=== PATIENT | female | born 1965 | race Caucasian/White ===

== ENCOUNTER 2020-02-22 14:28 | Outpatient (REF) | payer OTHER, SELFPAY ==
--- NOTE | 2020-02-22 | MM_ITS ---
EXAMINATION: MM SCREENING DIGITAL BREAST TOMOSYNTHESIS, BILATERAL CLINICAL INFORMATION: Screening. Asymptomatic. Family history breast cancer in sister. The lifetime risk of breast cancer based on the Tyrer-Cuzick Model is 21%. COMPARISON: Mammography: 07/28/2018; outside mammography 11/29/2015, 11/16/2015, 10/15/2014 ([facility]). TECHNIQUE: Digital breast tomosynthesis is performed in both the craniocaudal and mediolateral oblique views along with computer-aided detection (CAD). Synthesized 2D images are generated from the tomosynthesis. FINDINGS: There are scattered areas of fibroglandular density (ACR BI-RADS breast composition Category b). There are no significant masses, abnormal calcifications, or other abnormalities. Parenchymal pattern is similar to prior exams. No developing density. IMPRESSION: No significant changes from prior studies. ASSESSMENT: BI-RADS 1: Negative RECOMMENDATION: 1. Routine annual mammography screening. 2. The risk of breast cancer based on the Tyrer-Cuzick Model is 21%. Additional annual screening with breast MRI may be of benefit in women with a risk score of 20% or greater. This patient's information was entered into a reminder system with a target due date for their next mammogram.
== END 2020-02-22 14:29 | disposition home or self-care (01) ==
LOC: HO.MAMMO 14:28
PROVIDERS: PCP Family Medicine; Visit Provider Obstetrics & Gynecology
DX: Z12.31 Encounter for screening mammogram for malignant neoplasm of breast (principal)
CPT/HCPCS: 77063; 77067

== ENCOUNTER 2020-04-05 07:35 | Outpatient (REF) | payer OTHER, SELFPAY ==
[2020-04-05 11:13] LABS: MANUAL DIFF FLAG NO
[2020-04-05 11:17] LABS: Basophils Percent Auto 0.6 % (0-2); Eosinophils Absolute Auto 0.1 X10*3/uL (0.0-0.4); Eosinophils Percent Auto 2.1 % (0-4); Hemoglobin 12.4 g/dl (12.0-16.0); Imm Gran Abs Auto 0.01 X10*3/uL (0.00-0.03); Imm Gran Pct Auto 0.2 % (0.0-0.4); Lymphocytes Absolute Auto 1.2 X10*3/uL (1.2-4.9); Lymphocytes Percent Auto 23.1 % (20-40); Mean Corpuscular HGB Conc 32.6 g/dl (31.0-35.0); Mean Corpuscular Hemoglobin 30.4 pg (27.0-33.0); Mean Corpuscular Volume 93.1 fL (80-98); Mean Platelet Volume 10.6 fL (9.4-12.3); Monocytes Absolute Auto 0.4 X10*3/uL (0.1-1.2); Monocytes Percent Auto 7.5 % (2-11); Neutrophils Absolute Auto 3.6 X10*3/uL (2.0-8.3); Neutrophils Percent Auto 66.5 % (45-73); Platelet Count 349 X10*3/uL (160-400); Red Blood Count 4.08 X10*6/uL (4.20-5.50); Red Cell Distribution Width 11.9 % (11.0-16.0); White Blood Count 5.3 X10*3/uL (4.8-10.8)
[2020-04-05 11:47] LABS: Alanine Aminotransferase 20 U/L (0-31); Albumin Level 4.4 g/dL (3.5-5.0); Alkaline Phosphatase 66 U/L (39-117); Anion Gap 16 (12-20); Aspartate Amino Transferase 20 U/L (5-31); Bilirubin Total 0.3 mg/dL (0.0-1.0); Blood Urea Nitrogen 16 mg/dL (9-16); Calcium 9.6 mg/dL (8.4-10.2); Carbon Dioxide 25 mmol/L (22-29); Chloride 100 mmol/L (96-108); Estimated Glomerular Filt Rate > 60; Glucose Random 96 mg/dL (60-115); Potassium 4.5 mmol/l (3.3-5.1); Sodium 136 mmol/L (135-145); Total Protein 7.2 g/dL (6.5-8.0)
[2020-04-05 11:54] LABS: Free T4 (Free Thyroxine) 0.83 ng/dL (0.71-1.85); Thyroid Stimulating Hormone 1.09 uIU/mL (0.32-4.0)
[2020-04-05 12:21] LABS: SARS COV2 IgG Negative (Negative)
[2020-04-08 13:41] LABS: Anti Nuclear Antibody Screen POSITIVE (NEGATIVE)
== END 2020-04-05 07:36 | disposition home or self-care (01) ==
LOC: HO.HMGCLDS 07:35
PROVIDERS: PCP Family Medicine; Visit Provider Nurse Practitioner Family
DX: D89.40 Mast cell activation, unspecified (principal); R09.81 Nasal congestion; M25.50 Pain in unspecified joint; R51.9 Headache, unspecified; R53.83 Other fatigue; Z20.828 Contact with and (suspected) exposure to other viral communicable diseases
CPT/HCPCS: 36415; 80053; 83520; 84439; 84443; 85025; 86038; 86039; 86769

== ENCOUNTER 2020-04-19 12:18 | Outpatient (REF) | payer OTHER, SELFPAY ==
[2020-04-19 13:27] LABS: MANUAL DIFF FLAG NO
[2020-04-19 13:30] LABS: Basophils Percent Auto 0.5 % (0-2); Eosinophils Absolute Auto 0.1 X10*3/uL (0.0-0.4); Eosinophils Percent Auto 1.7 % (0-4); Hematocrit 38.7 % (37-47); Hemoglobin 12.6 g/dl (12.0-16.0); Imm Gran Abs Auto 0.03 X10*3/uL (0.00-0.03); Imm Gran Pct Auto 0.4 % (0.0-0.4); Lymphocytes Absolute Auto 1.7 X10*3/uL (1.2-4.9); Lymphocytes Percent Auto 20.8 % (20-40); Mean Corpuscular HGB Conc 32.6 g/dl (31.0-35.0); Mean Corpuscular Hemoglobin 30.4 pg (27.0-33.0); Mean Corpuscular Volume 93.5 fL (80-98); Mean Platelet Volume 10.2 fL (9.4-12.3); Monocytes Absolute Auto 0.5 X10*3/uL (0.1-1.2); Monocytes Percent Auto 5.5 % (2-11); Neutrophils Absolute Auto 5.9 X10*3/uL (2.0-8.3); Neutrophils Percent Auto 71.1 % (45-73); Platelet Count 361 X10*3/uL (160-400); Red Blood Count 4.14 X10*6/uL (4.20-5.50); White Blood Count 8.3 X10*3/uL (4.8-10.8)
[2020-04-19 14:03] LABS: Alanine Aminotransferase 19 U/L (0-31); Albumin Level 4.7 g/dL (3.5-5.0); Alkaline Phosphatase 75 U/L (39-117); Anion Gap 12 (12-20); Aspartate Amino Transferase 22 U/L (5-31); Bilirubin Total 0.2 mg/dL (0.0-1.0); Blood Urea Nitrogen 14 mg/dL (9-16); C Reactive Protein 0.12 mg/dL (< or = 0.50); Calcium 9.7 mg/dL (8.4-10.2); Carbon Dioxide 28 mmol/L (22-29); Chloride 103 mmol/L (96-108); Estimated Glomerular Filt Rate > 60; Glucose Random 129 mg/dL (60-115); Potassium 4.2 mmol/l (3.3-5.1); Rheumatoid Factor < 15.0 IU/mL (<15.0); Sodium 139 mmol/L (135-145); Total Protein 7.5 g/dL (6.5-8.0)
[2020-04-19 14:18] LABS: Glucose Urine UA NEG (NEG); Leukocyte Esterase Urine NEG (NEG); Nitrite Urine NEG (NEG); Urine Blood NEG (NEG); Urine Ketones NEG (NEG); Urine Protein NEG (NEG-TRACE)
[2020-04-19 14:19] LABS: Appearance Urine CLEAR; Color Urine YELLOW
[2020-04-19 14:24] LABS: Erythrocyte Sedimentation Rate 11 MM/HR (0-20)
[2020-04-19 14:30] LABS: RBC Urine 0 /HPF (0); WBC Urine 0 /HPF (0-4)
--- NOTE | 2020-04-19 16:08 | XR_ITS ---
EXAMINATION: BILATERAL HAND X-RAY CLINICAL INFORMATION: Other specified abnormal immunological findings in serum COMPARISON: Left wrist x-ray January 2017 TECHNIQUE: 3 views of each hand FINDINGS: Right: Bone alignment is normal. No acute fracture or dislocation is seen. There is an old ulnar styloid fracture versus ununited accessory ossification center. There is mild arthritis at the first USP joint with joint space narrowing and osteophyte formation. No erosions are seen. Joint spaces are otherwise normal. Soft tissues are normal. Left: Bone alignment is normal. No fracture or dislocation is seen. There is mild arthritis at the first USP joint with joint space narrowing and osteophyte formation. No erosions are seen. Joint spaces are otherwise normal. Soft tissues are normal. 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
--- NOTE | 2020-04-19 16:08 | XR_ITS ---
EXAMINATION: BILATERAL FOOT X-RAY CLINICAL INFORMATION: Other specified abnormal immunological findings in serum COMPARISON: Previous right ankle x-ray January 2014 TECHNIQUE: 3 views of each foot FINDINGS: Left: Bone alignment is normal. No fracture or dislocation is seen. There is arthritis at the first MTP joint with joint space narrowing and osteophyte formation. No erosions are seen. Joint spaces are otherwise normal. Soft tissues are normal. Right: Bone alignment is normal. No fracture or dislocation is seen. There is arthritis at the first MTP joint with joint space narrowing and osteophyte formation. No erosions are seen. Joint spaces are otherwise normal. Soft tissues are normal. XR/XR foot RT 2V IMPRESSION: Arthritis at the first MTP joints.
--- NOTE | 2020-04-19 16:08 | XR_ITS ---
EXAMINATION: BILATERAL FOOT X-RAY CLINICAL INFORMATION: Other specified abnormal immunological findings in serum COMPARISON: Previous right ankle x-ray January 2014 TECHNIQUE: 3 views of each foot FINDINGS: Left: Bone alignment is normal. No fracture or dislocation is seen. There is arthritis at the first MTP joint with joint space narrowing and osteophyte formation. No erosions are seen. Joint spaces are otherwise normal. Soft tissues are normal. Right: Bone alignment is normal. No fracture or dislocation is seen. There is arthritis at the first MTP joint with joint space narrowing and osteophyte formation. No erosions are seen. Joint spaces are otherwise normal. Soft tissues are normal. XR/XR foot LT 2V IMPRESSION: Arthritis at the first MTP joints.
--- NOTE | 2020-04-19 16:08 | XR_ITS ---
EXAMINATION: BILATERAL HAND X-RAY CLINICAL INFORMATION: Other specified abnormal immunological findings in serum COMPARISON: Left wrist x-ray January 2017 TECHNIQUE: 3 views of each hand FINDINGS: Right: Bone alignment is normal. No acute fracture or dislocation is seen. There is an old ulnar styloid fracture versus ununited accessory ossification center. There is mild arthritis at the first JAIL joint with joint space narrowing and osteophyte formation. No erosions are seen. Joint spaces are otherwise normal. Soft tissues are normal. Left: Bone alignment is normal. No fracture or dislocation is seen. There is mild arthritis at the first JAIL joint with joint space narrowing and osteophyte formation. No erosions are seen. Joint spaces are otherwise normal. Soft tissues are normal. XR/XR hand LT min 3V IMPRESSION: Mild bilateral arthritis at the first JAIL joints.
[2020-04-21 12:03] LABS: Cyclic Citrullinated Peptide <16 UNITS
[2020-04-21 13:38] LABS: Anti DNA DS Antibody 1 IU/mL; Antibody to SS-A Antigen <1.0 NEG AI (<1.0 NEG); Antibody to SS-B Antigen <1.0 NEG AI (<1.0 NEG); SM/Ribonucleoprotein Ab <1.0 NEG AI (<1.0 NEG); Smith Protein <1.0 NEG AI (<1.0 NEG)
[2020-04-21 22:37] LABS: Complement C3 136 mg/dL (83-193)
== END 2020-04-19 12:19 | disposition home or self-care (01) ==
LOC: HO.LAB 12:18
PROVIDERS: PCP Family Medicine; Visit Provider Student in an Organized Health Care Education/Training Program
DX: R76.8 Other specified abnormal immunological findings in serum (principal)
CPT/HCPCS: 36415; 73130; 73620; 80053; 81001; 85025; 85652; 86140; 86160; 86200; 86225; 86235; 86431

== ENCOUNTER 2020-05-03 08:07 | Outpatient (REF) | payer OTHER, SELFPAY ==
[2020-05-03 08:30] LABS: COVID-19 Test Negative (Negative); IDNOW Serial# 55D5AD1C
== END 2020-05-03 08:08 | disposition home or self-care (01) ==
LOC: HO.EMPCOV 08:07
PROVIDERS: PCP Family Medicine; Visit Provider Internal Medicine
DX: Z20.828 Contact with and (suspected) exposure to other viral communicable diseases (principal)
CPT/HCPCS: 87635; C9803

== ENCOUNTER → 2020-05-04 09:42 | Outpatient (BNVA) | payer OTHER, SELFPAY | PROVIDERS: Visit Provider Student in an Organized Health Care Education/Training Program | DX: Z13.89 Encounter for screening for other disorder (principal) ==

== ENCOUNTER → 2020-05-09 13:48 | Outpatient (BNVA) | payer OTHER, SELFPAY | PROVIDERS: PCP Family Medicine; Visit Provider Orthopaedic Surgery | DX: M65.4 Radial styloid tenosynovitis [de Quervain] (principal); M18.12 Unilateral primary osteoarthritis of first carpometacarpal joint, left hand | CPT/HCPCS: 20550 ==

== ENCOUNTER → 2020-05-31 13:25 | Outpatient (BNVA) | payer OTHER, SELFPAY | PROVIDERS: PCP Family Medicine; Visit Provider Orthopaedic Surgery | DX: M65.4 Radial styloid tenosynovitis [de Quervain] (principal); M18.12 Unilateral primary osteoarthritis of first carpometacarpal joint, left hand | CPT/HCPCS: 20600; J1020 ==

== ENCOUNTER 2020-07-18 20:20 | Emergency (ER) | payer OTHER, SELFPAY ==
--- NOTE | ~2020-07-18 | XR_ITS ---
EXAMINATION: XR CHEST CLINICAL INFORMATION: Chest pain COMPARISON: None TECHNIQUE: 2 views of the chest were obtained. FINDINGS: No significant abnormality is noted involving the heart, lungs, mediastinum, bony thorax or soft tissues. XR/XR chest 2V IMPRESSION: Unremarkable examination.
[2020-07-18 20:27] VITALS: BP 188/67; PULSE 101; RESP 18; O2SAT 100; BMI 28.4
[2020-07-18] MEDS: Aspirin 81 MG TAB.CHEW 324 MG PO (21:16)
--- NOTE | 2020-07-18 21:17 | PC.NURSE ---
pt stated she is ok to take baby asa despite the allergy listed.
--- NOTE | 2020-07-18 21:23 | ED.GENADULT ---
HPI - General Adult General Chief complaint: General Medical Stated complaint: CHEST PAIN? Time Seen by Provider: 07/18/20 20:31 Source: patient Mode of arrival: ambulatory Limitations: no limitations History of Present Illness HPI narrative: 54 yo female with past medical history of hypertension, mast cell activation syndrome here with complaints of chest fullness and indigestion x 48 hrs (intermittent) which does not change with position changes or activity. Associated with fullness, no nausea, vomiting, diarrhea or abdominal pain. Occasionally takes my breath per patient. Since last night pain now in right side of neck into right shoulder and down arm which feels deep and not worsened with movement or activity. Took flexeril and advil at home with continued symptoms. No leg pain, swelling, recent travel or sick contact Related Data Home Medications Medication Instructions Recorded Confirmed atenolol 25 mg tablet 25 mg PO DAILY 04/19/20 05/04/20 cetirizine 10 mg tablet 10 mg PO DAILY 04/19/20 05/04/20 cromolyn 20 mg/2 mL solution for 2 ml INHALATION QID 04/19/20 05/04/20 nebulization gabapentin 300 mg capsule 300 mg PO BID 04/19/20 05/04/20 ibuprofen 800 mg tablet 800 mg PO TID 04/19/20 05/04/20 multivitamin 1 tab PO DAILY 04/19/20 05/04/20 fluticasone propionate 50 1 spray INTRANASAL DAILY 05/04/20 05/04/20 mcg/actuation nasal spray,suspension Allergies Allergy/AdvReac Type Severity Reaction Status Date / Time aspirin [ASPIRIN] Allergy Intermediate ITCHING Verified 07/18/20 20:27 codeine [CODEINE] Allergy Intermediate RASH, HIVES Verified 07/18/20 20:27 adhesive tape [Adhesive Tape] Allergy Mild BLISTERS Verified 07/18/20 20:27 morphine [MORPHINE] Allergy Mild HIVES Verified 07/18/20 20:27 oxycodone [OXYCODONE] Allergy Mild HIVES Verified 07/18/20 20:27 percocet Allergy Intermediate hives Uncoded 07/18/20 20:27 Review of Systems Review of Systems: Yes all other systems are reviewed and are negative Constitutional: Constitutional: Reports no additional constitutional complaints, Denies body ache(s), Denies chills, Denies fever(s), Denies headache(s) and Denies weakness Eyes: Eyes: Reports no additional eye complaints and Denies change in vision ENT: Reports system reviewed and no additional complaints, except as documented, Denies dizziness, Denies headache(s), Denies nasal congestion, Denies nasal discharge and Reports neck pain Cardiovascular: Cardiovascular: Reports no additional cardiovascular complaints, Reports chest pain, Denies leg edema and Reports dyspnea Respiratory: Respiratory: Reports no additional respiratory complaints, Denies cough and Reports dyspnea Gastrointestinal: Gastrointestinal: Reports no additional gastrointestinal complaints, Denies abdominal pain, Denies diarrhea, Denies nausea and Denies vomiting Genitourinary: Genitourinary: Reports no additional female genitourinary complaints and Denies urinary incontinence Musculoskeletal: Musculoskeletal: Reports no additional musculoskeletal complaints, Denies back pain, Denies arthralgias, Denies joint swelling, Reports neck pain, Denies numbness, Reports radiating pain into limb and Denies tingling Integumentary/Breasts: Skin/Breast: Reports system reviewed and no additional complaints, except as docu and Denies rash Neurologic: Reports system reviewed and no additional complaints, except as documented, Denies Abnormal speech present, Denies dizziness, Denies headache(s), Denies numbness, Denies tingling and Denies weakness PMFSH Past Medical History Attestation statement: The following information was validated with the patient. 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 Physical Exam Vital Signs: Vital Signs: Last Vital Signs Pulse 76 07/19/20 00:09 Resp 16 07/19/20 00:09 BP 153/47 H 07/19/20 00:09 Pulse Ox 99 07/19/20 00:09 Body Mass Index 28.4 Const: General: cooperative, healthy appearing, comfortable and no acute distress Orientation/consciousness: patient oriented x3 Limitations: no limitations HENMT: Head: Yes normal to inspection Ears: hearing grossly normal bilaterally General nose exam: Normal external nose present Face and sinus: Yes normal facial exam Mouth: Normal oral and palatal mucosa present Throat: Yes posterior oropharynx normal Eyes: General: appearance normal, both eyes and all related structures Pupils: Equal, round and reactive pupils present Neck: Neck: Yes normal visual inspection Chest: Chest palpation & inspection: normal inspection of the chest Resp: Effort & Inspection: normal respiratory effort Auscultation: clear to auscultation bilaterally Cardio: Rate: regular rate Rhythm: regular rhythm Peripheral pulses: Peripheral pulses 2+ throughout GI: Inspection: Yes normal to inspection Palpation (GI): Soft to palpation and nontender Auscultation: normal bowel sounds Back/Spine/Pelvis: Thoracic/Lumbar Spine: thoracic and lumbar spine normal to inspection Skin: General skin exam: no rashes or lesions noted Neuro: General: patient oriented x3, no focal motor deficits and normal sensation to monofilament Cranial nerves: Yes Equal, round and reactive pupils present Cognition (Neuro): normal cognition Speech: No Abnormal speech present Gait exam (Neuro): Normal gait present Motor exam (neuro): 5/5 motor strength present throughout Extrem: General: Yes normal to inspection, Yes no pedal edema and Yes no calf tenderness Course Course Course Narrative: 54-year-old female here with chest discomfort, shoulder and neck discomfort x2 days. Will need labs, EKG, chest x-ray 0030-EKG x2 unchanged. Labs including troponin and D-dimer negative. Chest x-ray unremarkable. With atypical symptoms greater than 48 hours less likely ACS. Reviewed findings with the patient. Recommended follow-up with her primary care doctor for her mildly elevated blood pressure and possible Cardiology. Reviewed worrisome signs and symptoms and when to return to the emergency department. Comfortable discharge home. Medical Decision Making MDM Narrative Medical decision making narrative: ACS, GERD, gastritis, PE, pneumonia Less likely ACS with atypical chest pain. 48 hours with negative troponin and no ischemic changes on the EKG. Less likely PE with negative D-dimer and no hypoxia or tachycardia or clinical signs and symptoms of DVT Medical Records Medical records reviewed: Yes I reviewed the patient's medical records. Lab Data Lab results reviewed: Yes I reviewed the patient's lab results. Result diagrams: 07/18/20 22:15 07/18/20 22:15 Labs: Lab Results 07/18/20 07/18/20 07/18/20 Range/Units 22:15 22:15 22:15 WBC 7.6 (4.8-10.8) X10*3/uL RBC 4.05 L (4.20-5.50) X10*6/uL Hgb 12.2 (12.0-16.0) g/dl Hct 37.1 (37-47) % MCV 91.6 (80-98) fL MCH 30.1 (27.0-33.0) pg MCHC 32.9 (31.0-35.0) g/dl RDW 11.9 (11.0-16.0) % Plt Count 287 (160-400) X10*3/uL MPV 10.7 (9.4-12.3) fL Immature Gran % (Auto) 0.3 (0.0-0.4) % Neut % (Auto) 63.7 (45-73) % Lymph % (Auto) 25.9 (20-40) % [place] % (Auto) 7.2 (2-11) % Eos % (Auto) 2.5 (0-4) % Baso % (Auto) 0.4 (0-2) % Lymph # (Auto) 2.0 (1.2-4.9) X10*3/uL [place] # (Auto) 0.6 (0.1-1.2) X10*3/uL Eos # (Auto) 0.2 (0.0-0.4) X10*3/uL Baso # (Auto) 0.0 (0.0-0.2) X10*3/uL Abs Immat Gran (auto) 0.02 (0.00-0.03) X10*3/uL Absolute Neuts (auto) 4.9 (2.0-8.3) X10*3/uL Absolute Nucleated RBC 0.000 (0.0-0.012) X10*3/uL Nucleated RBC % (auto) 0.0 (0.0-0.2) /100WBC PT 10.8 (10.8-13.0) SEC INR 0.9 (0.9-1.1) D-Dimer < 200 NG/ML Sodium 142 (135-145) mmol/L Potassium 4.0 (3.3-5.1) mmol/L Chloride 104 (96-108) mmol/L Carbon Dioxide 28 (22-29) mmol/L Anion Gap 14 (12-20) BUN 18 H (9-16) mg/dL Creatinine 0.88 (0.5-1.4) mg/dL Estim Creat Clear Calc 71.7 Estimated GFR > 60 Random Glucose 114 (60-115) mg/dL Calcium 9.4 (8.4-10.2) mg/dL Magnesium 1.9 (1.6-2.6) mg/dL Total Bilirubin < 0.2 (0.0-1.0) mg/dL Direct Bilirubin < 0.2 (0.0-0.5) mg/dL AST 19 (5-31) U/L ALT 21 (0-31) U/L Alkaline Phosphatase 70 (39-117) U/L Troponin I High Sens (<3.5-17.0) ng/L Total Protein 7.0 (6.5-8.0) g/dL Albumin 4.3 (3.5-5.0) g/dL COVID-19 ([facility]) (Negative) COVID-19 Clin Com 07/18/20 07/18/20 Range/Units 22:15 22:15 WBC (4.8-10.8) X10*3/uL RBC (4.20-5.50) X10*6/uL Hgb (12.0-16.0) g/dl Hct (37-47) % MCV (80-98) fL MCH (27.0-33.0) pg MCHC (31.0-35.0) g/dl RDW (11.0-16.0) % Plt Count (160-400) X10*3/uL MPV (9.4-12.3) fL Immature Gran % (Auto) (0.0-0.4) % Neut % (Auto) (45-73) % Lymph % (Auto) (20-40) % [place] % (Auto) (2-11) % Eos % (Auto) (0-4) % Baso % (Auto) (0-2) % Lymph # (Auto) (1.2-4.9) X10*3/uL [place] # (Auto) (0.1-1.2) X10*3/uL Eos # (Auto) (0.0-0.4) X10*3/uL Baso # (Auto) (0.0-0.2) X10*3/uL Abs Immat Gran (auto) (0.00-0.03) X10*3/uL Absolute Neuts (auto) (2.0-8.3) X10*3/uL Absolute Nucleated RBC (0.0-0.012) X10*3/uL Nucleated RBC % (auto) (0.0-0.2) /100WBC PT (10.8-13.0) SEC INR (0.9-1.1) D-Dimer NG/ML Sodium (135-145) mmol/L Potassium (3.3-5.1) mmol/L Chloride (96-108) mmol/L Carbon Dioxide (22-29) mmol/L Anion Gap (12-20) BUN (9-16) mg/dL Creatinine (0.5-1.4) mg/dL Estim Creat Clear Calc Estimated GFR Random Glucose (60-115) mg/dL Calcium (8.4-10.2) mg/dL Magnesium (1.6-2.6) mg/dL Total Bilirubin (0.0-1.0) mg/dL Direct Bilirubin (0.0-0.5) mg/dL AST (5-31) U/L ALT (0-31) U/L Alkaline Phosphatase (39-117) U/L Troponin I High Sens < 3.5 (<3.5-17.0) ng/L Total Protein (6.5-8.0) g/dL Albumin (3.5-5.0) g/dL COVID-19 ([facility]) Negative (Negative) COVID-19 Clin Com See Note Imaging Data Chest x-ray: Attestation: I personally reviewed and interpreted this imaging study as follows: Radiologist's impression: EXAMINATION: XR CHEST CLINICAL INFORMATION: Chest pain COMPARISON: None TECHNIQUE: 2 views of the chest were obtained. FINDINGS: No significant abnormality is noted involving the heart, lungs, mediastinum, bony thorax or soft tissues. XR/XR chest 2V IMPRESSION: Unremarkable examination. ECG Data Attestation: I personally reviewed and interpreted this ECG as follows: Interpretation: 2022-SR with short OR, non specific st changes, normal qrs, normal qtc Repeat 0000 shows sr with short pr with rate 72, normal qrs, normal qtc Discharge Plan Discharge Clinical Impression: Atypical chest pain Patient Disposition: Home, Self-Care Instructions: Chest Pain (ED) Additional Instructions: Your blood work, EKG and chest x-ray all looked unremarkable today. Your blood pressure was mildly elevated and you can monitor this at home and follow-up with her primary care doctor for medication changes as needed. I have given you a referral for Cardiology and you can follow-up with them. Prescriptions: No Action gabapentin 300 mg capsule 300 mg PO BID RF: 0 ibuprofen 800 mg tablet 800 mg PO TID RF: 0 cromolyn 20 mg/2 mL solution for nebulization 2 ml inhalation QID RF: 0 atenolol 25 mg tablet 25 mg PO DAILY RF: 0 cetirizine [Zyrtec] 10 mg tablet 10 mg PO DAILY RF: 0 multivitamin Tablet 1 tab PO DAILY RF: 0 fluticasone propionate 50 mcg/actuation spray,suspension 1 spray intranasal DAILY RF: 0 Referrals: Abner Pratt MD [Physician] - 2 days Interventions: ED Discharge Assessment Last Done: 07/19/20 00:54 Discharge Date/Time: 07/19/20 00:54
--- NOTE | 2020-07-18 22:24 | PC.NURSE ---
labs drawn, covid swab performed
[2020-07-18 22:28] LABS: MANUAL DIFF FLAG NO
[2020-07-18 22:41] LABS: Basophils Percent Auto 0.4 % (0-2); COVID-19 Test Negative (Negative); Eosinophils Absolute Auto 0.2 X10*3/uL (0.0-0.4); Eosinophils Percent Auto 2.5 % (0-4); Hematocrit 37.1 % (37-47); Hemoglobin 12.2 g/dl (12.0-16.0); Imm Gran Abs Auto 0.02 X10*3/uL (0.00-0.03); Imm Gran Pct Auto 0.3 % (0.0-0.4); Lymphocytes Percent Auto 25.9 % (20-40); Mean Corpuscular HGB Conc 32.9 g/dl (31.0-35.0); Mean Corpuscular Hemoglobin 30.1 pg (27.0-33.0); Mean Corpuscular Volume 91.6 fL (80-98); Mean Platelet Volume 10.7 fL (9.4-12.3); Monocytes Absolute Auto 0.6 X10*3/uL (0.1-1.2); Monocytes Percent Auto 7.2 % (2-11); Neutrophils Absolute Auto 4.9 X10*3/uL (2.0-8.3); Neutrophils Percent Auto 63.7 % (45-73); Platelet Count 287 X10*3/uL (160-400); Red Blood Count 4.05 X10*6/uL (4.20-5.50); Red Cell Distribution Width 11.9 % (11.0-16.0); White Blood Count 7.6 X10*3/uL (4.8-10.8)
[2020-07-18 22:51] LABS: Troponin-I High Sensitivity < 3.5 ng/L (<3.5-17.0)
[2020-07-18 22:52] LABS: Alanine Aminotransferase 21 U/L (0-31); Albumin Level 4.3 g/dL (3.5-5.0); Alkaline Phosphatase 70 U/L (39-117); Anion Gap 14 (12-20); Aspartate Amino Transferase 19 U/L (5-31); Bilirubin Direct < 0.2 mg/dL (0.0-0.5); Bilirubin Total < 0.2 mg/dL (0.0-1.0); Blood Urea Nitrogen 18 mg/dL (9-16); Calcium 9.4 mg/dL (8.4-10.2); Carbon Dioxide 28 mmol/L (22-29); Chloride 104 mmol/L (96-108); Creatinine Clr Calc Pharmacy 71.7; Estimated Glomerular Filt Rate > 60; Glucose Random 114 mg/dL (60-115); Magnesium 1.9 mg/dL (1.6-2.6); Sodium 142 mmol/L (135-145)
[2020-07-18 23:00] LABS: INTERNATIONAL NORM RATIO 0.9 (0.9-1.1); Prothrombin Time 10.8 SEC (10.8-13.0)
[2020-07-18 23:41] LABS: D Dimer < 200 NG/ML
--- NOTE | 2020-07-18 23:50 | ECG_ITS ---
Test Reason : REPEAT Blood Pressure : / mmHG Vent. Rate : 072 BPM Atrial Rate : 072 BPM P-R Int : 108 ms QRS Dur : 078 ms QT Int : 380 ms P-R-T Axes : 045 069 026 degrees QTc Int : 416 ms Sinus rhythm with short IL Otherwise normal ECG When compared with ECG of 20-MAY-2012 18:25, No significant change was found Referred By: Le Sylvester Electronically Signed By:Abner Pratt
[2020-07-19 00:09] VITALS: BP 153/47; PULSE 76; RESP 16; O2SAT 99
== END 2020-07-19 00:54 | disposition home or self-care (01) ==
PROVIDERS: Nurse Practitioner Family; Emergency Provider Internal Medicine
DX: R07.89 Other chest pain (principal); Z20.822 Contact with and (suspected) exposure to COVID-19; I10 Essential (primary) hypertension; D89.40 Mast cell activation, unspecified
CPT/HCPCS: 36415; 71046; 80048; 80076; 83735; 84484; 85025; 85379; 85610; 87635; 93005; 99283; 99284

== ENCOUNTER 2020-08-22 10:02 | Outpatient (REF) | payer OTHER, SELFPAY ==
--- NOTE | ~2020-08-22 | XR_ITS ---
EXAMINATION: XR HAND, LEFT CLINICAL INFORMATION: Left hand pain. COMPARISON: Left hand radiographs dated 04/19/2020. TECHNIQUE: PA, lateral, and oblique views of the left hand. AP, oblique, and lateral views of the left thumb. FINDINGS: No acute fracture or dislocation. Normal carpal alignment. Mild joint space narrowing with marginal osteophytes at the 1st carpometacarpal joint, increased when compared to the prior examination. Tiny triscaphe marginal osteophytes, increased when compared to the prior examination. No osseous erosion. No abnormal soft tissue calcification. XR/XR hand LT min 3V IMPRESSION: [id number] first carpal metacarpal with more mild triscaphe osteoarthritis. Findings have progressed when compared to the prior radiographs.
== END 2020-08-22 10:03 | disposition home or self-care (01) ==
LOC: HO.HOSX 10:02
PROVIDERS: Visit Provider Orthopaedic Surgery
DX: M79.642 Pain in left hand (principal); M18.12 Unilateral primary osteoarthritis of first carpometacarpal joint, left hand; M65.4 Radial styloid tenosynovitis [de Quervain]
CPT/HCPCS: 73130

== ENCOUNTER → 2020-09-05 11:11 | Outpatient (BNVA) | payer OTHER, SELFPAY | PROVIDERS: Visit Provider Orthopaedic Surgery | DX: M65.4 Radial styloid tenosynovitis [de Quervain] (principal); M18.12 Unilateral primary osteoarthritis of first carpometacarpal joint, left hand; M19.041 Primary osteoarthritis, right hand; M19.042 Primary osteoarthritis, left hand | CPT/HCPCS: 20600; J1020 ==

== ENCOUNTER 2020-11-04 10:28 | Outpatient (REF) | payer OTHER, SELFPAY ==
--- NOTE | ~2020-11-04 | US_ITS ---
EXAMINATION: US VENOUS ULTRASOUND WITH DOPPLER LOWER EXTREMITY, RIGHT CLINICAL INFORMATION: Pain and swelling right lower extremity. Paresthesia right lateral calf. Assess for occult DVT COMPARISON: None TECHNIQUE: Ultrasound of the deep veins is performed from the hip to the calf with compression sonography and color and pulse Doppler assessment. Spectral analysis with color-flow imaging is performed. Additional soft tissue imaging performed in area of symptoms right calf. FINDINGS: There is normal venous compression and respiratory variation and augmented flow. The visualized common femoral vein, superficial femoral vein, profunda femoral vein, popliteal vein, and the trifurcation region shows no evidence of deep venous thrombosis. There is no popliteal fossa cyst. No fluid tracking in the soft tissue planes. US/US venous duplex LE RT IMPRESSION: No DVT demonstrated in the right lower extremity.
== END 2020-11-04 10:29 | disposition home or self-care (01) ==
LOC: HO.HMGCX 10:28
PROVIDERS: PCP Family Medicine; Visit Provider Family Medicine
DX: M79.661 Pain in right lower leg (principal)
CPT/HCPCS: 93971

== ENCOUNTER → 2020-11-09 13:25 | Outpatient (BNVA) | payer OTHER, SELFPAY | PROVIDERS: PCP Family Medicine; Visit Provider Orthopaedic Surgery | DX: M65.4 Radial styloid tenosynovitis [de Quervain] (principal); M18.12 Unilateral primary osteoarthritis of first carpometacarpal joint, left hand; M65.311 Trigger thumb, right thumb | CPT/HCPCS: 20550; J1100 ==

== ENCOUNTER → 2020-12-12 09:56 | Outpatient (BNVA) | payer OTHER, SELFPAY | PROVIDERS: Visit Provider Orthopaedic Surgery ==

== ENCOUNTER 2020-12-15 10:06 | Day surgery (SDC) | payer OTHER, SELFPAY ==
[2020-12-15 10:33] VITALS: BP 155/71; PULSE 89; RESP 16; TEMP 37.1; O2SAT 100; BMI 25.2
--- NOTE | 2020-12-15 11:40 | MHC.SHP ---
Pre-Procedural Eval Section A Date of Service: 12/15/20 The patient is an INPATIENT: No The History & Physical has been completed within 30 days and I have reviewed it.: Yes Section B Chief Complaint: thumb trigger Allergies: Allergies Allergy/AdvReac Type Severity Reaction Status Date / Time aspirin [ASPIRIN] Allergy Intermediate ITCHING Verified 12/12/20 10:12 codeine [CODEINE] Allergy Intermediate RASH, HIVES Verified 12/12/20 10:12 adhesive tape [Adhesive Tape] Allergy Mild BLISTERS Verified 12/12/20 10:12 morphine [MORPHINE] Allergy Mild HIVES Verified 12/12/20 10:12 oxycodone [OXYCODONE] Allergy Mild HIVES Verified 12/12/20 10:12 percocet Allergy Intermediate hives Uncoded 07/18/20 20:27 Plan Diagnosis/Plan: Unchanged I have reviewed the history and physical and performed a pertinent physical examination on my patient. No changes have occurred unless specified.
--- NOTE | 2020-12-15 11:41 | P.OP_ITS ---
Operative Note Operative Note Date of Service: 12/15/20 Narrative: Operative Note Preop diagnosis: 1. Right trigger thumb Postop diagnosis: Same Procedure: 1. Right thumb A1 luna release Surgeon: Maribell Santos MD Anesthesia: local block using 1% lidocaine with epinephrine Findings: No locking or catching after A1 luna release EBL: Less than 5 mL Tourniquet time: None Specimens: None Complications: None Disposition: Brought to recovery room in stable condition Plan: Follow-up for 7-10 days for wound check and suture removal Indications: The patient is 55 years old, with a right thumb trigger finger that has been unresponsive to nonoperative management. The risks and benefits of operative treatment including but not limited to risk of damage to blood vessels, nerves, tendons, infection, persistent pain, persistent symptoms, recurrence or possible need for additional surgery were discussed with the patient and the patient wishes to proceed with surgery. Procedure: Once consent was obtained a local block was performed in the preop area using a combination of 1% lidocaine with epinephrine. The patient was then brought back to the operating suite and placed on the operative table in supine position. A tourniquet was applied to the proximal aspect of the right upper extremity and the limb was prepped and draped in a standard surgical fashion. Once assured that we had a good block, a 1.5 cm oblique incision was made agusto tered over the A1 luna of the right thumb . The incision was made through the skin to the subcutaneous tissues using a #15 blade. Careful dissection was made down to the level of the A1 luna using tenotomy scissors, with care being taken to protect the nearby neurovascular structures. A longitudinal incision was made in the A1 luna 1st using a #15 blade, then using tenotomy scissors under direct visualization. The A1 luna was noted to be thickened. Following our A1 luna release, we no longer saw any locking or catching of the digit with flexion and extension. Once satisfied with our A1 luna release the wound was copiously irrigated with normal saline and hemostasis was obtained with a brief period of local pressure. The skin edges were reapproximated with some 5.0 nylon suture material and a sterile dressing was applied. The patient appears to have tolerated the procedure well and with no complications. All digits were well vascularized at the conclusion of the case.
[2020-12-15 12:09] VITALS: BP 155/71; PULSE 67; RESP 16; TEMP 36.3; O2SAT 98
== END 2020-12-15 12:15 | disposition home or self-care (01) ==
PROVIDERS: PCP Family Medicine; Visit Provider Orthopaedic Surgery
PROC: (CPT 26055; principal; 2020-12-15 12:00)
DX: M65.311 Trigger thumb, right thumb (principal); I10 Essential (primary) hypertension; D89.40 Mast cell activation, unspecified; Z79.899 Other long term (current) drug therapy; Z91.040 Latex allergy status; Z88.8 Allergy status to other drugs, medicaments and biological substances
CPT/HCPCS: 26055

== ENCOUNTER → 2020-12-26 14:22 | Outpatient (BNVA) | payer OTHER, SELFPAY | PROVIDERS: PCP Family Medicine; Visit Provider Orthopaedic Surgery ==

== ENCOUNTER 2021-02-03 10:26 | Outpatient (REF) | payer OTHER, SELFPAY ==
--- NOTE | ~2021-02-03 | XR_ITS ---
EXAMINATION: XR HAND, RIGHT CLINICAL INFORMATION: Pain in the right hand COMPARISON: None TECHNIQUE: PA, lateral, and oblique views of the right hand. FINDINGS: The bones and soft tissues are normal. No fracture. Alignment is anatomic. Joint spaces are maintained. No erosions or soft tissue calcifications. XR/XR hand RT min 3V IMPRESSION: Normal right hand.
== END 2021-02-03 10:27 | disposition home or self-care (01) ==
LOC: HO.HOSX 10:26
PROVIDERS: PCP Family Medicine; Visit Provider Physician Assistant
DX: S66.801D Unspecified injury of other specified muscles, fascia and tendons at wrist and hand level, right hand, subsequent encounter (principal); M65.311 Trigger thumb, right thumb
CPT/HCPCS: 73130

== ENCOUNTER → 2021-02-06 09:53 | Outpatient (BNVA) | payer OTHER, SELFPAY | PROVIDERS: PCP Family Medicine; Visit Provider Physician Assistant ==

== ENCOUNTER 2021-02-27 10:30 | Emergency (ER) | payer OTHER, SELFPAY ==
--- NOTE | 2021-02-27 | ECG_ITS ---
Test Reason : PALPITATIONS Blood Pressure : / mmHG Vent. Rate : 060 BPM Atrial Rate : 060 BPM P-R Int : 112 ms QRS Dur : 084 ms QT Int : 400 ms P-R-T Axes : 054 060 043 degrees QTc Int : 400 ms Normal sinus rhythm Normal ECG No significant changes seen Referred By: Generic ED Physician Electronically Signed By:LORAINE MALIK MD
--- NOTE | ~2021-02-27 | CT_ITS ---
EXAMINATION: CT HEAD WITHOUT CONTRAST CLINICAL INFORMATION: Worst headache of life Saturday, right eye blurry vision, hypertension. COMPARISON: Head CT dated 05/20/2012. TECHNIQUE: Contiguous axial imaging was performed from the skull base to vertex without intravenous administration of contrast. Coronal and sagittal reformatted images were obtained. This CT examination was performed using dose optimization techniques as appropriate, variously including the following: *Automated exposure control *Adjustment of mA and/or kV according to patient size (this includes techniques or standardized protocols for targeted exams where dose is matched to indication/reason for exam; i.e. extremities or head) *Use of iterative reconstruction technique DLP: 644 mGy-cm FINDINGS: There is no evidence of acute intracranial hemorrhage or territorial infarction. No abnormal mass effect or midline shift is seen. Ladd to white matter differentiation is well preserved. No extra-axial fluid collections are identified. The ventricles are normal in size. There is no abnormal attenuation within the brain parenchyma. The osseous structures and soft tissues are normal. The mastoid air cells and visualized portions of the paranasal sinuses are well aerated. CT/CT head/brain wo con IMPRESSION: No acute intracranial pathology.
--- NOTE | ~2021-02-27 | CT_ITS ---
EXAMINATION: CT ANGIOGRAM NECK WITH CONTRAST CT ANGIOGRAM BRAIN WITH CONTRAST CLINICAL INFORMATION: Headache. Hypertension. Rule out aneurysm. Right eye blurry vision. COMPARISON: Noncontrast head CT performed earlier today. TECHNIQUE: Test bolus sequences followed by intravenous administration 100 mL of Omnipaque 350. Helical imaging was performed in the axial plane from the thoracic inlet to the skull vertex. Delayed postcontrast imaging of the head was also performed. The data was processed at the lead neurodiagnostic technologist workstation for generation of MIP sequences. Angled MIPs and volume rendered reformatted images were also generated at an offline 3D workstation. Stenoses are assessed in accordance with NASCET criteria unless otherwise indicated. This CT examination was performed using dose optimization techniques as appropriate, variously including the following: *Automated exposure control *Adjustment of mA and/or kV according to patient size (this includes techniques or standardized protocols for targeted exams where dose is matched to indication/reason for exam; i.e. extremities or head) *Use of iterative reconstruction technique DLP: 1413 mGy-cm FINDINGS: Head CT: There is no intracranial hemorrhage, large acute infarction, or mass lesion. The ventricles are normal in size and configuration without evidence of hydrocephalus. No abnormal enhancement is seen. The visualized paranasal sinuses and mastoid air cells are clear. Neck CTA: The aortic arch and great vessel origins are patent. The bilateral common carotid arteries are patent. Atheromatous changes are seen at the right carotid bifurcation resulting in 65% stenosis of the right internal carotid artery origin. The cervical segment of the right ICA is patent. Atheromatous changes are seen at the left carotid bifurcation and along the proximal left internal carotid artery but results in less than 50% stenosis. The cervical segments of both vertebral arteries appear patent. Head CTA: The ICAs, ACAs, and MCAs are patent. The intradural vertebral arteries and basilar artery are patent. The cutter machine are patent. No aneurysm is seen. Non-vascular findings: The cervical soft tissues are within normal limits. The upper lungs are clear. Mild degenerative changes are noted in the spine. CT/CT angio head neck IMPRESSION: CT head: No intracranial hemorrhage or large acute infarction. CTA neck: No hemodynamically significant stenosis in the major arteries of the neck. CTA head: No large vessel occlusion or significant stenosis within the intracranial circulation. No evidence of aneurysm.
[2021-02-27 11:27] VITALS: BP 183/81; PULSE 51; RESP 16; TEMP 36.7; O2SAT 100; BMI 25.0
[2021-02-27 14:22] LABS: Troponin-I High Sensitivity < 3.5 ng/L (<3.5-17.0)
[2021-02-27 14:24] LABS: Alanine Aminotransferase 25 U/L (0-31); Albumin Level 4.7 g/dL (3.5-5.0); Alkaline Phosphatase 72 U/L (39-117); Anion Gap 16 (12-20); Aspartate Amino Transferase 30 U/L (5-31); Bilirubin Direct < 0.2 mg/dL (0.0-0.5); Bilirubin Total 0.2 mg/dL (0.0-1.0); Blood Urea Nitrogen 11 mg/dL (9-16); Calcium 10.3 mg/dL (8.4-10.2); Carbon Dioxide 23 mmol/L (22-29); Chloride 106 mmol/L (96-108); Creatinine Clr Calc Pharmacy 77.4; Estimated Glomerular Filt Rate > 60; Glucose Random 87 mg/dL (60-115); Lipase 33 U/L (8-78); Potassium 5.1 mmol/L (3.3-5.1); Sodium 140 mmol/L (135-145); Total Protein 8.1 g/dL (6.5-8.0)
[2021-02-27 15:48] LABS: Magnesium 2.3 mg/dL (1.6-2.6)
[2021-02-27] MEDS: Butalb/Acetamin/Caff 50/325/40 TABLET 1 TAB PO (15:56)
[2021-02-27] MEDS: atenoloL 50 MG TABLET PO (15:56)
[2021-02-27 16:00] VITALS: BP 146/67; PULSE 55; RESP 20
--- NOTE | 2021-02-27 16:10 | PC.NURSE ---
pt alert and orinetd x4, vss. pt reports increased sob x1 week. pt has history of CHF. he also has a pace maker. per ems pt was satting high 80s during transport to ed, he was put on 5L of oxygen in the ambulance. pt's o2 sat on arrival to the ed was 100% on 5L. Pt slowly decreased to 2L and satting at 97% on 2L n/c. Pt denies sob/chest pain/headache/dizziness. no respiratory distress/difficulty breathing noted.
--- NOTE | 2021-02-27 16:34 | ED_ITS ---
HPI - General Adult General Chief complaint: General Medical Stated complaint: HBP Time Seen by Provider: 02/27/21 14:04 Source: patient Mode of arrival: ambulatory History of Present Illness HPI narrative: 55-year-old female with a past medical history of HTN, mast cell activation syndrome, presenting to the ED complaining of HTN x3 days, and sudden onset headache waking her up from sleep on Saturday around 6:00 a.m. Reports headache has been constant since onset, mildly relieved with Motrin at home with associated nausea Reports blood pressure has been fluctuating systolics 180 and above, has been compliant with Atenolol 50 mg p.o. daily. Admits to intermittent palpitations. reports right eye erythema noted Saturday with associated right eye blurry vision. Denies CP, SOB, abdominal pain, vomiting, diarrhea, weakness, numbness, tingling. Denies taking anticoagulation Onset (ago): day(s) Related Data Home Medications Medication Instructions Recorded Confirmed atenolol 25 mg tablet 25 mg PO DAILY 04/19/20 05/04/20 cetirizine 10 mg tablet (Zyrtec) 10 mg PO DAILY 04/19/20 05/04/20 cromolyn 20 mg/2 mL solution for 2 ml INHALATION QID 04/19/20 05/04/20 nebulization gabapentin 300 mg capsule 300 mg PO BID 04/19/20 05/04/20 ibuprofen 800 mg tablet 800 mg PO TID 04/19/20 05/04/20 multivitamin 1 tab PO DAILY 04/19/20 05/04/20 fluticasone propionate 50 1 spray INTRANASAL DAILY 05/04/20 05/04/20 mcg/actuation nasal spray,suspension Previous Rx's Medication Instructions Recorded hydrocodone 5 mg-acetaminophen 325 1 tab PO Q4-6H PRN #5 tab 12/15/20 mg tablet gjizhrefeh-hrmlsezdpouyc-acysfjaw 1 cap PO Q4-6H PRN #14 cap 02/27/21 50 mg-300 mg-40 mg capsule (Fioricet) ondansetron HCl 4 mg tablet 4 mg PO Q8H PRN #10 tab 02/27/21 (Zofran) Allergies Allergy/AdvReac Type Severity Reaction Status Date / Time aspirin [ASPIRIN] Allergy Intermediate ITCHING Verified 12/12/20 10:12 codeine [CODEINE] Allergy Intermediate RASH, HIVES Verified 12/12/20 10:12 adhesive tape [Adhesive Tape] Allergy Mild BLISTERS Verified 12/12/20 10:12 morphine [MORPHINE] Allergy Mild HIVES Verified 12/12/20 10:12 oxycodone [OXYCODONE] Allergy Mild HIVES Verified 12/12/20 10:12 percocet Allergy Intermediate hives Uncoded 07/18/20 20:27 Review of Systems Review of Systems: Constitutional: No Fever, No Chills, No Fatigue, No Malaise ENT/Mouth: No Ear Pain, No Nasal Congestion, No sore throat, No Rhinorrhea Eyes: No Eye Pain, No Swelling, No Redness, No Foreign Body, No Discharge, + Vision Changes Cardiovascular: No Chest Pain, No SOB, No Orthopnea, No Edema, + Palpitations Respiratory: No Cough, No Sputum, No Dyspnea Gastrointestinal: + Nausea, No Vomiting, No Diarrhea, No Constipation, No Abdominal pain Genitourinary: No Dysuria,No Hematuria, No Flank Pain Musculoskeletal: No joint pain, No Myalgias, No Joint Swelling Skin: No Skin Lesions, No rash Neuro: No Weakness, No Numbness, No Paresthesias, No Loss of Consciousness, + Dizziness, + Headache Yes all other systems are reviewed and are negative Eyes: Eyes: Reports photophobia Neurologic: Denies Abnormal speech present [facility] Past Medical History Attestation statement: The following information was validated with the patient. 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 Physical Exam Vital Signs: Vital Signs: Last Vital Signs Temp 98.1 F 02/27/21 11:27 Pulse 53 02/27/21 18:12 Resp 20 02/27/21 16:00 BP 113/53 L 02/27/21 18:12 Pulse Ox 100 02/27/21 11:27 Body Mass Index 25.0 Const: General: cooperative, healthy appearing and no acute distress Orientation/consciousness: patient oriented x3 Limitations: no limitations HENMT: Head: Yes normal to inspection and Yes atraumatic Ears: hearing grossly normal bilaterally General nose exam: Normal external nose present Face and sinus: Yes normal facial exam Mouth: Normal oral and palatal mucosa present Throat: Yes posterior oropharynx normal Eyes: General: appearance normal, both eyes and all related structures Periorbital: periorbital findings normal Eyelids: Yes eyelids normal Conjunctivae: conjunctival abnormal (subconjunctival hemorrhage) right Pupils: Equal, round and reactive pupils present EOM: EOMs intact bilaterally Direct Ophthalmoscopy: photophobia Neck: Neck: Yes normal visual inspection, Yes no lymphadenopathy and Yes no meningeal signs Resp: Effort & Inspection: normal respiratory effort Auscultation: clear to auscultation bilaterally, no rales, no rhonchi and no wheezes Cardio: Rate: regular rate Heart sounds: S1 normal heart sound present and S2 normal heart sound present GI: Inspection: Yes normal to inspection Palpation (GI): Soft to palpation, nontender, no guarding and not rigid Skin: Rashes: no rashes Wounds: no wounds Neuro: General: patient oriented x3, gait normal, tone normal, moves all extremities, no meningeal signs, no focal motor deficits and CN's II-XI intact bilaterally Cranial nerves: Yes CN's II-XII intact bilaterally and Yes Equal, round and reactive pupils present Cognition (Neuro): normal cognition Speech: No Abnormal speech present Gait exam (Neuro): Normal gait present Motor exam (neuro): 5/5 motor strength present throughout, Pronator motor func tion not present and no tremor noted Coordination: mxtjln-dz-oyca test normal Romberg Test: Negative Extrem: General: Yes normal to inspection, Yes no pedal edema and Yes no calf tenderness Course Course Course Narrative: -patient is a very difficult stick, unable to obtain IV access -BMP WNL. Troponin negative CT head/brain wo con IMPRESSION: No acute intracranial pathology. > results discussed with patient. Plan to obtain CTA to rule out SAH/aneurysm. -2009--on re-evaluation patient reports mild symptomatic improvement. CTA neck: 65% stenosis of the proximal right internal carotid artery. Less than 50% stenosis of the left internal carotid artery. No vertebral artery stenosis. CTA head: No large vessel occlusion or significant stenosis within the intracranial circulation. No evidence of aneurysm. >> results discussed with patient. Reports some symptomatic improvement, will additionally give patient magnesium and Toradol for relief. -1010--Patient reports symptomatic improvement discussed worrisome signs and symptoms and strict return precautions with patient including needed follow-up with vascular/PCP, she verbalized understanding feel safe discharge home Medical Decision Making MDM Narrative Medical decision making narrative: 55-year-old female with a past medical history of HTN, mast cell activation syndrome, presenting to the ED complaining of HTN x3 days, and sudden onset headache waking her up from sleep on Saturday morning around 6:00 a.m. on exam hypertensive 183/81, photophobia present, NAD, no focal neuro deficits, right-sided subconjunctival hemorrhage noted. Concern for hypertensive urgency. Rule out hypertensive emergency. Rule out SAH vs aneurysm vs complicated migraine headache or ocular migraine. Plan: EKG, labs, head CT, CTA head and neck, symptomatic treatment, reassess Lab Data Result diagrams: 02/27/21 18:09 02/27/21 13:48 Labs: Lab Results 02/27/21 02/27/21 02/27/21 Range/Units 13:48 13:48 18:09 WBC 7.1 (4.8-10.8) X10*3/uL RBC 4.31 (4.20-5.50) X10*6/uL Hgb 13.4 (12.0-16.0) g/dl Hct 39.6 (37-47) % MCV 91.9 (80-98) fL MCH 31.1 (27.0-33.0) pg MCHC 33.8 (31.0-35.0) g/dl RDW 12.0 (11.0-16.0) % Plt Count 388 D (160-400) X10*3/uL MPV 9.8 (9.4-12.3) fL Immature Gran % (Auto) 0.3 (0.0-0.4) % Neut % (Auto) 59.2 (45-73) % Lymph % (Auto) 31.6 (20-40) % Nicol[place] % (Auto) 6.2 (2-11) % Eos % (Auto) 2.1 (0-4) % Baso % (Auto) 0.6 (0-2) % Lymph # (Auto) 2.3 (1.2-4.9) X10*3/uL [place] # (Auto) 0.4 (0.1-1.2) X10*3/uL Eos # (Auto) 0.2 (0.0-0.4) X10*3/uL Baso # (Auto) 0.0 (0.0-0.2) X10*3/uL Abs Immat Gran (auto) 0.02 (0.00-0.03) X10*3/uL Absolute Neuts (auto) 4.2 (2.0-8.3) X10*3/uL Absolute Nucleated RBC 0.000 (0.0-0.012) X10*3/uL Nucleated RBC % (auto) 0.0 (0.0-0.2) /100WBC Sodium 140 (135-145) mmol/L Potassium 5.1 D (3.3-5.1) mmol/L Chloride 106 (96-108) mmol/L Carbon Dioxide 23 (22-29) mmol/L Anion Gap 16 (12-20) BUN 11 (9-16) mg/dL Creatinine 0.76 (0.5-1.4) mg/dL Estim Creat Clear Calc 77.4 Estimated GFR > 60 Random Glucose 87 (60-115) mg/dL Calcium 10.3 H D (8.4-10.2) mg/dL Magnesium 2.3 (1.6-2.6) mg/dL Total Bilirubin 0.2 (0.0-1.0) mg/dL Direct Bilirubin < 0.2 (0.0-0.5) mg/dL AST 30 D (5-31) U/L ALT 25 (0-31) U/L Alkaline Phosphatase 72 (39-117) U/L Troponin I High Sens < 3.5 (<3.5-17.0) ng/L Total Protein 8.1 H (6.5-8.0) g/dL Albumin 4.7 (3.5-5.0) g/dL Lipase 33 (8-78) U/L Discharge Plan Discharge Clinical Impression: Complicated migraine Patient Disposition: Home, Self-Care Instructions: Ocular Migraine (ED) Additional Instructions: Your blood work was reassuring today in the emergency department Her head CT was unremarkable/did not show any bleeding The CTA of her neck shows mild stenosis is of your right internal carotid and left internal carotid which you should follow-up with vascular, Dr. Garvin. Fioricet is a headache medication, take as prescribed when headaches are severe Zofran as antinausea take as needed In addition take ibuprofen and Tylenol, be or Fioricet has Tylenol mixed in, do not exceed 4 g of Tylenol in 1 day If her headache persists or worsens, becomes unbearable, you have vision change or loss, persistent nausea/vomiting return to the ED immediately. Follow up with her doctor Prescriptions: New mfotmxklra-fbszzfkdnjdfp-tabc [Fioricet] 50-300-40 mg capsule 1 cap PO Q4-6H PRN (Reason: headache) Qty: 14 RF: 0 ondansetron HCl [Zofran] 4 mg tablet 4 mg PO Q8H PRN (Reason: nausea and vomiting) Qty: 10 RF: 0 No Action hydrocodone-acetaminophen 5-325 mg tablet 1 tab PO Q4-6H PRN (Reason: pain) Qty: 5 RF: 0 gabapentin 300 mg capsule 300 mg PO BID RF: 0 ibuprofen 800 mg tablet 800 mg PO TID RF: 0 cromolyn 20 mg/2 mL solution for nebulization 2 ml inhalation QID RF: 0 atenolol 25 mg tablet 25 mg PO DAILY RF: 0 cetirizine [Zyrtec] 10 mg tablet 10 mg PO DAILY RF: 0 multivitamin Tablet 1 tab PO DAILY RF: 0 fluticasone propionate 50 mcg/actuation spray,suspension 1 spray intranasal DAILY RF: 0 Referrals: Esau Roberts MD [Primary Care Provider] - 2 days Heath Garvin MD [Physician] - 1 week
--- NOTE | 2021-02-27 17:00 | PC.NURSE ---
pt c/omplaining of HTN x3 days and sudden onset headache waking her up from sleep on Saturday morning. she states the headache has been constant since it started, with minimal relief with Motrin at home. she reports that her b/p has been 180 and above. she is on Atenolol 50 mg p.o. daily and reports she is compliant with taking her meds. she also reports right eye erythema and blurry vision that started Saturday morning. Denies chest pain, SOB, abdominal pain, vomiting, diarrhea, weakness, numbness, tingling.
[2021-02-27] MEDS: Metoclopramide HCl 10 MG/2 ML VIAL IVPUSH (17:30)
[2021-02-27] MEDS: HYDROmorphone HCl 1 MG/ML SYRINGE IVPUSH (17:30)
[2021-02-27 18:00] VITALS: BP 123/47; PULSE 56
[2021-02-27 18:12] VITALS: BP 113/53; PULSE 53
[2021-02-27 18:13] LABS: MANUAL DIFF FLAG NO
--- NOTE | 2021-02-27 18:15 | PC.NURSE ---
pt is a difficult stick. attempts made by RN and was unsuccessful. Dr. Mueller placed a 20 gauge in R AC using ultrasound. IV meds delayed due to lack of access. ED provider aware.
[2021-02-27 18:31] LABS: Basophils Percent Auto 0.6 % (0-2); Eosinophils Absolute Auto 0.2 X10*3/uL (0.0-0.4); Eosinophils Percent Auto 2.1 % (0-4); Hematocrit 39.6 % (37-47); Hemoglobin 13.4 g/dl (12.0-16.0); Imm Gran Abs Auto 0.02 X10*3/uL (0.00-0.03); Imm Gran Pct Auto 0.3 % (0.0-0.4); Lymphocytes Absolute Auto 2.3 X10*3/uL (1.2-4.9); Lymphocytes Percent Auto 31.6 % (20-40); Mean Corpuscular HGB Conc 33.8 g/dl (31.0-35.0); Mean Corpuscular Hemoglobin 31.1 pg (27.0-33.0); Mean Corpuscular Volume 91.9 fL (80-98); Mean Platelet Volume 9.8 fL (9.4-12.3); Monocytes Absolute Auto 0.4 X10*3/uL (0.1-1.2); Monocytes Percent Auto 6.2 % (2-11); Neutrophils Absolute Auto 4.2 X10*3/uL (2.0-8.3); Neutrophils Percent Auto 59.2 % (45-73); Platelet Count 388 X10*3/uL (160-400); Red Blood Count 4.31 X10*6/uL (4.20-5.50); White Blood Count 7.1 X10*3/uL (4.8-10.8)
[2021-02-27] MEDS: iohexoL 350 MG/ML 100 ML INFUS..BTL IV (19:14)
[2021-02-27] MEDS: 0.9 % Sodium Chloride 1,000 ML 999 ML IVCONT (19:31)
[2021-02-27] MEDS: Ketorolac Tromethamine 15 MG/ML VIAL IVPUSH (20:27)
[2021-02-27] MEDS: Magnesium Sulfate/H2O 2 GM/50 ML PIGGYBACK IV (20:31)
[2021-02-27 22:07] VITALS: BP 148/68; PULSE 60; RESP 18; TEMP 36.4; O2SAT 99
[2021-02-27] MEDS: ondansetron HCL 4 MG/2 ML VIAL IVPUSH (22:10)
[2021-02-27 22:12] VITALS: RESP 16
== END 2021-02-27 22:33 | disposition home or self-care (01) ==
PROVIDERS: Physician Assistant; Emergency Provider Internal Medicine; PCP Family Medicine
DX: G43.909 Migraine, unspecified, not intractable, without status migrainosus (principal); M54.2 Cervicalgia; I10 Essential (primary) hypertension; Z79.899 Other long term (current) drug therapy
CPT/HCPCS: 36415; 70450; 70496; 70498; 80048; 80076; 83690; 83735; 84484; 85025; 93005; 96361; 96365; 96366; 96375; 96376; 99284; J1170; J1885; J2405; J2765; J3475; Q9967

== ENCOUNTER → 2021-03-16 09:27 | Outpatient (BNVA) | payer OTHER, SELFPAY | PROVIDERS: PCP Family Medicine; Visit Provider Surgery Vascular Surgery ==

== ENCOUNTER → 2021-04-12 09:08 | Outpatient (BNVA) | payer OTHER, SELFPAY | PROVIDERS: PCP Family Medicine; Referring Provider Family Medicine; Visit Provider Internal Medicine Cardiovascular Disease ==

== ENCOUNTER 2021-04-13 07:58 | Outpatient (REF) | payer OTHER, SELFPAY ==
[2021-04-13 08:58] LABS: Cholesterol 225 mg/dL; HDL Cholesterol 75 mg/dL; LDL Cholesterol Calculated 130 mg/dl; Triglycerides 101 mg/dL
[2021-04-14 13:36] LABS: CRP High Sensitivity 0.5 mg/L
[2021-04-17 12:31] LABS: Metanephrine, Free <25 pg/mL (<=57); Normetanephrines, Free 134 pg/mL (<=148); Total Metanephrine, Free 134 pg/mL (<=205)
== END 2021-04-13 07:59 | disposition home or self-care (01) ==
LOC: HO.LAB 07:58
PROVIDERS: PCP Family Medicine; Visit Provider Internal Medicine Cardiovascular Disease
DX: I25.10 Atherosclerotic heart disease of native coronary artery without angina pectoris (principal); E78.5 Hyperlipidemia, unspecified; R09.89 Other specified symptoms and signs involving the circulatory and respiratory systems
CPT/HCPCS: 36415; 80061; 83835; 86141

== ENCOUNTER → 2021-04-14 08:13 | Outpatient (REF) | payer OTHER, SELFPAY ==
--- NOTE | ~2021-04-14 | NM_ITS ---
Exercise Myocardial perfusion study Indication: Chest pain to evaluate for myocardial ischemia Technique: The patient was brought in for an exercise perfusion study on 04/14/2021. Patient performed exercise as per Hamilton protocol and was injected 25 mCi of sestamibi was given intravenously one target HR was achieved. Images were obtained using the SPECT gamma camera interlaced with the gating device. Images were obtained in supine position. Resting perfusion study was performed on 04/17/2021. Patient was administered 25 mCi of sestamibi intravenously at rest. Images were then obtained in supine position. Images obtained with and without CT attenuation. Total DLP 85 mGy-cm. Images were processed with the software and compared side to side in short axis, horizontal long axis and vertical long axis views. Findings: The stress perfusion study showed non attenuated images show normal uptake of radiotracer in all segments of LV myocardium. Attenuation corrected images show minimal thinning of the apex of the LV myocardium. The gated study shows normal LV systolic function with calculated LVEF of greater than 70 %. LV cavity is normal in size. The gated study shows normal systolic wall thickening and contraction of all segments. There is no transient ischemic dilation. Resting study shows nontender images show minimally reduced uptake in the basal septum of the LV myocardium. Attenuation corrected images show mildly reduced uptake in the distal anterior and apex of the LV myocardium. Gating at rest reveals normal systolic wall motion with ejection fraction at greater than 70 %. The findings are consistent with normal myocardial perfusion. NM/NM cardiolite stress test Impression: 1. Normal myocardial perfusion 2. Gated LVEF is greater than 70% 3. Transient ischemic dilatation not present Stress EKG is positive for ischemia
--- NOTE | 2021-04-14 08:17 | CA_ITS ---
Acquisition Time: 2021-04-14 08:22:30 Total Exercise Time: 00:06:00 Test Indications: CP, PALPITATIONS, HTN Medications: SEE CHART Protocol: EDD Max HR: 150 BPM 91% of Pred: 164 BPM Max BP: 181/050 mmHG Max Work Load: 7.0 METS Exercise stress test with exercise 6 min of Edd protocol, with mild shortness of breath, no chest discomfort, with report of pounding heart and flutters in chest, with isolated PACs and atrial cuplets, with normotensive response to exercise, with EKG changes meeting criteria for ischemia: Horizontal ST depression 2 mm inferiorly, 1.5 mm V3-V6 with radual improvement back to baseline. Nuclear images pending. Test reviewed with Dr Jansen. Referred By: Hector Sood Overread By: ANT CHRISTIE
== END ==
LOC: HO.CARD 08:13
PROVIDERS: PCP Family Medicine; Visit Provider Internal Medicine Cardiovascular Disease
DX: Z01.810 Encounter for preprocedural cardiovascular examination (principal); R07.9 Chest pain, unspecified
CPT/HCPCS: 78452; 93017; A9500

== ENCOUNTER → 2021-04-19 07:40 | Outpatient (REF) | payer OTHER, SELFPAY ==
--- NOTE | 2021-04-19 07:45 | CA_ITS ---
Transthoracic Echocardiogram Patient (Last, First, Middle): Manuela Moreno, Gender: Female Date of : 1965 Age: 55 Procedure Date: 04/19/2021 Procedure Type: Transthoracic Echocardiogram Location: OP Height: 162.56 cm Weight: 66.23 kg BSA: 1.71 m2 Heart Rate: bpm BP: 125 / 58 mmHg Food Preparation Kitchen Aide: CLAUDIA Referring MD: Hector Sood MD Loan Interviewer: Hector Sood MD Symptoms: R09.89 - Other specified symptoms and signs involving the... Study Quality: Fair ECG Rhythm: Sinus Conclusions: - Essentially normal study Findings Left Ventricle Normal left ventricular size, thickness, and systolic function. The visually estimated ejection fraction is between 60-65%. Spectral Doppler is indicative of a normal filling pattern. Right Ventricle Normal right ventricular cavity size and systolic function. Atria Both atria are normal in size. Interatrial shunt cannot be excluded. Aortic Valve Normal aortic valve structure and function. There is no aortic valve stenosis. There is no aortic valve regurgitation. Mitral Valve Normal mitral valve structure and function. There is trace mitral valve regurgitation. There is no mitral valve stenosis. Pulmonic Valve The pulmonic valve is likely normal. Tricuspid Valve Likely normal tricuspid valve structure and function. There is trace tricuspid valve regurgitation. The right ventricular systolic pressure is normal. The right ventricular systolic pressure is 31 mmHg. Normal right atrial pressure. There is no evidence of pulmonary hypertension. Great Vessels All visible segments of the aorta are normal in size. The pulmonary artery was not well visualized. Venous The inferior vena cava is normal in size and collapses greater than 50% with inspiration. Pericardium/Pleural There is no evidence of pericardial effusion. Prior Study Comparison No prior study available for comparison. Measurements 2D Linear Measurements IVSd: 0.96 0.6-0.9/0.6-1.0 cm LVIDd: 4.29 3.9-5.3/4.2-5.9 cm LVIDd Index: 2.51 2.4-3.2/2.2-3.1 cm/m2 LVIDs: 2.78 2.0-3.6 cm LVPWd: 0.96 0.7-1.1 cm Ao Root: 2.30 2.1-3.5 cm LA Diam: 3.40 2.7-3.8/3.0-4.0 cm LAIDs Index: 1.99 1.5-2.3 cm/m2 LV Mass: 166.35 67-162/88-224 g LV Mass Index: 97.28 43-95/49-115 g/m2 LVOT Diam: 2.00 3.0+(-)1.3 cm 2D Systolic Function EF 4C: 59.40 >55% EF 2C: 63.80 >55% EF BiP: 63.20 >55% Mitral Valve MV Pk E: 0.72 MV PK A: 0.42 MV Decel Time: 228.00 E/A: 1.70 E'Lateral: 10.10 E'Medial: 8.49 E/E' Med: 8.50 E/E' Lat: 7.10 PHT: 67.00 MVA PHT: 3.28 Decel [place]: 3.16 Aortic Valve AoV Pk Pavel: 1.37 AoV Pk Grad: 8.00 LVOT LVOT Pk Pavel: 1.08 LVOT Mn Pavel: 0.71 LVOT VTI: 0.25 LVOT Pk Grad: 5.00 LVOT Mn Grad: 2.00 LVOT Diam: 2.00 LVOT Area: 3.14 Diastolic Function MV Pk E: 0.72 MV Pk A: 0.42 E/A: 1.70 E'Medial: 8.49 E/E' Med: 8.50 E' Laterial: 10.10 E/E' Lat: 7.10 Right Ventricle TAPSE (mm): 2.48 Tricuspid Valve TR Pk Pavel: 2.64 TR Pk Grad: 28.00 RA Press: 3.00 RVSP: 31.00 Great Vessels Aorta Ao Root-2D: 2.30 2.0-3.7 cm Ao Asc: 2.60 2.1-3.4 cm Updated in Other Vendor System with Status of Final Hector Sood MD electronically signed on 04/19/2021 4:50:49 PM with status of Final
== END ==
LOC: HO.CARD 07:40
PROVIDERS: PCP Family Medicine; Visit Provider Internal Medicine Cardiovascular Disease
DX: Z01.818 Encounter for other preprocedural examination (principal); R07.9 Chest pain, unspecified; R09.89 Other specified symptoms and signs involving the circulatory and respiratory systems
CPT/HCPCS: 93306

== ENCOUNTER 2021-05-08 08:53 | Outpatient (REF) | payer OTHER, SELFPAY ==
--- NOTE | ~2021-05-08 | US_ITS ---
EXAMINATION: ULTRASOUND OF KIDNEYS WITH RENAL ARTERY DOPPLER CLINICAL INFORMATION: Hypertension. COMPARISON: None. TECHNIQUE: Ultrasound of the kidneys was performed along with color flow Doppler imaging and velocity measurements in the proximal mid and distal renal arteries. Aortic velocities were measured and renal/aortic ratios were calculated. FINDINGS: The kidneys appeared normal with the right kidney measuring 11.0 x 4.3 x 5.2 cm and the left kidney measuring 11.0 x 5.2 x 5.0 cm. No renal masses, renal stones or hydronephrosis is seen. Renal cortical thickness appears normal. Velocity measurements in the proximal mid and distal renal arteries are elevated on the right in the mid and distal portions at 190 and 208 cm/s. Velocities are elevated on the left in the mid renal artery at 203 cm/s. Velocity in the aorta is over 100 cm/s at 108 and therefore the renal aortic ratios are not valid. Segmental renal indices are less than 0.80 bilaterally and are normal. Segmental resistive indices in the upper mid and lower poles on the right are 0.72, 0.68 and 0.78. Segmental resistive indices in the upper, mid and lower poles on the left are 0.66, 0.69 and 0.70. The bladder appeared unremarkable. US/US renal BI IMPRESSION: Normal appearing kidneys. There are elevated velocities in the renal arteries with a peak of 208 cm/s distally on the right and 203 cm/s in the mid left renal artery. CT angiography could be performed for further assessment for renal artery stenosis.
--- NOTE | ~2021-05-08 | US_ITS ---
EXAMINATION: ULTRASOUND OF KIDNEYS WITH RENAL ARTERY DOPPLER CLINICAL INFORMATION: Hypertension. COMPARISON: None. TECHNIQUE: Ultrasound of the kidneys was performed along with color flow Doppler imaging and velocity measurements in the proximal mid and distal renal arteries. Aortic velocities were measured and renal/aortic ratios were calculated. FINDINGS: The kidneys appeared normal with the right kidney measuring 11.0 x 4.3 x 5.2 cm and the left kidney measuring 11.0 x 5.2 x 5.0 cm. No renal masses, renal stones or hydronephrosis is seen. Renal cortical thickness appears normal. Velocity measurements in the proximal mid and distal renal arteries are elevated on the right in the mid and distal portions at 190 and 208 cm/s. Velocities are elevated on the left in the mid renal artery at 203 cm/s. Velocity in the aorta is over 100 cm/s at 108 and therefore the renal aortic ratios are not valid. Segmental renal indices are less than 0.80 bilaterally and are normal. Segmental resistive indices in the upper mid and lower poles on the right are 0.72, 0.68 and 0.78. Segmental resistive indices in the upper, mid and lower poles on the left are 0.66, 0.69 and 0.70. The bladder appeared unremarkable. US/US renal doppler IMPRESSION: Normal appearing kidneys. There are elevated velocities in the renal arteries with a peak of 208 cm/s distally on the right and 203 cm/s in the mid left renal artery. CT angiography could be performed for further assessment for renal artery stenosis.
== END 2021-05-08 08:54 | disposition home or self-care (01) ==
LOC: HO.US 08:53
PROVIDERS: PCP Family Medicine; Visit Provider Internal Medicine Cardiovascular Disease
DX: I10 Essential (primary) hypertension (principal)
CPT/HCPCS: 76775; 93975

== ENCOUNTER 2021-06-06 08:04 | Outpatient (REF) | payer OTHER, SELFPAY ==
[2021-06-06 09:03] LABS: Anion Gap 12 (12-20); Blood Urea Nitrogen 15 mg/dL (9-16); Calcium 9.7 mg/dL (8.4-10.2); Carbon Dioxide 27 mmol/L (22-29); Chloride 106 mmol/L (96-108); Cholesterol 113 mg/dL; Estimated Glomerular Filt Rate 59; Glucose Random 103 mg/dL (60-115); HDL Cholesterol 57 mg/dL; LDL Cholesterol Calculated 47 mg/dl; Potassium 4.9 mmol/L (3.3-5.1); Sodium 140 mmol/L (135-145); Triglycerides 48 mg/dL
== END 2021-06-06 08:05 | disposition home or self-care (01) ==
LOC: HO.LAB 08:04
PROVIDERS: PCP Family Medicine; Visit Provider Internal Medicine Cardiovascular Disease
DX: Z01.810 Encounter for preprocedural cardiovascular examination (principal); E78.5 Hyperlipidemia, unspecified
CPT/HCPCS: 36415; 80048; 80061

== ENCOUNTER 2021-06-12 07:53 | Outpatient (REF) | payer OTHER, SELFPAY ==
--- NOTE | ~2021-06-12 | CT_ITS ---
EXAMINATION: CT ANGIOGRAM ABDOMEN AND PELVIS CLINICAL INFORMATION: Atherosclerosis renal artery. COMPARISON: Ultrasound 05/08/2021, CT abdomen and pelvis 08/25/2019 TECHNIQUE: Multiple axial images were obtained through the abdomen and pelvis following the administration of 80 mL of Omnipaque 350 intravenous contrast. Images were reviewed on a dedicated 3-D workstation. This CT examination was performed using dose optimization techniques as appropriate, variously including the following: *Automated exposure control *Adjustment of mA and/or kV according to patient size (this includes techniques or standardized protocols for targeted exams where dose is matched to indication/reason for exam; i.e. extremities or head) *Use of iterative reconstruction technique DLP: 226 mGy-cm FINDINGS: Vascular: The distal thoracic aorta is normal in course and caliber. No evidence of dissection or other acute aortic syndrome. The celiac trunk, superior mesenteric artery and inferior mesenteric arteries are patent and normal in caliber. There are 2 renal arteries to each kidney. The more proximal artery on both the right and left are dominant. The origins of the renal arteries are widely patent; the vessels are well opacified. There is no evidence of stenosis, obstruction or other vascular anomaly identified. The abdominal aorta is normal in caliber without evidence of dissection or other acute aortic syndrome. The iliac bifurcation is unremarkable. The bilateral common, internal, and external iliac arteries are widely patent. Proximal femoral vessels are patent and well opacified. There is an unremarkable appearance of the venous structures for an arterial phase of contrast. Nonvascular: The lung bases are clear. No pleural effusion. Imaged heart is unremarkable. No pericardial effusion. The liver is normal in size, shape and attenuation. No focal hepatic lesions are identified. No intrahepatic or extrahepatic duct dilation is seen. The gallbladder is unremarkable. The pancreas is unremarkable. No duct dilation. The spleen is normal in size, shape and attenuation, though somewhat heterogeneous in its enhancement secondary to arterial phase of contrast. Incidental note is made of a 1.1 cm splenule at the lower pole. The adrenal glands are unremarkable. The kidneys are normal in size, shape and attenuation. There is a 3 mm hypodensity at the lower pole of the left kidney which is too small to definitively characterize. There are no renal calculi, hydronephrosis or hydroureter. No significant perinephric stranding. Partially distended bladder is normal in contour. No soft tissue lesion or bladder calculi are seen. Unremarkable CT appearance of the uterus and adnexa. The distal esophagus, stomach, small and large bowel are normal in caliber. There is a normal appendix. There are no bowel wall inflammatory changes. No free intraperitoneal fluid. There is no abdominopelvic or retroperitoneal lymphadenopathy. No significant hernia of the body wall. Mild degenerative change of the lumbosacral spine with loss of disc space and endplate change at L5-S1. No acute or aggressive bony abnormality. CT/CT angio abdomen pelvis IMPRESSION: Patent abdominopelvic arterial vasculature. There are 2 renal arteries to each kidney and there is no evidence of renal artery stenosis, dissection, or other renal vascular anomaly seen. There are degenerative changes of the lumbosacral spine. The remainder of the study is unremarkable. Fleischner guidelines were followed.
[2021-06-12] MEDS: iohexoL 350 MG/ML 100 ML INFUS..BTL IV (08:47)
== END 2021-06-12 07:54 | disposition home or self-care (01) ==
LOC: HO.CT 07:53
PROVIDERS: PCP Family Medicine; Visit Provider Internal Medicine Cardiovascular Disease
DX: I70.1 Atherosclerosis of renal artery (principal)
CPT/HCPCS: 74174; Q9967

== ENCOUNTER → 2021-06-21 08:07 | Outpatient (BNVA) | payer OTHER, SELFPAY | PROVIDERS: PCP Family Medicine; Visit Provider Obstetrics & Gynecology ==

== ENCOUNTER → 2021-06-22 15:12 | Outpatient (BNVA) | payer OTHER, SELFPAY | PROVIDERS: PCP Family Medicine; Referring Provider Family Medicine; Visit Provider Internal Medicine Cardiovascular Disease ==

== ENCOUNTER 2021-06-27 07:45 | Outpatient (REF) | payer OTHER, SELFPAY ==
--- NOTE | ~2021-06-27 | MM_ITS ---
EXAMINATION: MM SCREENING DIGITAL BREAST TOMOSYNTHESIS, BILATERAL CLINICAL INFORMATION: Screening. Asymptomatic. The lifetime risk of breast cancer based on the Tyrer-Cuzick Model is 18%. COMPARISON: Mammography: 02/22/2020, 07/28/2018, 07/13/2016, 11/29/2015, 11/16/2015 TECHNIQUE: Digital breast tomosynthesis is performed in both the craniocaudal and mediolateral oblique views along with computer-aided detection (CAD). Synthesized 2D images are generated from the tomosynthesis. FINDINGS: There are scattered areas of fibroglandular density (ACR BI-RADS breast composition Category b). Parenchymal pattern is similar to prior exams and there is no interval mass or architectural abnormality or developing density. No abnormal calcifications. The axilla and skin contours are unremarkable. MM/MM tomosynthesis screening BI IMPRESSION: No mammographic evidence of malignancy. ASSESSMENT: BI-RADS 1: Negative RECOMMENDATION: Routine annual mammography screening. This patient's information was entered into a reminder system with a target due date for their next mammogram.
== END 2021-06-27 07:46 | disposition home or self-care (01) ==
LOC: HO.MAMMO 07:45
PROVIDERS: PCP Family Medicine; Visit Provider Obstetrics & Gynecology
DX: Z12.31 Encounter for screening mammogram for malignant neoplasm of breast (principal)
CPT/HCPCS: 77063; 77067

== ENCOUNTER 2021-07-12 12:09 | Outpatient (REF) | payer OTHER, SELFPAY ==
--- NOTE | ~2021-07-12 | XR_ITS ---
EXAMINATION: XR HAND, LEFT CLINICAL INFORMATION: Pain left hand COMPARISON: None TECHNIQUE: PA, lateral, and oblique views of the left hand. FINDINGS: There is minimal loss of first carpometacarpal joint space with no acute fracture, dislocation seen. Rest of the left hand is unremarkable. The soft tissues are normal. XR/XR hand LT min 3V IMPRESSION: Mild reduction of first carpometacarpal joint space, likely early degenerative changes. There is no visible acute fracture or dislocation seen.
== END 2021-07-12 12:10 | disposition home or self-care (01) ==
LOC: HO.HOSX 12:09
PROVIDERS: PCP Family Medicine; Visit Provider Orthopaedic Surgery
DX: Z01.818 Encounter for other preprocedural examination (principal); M79.642 Pain in left hand; M65.4 Radial styloid tenosynovitis [de Quervain]; M65.311 Trigger thumb, right thumb; M18.12 Unilateral primary osteoarthritis of first carpometacarpal joint, left hand; I10 Essential (primary) hypertension; D89.40 Mast cell activation, unspecified; Z82.49 Family history of ischemic heart disease and other diseases of the circulatory system; Z88.6 Allergy status to analgesic agent
CPT/HCPCS: 73130

== ENCOUNTER 2021-07-20 06:19 | Day surgery (SDC) | payer OTHER, SELFPAY ==
[2021-07-14 15:09] VITALS: BMI 24.9
[2021-07-20] VITALS (8 sets, daily range): BP systolic 106–135; BP diastolic 54–59; PULSE 57–78; RESP 10–16; TEMP 36.4–36.7; O2SAT 95–100
--- NOTE | ~2021-07-20 | FL_ITS ---
EXAMINATION: XR FLUOROSCOPY WITH IMAGES CLINICAL INFORMATION: Basal joint arthroplasty COMPARISON: None. TECHNIQUE: Fluoroscopy performed by Dr. Santos. Fluoroscopy time: 12 seconds DAP: 6794.1 uGycm2 Images: 3 FINDINGS: Fluoroscopic imaging guidance was made available for a procedure. 3 intraprocedural fluoroscopic images of the left wrist are available for review which show surgical material and surgical instruments in place. FL/FL guidance in OR IMPRESSION: Imaging guidance for procedure. Please refer to the operative report for detail regarding procedure and findings.
--- NOTE | 2021-07-20 08:41 | P.CONAN_ITS ---
HPI - Anesthesia Eval Consult details Narrative: 55 F w/ hx of mast cell activation, HTN p/f hand surgery, carotid stenosis (55% R, 60% L) PMFSH Active Problems Active Problems: All Active Problems (Updated 07/14/21 @ 15:12 by Caryn Wilder RN) CARO positive (Acute) De Quervain's disease (tenosynovitis) (Acute) Primary osteoarthritis of hands, bilateral (Acute) De Quervain's tenosynovitis, right (Acute) Osteoarthritis of carpometacarpal joint of left thumb (Acute) De Quervain's tenosynovitis, left (Acute) Trigger finger of right thumb (Acute) Injury of flexor tendon of right hand (Acute) Bilateral carotid artery stenosis (Acute) Chest pain (Acute) Pre-operative cardiovascular examination (Acute) Labile blood pressure (Acute) Well woman exam (Acute) Mast cell activation syndrome (Acute) Past Medical History Medical History Atherosclerosis Carotid artery disease COVID-19 vaccine series completed Hypertension Mast cell activation syndrome Post-operative nausea and vomiting Family History Family History Father HTN (hypertension) Mother HTN (hypertension) CVD (cardiovascular disease) Family history of problems with anesthesia: No Surgical History Surgical History H/O colonoscopy H/O left knee surgery History of bunionectomy S/P trigger finger release History of Problems with Anesthesia: Yes (PONV) Social History Social History Are you a primary career law clerk to a significant other at home: No Do you presently have visiting nurse or other home services: No Alcohol intake: never Patient Tobacco Use Status: Former Tobacco user Quit Date: age 18 Tobacco use type: Cigarette Use of substances other than those prescribed or required for medical reasons: No Have you been hit, kicked, punched, or otherwise hurt by someone within the past year? 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[employer] 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 Meds Allergies Allergy/AdvReac Type Severity Reaction Status Date / Time codeine [CODEINE] Allergy Intermediate RASH, HIVES Verified 07/20/21 06:29 adhesive tape [Adhesive Tape] Allergy Mild blisters Verified 07/20/21 06:29 from clear plastic tape-cloth tape ok morphine [MORPHINE] Allergy Mild HIVES Verified 07/20/21 06:29 oxycodone [OXYCODONE] Allergy Mild HIVES Verified 07/20/21 06:29 aspirin [ASPIRIN] AdvReac Intermediate itching(past Verified 07/20/21 06:29 hx)-currently prescribed 81 mg w/o reaction Home Medications Medication Instructions Recorded Confirmed Last Taken Type cetirizine 10 mg tablet (Zyrtec) 10 mg PO DAILY 04/19/20 07/14/21 Unknown History multivitamin 1 tab PO DAILY 04/19/20 07/14/21 Unknown History fluticasone propionate 50 1 spray INTRANASAL DAILY 05/04/20 07/14/21 Unknown History mcg/actuation nasal spray,suspension ascorbate calcium (vitamin C) 500 500 mg PO DAILY 04/12/21 07/14/21 Unknown History mg tablet cromolyn 100 mg/5 mL oral 100 mg PO QID 04/12/21 07/14/21 Unknown History concentrate rosuvastatin 40 mg tablet (Crestor) 40 mg PO .qhs tab 06/22/21 07/14/21 Unknown History aspirin 81 mg tablet 81 mg PO DAILY 07/20/21 07/20/21 07/12/21 History cyproheptadine 4 mg tablet 1 tab PO BEDTIME 07/20/21 07/20/21 Unknown History Exam Exam Date and Time: July 20, 2021 0841 Height,Weight and Vital Signs: Height 5 ft 4 in Weight 145 lb Last Vital Signs Temp 97.6 F 07/20/21 06:42 Pulse 57 07/20/21 06:42 Resp 16 07/20/21 06:42 BP 106/55 L 07/20/21 06:42 Pulse Ox 95 07/20/21 06:42 Airway Mallampati Class: II TM Dist: >3cm Neck ROM: Full Loose/Missing/Broken Teeth: Yes Assessment and Plan Assessment Anesthesia Assessment: Anesthesia Plan Discussed and Chart Reviewed Final Anesthetic Review Family History of Problems with Anesthesia: No History of Problems with Anesthesia: Yes (PONV) NPO: Yes ASA Class: III Final Preanesthetic Review: No Changes in Pt Med Stat, Meds/Allgs Chart Reviewed, Consent Obtained/Reviewed and Anes Risks/Benef Reviewed Patient Risk: Intermediate Procedure Risk: Low Anesthetic Plan Anesthetic Plan: GA and Regional Block Disposition: Standard PACU
--- NOTE | 2021-07-20 10:19 | MHC.SHP ---
Pre-Procedural Eval Section A Date of Service: 07/20/21 The patient is an INPATIENT: No Changes since office visit: No Cold of Flu in the past 2 weeks, No New Medical Problems, No Changes in Medication and No Patient answered all questions The History & Physical has been completed within 30 days and I have reviewed it.: Yes Section B Chief Complaint: Primary Osteoarthritis Allergies: Allergies Allergy/AdvReac Type Severity Reaction Status Date / Time codeine [CODEINE] Allergy Intermediate RASH, HIVES Verified 07/20/21 06:29 adhesive tape [Adhesive Tape] Allergy Mild blisters Verified 07/20/21 06:29 from clear plastic tape-cloth tape ok morphine [MORPHINE] Allergy Mild HIVES Verified 07/20/21 06:29 oxycodone [OXYCODONE] Allergy Mild HIVES Verified 07/20/21 06:29 aspirin [ASPIRIN] AdvReac Intermediate itching(past Verified 07/20/21 06:29 hx)-currently prescribed 81 mg w/o reaction Plan I have reviewed the history and physical and performed a pertinent physical examination on my patient. No changes have occurred unless specified.
--- NOTE | 2021-07-20 10:19 | W.PM.OPN ---
Operative Note Operative Note Date of Service: 07/20/21 Narrative: Operative Note Narrative: Preop diagnosis: 1. Left basal joint osteoarthritis Postop diagnosis: Same Procedure: 1. left basal joint arthroplasty with eduardo trapezii ectomy and ligament reconstruction tendon interposition with a slip of APL tendon Surgeon: Maribell Santos MD Anesthesia: General plus regional block Findings: end-stage osteoarthritis Implants: 0.045 K-wires x2 Tourniquet time: 54 minutes EBL: 5.0 ml Specimen: None Drains: None Complications: None Disposition: Brought to the recovery room in stable condition Plan: Follow-up in 10-14 days for wound check, suture removal and to postop radiographs Place into a short-arm thumb spica cast. Anticipate K-wire removal at 4 weeks postop with same-day appointment for OT hand therapy for a custom thermoplastic hand based thumb spica splint and hand therapy Indications: The patient is 55 years old with left basal joint osteoarthritis. The risks and benefits of operative treatment, including but not limited to risk of damage to blood vessels, nerves, tendons, infection, recurrence, persistent pain or numbness, incomplete resolution of preoperative symptoms, or need for further surgery were discussed with the patient and they wished to proceed with surgery. Procedure: Once consent was obtained patient was brought back to the operating suite and placed in the operating table in a supine position. A regional block was performed by the anesthesia team. Perioperative antibiotics and anesthesia were administered by the anesthesia team. A tourniquet was applied to the proximal aspect of the left upper extremity and the limb was prepped and draped in a standard surgical fashion. The limb was elevated exsanguinated with Esmarch bandage and the tourniquet inflated to 250 mm of mercury for a total tourniquet time of 55 minutes. A 4 cm longitudinal incision was made over the dorsal aspect of the basal joint of the left thumb extending proximally over the 1st dorsal compartment. The incision was made through the skin to the subcutaneous tissues using a 15. Blade. I dissected down to the level of the abductor pollicis longus and extensor problems this brevis tendons with care being taken to protect the branches of the superficial radial nerve. The basal joint was entered through the interval between the APL and EPB tendons, and the base of the 1st metacarpal and the distal aspect of the trapezium were exposed. Two baby Kaylyn retractors were placed around the base of the 1st metacarpal and a bone saw was used to make a transverse cut through the base of the 1st metacarpal removing sliver of bone. The distal aspect of the trapezium was then similarly mobilized, 2 baby Kaylyn retractors placed, and the distal half of the trapezium removed after a transverse cut was made using a small bone saw and a rongeur. The FCR tendon was seen passing through the floor of the interval. At this point my attention was turned to the 1st dorsal compartment. It was exposed over the radial styloid. A slip of the abductor pollicis longus tendon was selected and cut proximally and withdrawn back to the interval and its attachment at the base of the 1st metacarpal. It was then secured to the base of the interval and the FCR tendon using some 3-0 Ethibond suture. An anchovy was then created from the remaining slip of APL tendon and placed into the interval. It was secured using 3-0 Ethibond suture material. Two 0.045 K-wires were then placed from distal to proximal across the interval maintaining the space in the interval. Once satisfied with their position on fluoroscopic images they were cut, bent and had pin caps applied. At this point the wound was again irrigated with normal saline. The interval was closed using 3-0 Ethibond and 4-0 Vicryl suture. The tourniquet was then deflated and hemostasis obtained with a brief period of local pressure and bipolar electrocautery. The wound was again copiously irrigated with normal saline. The subcutaneous layer was closed with 4-0 Vicryl suture, and the skin edges were reapproximated with 5-0 Prolene suture. The wound was infiltrated with some 1% lidocaine with epinephrine for postop pain control and a sterile dressing and thumb spica splint were applied. The patient appears to have tolerated the procedure well and with no complications. All digits were well vascularized at the conclusion of the case.
[2021-07-20] MEDS: ondansetron HCL 4 MG/2 ML VIAL IVPUSH (10:26)
== END 2021-07-20 11:45 | disposition home or self-care (01) ==
PROVIDERS: PCP Family Medicine; Visit Provider Orthopaedic Surgery
PROC: (CPT 25447; principal; 2021-07-20 07:30)
DX: M18.12 Unilateral primary osteoarthritis of first carpometacarpal joint, left hand (principal); I25.10 Atherosclerotic heart disease of native coronary artery without angina pectoris; I10 Essential (primary) hypertension; D89.40 Mast cell activation, unspecified; Z79.82 Long term (current) use of aspirin; Z79.51 Long term (current) use of inhaled steroids; Z79.899 Other long term (current) drug therapy; Z88.8 Allergy status to other drugs, medicaments and biological substances; Z87.891 Personal history of nicotine dependence
CPT/HCPCS: 25447; J0690; J1100; J2250; J2405; J2550; J3010

== ENCOUNTER 2021-08-02 08:13 | Outpatient (REF) | payer OTHER, SELFPAY ==
--- NOTE | ~2021-08-02 | XR_ITS ---
EXAMINATION: XR HAND, LEFT CLINICAL INFORMATION: Pain left hand. COMPARISON: None TECHNIQUE: PA, lateral, and oblique views of the left hand. FINDINGS: There is resection of 1st carpometacarpal joint space with 2 pins through the joint for fusion. The rest of the visualized carpal bones, radiocarpal alignment is normal. XR/XR hand LT min 3V IMPRESSION: Arthrodesis 1st carpometacarpal joint following joint resection. There are [address] for fusion.
== END 2021-08-02 08:14 | disposition home or self-care (01) ==
LOC: HO.HOSX 08:13
PROVIDERS: Visit Provider Orthopaedic Surgery
DX: M18.12 Unilateral primary osteoarthritis of first carpometacarpal joint, left hand (principal)
CPT/HCPCS: 73130

== ENCOUNTER → 2021-08-16 12:40 | Outpatient (BNVA) | payer OTHER, SELFPAY | PROVIDERS: PCP Family Medicine; Visit Provider Orthopaedic Surgery ==

== ENCOUNTER → 2021-09-13 10:40 | Outpatient (BNVA) | payer OTHER, SELFPAY | PROVIDERS: PCP Family Medicine; Visit Provider Orthopaedic Surgery | DX: Z13.89 Encounter for screening for other disorder (principal) ==

== ENCOUNTER 2021-09-22 15:15 | Outpatient (REF) | payer OTHER, SELFPAY ==
--- NOTE | ~2021-09-22 | US_ITS ---
EXAMINATION: US EXTRACRANIAL CAROTID DUPLEX, BILATERAL CLINICAL INFORMATION: Occlusion and stenosis of the carotid arteries. COMPARISON: None. TECHNIQUE: Real-time ultrasound and Doppler techniques (integrating B-mode 2-D vascular images, Doppler spectral analysis and color-flow Doppler imaging) were utilized to interrogate the extracranial carotid arteries, the vertebral arteries and proximal subclavian arteries bilaterally. The degree of stenosis is determined by criteria similar to NASCET. FINDINGS: Right Side: 1. There is mild atherosclerotic plaque seen in the bifurcation/proximal ICA region. 2. The common carotid artery PSV proximally is 116 cm/s and distally 105 cm/s. 3. The proximal internal carotid artery velocities are 194 cm/s systolic and 62 cm/s diastolic. 4. The proximal external carotid artery PSV is 89 cm/s. 5. The vertebral artery shows antegrade flow. 6. The subclavian artery waveforms are normal. Left Side: 1. There is mild atherosclerotic plaque seen in the bifurcation/proximal ICA region. 2. The common carotid artery PSV proximally is 107 cm/s and distally 84 cm/s. 3. The proximal internal carotid artery velocities are 109 cm/s systolic and 40 cm/s diastolic. 4. The proximal external carotid artery PSV is 139 cm/s. 5. The vertebral artery shows antegrade flow. 6. The subclavian artery waveforms are normal. US/US carotid duplex BI IMPRESSION: 1. RIGHT: Minimal, non-hemodynamically significant stenosis of the proximal right internal carotid artery corresponding to a 0-49% stenosis by velocity criteria. 2. LEFT: Minimal, non-hemodynamically significant stenosis of the proximal left internal carotid artery corresponding to a 0-49% stenosis by velocity criteria.
== END 2021-09-22 15:16 | disposition home or self-care (01) ==
LOC: HO.US 15:15
PROVIDERS: Visit Provider Surgery Vascular Surgery
DX: I65.23 Occlusion and stenosis of bilateral carotid arteries (principal)
CPT/HCPCS: 93880

== ENCOUNTER → 2021-10-10 14:12 | Outpatient (BNVA) | payer OTHER, SELFPAY | PROVIDERS: PCP Family Medicine; Visit Provider Surgery Vascular Surgery | DX: I65.23 Occlusion and stenosis of bilateral carotid arteries (principal) ==

== ENCOUNTER → 2021-10-17 11:23 | Outpatient (BNVA) | payer OTHER, SELFPAY | PROVIDERS: PCP Family Medicine; Visit Provider Orthopaedic Surgery | DX: M18.12 Unilateral primary osteoarthritis of first carpometacarpal joint, left hand (principal) ==

== ENCOUNTER 2022-01-19 11:00 | Outpatient (RCR) | payer OTHER, SELFPAY ==
--- NOTE | 2021-08-16 15:18 | MHC.OT.OEV ---
[address] [phone] F: [phone] Occupational Therapy Evaluation Diagnosis: Left CMC arthroplasty w/ LRTI Date of Onset: 04/12/20 Date of Surgery: 07/20/21 Attending Provider: Dr Santos Prescribed Treatment: Eval and Treat; custom orthosis Follow Up Appointment: 09/13/21 History of Current Condition: 55 yo female with history of basal joint OA, presents today post-op left CMC arthroplasty w/ LRTI using slip of APL tendon. She also has hx of De Quervain's tendinitis for which she has had successful cortisone injection, and right trigger thumb that is post-op surgical release of A1 luna 12/15/20. She is now about 4 weeks post-op, cast and pins have been removed and she has been referred to OT to have custom orthosis placed and initiate hand therapy. 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 [employer] Enjoys puzzles, marleny, reading Living Situation, Family and/or Social Support: Lives w/ , Ind w/ daily activities Current Level of Function and Occupation Self Care, Employment, Leisure: Out of work until at least / (Likely return to work Monday 09/04) Sleep: Impaired sleep due pain Driving: Not driving Pain Assessment Pain Score: 5 Pain Scale Used: Numeric (0 - 10) Pain Location and Description: Shooting pain through thumb and base of palm Aggravating Factors: Not doing any aggravting activities at this time Alleviating Factors: Ice, Advil dual Skin and Soft Tissue Assessment Comments: Two small open areas on lateral thumb base, scant red drainage One well healed incision over radial wrist/forearm. Nerve assessment Ulnar Nerve: Not Tested Median Nerve: Not Tested Radial Nerve: Not Tested Sensory Assessment Comments: Diminished light touch pad of thumb Edema Assessment Upper Extremity: Left Impaired Lower Extremity: Comments: Mild/Moderate edema in left hand and wrist Dexterity Assessment Dexterity: Not Tested AROM(PROM) Strength Cervical Cervical Flexion: Cervical Extension: Cervical Lateral Flexion: Cervical Rotation: Comments: WFL Shoulder Flexion: Extension: Abduction: Internal Rotation: External Rotation: Comments: WFL Flexion: Extension: Abduction: Internal Rotation: External Rotation: Comments: Elbow Flexion: Extension: Pronation: Supination: Comments: Limited forearm rotation Flexion: Extension: Pronation: Supination: Comments: Wrist Flexion: Extension: Ulnar Deviation: Radial Deviation: Comments: Limited range Flexion: Extension: Ulnar Deviation: Radial Deviation: Comments: Thumb Thumb CMC Flexion: Thumb MCP Flexion: Thumb IP Flexion: Radial Abduction: Palmar Abduction: [place] (Kapandji 0-10): Comments: Not formally tested, pt out of cast positioned w/ adduction posturing Digits Index MCP: PIP: DIP: Long MCP: PIP: DIP: Ring MCP: PIP: DIP: Small MCP: PIP: DIP: Comments: grossly WFL, improving w/ repetition Gross Grasp: Lateral Pinch: Two-Point Pinch: Three-Jaw Jose Luis: Comments: NT Patient Education Primary Language: Greenlandic 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 Patient demonstrates Patient verbalizes Family/SO demonstrates Family/SO verbalizes Barriers to Learning: None Readiness for Learning: Accepting Who was educated? Patient Family/spouse Comments: Plan of Care Assessment: 55 yo female presents about four weeks post-op left CMC arthroplasty w/ LRTI. She had cast and pins removed today w/ Dr Santos and has been referred to OT for custom orthosis and initiation of ROM. She will benefit from cont'd therapy services for optimal stability and functional return, with on going pt education and joint protection. STG Duration: 2 weeks Short Term Goals: Ind w/ orthosis wear Ind w/ icing for pain and edema management Ind w/ incision/scar management Good follow through w/ initiation of ROM exercises Pt to maintain good joint protection of CMC Good wrist, elbow and D2-D4 ROM LTG Duration: 6 weeks Chute Tender Goals: Ind w/ light functional tasks w/ use of thumb Progress to thumb opposition to D4-D5 with pain free range Ind w/ use of ice and heat appropriately for comfort and continued edema management Pt to report <1/10 pain at rest Pt to report <3/10 pain w/ light daily activities Pt to demo good joint protection techniques w/ moderate bimanual tasks Frequency and Duration: The patient will be seen 2x/wk for 6 weeks Treatment Plan: Therapeutic Exercise Therapeutic Activity Home Exercise Program Splinting Patient Education Desensitization/Sensory Re-ed Edema Control ADL Training Ultrasound Paraffin Fluidotherapy MHP Cold Packs Soft Tissue Mobilization Kinesiotaping Fabricated hand based post-op thumb spica orthosis, IP free Electronically Signed By: Jenn Blank OTR/L CHT Reviewed/agree with student documentation: Therapist: Please sign and return to therapist, Thank you for your referral.
--- NOTE | 2021-10-16 08:20 | MHC.OT.OP ---
[address] [phone] F: [phone] Occupational Therapy Progress Note Diagnosis: Left CMC arthroplasty w/ LRTI Date of Surgery: 07/20/21 Date of Evaluation: 08/16/21 Treatments to Date: 18 Subjective: I keep doing little things and practice picking up more Pain Score: 0 Pain Location: Left hand/base of thumb Objective Measures: AROM wrist ext 66 deg flex 76 deg Thumb burnham abd 50 and radial abd 45 MP 25 deg IP 65 deg OP to small finger Status: Progressing Assessment: Manuela is now 12.5 weeks post-op CMC arthroplasty w/ LRTI. She is doing well and has met STG and progressing towards LTG. At most times she is pain free or with low pain and mild edema. Range is mostly within normal limits, with some webspace tightness and MCP stiffness. She has been very motivated with good follow through w/ HEP and joint protection, now beginning to use left hand/thumb more for light activities within comfort. 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: Ind w/ light functional tasks w/ use of thumb Progress to thumb opposition to D4-D5 with pain free range Ind w/ use of ice and heat appropriately for comfort and continued edema management (met) Pt to report <1/10 pain at rest Pt to report <3/10 pain w/ light daily activities Pt to demo good joint protection techniques w/ moderate bimanual tasks Frequency and Duration: The patient will be seen 2x/wk for 3 weeks Treatment Plan: Therapeutic Exercise Therapeutic Activity Home Exercise Program Splinting Patient Education Edema Control ADL Training Paraffin Fluidotherapy MHP Cold Packs Soft Tissue Mobilization Kinesiotaping Fabricated hand based post-op thumb spica orthosis, IP free Electronically Signed By: Jenn Blank OTR/L CHT Reviewed/agree with student documentation: N/A Therapist:
--- NOTE | 2022-01-19 11:38 | MHC.OT.DC ---
[address] [phone] F: [phone] Occupational Therapy Discharge Note Provider: Dr Santos Diagnosis: Left CMC arthroplasty w/ LRTI Date of Surgery: 07/20/21 Date of Evaluation: 08/16/21 Date of Discharge: 01/19/22 Treatments to Date: 27 Discharge Status: Achieved Goals Improved Function Independent with HEP Discharge Summary: Manuela is now about 6 months post-op and has been doing very well. We have not seen her in the clinic for about one month, but returned to OT w/ c/o occasionally numbness in palm of left hand, occurring with increased activity and repetitive use. She has returned to most daily activities and still has very good follow through w/ HEP as evidenced by good range and strength. She does have some tenderness in volar forearm, likely from increased use of hand/wrist. She has good understanding of self management and no further services needed at this time. She has met all goals for functional return of left thumb and hand post-op CMC arthroplasty. Electronically Signed By: Jenn Blank OTR/L CHT Reviewed/agree with student documentation: N/A Therapist: Please Sign and return to therapist, thank you for your referral.
== END 2022-01-19 11:39 | disposition home or self-care (01) ==
LOC: HO.OT 11:00
PROVIDERS: Visit Provider Orthopaedic Surgery
DX: M19.041 Primary osteoarthritis, right hand (principal); M19.042 Primary osteoarthritis, left hand; M18.12 Unilateral primary osteoarthritis of first carpometacarpal joint, left hand
CPT/HCPCS: 29130; 97110; 97140; 97165; 97530; 97760

== ENCOUNTER 2022-03-14 14:42 | Outpatient (REF) | payer OTHER, SELFPAY ==
[2022-03-14 15:18] LABS: MANUAL DIFF FLAG NO
[2022-03-14 15:30] LABS: Basophils Percent Auto 0.5 % (0-2); Eosinophils Absolute Auto 0.1 X10*3/uL (0.0-0.4); Eosinophils Percent Auto 2.3 % (0-4); Hematocrit 37.9 % (37.0-47.0); Hemoglobin 12.3 g/dl (12.0-16.0); Imm Gran Abs Auto 0.02 X10*3/uL (0.00-0.03); Imm Gran Pct Auto 0.3 % (0.0-0.4); Lymphocytes Absolute Auto 1.8 X10*3/uL (1.2-4.9); Mean Corpuscular HGB Conc 32.5 g/dl (31.0-35.0); Mean Corpuscular Hemoglobin 30.1 pg (27.0-33.0); Mean Corpuscular Volume 92.9 fL (80.0-98.0); Mean Platelet Volume 9.6 fL (9.4-12.3); Monocytes Absolute Auto 0.5 X10*3/uL (0.1-1.2); Monocytes Percent Auto 7.6 % (2-11); Neutrophils Absolute Auto 3.7 x10*3/uL (2.0-8.3); Neutrophils Percent Auto 60.3 % (45-73); Platelet Count 326 X10*3/uL (160-400); Red Blood Count 4.08 X10*6/uL (4.20-5.50); Red Cell Distribution Width 12.5 % (11.0-16.0); White Blood Count 6.2 X10*3/uL (4.8-10.8)
[2022-03-14 15:53] LABS: Alanine Aminotransferase 34 U/L (0-31); Albumin Level 4.7 g/dL (3.5-5.0); Alkaline Phosphatase 72 U/L (39-117); Anion Gap 14 (12-20); Aspartate Amino Transferase 30 U/L (5-31); Bilirubin Total 0.2 mg/dL (0.0-1.0); Blood Urea Nitrogen 13 mg/dL (9-16); Calcium 9.8 mg/dL (8.4-10.2); Carbon Dioxide 28 mmol/L (22-29); Chloride 102 mmol/L (96-108); Estimated Glomerular Filt Rate > 60; Glucose Random 94 mg/dL (60-115); Potassium 4.4 mmol/L (3.3-5.1); Sodium 140 mmol/L (135-145); Total Protein 7.6 g/dL (6.5-8.0)
[2022-03-14 16:13] LABS: Thyroid Stimulating Hormone 0.84 uIU/mL (0.32-4.0)
[2022-03-15 18:22] LABS: Antibody to SS-A Antigen <1.0 NEG AI (<1.0 NEG); Antibody to SS-B Antigen <1.0 NEG AI (<1.0 NEG); Cardiolipin IgG Ab <2.0 GPL-U/mL; Cardiolipin IgM Ab <2.0 MPL-U/mL
[2022-03-15 18:33] LABS: Immunoglobulin E 63 kU/L (<OR=114)
[2022-03-15 18:47] LABS: Thyroid Peroxidase Antibodies 1 IU/mL (<9)
[2022-03-16 02:32] LABS: Thyroglobulin Antibodies <1 IU/mL (< or = 1)
[2022-03-17 11:51] LABS: Anti Nuclear Antibody Screen POSITIVE (NEGATIVE)
[2022-03-19 16:22] LABS: Beta-2 Glycoprotein IgA <2.0 U/mL (<20.0); Beta-2 Glycoprotein IgG <2.0 U/mL (<20.0); Beta-2 Glycoprotein IgM 2.4 U/mL (<20.0)
[2022-03-20 15:47] LABS: Creatinine Random Urine 19 mg/dL (16 - 326); N-Methylhistamine Random Urine 98 mcg/g Cr (30-200)
[2022-03-22 09:43] LABS: Histamine Release <16 % (<16); TSH 1.09 mIU/L (0.40-4.50); Thyroglobulin Abs <1 IU/mL (< OR = 1)
[2022-03-23 09:22] LABS: Prostaglandin D2 Random Urine 34 ng/liter
== END 2022-03-14 14:43 | disposition home or self-care (01) ==
LOC: HO.LAB 14:42
PROVIDERS: PCP Family Medicine; Visit Provider Nurse Practitioner Family
DX: D89.49 Other mast cell activation disorder (principal); J30.89 Other allergic rhinitis; J45.40 Moderate persistent asthma, uncomplicated; G43.109 Migraine with aura, not intractable, without status migrainosus; L27.9 Dermatitis due to unspecified substance taken internally; I65.29 Occlusion and stenosis of unspecified carotid artery; M25.50 Pain in unspecified joint; R53.83 Other fatigue
CPT/HCPCS: 36415; 80053; 82542; 82570; 82785; 83520; 84150; 84443; 85025; 86038; 86039; 86146; 86147; 86235; 86343; 86376; 86800

== ENCOUNTER 2022-03-17 00:34 | Emergency (ER) | payer OTHER, SELFPAY ==
--- NOTE | ~2022-03-17 | XR_ITS ---
EXAMINATION: XR SHOULDER, RIGHT CLINICAL INFORMATION: Pain COMPARISON: None TECHNIQUE: Three views of the right shoulder. FINDINGS: Glenohumeral alignment is anatomic. No acute fracture is seen. Acromioclavicular joint appears intact. XR/XR shoulder RT min 2V IMPRESSION: No acute findings identified.
[2022-03-17 00:40] VITALS: BP 157/70; PULSE 77; RESP 18; TEMP 36.1; O2SAT 97; BMI 26.8
[2022-03-17] MEDS: Ibuprofen 600 MG TABLET PO (01:53)
[2022-03-17 02:00] VITALS: BP 162/76; PULSE 72; RESP 16; TEMP 36.8; O2SAT 98
--- OUTSIDE RECORDS SUMMARY | 2022-03-17 02:16 | XMS_ITS | Continuity of Care Document ---
:1965 Author Organization [facility] [place] Adult Address [address] [place] [address]- Care Team Providers Name Role Phone Alejandra POLLARD, Esau Sarah Primary Care Physician Encounter [facility] [place] Date(s): 04/14/21 - 05/14/21 [facility] [place] Adult [address] [place] [address]- Allergies, Adverse Reactions, Alerts Substance Reaction Severity Status aspirin hives Active morphine HEADACHE Active Chocolate migraine vomiting Active Percocet 7.5/325 itching Active Immunizations Given and Recorded Vaccine Date Status Refusal Reason SARS-CoV-2 (COVID-19) mRNA BNT-162b2 vac1 06/02/20 Record ed SARS-CoV-2 (COVID-19) mRNA BNT-162b2 vac2 05/10/20 Record ed influenza virus vaccine, inactivated 02/03/20 Recorded influenza virus vaccine, inactivated3 02/10/17 Recorded influenza virus vaccine, inactivated 02/10/14 Given influenza virus vaccine, inactivated 01/11/13 Given Influenza Virus Vaccine (oldterm) 02/17/19 Recorded Influenza Virus Vaccine (oldterm)4 01/11/18 Given Diphth/Tet/Pertussis, Acel (oldterm)5 02/13/11 Given tetanus/diphtheria/pertussis, acel(Tdap) 02/13/11 Given 1Result Comment: covid-19 [id number] Comment: covid-19 [id number] History: [facility] [facility] [id number] Note: at [id number] Comment: [12/21/2013 Uncharted] error Medications Advair Diskus 250 mcg-50 mcg inhalation powder 1, inhalation, Inhalation, 2 times a day, rinse mouth and throat after use, # 60 each, Refills 2, Tot. Refills 2, Maintenance, 04/14/21 13:08:00 EST, Powder, Route to Pharmacy Electronically, [id number], [facility]/pharmacy #[id number], 1... Start Date: 04/14/21 Status: Orderedaspirin 81 mg oral delayed release tablet 81 mg, 1, tablet, By Mouth, Daily, # 30 tablet, Refills 0, Maintenance, 04/13/21 14:55:00 EST, Partial fill upon patient request if the prescription is for a schedule II opioid drug. Start Date: 04/13/21 Status: Orderedatenolol 50 mg oral tablet 1, tablet, By Mouth, Daily, # 90 tablet, Refills 2, Route to Pharmacy Electronically, [id number], 162.56, cm, 04/13/21 14:52:00 EST, Height Start Date: 04/17/21 Status: OrderedCitracal + D 250 mg-500 intl units oral tablet, chewable 2 tablet, Chew, 2 times a day with meals, # 70 tablet, 0 Refills, Maintenance, 06/30/20 7:56:00 EST,Chew Tablet, Partial fill upon patient request if the prescription is for a schedule II opioid drug. Start Date: 06/30/20 Status: OrderedCromolyn oral concentrate 100mg/ml Cromolyn oral concentrate 100mg/ml, See Instructions, # 240 mL, Refills 0, Tot. Refills 0, Maintenance, 2 ml orally four times daily (in small amount water), 06/30/20 8:12:00 EST, Supply Start Date: 06/30/20 Status: OrderedGabapentin = 300 mg, By Mouth, 2 times a day, 0 Refills, Maintenance, 12/31/19 8:09:00 EDT Start Date: 12/31/19 Status: OrderedMultivitamin Daily, 0 Refills, Maintenance, 02/07/17 12:04:53 Start Date: 02/07/17 Status: OrderedProAir HFA 90 mcg/inh inhalation aerosol 2 puffs, Inhalation, 4 times a day, PRN as needed for wheezing, # 6.7 Gm, 2 Refills, Maintenance, 04/14/21 13:08:00 EST, Aerosol, [id number], Partial fill upon patient request if the prescription is for a schedule II opioid drug., 2 puffs Inha... Start Date: 04/14/21 Status: Orderedrosuvastatin 40 mg oral tablet 1 tablet = 40 mg, By Mouth, Daily, # 30 tablet, 5 Refills, Maintenance, 04/13/21 14:57:00 EST, Tablet, Partial fill upon patient request if the prescription is for a schedule II opioid drug. Start Date: 04/13/21 Status: Orderedvalsartan 40 mg oral tablet 1, tablet, By Mouth, Daily at bedtime, # 30 tablet, Refills 0, [facility]ically, [id number], 162.[facility], cm, 03/06/21 16:13:00 EDT, Height Start Date: 03/24/21 Status: OrderedVitamin C 1000 mg oral tablet 1 tablet = 1,000 mg, By Mouth, Daily, # 30 tablet, 0 Refills, Maintenance, 06/30/20 7:56:00 EST, Tablet, Partial fill upon patient request if the prescription is for a schedule II opioid drug. Start Date: 06/30/20 Status: OrderedZyrTEC 10 mg oral tablet 1 tablet = 10 mg, By Mouth, 2 times a day, # 60 tablet, 0 Refills, Maintenance, 09/04/19 9:00:00 EDT Start Date: 09/04/19 Status: Ordered Problem List Condition Effective Dates Status Health Status Informant Back pain(Confirmed) Active Conjunctivitis(Confirmed) Active Hypertension(Confirmed) Active Mast cell disorder(Confirmed) Active Social History Social History Type Response Smoking Status Former smoker entered on: 06/16/14 Sex
--- OUTSIDE RECORDS SUMMARY | 2022-03-17 02:16 | XMS_ITS | Continuity of Care Document ---
:1965 Author Organization [facility] [place] Adult Address [address] [place] [address]- Care Team Providers Name Role Phone Alejandra POLLARD, Esau Sarah Primary Care Physician Encounter [facility] [place] Date(s): 11/03/20 - 12/03/20 [facility] [place] [facility] [address] [place] [address]- Allergies, Adverse Reactions, Alerts Substance Reaction Severity [...] tetanus/diphtheria/pertussis, acel(Tdap) 02/13/11 Given 1Result Comment: covid-19 [id number] Comment: covid-19 [id number] History: RICHARD CHAWLA [id number] Note: at [id number] Comment: [12/21/2013 Uncharted] error Medications atenolol 50 mg oral tablet 50 mg, 1, tablet, By Mouth, Daily, replace 25mg, # 90 tablet, Refills 2, Tot. Refills 2, Maintenance, 07/22/20 14:49:00 EST, Route to Pharmacy Electronically, [facility]/pharmacy #[id number], Partial fill upon patient request if the prescription is for a schedule... Start Date: 07/22/20 Status: OrderedCitracal + D 250 mg-500 intl [...] 8:12:00 EST, Supply Start Date: 06/30/20 Status: Orderedcyclobenzaprine 10 mg oral tablet 10 mg, 1, tablet, By Mouth, 3 times a day, PRN, # 30 tablet, Refills 5, Tot. Refills 5, Acute 12/28/20 8:30:00 EDT, for spasm, 06/30/20 8:16:00 EST, Route to Pharmacy Electronically, [facility]/pharmacy #[id number], 162.56, cm, 06/30/20 7:53:00 EST, Height Start Date: 06/30/20 Stop Date: 12/28/20 Status: OrderedGabapentin = 300 mg, By Mouth, 2 times a day, 0 Refills, Maintenance, 12/31/19 8:09:00 EDT Start Date: 12/31/19 Status: OrderedMultivitamin Daily, 0 Refills, Maintenance, 02/07/17 12:04:53 Start Date: 02/07/17 Status: OrderedVitamin C 1000 mg oral tablet [...]
--- OUTSIDE RECORDS SUMMARY | 2022-03-17 02:16 | XMS_ITS | Continuity of Care Document ---
:1965 Author Organization [facility] Adult Address [address] [place] [address]- Care Team Providers Name Role Phone Alejandra POLLARD, Esau Sarah Primary Care Physician [place] [facility] [place] 12[place]29[place]19 [place] 01/28/20 [facility] [address] [place] [address]- [facility] Allergies, Adverse Reactions, Alerts Substance Reaction Severity Status aspirin hives Active morphine HEADACHE Active Chocolate migraine vomiting Active Percocet 7.5/325 itching Active Immunizations Given and Recorded Vaccine Date Status Refusal Reason Influenza Virus Vaccine (oldterm) 02/17/19 Recorded Influenza Virus Vaccine (oldterm)1 01/11/18 Given influenza virus vaccine, inactivated2 02/10/17 Recorded influenza virus vaccine, inactivated 02/10/14 Given influenza virus vaccine, inactivated 01/11/13 Given Diphth/Tet/Pertussis, Acel (oldterm)3 02/13/11 Given tetanus/diphtheria/pertussis, acel(Tdap) 02/13/11 Given 1Admin Note: at [id number] History: RICHARD CHAWLA [id number] Comment: [12/21/2013 Uncharted] error Medications ashwagandha charmainedha, Refills 0, Maintenance, 06/26/18 8:36:31 EST, Compound Start Date: 06/26/18 Status: Orderedatenolol 25 mg oral tablet 1, tablet, By Mouth, Daily, # 30 tablet, Refills 11, Tot. Refills 11, Maintenance, 01/06/20 17:04:00EDT, Route to Pharmacy Electronically, [facility]/pharmacy #[id number], 162.56, cm, 12/31/19 7:46:00 EDT, Height Start Date: 01/06/20 Status: Orderedbudesonide 9 mg oral tablet, extended release 1 tablet = 9 mg, By Mouth, Daily in AM, # 30 tablet, 0 Refills, Maintenance, 12/16/19 7:48:00 EDT, ER Tablet Start Date: 12/16/19 Status: Orderedcromolyn 20 mg/mL oral solution See Instructions, 10 mL By Mouth in am, 5 ml at noon, 10 ml in pm, # 750 mL, 0 Refills, Maintenance,09/04/19 9:00:00 EDT Start Date: 09/04/19 Status: Orderedcyclobenzaprine 10 mg oral tablet 10 mg, 1, tablet, By Mouth, 3 times a day, PRN, # 30 tablet, Refills 0, Tot. Refills 0, Acute 06/29/20 8:39:00 EST, for spasm, 06/29/19 8:38:00 EST, Route to Pharmacy Electronically, [facility]/pharmacy #[id number], 162.56, cm, 06/29/19 8:05:00 EST, Height Start Date: 06/29/19 Stop Date: 06/29/20 Status: OrdereddiphenhydrAMINE 25 mg oral tablet 1 tablet = 25 mg, By Mouth, Daily at bedtime, # 24 tablet, 0 Refills, Acute 09/03/20 9:01:00 EDT, 09/04/19 9:01:00 EDT Start Date: 09/04/19 Stop Date: 09/03/20 Status: OrderedGabapentin See Instructions, 300 mg in am and Mid day 600 mg at bedtime, 0 Refills, Maintenance, 12/31/19 8:09:00 EDT Start Date: 12/31/19 Status: OrderedL-Tyrosine L-Tyrosine, Refills 0, Maintenance, 06/26/18 8:36:36 EST, Compound Start Date: 06/26/18 Status: OrderedMultivitamin Daily, 0 Refills, Maintenance, 02/07/17 12:04:53 Start Date: 02/07/17 Status: OrderedNasacort Allergy 24HR 55 mcg/inh nasal spray 2 sprays, Nares, Both, Daily, in each nostril, # 1 each, 0 Refills, Maintenance, 06/27/18 8:57:47 EST, 2 sprays Nares, Both Daily,x14 days,Instr:in each nostril Start Date: 06/27/18 Stop Date: 07/11/18 Status: OrderedZyrTEC 10 mg oral tablet 1 [...]
--- OUTSIDE RECORDS SUMMARY | 2022-03-17 02:16 | XMS_ITS | Continuity of Care Document ---
:1965 Author Organization [facility] Adult Address [address] [place] [address]- Care Team Providers Name Role Phone Alejandra POLLARD, Esau Sarah Primary Care Physician Encounter [facility] [place] Date(s): 01/04/20 - 02/03/20 [facility] [address] [place] [address]- [facility] Allergies, Adverse Reactions, Alerts Substance Reaction Severity [...] tetanus/diphtheria/pertussis, acel(Tdap) 02/13/11 Given 1Admin Note: at [id number] History: RICHARD CHAWLA [id number] Comment: [12/21/2013 Uncharted] error Medications ashwagandha ashfaazlgandha, Refills 0, Maintenance, 06/26/18 8:36:31 EST, Compound Start Date: 06/26/18 Status: Orderedatenolol 25 mg oral tablet 1, tablet, By Mouth, Daily, # 30 tablet, Refills 11, Tot. Refills 11, Maintenance, 01/06/20 17:04:00EDT, Route to Pharmacy Electronically, [facility]/pharmacy #[id number], 162.56, cm, 12/31/19 7:46:00 EDT, Height Start [...] 06/29/19 8:38:00 EST, Route to Pharmacy Electronically, [facility]/pharmacy #[id number], 162.56, cm, 06/29/19 8:05:00 EST, Height [...]
--- OUTSIDE RECORDS SUMMARY | 2022-03-17 02:16 | XMS_ITS | Continuity of Care Document ---
:1965 Author Organization [facility] Adult Address [address] [place] [address]- Care Team Providers Name Role Phone Alejandra POLLARD, Esau Sarah Primary Care Physician Encounter [facility] [place] Date(s): 07/03/21 - 08/02/21 [facility] [address] [place] [address]- Allergies, Adverse Reactions, Alerts Substance Reaction Severity [...] tetanus/diphtheria/pertussis, acel(Tdap) 02/13/11 Given 1Result Comment: covid-19 [id number] Comment: covid-19 [id number] History: RICHARD SOUSAA [id number] Note: at [id number] Comment: [12/21/2013 Uncharted] error Medications Advair Diskus 250 mcg-50 mcg inhalation powder 1, inhalation, Inhalation, 2 times a day, rinse mouth and throat after use, # 60 each, Refills 2, Tot. Refills 2, Maintenance, 04/14/21 13:08:00 EST, Powder, Route to Pharmacy Electronically, [id number], [facility]/pharmacy #[id number], 1... Start Date: 04/14/21 Status: Orderedaspirin [...] tablet, Refills 2, Route to Pharmacy Electronically, [id number], 162.56, cm, 04/13/21 14:52:00 EST, Height Start [...] 2 Refills, Maintenance, 04/14/21 13:08:00 EST, Aerosol, [facility]/pharmacy #[id number], Partial fill upon patient request [...] Refills 0, Route to Pharmacy Electronically, [id number], 162.56, cm, 03/06/21 16:13:00 EDT, Height Start [...]
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
--- OUTSIDE RECORDS SUMMARY | 2022-03-17 02:16 | XMS_ITS | Continuity of Care Document ---
:1965 Author Organization [facility] Adult Address [address] [place] [address]- Care Team Providers Name Role Phone Alejandra POLLARD, Esau Sarah Primary Care Physician Encounter [facility] [place] Date(s): 12/16/19 - 01/15/20 [facility] Adult [address] [place] [address]- [facility] Allergies, Adverse Reactions, Alerts Substance Reaction Severity [...] tetanus/diphtheria/pertussis, acel(Tdap) 02/13/11 Given 1Admin Note: at [id number] History: RICHARD CHAWLA [id number] Comment: [12/21/2013 Uncharted] error Medications ashwagandha ashfazalgandha, Refills 0, Maintenance, 06/26/18 8:36:31 EST, Compound Start Date: 06/26/18 Status: Orderedatenolol 25 mg oral tablet 1, tablet, By Mouth, Daily, # 30 tablet, Refills 11, Tot. Refills 11, Maintenance, 01/06/20 17:04:00EDT, Route to Pharmacy Electronically, [facility]/pharmacy #[id number], 162.56, cm, 12/31/19 7:46:00 EDT, Height Start [...] 06/29/19 8:38:00 EST, Route to Pharmacy Electronically, [facility]/pharmacy #[id number], 162.56, cm, 06/29/19 8:05:00 [...]
--- OUTSIDE RECORDS SUMMARY | 2022-03-17 02:16 | XMS_ITS | Continuity of Care Document ---
:1965 Author Organization [facility] Adult Address [address] [place] [address]- Care Team Providers Name Role Phone Alejandra POLLARD, Esau Sarah Primary Care Physician [place] [facility] [place]20 - 11/27/20 [facility] Adult [address] [place] [address]- Attending Physician: Cornell Beckwith Admitting Physician: AdmCornell ospina Referring Physician: AdmtrCornell Allergies, Adverse Reactions, Alerts Substance Reaction Severity [...] tetanus/diphtheria/pertussis, acel(Tdap) 02/13/11 Given 1Result Comment: covid-19 [id number] Comment: covid-19 [id number] History: [facility] [facility] [id number] Note: at [id number] Comment: [12/21/2013 Uncharted] error Medications atenolol 50 mg oral tablet 50 mg, 1, tablet, By Mouth, Daily, replace 25mg, # 90 tablet, Refills 2, Tot. Refills 2, Maintenance, 07/22/20 14:49:00 EST, Route to Pharmacy Electronically, [facility]/pharmacy #[id number], Partial fill upon patient request if [...] 06/30/20 8:16:00 EST, Route to Pharmacy Electronically, [facility]/pharmacy #[id number], 162.56, cm, 06/30/20 7:53:00 EST, Height [...]
--- OUTSIDE RECORDS SUMMARY | 2022-03-17 02:16 | XMS_ITS | Continuity of Care Document ---
:[address] [facility] Adult Address [address] [place] [address]- Care Team Providers Name Role Phone Alejandra POLLARD, Esau Sarah Primary Care Physician En[place] [facility] [place] Date(s): 01/05/20 - 02/04/20 [facility] Adult [address] [place] [address]- [facility] Allergies, Adverse Reactions, Alerts Substance Reaction Severity [...] tetanus/diphtheria/pertussis, acel(Tdap) 02/13/11 Given 1Admin Note: at [id number] History: RICHARD CHAWLA [id number] Comment: [12/21/2013 Uncharted] error Medications ashwagandha charmainedha, Refills 0, Maintenance, 06/26/18 8:36:31 EST, Compound Start Date: 06/26/18 Status: Orderedatenolol 25 mg oral tablet 1, tablet, By Mouth, Daily, # 30 tablet, Refills 11, Tot. Refills 11, Maintenance, 01/06/20 17:04:00EDT, Route to Pharmacy Electronically, [facility]/pharmacy #[id number], 162.56, cm, 12/31/19 7:46:00 EDT, Height Start [...] 06/29/19 8:38:00 EST, Route to Pharmacy Electronically, [facility]/pharmacy #[id number], 162.56, cm, 06/29/19 8:05:00 EST, [...]
--- OUTSIDE RECORDS SUMMARY | 2022-03-17 02:16 | XMS_ITS | Continuity of Care Document ---
:1965 Author Organization [facility] Address [address] [place] [address]- Care Team Providers Name Role Phone Esau Roberts MD Primary Care Physician Encounter [facility] [place] Date(s): 05/19/21 - 08/12/[address] [address]- Attending Physician: Hector Sood MD Admitting Physician: Hector Sood MD Referring Physician: Hector Sood MD Allergies, Adverse Reactions, Alerts Substance Reaction Severity [...] tetanus/diphtheria/pertussis, acel(Tdap) 02/13/11 Given 1Result Comment: covid-19 [id number] Comment: covid-19 [id number] History: [place] [facility] [id number] Note: at [id number] Comment: [12/21/2013 Uncharted] error Medications Advair Diskus 250 mcg-50 mcg inhalation powder 1, inhalation, Inhalation, 2 times a day, rinse mouth and throat after use, # 60 each, Refills 2, Tot. Refills 2, Maintenance, 04/14/21 13:08:00 EST, Powder, Route to Pharmacy Electronically, [id number], [facility]/pharmacy #[id number], 1... Start Date: 04/14/21 Status: Orderedaspirin [...] tablet, Refills 2, Route to Pharmacy Electronically, [facility]798, 162.56, cm, 04/13/21 14:52:00 EST, Height Start [...] 2 Refills, Maintenance, 04/14/21 13:08:00 EST, Aerosol, [facility]/pharmacy #[id number], Partial fill upon patient request if [...] Refills 0, Route to Pharmacy Electronically, [facility], 162.56, cm, 03/06/21 16:13:00 EDT, Height Start [...]
--- OUTSIDE RECORDS SUMMARY | 2022-03-17 02:16 | XMS_ITS | Continuity of Care Document ---
:1965 Author Organization [facility] Address [address] [place] [address]- Care Team Providers Name Role Phone Esau Roberts MD Primary Care Physician Encounter [facility] [place] Date(s): 03/01/21 - 03/08/21 [facility] [address] [place] [address]- Attending Physician: Esau Roberts MD Allergies, Adverse Reactions, Alerts Substance Reaction [...] tetanus/diphtheria/pertussis, acel(Tdap) 02/13/11 Given 1Result Comment: covid-19 [id number] Comment: covid-19 [id number] History: [place] [facility] [id number] Note: at [id number] Comment: [12/21/2013 Uncharted] error Medications atenolol 50 mg oral tablet 50 mg, 1, tablet, By Mouth, Daily, replace 25mg, # 90 tablet, Refills 2, Tot. Refills 2, Maintenance, 07/22/20 14:49:00 EST, Route to Pharmacy Electronically, [facility]/pharmacy #[id number], Partial fill upon patient request [...] Maintenance, 02/07/17 12:04:53 Start Date: 02/07/17 Status: Orderedvalsartan 40 mg oral tablet 40 mg, 1, tablet, By Mouth, Daily at bedtime, # 30 tablet, Refills 0, Tot. Refills 0, Maintenance, 03/01/21 15:32:00 EDT, Route to Pharmacy Electronically, [facility]/pharmacy #[id number], Partial fill upon patientrequest if the prescription is for a schedule II... Start Date: 03/01/21 Status: OrderedVitamin C 1000 mg oral tablet [...] Active Hypertension(Confirmed) Active Mast cell disorder(Confirmed) Active Vital Signs Most recent to oldest [Reference Range]: 1 Height 162.56 cm (03/01/21 2:52 PM) Weight 67.9 kg (03/01/21 2:52 PM) Oxygen Saturation [94-100 %] 98 % (03/01/21 2:52 PM) Pulse Rate [55-90 bpm] 72 bpm (03/01/21 2:52 PM) Body Mass Index [18.5-24.99] 25.69 *H* (03/01/21 2:52 PM) Blood Pressure [90-138/55-84 mm Hg] 142/88 mm Hg *H* (03/01/21 2:52 PM) Temperature [96.8-100.4 DegF] 98.7 DegF (03/01/21 2:52 PM) Blood pressure sites Arm, left (03/01/21 2:52 PM) Temperature Route Oral (03/01/21 2:52 PM) Weight Obtained Via Standing scale (03/01/21 2:52 PM) Social History Social History Type Response Smoking Status Former smoker entered on: 06/16/14 Sex
--- OUTSIDE RECORDS SUMMARY | 2022-03-17 02:16 | XMS_ITS | Continuity of Care Document ---
:1965 Author Organization [facility] Adult Address [address] [place] [address]- Care Team Providers Name Role Phone Alejandra POLLARD, Esau Sarah Primary Care Physician En[place] [facility] [place] Date(s): 09/20/21 - 10/20/21 [facility] [address] [place] [address]- Attending Physician: Admanai, Daniel8 Admitting Physician: Admtr, Daniel8 Referring Physician: Admtr, Ar8 Allergies, Adverse Reactions, Alerts Substance Reaction Severity [...] tetanus/diphtheria/pertussis, acel(Tdap) 02/13/11 Given 1Result Comment: covid-19 [id number] Comment: covid-19 [id number] History: [place] [facility] [id number] Note: at [id number] Comment: [12/21/2013 Uncharted] error Medications Advair Diskus 250 mcg-50 mcg inhalation powder 1, inhalation, Inhalation, 2 times a day, rinse mouth and throat after use, # 60 each, Refills 2, Tot. Refills 2, Maintenance, 04/14/21 13:08:00 EST, Powder, Route to Pharmacy Electronically, [id number], [facility]/pharmacy #[id number], 1... Start Date: 04/14/21 Status: [...] tablet, Refills 2, Route to Pharmacy Electronically, [facility] [address]32, 162.56, cm, 04/13/21 14:52:00 EST, Height Start [...] 06/30/20 Status: Orderedcyclobenzaprine 10 mg oral tablet 1, tablet, By Mouth, 3 times a day, PRN, # 30 tablet, Refills 5, NEEDED FOR MUSCLE SPASM, Route to Pharmacy Electronically, [facility] 80963, 162.56, cm, 06/21/21 12:56:00 EST, Height Start Date: 10/07/21 Status: OrderedGabapentin = 300 mg, By Mouth, 2 times a day, 0 Refills, Maintenance, 12/31/19 8:09:00 EDT Start Date: 12/31/19 Status: OrderedMultivitamin Daily, 0 Refills, Maintenance, 02/07/17 12:04:53 Start Date: 02/07/17 Status: OrderedProAir HFA 90 mcg/inh inhalation aerosol 2 puffs, Inhalation, 4 times a day, PRN as needed for wheezing, # 6.7 Gm, 2 Refills, Maintenance, 04/14/21 13:08:00 EST, Aerosol, [facility]/pharmacy #[id number], Partial fill upon patient [...] Refills 0, Route to Pharmacy Electronically, [facility], 162.56, cm, 03/06/21 16:13:00 EDT, Height Start [...]
--- OUTSIDE RECORDS SUMMARY | 2022-03-17 02:16 | XMS_ITS | Continuity of Care Document ---
:1965 Author Organization [facility] Address [address] [place] [address]- Care Team Providers Name Role Phone Alejandra POLLARD, Esau Sarah Primary Care Physician [place] [facility] [place](s[place] 12/15/19 - 01/14/20 [facility] [address] [place] [address]- [facility] Allergies, Adverse Reactions, Alerts Substance [...] tetanus/diphtheria/pertussis, acel(Tdap) 02/13/11 Given 1Admin Note: at [id number] History: RICHARD CHAWLA [id number] Comment: [12/21/2013 Uncharted] error Medications ashwagandha charmainedha, Refills 0, Maintenance, 06/26/18 8:36:31 EST, Compound Start Date: 06/26/18 Status: Orderedatenolol 25 mg oral tablet 1, tablet, By Mouth, Daily, # 30 tablet, Refills 11, Tot. Refills 11, Maintenance, 01/06/20 17:04:00EDT, Route to Pharmacy Electronically, [facility]/pharmacy #[id number], 162.56, cm, 12/31/19 7:46:00 EDT, Height Start [...] 06/29/19 8:38:00 EST, Route to Pharmacy Electronically, [facility]/pharmacy #[id number], 162.56, cm, 06/29/19 8:05:00 EST, Height [...]
--- OUTSIDE RECORDS SUMMARY | 2022-03-17 02:16 | XMS_ITS | Continuity of Care Document ---
:1965 Author Organization [facility] Address [address] [place] [address]- Care Team Providers Name Role Phone Alejandra POLLARD, Esau Sarah Primary Care Physician Encounter [facility] [place] [facility] R [id number] Date(s): 01/11/20 - 01/18/20 [facility] [address] [place] [address]- [facility] Encounter Diagnosis Burn of hand (Discharge Diagnosis) - 01/11/20 Attending Physician: Not on Staff, Attending MD Allergies, Adverse Reactions, Alerts Substance Reaction [...] tetanus/diphtheria/pertussis, acel(Tdap) 02/13/11 Given 1Admin Note: at [id number] History: [employer] MERRYA [id number] Comment: [12/21/2013 Uncharted] error Medications ashwagandha ashwagandha, Refills 0, Maintenance, 06/26/18 8:36:31 EST, Compound Start Date: 06/26/18 Status: Orderedatenolol 25 mg oral tablet 1, tablet, By Mouth, Daily, # 30 tablet, Refills 11, Tot. Refills 11, Maintenance, 01/06/20 17:04:00EDT, Route to Pharmacy Electronically, [facility]/pharmacy #[id number], 162.56, cm, 12/31/19 7:46:00 EDT, Height [...] 06/29/19 8:38:00 EST, [id number], cm, 06/29/19 8:05:00 EST, Height [...] Dates Health Status Clinical In formant Service Burn of hand Discharge 01/11/20 Diagnosis Vital Signs Most recent to oldest [Reference Range]: 1 Height 162.56 cm (01/11/20 8:06 AM) Weight 71.7 kg (01/11/20 8:06 AM) Oxygen Saturation [94-100 %] 99 % (01/11/20 8:06 AM) Pulse Rate [55-90 bpm] 72 bpm (01/11/20 8:06 AM) Body Mass Index [18.5-24.99] 27.13 *H* (01/11/20 8:06 AM) Blood Pressure [90-138/55-84 mm Hg] 150/63 mm Hg *H* (01/11/20 8:06 AM) Temperature [96.8-100.4 DegF] 98.5 DegF (01/11/20 8:06 AM) Blood pressure sites Arm, right (01/11/20 8:06 AM) Temperature Route Oral (01/11/20 8:06 AM) Social History Social History Type Response Smoking Status Former smoker entered on: 06/16/14 Sex
--- OUTSIDE RECORDS SUMMARY | 2022-03-17 02:16 | XMS_ITS | Continuity of Care Document ---
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 Refills 1, Maintenance, 06/08/19 16:37:00 EST, Route to [facility]acy [facility]ically, [id number], 162.56, cm, 06/27/18 8:38:00 EST, Height Start Date: 06/08/19 Status: Orderedcyclobenzaprine 10 mg oral tablet 10 mg, 1, tablet, By Mouth, 3 times a day, PRN, # 30 tablet, Refills 0, Tot. Refills 0, Acute 06/29/20 8:39:00 EST, for spasm, 06/29/19 8:38:00 EST, [id number] 162.[facility], cm, 06/29/19 8:05:00 EST, Height Start Date: 06/29/19 Stop Date: 06/29/20 Status: OrderedL-Tyrosine L-Tyrosine, Refills 0, Maintenance, 06/26/18 [...] Start Date: 06/27/18 Stop Date: 07/11/18 Status: Ordered Problem List Condition Effective Dates Status Health Status Informant Back pain(Confirmed) Active Conjunctivitis(Confirmed) Active Hypertension(Confirmed) Active Mast cell disorder(Confirmed) Active Social History Social History Type Response Smoking Status Former smoker entered on: 06/16/14 Sex
--- OUTSIDE RECORDS SUMMARY | 2022-03-17 02:16 | XMS_ITS | Continuity of Care Document ---
:1965 Author Organization [facility] Address [address] [place] [address]- Care Team Providers Name Role Phone Esau Roberts MD Primary Care Physician [place] [facility] [place]16[place] 12/23/19 [facility] [address] [place] [address]- [facility] Attending Physician: Esau Roberts MD Allergies, [...] tetanus/diphtheria/pertussis, acel(Tdap) 02/13/11 Given 1Admin Note: at [id number] History: RICHARD CHAWLA [id number] Comment: [12/21/2013 Uncharted] error Medications ashwagandha ashwagandha, Refills 0, Maintenance, 06/26/18 8:36:31 EST, Compound Start Date: 06/26/18 Status: Orderedatenolol 25 mg oral tablet 1, tablet, By Mouth, Daily, # 90 tablet, Refills 0, Tot. Refills 0, Maintenance, 12/11/19 8:41:00 EDT, Route to Pharmacy Electronically, [facility]/pharmacy #[id number], 162.56, cm, 06/29/19 8:05:00 EST, Height Start Date: 12/11/19 Status: Orderedbudesonide 9 mg oral tablet, extended [...] 06/29/19 8:38:00 EST, Route to Pharmacy Electronically, [facility]/pharmacy #[id number], 162.56, cm, 06/29/19 8:05:00 EST, Height Start Date: 06/29/19 Stop Date: 06/29/20 Status: OrdereddiphenhydrAMINE 25 mg oral tablet 1 tablet = 25 mg, By Mouth, Daily at bedtime, # 24 tablet, 0 Refills, Acute 09/03/20 9:01:00 EDT, 09/04/19 9:01:00 EDT Start Date: 09/04/19 Stop Date: 09/03/20 Status: OrderedL-Tyrosine L-Tyrosine, Refills 0, Maintenance, 06/26/18 [...] oldest [Reference Range]: 1 Height 162.56 cm (12/16/19 7:47 AM) Social History Social History Type Response Smoking Status Former smoker entered on: 06/16/14 Sex
--- OUTSIDE RECORDS SUMMARY | 2022-03-17 02:16 | XMS_ITS | Continuity of Care Document ---
:1965 Author Organization [facility] Adult Address [address] [place] [address]- Care Team Providers Name Role Phone Alejandra POLLARD, Esau Sarah Primary Care Physician Encounter [facility] [place] Date(s): 08/25/19 - 09/04/19 [facility] [address] [place] [address]- [facility] Attending Physician: Cornell Beckwith Admitting Physician: Cornell Beckwith Referring Physician: Cornell Beckwith Allergies, Adverse Reactions, Alerts Substance Reaction Severity [...] tetanus/diphtheria/pertussis, acel(Tdap) 02/13/11 Given 1Admin Note: at [id number] History: RICHARD CHAWLA [id number] Comment: [12/21/2013 Uncharted] error Medications ashwagandha ashfazalgandha, Refills 0, Maintenance, 06/26/18 8:36:31 EST, Compound Start Date: 06/26/18 Status: Orderedatenolol 25 mg oral tablet 1, tablet, By Mouth, Daily, # 90 tablet, Refills 1, Tot. Refills 1, Maintenance, 06/08/19 16:37:00 EST, Route to Pharmacy Electronically, [facility]/pharmacy #[id number], 162.56, cm, 06/27/18 8:38:00 EST, Height Start Date: 06/08/19 Status: Orderedcromolyn 20 mg/mL oral solution See [...] 06/29/19 8:38:00 EST, [id number], cm, 06/29/19 8:05:00 EST, Height [...]
--- OUTSIDE RECORDS SUMMARY | 2022-03-17 02:16 | XMS_ITS | Continuity of Care Document ---
:1965 Author Organization [facility] Adult Address [address] [place] [address]- Care Team Providers Name Role Phone Esau Roberts MD Primary Care Physician Encounter [facility] [place] Date(s): 06/21/21 - 06/28/21 [facility] Adult [address] [place] [address]- Attending Physician: Esau Roberts MD Allergies, Adverse [...] tetanus/diphtheria/pertussis, acel(Tdap) 02/13/11 Given 1Result Comment: covid-19 [id number] Comment: covid-19 [id number] History: [place] [facility] [id number] Note: at [id number] Comment: [12/21/2013 Uncharted] error Medications Advair Diskus 250 mcg-50 mcg inhalation powder 1, inhalation, Inhalation, 2 times a day, rinse mouth and throat after use, # 60 each, Refills 2, Tot. Refills 2, Maintenance, 04/14/21 13:08:00 EST, Powder, Route to Pharmacy Electronically, [id number], [facility]/pharmacy #[id number], 1... Start Date: 04/14/21 Status: [...] tablet, Refills 2, Route to Pharmacy Electronically, [facility], 162.56, cm, 04/13/21 14:52:00 EST, Height Start [...] Refills 0, Route to Pharmacy Electronically, [facility], 162.56, cm, 03/06/21 16:13:00 EDT, Height Start [...] oldest [Reference Range]: 1 Height 162.56 cm (06/21/21 12:56 PM) Weight 67 kg (06/21/21 12:56 PM) Oxygen Saturation [94-100 %] 98 % (06/21/21 12:56 PM) Pulse Rate [55-90 bpm] 75 bpm (06/21/21 12:56 PM) Body Mass Index [18.5-24.99] 25.35 *H* (06/21/21 12:56 PM) Blood Pressure [90-138/55-84 mm Hg] 119/50 mm Hg (2/9/22 12:56 PM) Blood pressure sites Arm, left (06/21/21 12:56 PM) Weight Obtained Via Standing scale (06/21/21 12:56 PM) Social History Social History Type Response Smoking Status Former smoker entered on: 06/16/14 Sex
--- OUTSIDE RECORDS SUMMARY | 2022-03-17 02:16 | XMS_ITS | Continuity of Care Document ---
:1965 Author Organization [facility] Adult Address [address] [place] [address]- Care Team Providers Name Role Phone Alejandra POLLARD, Esau Sarah Primary Care Physician En[facility] [place] Date(s): 07/22/20 - 08/21/20 [facility] [address] [place] [address]- Attending Physician: Cornell Beckwith Admitting Physician: Cornell Beckwith Referring Physician: AdmtrCornell Allergies, Adverse Reactions, Alerts [...] tetanus/diphtheria/pertussis, acel(Tdap) 02/13/11 Given 1Result Comment: covid-19 [id number] Comment: covid-19 [id number] History: RICHARD SOUSAA [id number] Note: at hedv3Gvclcq Comment: [12/21/2013 Uncharted] error Medications atenolol 50 mg oral tablet 50 mg, 1, tablet, By Mouth, Daily, replace 25mg, # 90 tablet, Refills 2, Tot. Refills 2, Maintenance, 07/22/20 14:49:00 EST, Route to Pharmacy Electronically, [facility]/pharmacy #[id number], Partial fill upon patient request if [...] EST, Route to Pharmacy Electronically, [facility]/pharmacy #[id number], 162.56, cm, 06/30/20 7:53:00 EST, Height Start Date: 06/30/20 Stop Date: 12/28/20 Status: OrdereddiphenhydrAMINE 25 mg oral tablet 1 tablet = 25 mg, By Mouth, Daily at bedtime, # 24 tablet, 0 Refills, Acute 09/03/20 9:01:00 EDT, 09/04/19 9:01:00 EDT Start Date: 09/04/19 Stop Date: 09/03/20 Status: OrderedGabapentin = 300 mg, By Mouth, [...]
--- OUTSIDE RECORDS SUMMARY | 2022-03-17 02:16 | XMS_ITS | Continuity of Care Document ---
:1965 Author Organization [facility] [place] Address [address] [place] [address]- Care Team Providers Name Role Phone Alejandra POLLARD, Esau Sarah Primary Care Physician Encounter [facility] Date(s): 05/23/21 - 06/22/21 [facility] [place] [address] [place] [address]- Allergies, Adverse Reactions, Alerts Substance Reaction Severity [...] tetanus/diphtheria/pertussis, acel(Tdap) 02/13/11 Given 1Result Comment: covid-19 cokunx1Fykskj Comment: covid-19 eoasby7Xborccqx History: [place] [facility] [id number] Note: at tovj0Rmgojx Comment: [12/21/2013 Uncharted] error Medications Advair Diskus 250 mcg-50 mcg inhalation powder 1, inhalation, Inhalation, 2 times a day, rinse mouth and throat after use, # 60 each, Refills 2, Tot. Refills 2, Maintenance, 04/14/21 13:08:00 EST, Powder, Route to Pharmacy Electronically, [id number], [facility]/pharmacy #[id number], 1... Start Date: 04/14/21 Status: [...] tablet, Refills 2, Route to Pharmacy Electronically, [facility]889, 162.56, cm, 04/13/21 14:52:00 EST, Height Start [...] 2 Refills, Maintenance, 04/14/21 13:08:00 EST, Aerosol, [facility]/pharmacy #[id number], Partial fill upon [...] Refills 0, Route to Pharmacy Electronically, [facility], 162.56, cm, 03/06/21 16:13:00 EDT, Height Start [...]
--- OUTSIDE RECORDS SUMMARY | 2022-03-17 02:16 | XMS_ITS | Continuity of Care Document ---
:1965 Author Organization [facility] Adult Address [address] [place] [address]- Care Team Providers Name Role Phone Esau Roberts MD Primary Care Physician [place] [facility] [place] 10[place]20 - 11/04/20 [facility] [address] [place] [address]- Attending Physician: Esau Roberts MD Allergies, Adverse [...] tetanus/diphtheria/pertussis, acel(Tdap) 02/13/11 Given 1Result Comment: covid-19 [id number] Comment: covid-19 ecfilz3Vjxhcgyz History: [place] [facility] [id number] Note: at [id number] Comment: [12/21/2013 Uncharted] error Medications atenolol 50 mg oral tablet 50 mg, 1, tablet, By Mouth, Daily, replace 25mg, # 90 tablet, Refills 2, Tot. Refills 2, Maintenance, 07/22/20 14:49:00 EST, Route to Pharmacy Electronically, [facility]/pharmacy #[id number], Partial fill upon patient request if the [...] 8:16:00 EST, Route to Pharmacy Electronically, [facility]/pharmacy #[id number], 162.56, cm, 06/30/20 7:53:00 EST, [...] oldest [Reference Range]: 1 Height 162.56 cm (10/28/20 7:56 AM) Weight 71.0 kg (10/28/20 7:56 AM) Oxygen Saturation [94-100 %] 99 % (10/28/20 7:56 AM) Pulse Rate [55-90 bpm] 72 bpm (10/28/20 7:56 AM) Body Mass Index [18.5-24.99] 26.87 *H* (10/28/20 7:56 AM) Blood Pressure [90-138/55-84 mm Hg] 126/82 mm Hg (10/28/20 7:56 AM) Temperature [96.8-100.4 DegF] 97.8 DegF (10/28/20 7:56 AM) Blood pressure sites Arm, left (10/28/20 7:56 AM) Temperature Route Oral (10/28/20 7:56 AM) Weight Obtained Via Standing scale (10/28/20 7:56 AM) Social History Social History Type Response Smoking Status Former smoker entered on: 06/16/14 Sex
--- OUTSIDE RECORDS SUMMARY | 2022-03-17 02:16 | XMS_ITS | Continuity of Care Document ---
:1965 Author Organization [facility] Adult Address [address] [place] [address]- Care Team Providers Name Role Phone Alejandra POLLARD, Esau Sarah Primary Care Physician [place] [facility] [place]): 12/02/19 - 01/01/20 [facility] [address] [place] [address]- [facility] Allergies, Adverse Reactions, Alerts Substance Reaction [...] tetanus/diphtheria/pertussis, acel(Tdap) 02/13/11 Given 1Admin Note: at [id number] History: RICHARD CHAWLA [id number] Comment: [12/21/2013 Uncharted] error Medications ashwagandha ashwagandha, Refills 0, Maintenance, 06/26/18 8:36:31 EST, Compound Start Date: 06/26/18 Status: Orderedatenolol 25 mg oral tablet 1, tablet, By Mouth, Daily, # 90 tablet, Refills 0, Tot. Refills 0, Maintenance, 12/11/19 8:41:00 EDT, Route to Pharmacy Electronically, [facility]/pharmacy #[id number], 162.56, cm, 06/29/19 8:05:00 EST, [...] Acute 01/10/20 8:17:00 EDT, 12/31/19 8:17:00 EDT, [facility]/pharmacy #[id number], 162.56, cm, 12/31/19 7:46:00 EDT, [...] 06/29/19 8:38:00 EST, Route to Pharmacy Electronically, [facility]/pharmacy #[id number], 162.56, cm, 06/29/19 8:05:00 EST, [...]
--- OUTSIDE RECORDS SUMMARY | 2022-03-17 02:16 | XMS_ITS | Continuity of Care Document ---
:1965 Author Organization [facility] Adult Address [address] [place] [address]- Care Team Providers Name Role Phone Alejandra POLLARD, Esau Sarah Primary Care Physician En[place] [facility] [place] Date(s): 02/27/21 - 03/29/21 [facility] [address] [place] [address]- Allergies, Adverse Reactions, Alerts Substance Reaction Severity [...] tetanus/diphtheria/pertussis, acel(Tdap) 02/13/11 Given 1Result Comment: covid-19 [id number] Comment: covid-19 yjvptb9Kthmakqc History: [place] [facility] [id number] Note: at [id number] Comment: [12/21/2013 Uncharted] error Medications atenolol 50 mg oral tablet 50 mg, 1, tablet, By Mouth, Daily, replace 25mg, # 90 tablet, Refills 2, Tot. Refills 2, Maintenance, 07/22/20 14:49:00 EST, Route to Pharmacy Electronically, [facility]/pharmacy #[id number], Partial fill upon patient request if the [...] 02/07/17 Status: Orderedvalsartan 40 mg oral tablet 1, tablet, By Mouth, Daily at bedtime, # 30 tablet, Refills 0, [facility] 162.[facility], cm, 03/06/21 16:13:00 EDT, Height Start [...]
--- OUTSIDE RECORDS SUMMARY | 2022-03-17 02:16 | XMS_ITS | Continuity of Care Document ---
:1965 Author Organization [facility] Adult Address [address] [place] [address]- Care Team Providers Name Role Phone Alejandra POLLARD, Esau Sarah Primary Care Physician En[place] [facility] [place](s): 03/06/21 - 04/05/21 [facility] Adult [address] [place] [address]- Attending Physician: Cornell Beckwith Admitting Physician: AdmCornell ospina Referring Physician: AdmtrDaniel8 Allergies, Adverse Reactions, Alerts Substance Reaction Severity [...] tetanus/diphtheria/pertussis, acel(Tdap) 02/13/11 Given 1Result Comment: covid-19 [id number] Comment: covid-19 [id number] History: [facility] [id number] Note: at [id number] Comment: [12/21/2013 Uncharted] error Medications atenolol 50 mg oral tablet 50 mg, 1, tablet, By Mouth, Daily, replace 25mg, # 90 tablet, Refills 2, Tot. Refills 2, Maintenance, 07/22/20 14:49:00 EST, Route to Pharmacy Electronically, [facility]/pharmacy #[id number], Partial fill upon patient request if the [...] tablet, Refills 0, [id number], 162.56, cm, 03/06/21 16:13:00 EDT, Height Start [...]
--- OUTSIDE RECORDS SUMMARY | 2022-03-17 02:16 | XMS_ITS | Continuity of Care Document ---
:1965 Author Organization [facility] Adult Address [address] [place] [address]- Care Team Providers Name Role Phone Esau Roberts MD Primary Care Physician [place] [facility] [place] Date(s): 06/29/19 - 07/06/19 [facility] Adult [address] [place] [address]- [facility] Attending Physician: Esau Roberts MD Allergies, [...] tetanus/diphtheria/pertussis, acel(Tdap) 02/13/11 Given 1Admin Note: at [id number] History: [employer] CAMMY [id number] Comment: [12/21/2013 Uncharted] error Medications ashwagandha charmainedha, [...] 06/29/19 8:38:00 EST, [id number], cm, 06/29/19 8:05:00 EST, Height [...] oldest [Reference Range]: 1 Height 162.56 cm (06/29/19 8:05 AM) Weight 70.1 kg (06/29/19 8:05 AM) Oxygen Saturation [94-100 %] 98 % (06/29/19 8:05 AM) Pulse Rate [55-90 bpm] 72 bpm (06/29/19 8:05 AM) Body Mass Index [18.5-24.99] 26.53 *H* (06/29/19 8:05 AM) Blood Pressure [90-138/55-84 mm Hg] 120/78 mm Hg (06/29/19 8:05 AM) Mode of Delivery (Oxygen) Room air (06/29/19 8:05 AM) Blood pressure sites Arm, right (06/29/19 8:05 AM) Weight Obtained Via Standing scale (06/29/19 8:05 AM) Social History Social History Type Response Smoking Status Former smoker entered on: 06/16/14 Sex
--- OUTSIDE RECORDS SUMMARY | 2022-03-17 02:16 | XMS_ITS | Continuity of Care Document ---
:1965 Author Organization [facility] Adult Address [address] [place] [address]- Care Team Providers Name Role Phone Alejandra POLLARD, Esau Sarah Primary Care Physician [place] [facility] [place] 02/04/20 [facility] Adult [address] [place] [address]- [facility] Allergies, Adverse Reactions, Alerts Substance Reaction [...] tetanus/diphtheria/pertussis, acel(Tdap) 02/13/11 Given 1Admin Note: at [id number] History: RICHARD CHAWLA [id number] Comment: [12/21/2013 Uncharted] error Medications ashwagandha ashfazalgandha, Refills 0, Maintenance, 06/26/18 8:36:31 EST, Compound Start Date: 06/26/18 Status: Orderedatenolol 25 mg oral tablet 1, tablet, By Mouth, Daily, # 30 tablet, Refills 11, Tot. Refills 11, Maintenance, 01/06/20 17:04:00EDT, Route to Pharmacy Electronically, [facility]/pharmacy #[id number], 162.56, cm, 12/31/19 7:46:00 EDT, [...] 06/29/19 8:38:00 EST, Route to Pharmacy Electronically, [facility]/pharmacy #[id number], 162.56, cm, 06/29/19 8:05:00 EST, [...]
--- OUTSIDE RECORDS SUMMARY | 2022-03-17 02:16 | XMS_ITS | Continuity of Care Document ---
:1965 Author Organization [facility] [place] Adult Address [address] [place] [address]- Care Team Providers Name Role Phone Alejandra POLLARD, Esau Sarah Primary Care Physician Encounter [facility] [place] Date(s): 12/18/19 - 01/17/20 [facility] [place] Adult [address] [place] [address]- [facility] Allergies, Adverse Reactions, Alerts Substance Reaction [...] tetanus/diphtheria/pertussis, acel(Tdap) 02/13/11 Given 1Admin Note: at [id number] History: RICHARD CHAWLA [id number] Comment: [12/21/2013 Uncharted] error Medications ashwagandha ashfazalgandha, Refills 0, Maintenance, 06/26/18 8:36:31 EST, Compound Start Date: 06/26/18 Status: Orderedatenolol 25 mg oral tablet 1, tablet, By Mouth, Daily, # 30 tablet, Refills 11, Tot. Refills 11, Maintenance, 01/06/20 17:04:00EDT, Route to Pharmacy Electronically, [facility]/pharmacy #[id number], 162.56, cm, 12/31/19 7:46:00 EDT, Height [...] 06/29/19 8:38:00 EST, Route to Pharmacy Electronically, [facility]/pharmacy #[id number], 162.56, cm, 06/29/19 8:05:00 EST, Height [...]
--- OUTSIDE RECORDS SUMMARY | 2022-03-17 02:17 | XMS_ITS | Continuity of Care Document ---
:1965 Author Organization [facility] Adult Address [address] [place] [address]- Care Team Providers Name Role Phone Esau Roberts MD Primary Care Physician Encounter [facility] [place] Date(s): 04/13/21 - 04/20/21 [facility] Adult [address] [place] [address]- Attending Physician: Esau Roberts MD Allergies, Adverse [...] tetanus/diphtheria/pertussis, acel(Tdap) 02/13/11 Given 1Result Comment: covid-19 [id number] Comment: covid-19 [id number] History: HOLAL SOUSAA [id number] Note: at [id number] Comment: [12/21/2013 Uncharted] error Medications Advair Diskus 250 mcg-50 mcg inhalation powder 1, inhalation, Inhalation, 2 times a day, rinse mouth and throat after use, # 60 each, Refills 2, Tot. Refills 2, Maintenance, 04/14/21 13:08:00 EST, Powder, Route to Pharmacy Electronically, [id number], [facility]/pharmacy #[id number], 1... Start Date: 04/14/21 Status: Orderedaspirin [...] tablet, Refills 2, Route to Pharmacy Electronically, [facility]263, 162.56, cm, 04/13/21 14:52:00 EST, Height Start [...] 2 Refills, Maintenance, 04/14/21 13:08:00 EST, Aerosol, [facility]/pharmacy #[id number], Partial fill upon patient request if [...] Refills 0, Route to Pharmacy Electronically, [facility], 162.56, cm, 03/06/21 16:13:00 EDT, Height Start [...] oldest [Reference Range]: 1 Height 162.56 cm (04/13/21 2:52 PM) Weight 68.2 kg (04/13/21 2:52 PM) Oxygen Saturation [94-100 %] 98 % (04/13/21 2:52 PM) Pulse Rate [55-90 bpm] 81 bpm (04/13/21 2:52 PM) Body Mass Index [18.5-24.99] 25.81 *H* (04/13/21 2:52 PM) Blood Pressure [90-138/55-84 mm Hg] 122/78 mm Hg (04/13/21 2:52 PM) Temperature [96.8-100.4 DegF] 98.2 DegF (04/13/21 2:52 PM) Blood pressure sites Arm, left (04/13/21 2:52 PM) Temperature Route Oral (04/13/21 2:52 PM) Weight Obtained Via Standing scale (04/13/21 2:52 PM) Social History Social History Type Response Smoking Status Former smoker entered on: 06/16/14 Sex
--- OUTSIDE RECORDS SUMMARY | 2022-03-17 02:17 | XMS_ITS | Continuity of Care Document ---
:1965 Author Organization [facility] Adult Address [address] [place] [address]- Care Team Providers Name Role Phone Esau Roberts MD Primary Care Physician [id number] Date(s): 06/30/20 - 07/07/20 [facility] Adult [address] [place] [address]- Attending Physician: Esau Roberts MD Allergies, Adverse Reactions, Alerts Substance Reaction Severity Status aspirin hives Active morphine HEADACHE Active Chocolate migraine vomiting Active Percocet 7.5/325 itching Active Immunizations Given and Recorded Vaccine Date Status Refusal Reason influenza virus vaccine, inactivated 02/03/20 Recorded influenza virus vaccine, inactivated1 02/10/17 Recorded influenza virus vaccine, inactivated 02/10/14 Given influenza virus vaccine, inactivated 01/11/13 Given Influenza Virus Vaccine (oldterm) 02/17/19 Recorded Influenza Virus Vaccine (oldterm)2 01/11/18 Given Diphth/Tet/Pertussis, Acel (oldterm)3 02/13/11 Given tetanus/diphtheria/pertussis, acel(Tdap) 02/13/11 Given 1Location History: RICHARD CHAWLA [id number] Note: at [id number] Comment: [12/21/2013 Uncharted] error Medications atenolol 25 mg oral tablet 1, tablet, By Mouth, Daily, # 30 tablet, Refills 11, Tot. Refills 11, Maintenance, 01/06/20 17:04:00EDT, Route to Pharmacy Electronically, [facility]/pharmacy #[id number], 162.56, cm, 12/31/19 7:46:00 EDT, Height Start Date: 01/06/20 Status: OrderedCitracal + D 250 mg-500 intl [...] 06/30/20 8:16:00 EST, Route to Pharmacy Electronically, [facility]/pharmacy #[id number], 162.56, cm, 06/30/20 7:53:00 EST, Height [...] oldest [Reference Range]: 1 Height 162.56 cm (06/30/20 7:53 AM) Weight 69.5 kg (06/30/20 7:53 AM) Oxygen Saturation [94-100 %] 98 % (06/30/20 7:53 AM) Pulse Rate [55-90 bpm] 76 bpm (06/30/20 7:53 AM) Body Mass Index [18.5-24.99] 26.3 *H* (06/30/20 7:53 AM) Blood Pressure [90-138/55-84 mm Hg] 122/78 mm Hg (06/30/20 7:53 AM) Temperature [96.8-100.4 DegF] 98.3 DegF (06/30/20 7:53 AM) Blood pressure sites Arm, left (06/30/20 7:53 AM) Temperature Route Oral (06/30/20 7:53 AM) Weight Obtained Via Standing scale (06/30/20 7:53 AM) Social History Social History Type Response Smoking Status Former smoker entered on: 06/16/14 Sex
--- OUTSIDE RECORDS SUMMARY | 2022-03-17 02:17 | XMS_ITS | Continuity of Care Document ---
:1965 Author Organization [facility] Adult Address [address] [place] [address]- Care Team Providers Name Role Phone Alejandra POLLARD, Esau Sarah Primary Care Physician En[place] [facility] [place] Date(s): 05/26/21 - 06/25/21 [facility] Adult [address] [place] [address]- Allergies, Adverse Reactions, Alerts Substance Reaction Severity [...] tetanus/diphtheria/pertussis, acel(Tdap) 02/13/11 Given 1Result Comment: covid-19 [id number] Comment: covid-19 [id number] History: [facility] [facility] [id number] Note: at [id number] Comment: [12/21/2013 Uncharted] error Medications Advair Diskus 250 mcg-50 mcg inhalation powder 1, inhalation, Inhalation, 2 times a day, rinse mouth and throat after use, # 60 each, Refills 2, Tot. Refills 2, Maintenance, 04/14/21 13:08:00 EST, Powder, Route to Pharmacy Electronically, [id number], [facility]/pharmacy #[id number], 1... Start Date: 04/14/21 Status: [...] tablet, Refills 2, Route to Pharmacy Electronically, [facility] 78131, 162.56, cm, 04/13/21 14:52:00 EST, Height Start [...] 2 Refills, Maintenance, 04/14/21 13:08:00 EST, Aerosol, [facility]/pharmacy #[id number], Partial fill upon patient request [...] Refills 0, Route to Pharmacy Electronically, [facility], 162.56, cm, 03/06/21 16:13:00 EDT, Height Start [...]
--- OUTSIDE RECORDS SUMMARY | 2022-03-17 02:17 | XMS_ITS | Continuity of Care Document ---
:1965 Author Organization [facility] Adult Address [address] [place] [address]- Care Team Providers Name Role Phone Esau Roberts MD Primary Care Physician Encounter [facility] [place] Date(s): 07/22/20 - 07/29/20 [facility] Adult [address] [place] [address]- Encounter Diagnosis Epigastric discomfort (Discharge Diagnosis) - 07/22/20 Hypertension (Discharge Diagnosis) - 07/22/20 Attending Physician: Not on Staff, Attending MD Referring Physician: Esau Roberts MD Allergies, Adverse Reactions, [...] tetanus/diphtheria/pertussis, acel(Tdap) 02/13/11 Given 1Result Comment: covid-19 [id number] Comment: covid-19 [id number] History: [facility] [id number] Note: at [id number] Comment: [12/21/2013 Uncharted] error Medications atenolol 50 mg oral tablet 50 mg, 1, tablet, By Mouth, Daily, replace 25mg, # 90 tablet, Refills 2, Tot. Refills 2, Maintenance, 07/22/20 14:49:00 EST, Route to Pharmacy Electronically, [facility]/pharmacy #[id number], Partial fill upon patient request [...] 06/30/20 8:16:00 EST, Route to Pharmacy Electronically, [facility]/pharmacy #[id number], 162.56, cm, 06/30/20 7:53:00 EST, [...] Active Diagnosis Diagnosis Type Effective Dates Health Clinical Infor mant Status Service Epigastric Discharge 07/22/20 discomfort Diagnosis Hypertension Discharge 07/22/20 Diagnosis Vital Signs Most recent to oldest [Reference Range]: 1 2 Height 162.56 cm 162.56 cm (07/22/20 3:05 PM) (07/22/20 2:15 PM) Blood Pressure [90-138/55-84 mm Hg] 150/78 mm Hg *H* (07/22/20 3:05 PM) Social History Social History Type Response Smoking Status Former smoker entered on: 06/16/14 Sex
--- OUTSIDE RECORDS SUMMARY | 2022-03-17 02:17 | XMS_ITS | Continuity of Care Document ---
:1965 Author Organization [facility] Adult Address [address] [place] [address]- Care Team Providers Name Role Phone Esau Roberts MD Primary Care Physician [place] [facility] [place] 03/13/21 [facility] Adult [address] [place] [address]- Attending Physician: Esau Roberts MD Allergies, Adverse [...] tetanus/diphtheria/pertussis, acel(Tdap) 02/13/11 Given 1Result Comment: covid-19 [id number] Comment: covid-19 [id number] History: [facility] [facility] [id number] Note: at [id number] Comment: [12/21/2013 Uncharted] error Medications atenolol 50 mg oral tablet 50 mg, 1, tablet, By Mouth, Daily, replace 25mg, # 90 tablet, Refills 2, Tot. Refills 2, Maintenance, 07/22/20 14:49:00 EST, Route to Pharmacy Electronically, [facility]/pharmacy #[id number], Partial fill upon patient [...] 03/01/21 15:32:00 EDT, Route to Pharmacy Electronically, [facility]/pharmacy #[id number], Partial fill upon patientrequest if [...] oldest [Reference Range]: 1 Height 162.56 cm (03/06/21 4:13 PM) Oxygen Saturation [94-100 %] 98 % (03/06/21 4:13 PM) Pulse Rate [55-90 bpm] 83 bpm (03/06/21 4:13 PM) Blood Pressure [90-138/55-84 mm Hg] 130/80 mm Hg (03/06/21 4:13 PM) Temperature [96.8-100.4 DegF] 98.3 DegF (03/06/21 4:13 PM) Blood pressure sites Arm, left (03/06/21 4:13 PM) Temperature Route Oral (03/06/21 4:13 PM) Weight Obtained Via Standing scale (03/06/21 4:13 PM) Social History Social History Type Response Smoking Status Former smoker entered on: 06/16/14 Sex
--- OUTSIDE RECORDS SUMMARY | 2022-03-17 02:17 | XMS_ITS | Continuity of Care Document ---
:1965 Author Organization [facility] Adult Address [address] [place] [address]- Care Team Providers Name Role Phone Alejandra POLLARD, Esau Sarah Primary Care Physician [place] [facility] [place] Date(s): 01/11/20 - 02/10/20 [facility] Adult [address] [place] [address]- [facility] Attending Physician: Cornell Beckwith Admitting Physician: Cornell [...] acel(Tdap) 02/13/11 Given 1Location History: RICHARD CHAWLA [id number] Note: at [id number] Comment: [12/21/2013 Uncharted] error Medications ashwagandha ashwagandha, Refills 0, Maintenance, 06/26/18 8:36:31 EST, Compound Start Date: 06/26/18 Status: Orderedatenolol 25 mg oral tablet 1, tablet, By Mouth, Daily, # 30 tablet, Refills 11, Tot. Refills 11, Maintenance, 01/06/20 17:04:00EDT, Route to Pharmacy Electronically, [facility]/pharmacy #[id number], 162.56, cm, 12/31/19 7:46:00 EDT, [...] 06/29/19 8:38:00 EST, Route to Pharmacy Electronically, [facility]/pharmacy #[id number], 162.56, cm, 06/29/19 8:05:00 EST, [...]
--- OUTSIDE RECORDS SUMMARY | 2022-03-17 02:17 | XMS_ITS | Continuity of Care Document ---
:1965 Author Organization [facility] Adult Address [address] [place] [address]- Care Team Providers Name Role Phone Alejandra POLLARD, Esau Sarah Primary Care Physician [place] [facility] [place]/12[place]21 - 05/12/21 [facility] Adult [address] [place] [address]- Allergies, Adverse Reactions, Alerts Substance Reaction Severity [...] tetanus/diphtheria/pertussis, acel(Tdap) 02/13/11 Given 1Result Comment: covid-19 [id number] Comment: covid-19 [id number] History: [facility] [facility] [id number] Note: at [id number] Comment: [12/21/2013 Uncharted] error Medications Advair Diskus 250 mcg-50 mcg inhalation powder 1, inhalation, Inhalation, 2 times a day, rinse mouth and throat after use, # 60 each, Refills 2, Tot. Refills 2, Maintenance, 04/14/21 13:08:00 EST, Powder, Route to Pharmacy Electronically, [id number], [facility]/pharmacy #[id number], 1... Start Date: 04/14/21 Status: [...] tablet, Refills 2, Route to Pharmacy Electronically, [facility] 7[facility]73, 162.56, cm, 04/13/21 14:52:00 EST, Height Start [...] Refills 0, Route to Pharmacy Electronically, [facility], 162.56, cm, 03/06/21 16:13:00 EDT, Height Start [...]
--- OUTSIDE RECORDS SUMMARY | 2022-03-17 02:17 | XMS_ITS | Continuity of Care Document ---
:1965 Author Organization [facility] Adult Address [address] [place] [address]- Care Team Providers Name Role Phone Esau Roberts MD Primary Care Physician En[place] [facility] [place] Date(s): 06/22/21 - 10/20/21 [facility] Adult [address] [place] [address]- Attending Physician: Esau Roberts MD Allergies, Adverse [...] tetanus/diphtheria/pertussis, acel(Tdap) 02/13/11 Given 1Result Comment: covid-19 [id number] Comment: covid-19 [id number] History: RICHARD SOUSAA [id number] Note: at [id number] Comment: [12/21/2013 Uncharted] error Medications Advair Diskus 250 mcg-50 mcg inhalation powder 1, inhalation, Inhalation, 2 times a day, rinse mouth and throat after use, # 60 each, Refills 2, Tot. Refills 2, Maintenance, 04/14/21 13:08:00 EST, Powder, Route to Pharmacy Electronically, [id number], [facility]/pharmacy #[id number], 1... Start Date: 04/14/21 Status: [...] tablet, Refills 2, Route to Pharmacy Electronically, [facility]5614, 162.56, cm, 04/13/21 14:52:00 EST, Height Start [...] FOR MUSCLE SPASM, Route to Pharmacy Electronically, [facility] 39664, 162.56, cm, 06/21/21 12:56:00 EST, Height Start [...] 2 Refills, Maintenance, 04/14/21 13:08:00 EST, Aerosol, [facility]/pharmacy #[id number], Partial fill upon patient request [...] Refills 0, Route to Pharmacy Electronically, [facility], 162.56, cm, 03/06/21 16:13:00 EDT, Height Start [...]
--- NOTE | 2022-03-17 03:05 | ED.EXTPRO ---
HPI - Extremity Problem General Chief complaint: Extremity Injury, Upper Stated complaint: cant move arm, pain Time Seen by Provider: 03/17/22 02:57 Source: patient Mode of arrival: ambulatory Limitations: no limitations History of Present Illness HPI Narrative: Patient comes to the emergency room complaining of right shoulder pain. Patient states that she was sleeping, seems that she rolled over and then heard a loud popping noise coming from her right shoulder. Patient states she had intense pain immediately. Patient was unable to abduct her arm. Patient had no pain in her wrist or her elbow. Patient has normal sensation distally. Patient states that she has never had any history dislocating her shoulders. Patient took ibuprofen prior to arrival and states that the pain is improving Related Data Home Medications Medication Instructions Recorded Confirmed cetirizine 10 mg tablet (Zyrtec) 10 mg PO DAILY 04/19/20 07/14/21 multivitamin 1 tab PO DAILY 04/19/20 07/14/21 fluticasone propionate 50 1 spray intranasal DAILY 05/04/20 07/14/21 mcg/actuation nasal spray,suspension ascorbate calcium (vitamin C) 500 500 mg PO DAILY 04/12/21 07/14/21 mg tablet cromolyn 100 mg/5 mL oral 100 mg PO QID 04/12/21 07/14/21 concentrate aspirin 81 mg tablet 81 mg PO DAILY 07/20/21 07/20/21 cyproheptadine 4 mg tablet 1 tab PO BEDTIME 07/20/21 07/20/21 cyclobenzaprine 10 mg tablet 10 mg PO TID 10/10/21 Previous Rx's Medication Instructions Recorded vxohleuxiu-keprorhknoqye-veawitfu 1 cap PO Q4-6H PRN headache #14 02/27/21 50 mg-300 mg-40 mg capsule caps (Fioricet) ondansetron HCl 4 mg tablet 4 mg PO Q8H PRN nausea and 02/27/21 (Zofran) vomiting #10 tabs hydrocodone 5 mg-acetaminophen 325 1 - 2 tab PO Q6H PRN pain #30 tabs 07/20/21 mg tablet ibuprofen 600 mg tablet 600 mg PO Q6-8H PRN pain #40 tabs 07/20/21 rosuvastatin 40 mg tablet (Crestor) 40 mg PO .qhs #90 tabs 10/05/21 valsartan 40 mg tablet 20 mg PO BID 90 days #90 tabs 10/23/21 atenolol 25 mg tablet 25 mg PO BID #60 tabs 12/08/21 ibuprofen 600 mg tablet 600 mg PO Q8H PRN fever or pain 03/17/22 #20 tabs Allergies Allergy/AdvReac Type Severity Reaction Status Date / Time codeine [CODEINE] Allergy Intermediate RASH, HIVES Verified 10/17/21 11:34 adhesive tape [Adhesive Tape] Allergy Mild blisters Verified 10/17/21 11:34 from clear plastic tape-cloth tape ok morphine [MORPHINE] Allergy Mild HIVES Verified 10/17/21 11:34 oxycodone [OXYCODONE] Allergy Mild HIVES Verified 10/17/21 11:34 Review of Systems Review of Systems: Constitutional : No Weight loss, No Fever, No Chills, No Night Sweats, No Fatigue, No Malaise ENT/Mouth : No Hearing loss, No Ear Pain, No Nasal Congestion, No Sinus Pain, No Hoarseness, No sore throat, No Rhinorrhea, No Swallowing Difficulty Eyes: No Eye Pain, No Swelling, No Redness, No Foreign Body, No Discharge, No Vision Changes Cardiovascular : No Chest Pain, No SOB, No Dyspnea on Exertion, No Orthopnea, No Edema, No Palpitations Respiratory : No Cough, No Sputum, No Wheezing, No Smoke Exposure, No Dyspnea Gastrointestinal : No Nausea, No Vomiting, No Diarrhea, No Constipation, No abdominal Pain, No Hematochezia, No Melena Genitourinary : no irregular bleeding, No Dysuria, No Urinary Frequency, No Hematuria, No Urinary Incontinence, No Urgency, No Flank Pain, No Urinary Flow Changes, No Hesitancy Musculoskeletal : Complaining of right shoulder pain, No Myalgias, No Joint Swelling Skin : No Skin Lesions, No rash Neuro : No Weakness, No Numbness, No Paresthesias, No Loss of Consciousness, No Dizziness, No Headache Psych : No Anxiety/Panic, No Depression, No SI/HI/AH/VH, No Social Issues, Heme/Lymph: No Bruising, No Bleeding,No Lymphadenopathy Endocrine : No Polyuria, No Polydipsia, No Temperature Intolerance PMFSH Past Medical History Medical History Atherosclerosis Carotid artery disease COVID-19 vaccine series completed Hypertension Mast cell activation syndrome Post-operative nausea and vomiting Surgical History H/O colonoscopy H/O left knee surgery History of bunionectomy Hx of thumb surgery S/P trigger finger release Family History Family History Father HTN (hypertension) Mother HTN (hypertension) CVD (cardiovascular disease) Social History Social History Are you a primary neonatal intensive care unit nurse to a significant other at home: No Do you presently have visiting nurse or other home services: No Alcohol intake: never Patient Tobacco Use Status: Former Tobacco user Quit Date: age 18 Tobacco use type: Cigarette Advance Directives: No Advance Directives Information Provided: No Current occupational status: employed 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 Oriented X3. No acute distress. Eyes: Pupils equal, round and reactive to light. ENT: Pharynx normal. Neck: Normal inspection. Neck supple. No lymph nodes noted. No crepitus CVS: Normal heart rate and rhythm. Pulses normal. Normal S1 and S2 Respiratory: No respiratory distress. Breath sounds normal. No Wheezing. No rales Abdomen: Soft and nontender. No rigidity. No distention. Skin: Skin warm and dry. Normal skin color. Normal skin turgor. Extremities: No lower extremity edema. No Lacerations. No Rash patient is able to move her wrist within normal limits, able to flex and extend the elbow. Patient is able to abduct her arm passively to approximately 30 degrees and cannot go past that due to pain in the anterior part of the shoulder. Pain to palpation in the anterior aspect of the right shoulder Neuro: Oriented X 3. No motor deficit. No sensory deficit. Moving all extremities. No slurred speech. CN 2 through 12 grossly intact Psych: calm, cooperative, normal affect Course Course Course Narrative: X-rays show normal alignment. I discussed with the patient that she may have torn the glenoid labrum or injured a ligament. If patient has no pain improvement in the next couple of days, pt may need an MRI. Patient provided with a sling MDM - Extremity (Nontraumatic) Imaging Data Right shoulder: Radiologist's impression: ECHNIQUE: Three views of the right shoulder. FINDINGS: Glenohumeral alignment is anatomic. No acute fracture is seen. Acromioclavicular joint appears intact.? XR/XR shoulder RT min 2V IMPRESSION: No acute findings identified. ? Discharge Plan Discharge Clinical Impression: Acute pain of right shoulder Patient Disposition: Home, Self-Care Instructions: Shoulder Pain (ED) Additional Instructions: Please follow-up with your primary care physician tomorrow. If you have any worsening or new symptoms, please return to the emergency room or call 911 Prescriptions: New ibuprofen 600 mg tablet 600 mg PO Q8H PRN (Reason: fever or pain) Qty: 20 0RF No Action rosuvastatin [Crestor] 40 mg tablet 40 mg PO .qhs Qty: 90 3RF valsartan 40 mg tablet 20 mg PO BID 90 Days Qty: 90 3RF atenolol 25 mg tablet 25 mg PO BID Qty: 60 5RF cyproheptadine 4 mg tablet 1 tab PO BEDTIME aspirin 81 mg Tablet 81 mg PO DAILY ibuprofen 600 mg tablet 600 mg PO Q6-8H PRN (Reason: pain) Qty: 40 0RF hydrocodone-acetaminophen 5-325 mg tablet 1 - 2 tab PO Q6H PRN (Reason: pain) Qty: 30 0RF xfehpbntga-rgcoeqltdcwqd-chuu [Fioricet] 50-300-40 mg capsule 1 cap PO Q4-6H PRN (Reason: headache) Qty: 14 0RF ondansetron HCl [Zofran] 4 mg tablet 4 mg PO Q8H PRN (Reason: nausea and vomiting) Qty: 10 0RF cetirizine [Zyrtec] 10 mg tablet 10 mg PO DAILY multivitamin Tablet 1 tab PO DAILY fluticasone propionate 50 mcg/actuation spray,suspension 1 spray intranasal DAILY Rx Instructions: administer into each nostril cyclobenzaprine 10 mg tablet 10 mg PO TID cromolyn 100 mg/5 mL concentrate 100 mg PO QID ascorbate calcium (vitamin C) 500 mg tablet 500 mg PO DAILY Referrals: Namrata Braun PA-C [Physician [facility]] - 03/19/22
--- NOTE | 2022-03-17 03:10 | PC.NURSE ---
Sling applied to the right arm. Pt reports feeling comfort.
== END 2022-03-17 03:40 | disposition home or self-care (01) ==
PROVIDERS: Emergency Provider Emergency Medicine; PCP Family Medicine
DX: M25.511 Pain in right shoulder (principal); I10 Essential (primary) hypertension; Z79.02 Long term (current) use of antithrombotics/antiplatelets; Z79.899 Other long term (current) drug therapy; Z87.891 Personal history of nicotine dependence
CPT/HCPCS: 73030; 99283

== ENCOUNTER 2022-04-02 16:28 | Outpatient (REF) | payer OTHER, SELFPAY ==
--- NOTE | ~2022-04-02 | XR_ITS ---
EXAMINATION: XR HAND, LEFT CLINICAL INFORMATION: Left hand pain COMPARISON: Previous x-rays most recent July 2021 TECHNIQUE: PA, lateral, and oblique views of the left hand. FINDINGS: Previously identified K wires or pins in first metacarpal bone and trapezium have been removed. There appears to be postsurgical change to the base of the first metacarpal bone and possibly the trapezium. There is lucency seen in between these bones are that is similar to previous exam. 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 Joint spaces are otherwise normal. The bones are osteopenic. Soft tissues are normal. XR/XR hand LT min 3V IMPRESSION: The 2 pins or wires have been removed. Otherwise stable postsurgical changes at the first [facility] joint. Osteopenia.
== END 2022-04-02 16:29 | disposition home or self-care (01) ==
LOC: HO.HOSX 16:28
PROVIDERS: Visit Provider Orthopaedic Surgery
DX: M79.642 Pain in left hand (principal)
CPT/HCPCS: 73130

== ENCOUNTER 2022-06-06 11:30 | Outpatient (RCR) | payer OTHER, SELFPAY ==
--- NOTE | 2022-04-11 10:35 | MHC.OT.EP ---
[address] [phone] Occupational Therapy Plan of Care Date of Evaluation: 04/11/22 Diagnosis: B/L CTS, Left thumb pain Assessment: 56 yo right hand dominant female w/ hx of left CMC arthroplasty and LRTI 07/20/21, presents w/ worsening thumb pain, radiating dorsal MCP to IP and sharp pain in volar MCP, at times in thenar tissue and webspace. She had done very well w/ post-op course and had been pain free in thumb and good range in strength in thumb and hand and discharged from services at 6 months post-op. She now reports onset of B/L hand numbness.tingling, worse at nighttime and is scheduled for nerve conduction test in June, but now re-referred back to OT for assessment of thumb pain and weakness w/ everyday activities. On eval, she has general cervical tightness and tenderness in upper back/neck. Thumb CMC range is decreased in palmar and radial abducted, limited MCP flex but compensating for lack of range w/ hyperextension. She has tenderness in thenar muscles and tightness in webspace. She will benefit from cont'd hand therapy services to address muscle tightness and joint mobility while focusing on good joint protection and mechanics w/ every day activities. She may also benefit from PT assessment to address cervical dysfunction, although we will educate and initiate HEP for this as well. Frequency and Duration: The patient will be seen 2x/wk for 4 weeks Short Term Goals: Ind w/ self webspace stretch Ind w/ self STM/DTM massage to thenar region Pt to report ease w/ sleeping w/ use of nighttime orthosis Nursing Home Goals: Increased functional thumb abd/ext in order to complete effective grasp and carry of cylindrical items (bottles, cans, etc) Pt to report decreased pain w/ everyday work tasks including typing, paperwork, etc Pt to demo good joint protection/activity management for decreasing pain w/ everyday use Treatment Plan: Therapeutic Exercise Therapeutic Activity Home Exercise Program Splinting Patient Education Edema Control ADL Training Ultrasound Iontophoresis Paraffin Fluidotherapy MHP Cold Packs Joint Mobilization Soft Tissue Mobilization Kinesiotaping Dexamethasone for dorsal thumb inflammation and pain Electronically Signed By: Jenn Blank, OTR/L CHT Please Sign and return to therapist. Thank you once again for your referral.
--- NOTE | 2022-08-07 10:45 | MHC.OT.DC ---
[address] [phone] F: [phone] Occupational Therapy Discharge Note Patient Name: Manuela Moreno Provider: Dr Maribell Santos Diagnosis: Post-op L thumb arthroplasty w/ LRTI Date of Evaluation: 04/11/22 Date of Discharge: 08/07/22 Treatments to Date: 11 Discharge Status: Achieved Goals Improved Function Independent with HEP Discharge Summary: Manuela has done well post-op left thumb arthroplasty w/ LRTI. She was seen through several months of therapy and has weaned to self management. I have checked in with her and she continues to do well w/ home program. We will discharge for services at this time. Electronically Signed By: Jenn Blank, OTR/L CHT Please Sign and return to therapist, thank you for your referral.
== END 2022-08-07 10:45 | disposition home or self-care (01) ==
LOC: HO.OT 11:30
PROVIDERS: PCP Family Medicine; Visit Provider Orthopaedic Surgery
DX: M79.642 Pain in left hand (principal); M18.12 Unilateral primary osteoarthritis of first carpometacarpal joint, left hand
CPT/HCPCS: 29130; 97033; 97035; 97110; 97140; 97165; 97760

== ENCOUNTER → 2022-06-25 07:57 | Outpatient (BNVA) | payer OTHER, SELFPAY | PROVIDERS: PCP Family Medicine; Visit Provider Obstetrics & Gynecology | DX: R94.31 Abnormal electrocardiogram [ECG] [EKG] (principal); Z01.419 Encounter for gynecological examination (general) (routine) without abnormal findings; R09.89 Other specified symptoms and signs involving the circulatory and respiratory systems; I65.23 Occlusion and stenosis of bilateral carotid arteries | CPT/HCPCS: 93005 ==

== ENCOUNTER 2022-08-03 07:55 | Outpatient (REF) | payer OTHER, SELFPAY ==
--- NOTE | ~2022-08-03 | MM_ITS ---
EXAMINATION: MM SCREENING DIGITAL BREAST TOMOSYNTHESIS, BILATERAL CLINICAL INFORMATION: Screening. Asymptomatic. The lifetime risk of breast cancer based on the Tyrer-Cuzick Model is 17%. COMPARISON: Mammography: 06/27/2021, 02/22/2020, 07/28/2018 TECHNIQUE: Digital breast tomosynthesis is performed in both the craniocaudal and mediolateral oblique views along with computer-aided detection (CAD). Synthesized 2D images are generated from the tomosynthesis. Additional exaggerated left CC view is provided. FINDINGS: There are scattered areas of fibroglandular density (ACR BI-RADS breast composition Category b). There are no significant masses, abnormal calcifications, or other abnormalities. Parenchymal pattern is similar to prior studies. There is no developing density or architectural abnormality. The axilla and skin contours are unremarkable. No significant changes. MM/MM tomosynthesis screening BI IMPRESSION: ASSESSMENT: BI-RADS 1: Negative RECOMMENDATION: Routine annual mammography screening. This patient's information was entered into a reminder system with a target due date for their next mammogram.
== END 2022-08-03 07:56 | disposition home or self-care (01) ==
LOC: HO.MAMMO 07:55
PROVIDERS: Referring Provider Obstetrics & Gynecology; Visit Provider Family Medicine
DX: Z12.31 Encounter for screening mammogram for malignant neoplasm of breast (principal)
CPT/HCPCS: 77063; 77067

== ENCOUNTER 2022-08-31 07:54 | Outpatient (REF) | payer OTHER, SELFPAY ==
[2022-08-31 09:02] LABS: Alanine Aminotransferase 24 U/L (0-31); Albumin Level 4.3 g/dL (3.5-5.0); Alkaline Phosphatase 55 U/L (39-117); Aspartate Amino Transferase 21 U/L (5-31); Bilirubin Direct 0.1 mg/dL (0.0-0.5); Bilirubin Total 0.3 mg/dL (0.0-1.0); Cholesterol 143 mg/dL; HDL Cholesterol 66 mg/dL; LDL Cholesterol Calculated 64 mg/dl; Total Protein 6.6 g/dL (6.5-8.0); Triglycerides 65 mg/dL
[2022-08-31 09:04] LABS: Alanine Aminotransferase 23 U/L (0-31); Albumin Level 4.3 g/dL (3.5-5.0); Alkaline Phosphatase 54 U/L (39-117); Anion Gap 14 (12-20); Aspartate Amino Transferase 21 U/L (5-31); Bilirubin Total 0.3 mg/dL (0.0-1.0); Blood Urea Nitrogen 14 mg/dL (9-16); Calcium 9.1 mg/dL (8.4-10.2); Carbon Dioxide 21 mmol/L (22-29); Chloride 110 mmol/L (96-108); Estimated Glomerular Filt Rate > 60; Glucose Random 95 mg/dL (60-115); Potassium 4.4 mmol/L (3.3-5.1); Sodium 141 mmol/L (135-145); Total Protein 6.6 g/dL (6.5-8.0)
[2022-09-03 22:38] LABS: SM/Ribonucleoprotein Ab <1.0 NEG AI (<1.0 NEG); Smith Protein <1.0 NEG AI (<1.0 NEG)
[2022-09-03 22:48] LABS: Complement C3 124 mg/dL (83-193)
[2022-09-04 15:19] LABS: CRP High Sensitivity <0.3 mg/L
[2022-09-04 15:44] LABS: Cyclic Citrullinated Peptide <16 UNITS
== END 2022-08-31 07:55 | disposition home or self-care (01) ==
LOC: HO.LAB 07:54
PROVIDERS: Absent Provider Nurse Practitioner Family; PCP Family Medicine; Visit Provider Internal Medicine Cardiovascular Disease
DX: I65.23 Occlusion and stenosis of bilateral carotid arteries (principal); I25.10 Atherosclerotic heart disease of native coronary artery without angina pectoris; E78.5 Hyperlipidemia, unspecified; D89.49 Other mast cell activation disorder; J30.89 Other allergic rhinitis; R53.83 Other fatigue; M25.50 Pain in unspecified joint; G43.109 Migraine with aura, not intractable, without status migrainosus
CPT/HCPCS: 36415; 80053; 80061; 80076; 82248; 86141; 86160; 86200; 86235

== ENCOUNTER 2022-09-17 14:52 | Outpatient (REF) | payer OTHER, SELFPAY ==
--- NOTE | ~2022-09-17 | US_ITS ---
EXAMINATION: US EXTRACRANIAL CAROTID DUPLEX, BILATERAL CLINICAL INFORMATION: Occlusion and stenosis of the carotid arteries COMPARISON: Carotid duplex on 09/22/21 TECHNIQUE: Real-time ultrasound and Doppler techniques (integrating B-mode 2-D vascular images, Doppler spectral analysis and color-flow Doppler imaging) were utilized to interrogate the extracranial carotid arteries, the vertebral arteries and proximal subclavian arteries bilaterally. The degree of stenosis is determined by criteria similar to NASCET. FINDINGS: Right Side: 1. There is moderate atherosclerotic plaque seen in the bifurcation/proximal ICA region. 2. The common carotid artery PSV proximally is 108 cm/s and distally 98 cm/s. 3. The proximal internal carotid artery velocities are 77 cm/s systolic and 40 cm/s diastolic. 4. The proximal external carotid artery PSV is 77 cm/s. 5. The vertebral artery shows antegrade flow. 6. The subclavian artery waveforms are normal. Left Side: 1. There is moderate atherosclerotic plaque seen in the bifurcation/proximal ICA region. 2. The common carotid artery PSV proximally is 104 cm/s and distally 87 cm/s. 3. The proximal internal carotid artery velocities are 113 cm/s systolic and 40 cm/s diastolic. 4. The proximal external carotid artery PSV is 109 cm/s. 5. The vertebral artery shows antegrade flow. 6. The subclavian artery waveforms are normal. US/US carotid duplex BI IMPRESSION: 1. RIGHT: Moderate, hemodynamically significant stenosis of the proximal right internal carotid artery corresponding to a 50-79% stenosis by velocity criteria. 2. LEFT: Moderate, hemodynamically significant stenosis of the proximal left internal carotid artery corresponding to a 50-79% stenosis by velocity criteria. 3. There is no change in the category severity of disease when compared to the previous study dated 09/22/21.
== END 2022-09-17 14:53 | disposition home or self-care (01) ==
LOC: HO.US 14:52
PROVIDERS: PCP Family Medicine; Visit Provider Surgery Vascular Surgery
DX: I63.233 Cerebral infarction due to unspecified occlusion or stenosis of bilateral carotid arteries (principal)
CPT/HCPCS: 93880

== ENCOUNTER → 2022-10-03 13:56 | Outpatient (BNVA) | payer OTHER, SELFPAY | PROVIDERS: PCP Family Medicine; Visit Provider Neurological Surgery ==

== ENCOUNTER → 2022-10-18 15:09 | Outpatient (BNVA) | payer OTHER, SELFPAY | PROVIDERS: PCP Family Medicine; Visit Provider Surgery Vascular Surgery ==

== ENCOUNTER 2022-10-19 16:47 | Outpatient (REF) | payer OTHER, SELFPAY ==
--- NOTE | ~2022-10-19 | MR_ITS ---
EXAMINATION: MR LUMBAR SPINE WITHOUT CONTRAST CLINICAL INFORMATION: Radiculopathy COMPARISON: CT angiographic abdomen pelvis 06/12/2021 TECHNIQUE: MRI of the lumbar spine was obtained using routine sequences without contrast. FINDINGS: Straightening of the normal lumbar lordosis. Trace retrolisthesis at L5-S1 and to a lesser extent L4-L5. Vertebral body heights are maintained. Well marginated 1.2 cm T1 and T2 hypointense, STIR hyperintense lesion along the T12 upper endplate without CT correlate from 06/12/2021 and with new mild upper endplate depression. Multilevel disc desiccation with severe L5-S1, moderate at L4-L5 and otherwise mild disc height loss. Degenerative endplate irregularity and mixed type I/II Modic endplate change at L5-S1 and mild type I Modic endplate change at L4-L5 and anteriorly at L3-L4. Multilevel anterior osteophytic spurring is seen.There are multilevel degenerative changes with level by level detail as follows: L1-L2: Mild bilateral facet arthrosis with ligamentum flavum thickening. No spinal canal or neural foraminal stenosis. L2-L3: Shallow annular disc bulge with mild bilateral facet arthrosis and ligamentum flavum thickening. Abutment along the traversing left L3 nerve root in the subarticular zone without spinal canal stenosis. No neural foraminal stenosis. L3-L4: Annular disc bulge with mild bilateral facet arthrosis and ligamentum flavum thickening. No spinal canal or neural foraminal stenosis. L4-L5: Annular disc bulge with suspected paracentral annular fissure and broad-based central disc protrusion, and mild to moderate bilateral facet arthrosis. Mild spinal canal narrowing and encroachment upon the traversing right L5 nerve root in the subarticular zone. Mild to moderate bilateral neural foraminal stenosis with contact along the exiting bilateral L4 nerve roots. L5-S1: Disc osteophyte complex eccentric to the right with mild bilateral facet arthrosis. No spinal canal stenosis, noting abutment along the traversing right nerve root in the subarticular zone. Mild to moderate right and mild left neural foraminal stenosis. The conus medullaris terminates at the level of L1-L2. The distal spinal cord is normal in appearance. . No epidural fluid collection, hematoma, or mass. No significant abnormalities of the paraspinal musculature. Limited evaluation of the intra-abdominal structures without significant abnormalities. The abdominal aorta is of normal contour and caliber. MR/MR lumbar spine wo con IMPRESSION: 1. Severe L5-S1 disc height loss with mixed type I and II Modic endplate change. Lumbar spondylosis without high-grade spinal canal or neural foraminal stenosis. Mild spinal canal stenosis at L4-L5 and mild to moderate neural foraminal stenosis at L4-L5 and L5-S1. At L4-L5 and L5-S1, there is abutment of the traversing right L5 and right S1 nerve roots in the subarticular zones. 2. Well marginated 1.lesion along the T12 upper endplate without CT correlate from 06/12/2021 and with new mild upper endplate depression may reflect an atypical appearance of a Schmorl's node or lipid poor hemangioma however other marrow replacing lesion not excluded. Consider further evaluation with CT or nuclear medicine bone scan.
== END 2022-10-19 16:48 | disposition home or self-care (01) ==
LOC: HO.MRI 16:47
PROVIDERS: PCP Family Medicine; Visit Provider Neurological Surgery
DX: M54.16 Radiculopathy, lumbar region (principal)
CPT/HCPCS: 72148

== ENCOUNTER 2022-10-26 08:24 | Outpatient (REF) | payer OTHER, SELFPAY ==
--- NOTE | ~2022-10-26 | US_ITS ---
EXAMINATION: US LOWER EXTREMITY VENOUS (REFLUX EXAM), BILATERAL CLINICAL INDICATION: Chronic venous insufficiency with lower extremity varicose veins with inflammation COMPARISON: None. TECHNIQUE: Color flow triplex imaging and compression Doppler was performed to evaluate both the deep and the superficial systems bilaterally. To evaluate the superficial system, the examination was performed in the upright position. Color-flow Doppler ultrasound and compression ultrasound were utilized. In addition, maneuvers were utilized to demonstrate reflux. FINDINGS: 1. DEEP VENOUS ULTRASOUND OF THE RIGHT LOWER EXTREMITY: Common Femoral Vein: Compressible, normal respiratory variation and augmented flow. Femoral Vein: Compressible, normal color flow and augmentation. Popliteal Vein: Compressible, normal augmentation. Deep Reflux: There is no evidence of reflux in the deep system in either the common femoral vein or the popliteal vein. There is no evidence of a Gunn's cyst. 2. SUPERFICIAL ULTRASOUND WITH DOPPLER OF RIGHT LOWER EXTREMITY: GREAT SAPHENOUS VEIN: Saphenofemoral Junction: 0.7 cm; Reflux: 0 ms Proximal Thigh: 0.4 cm; Reflux: 0 ms Mid Thigh: 0.1 cm; Reflux: 0 ms Above Knee: 0.2 cm; Reflux: 0 ms At Knee: 0.2 cm; Reflux: 0 ms Below Knee: 0.2 cm; Reflux: 0 ms Mid Calf: 0.1 cm; Reflux: 0 ms Ankle: 0.1 cm; Reflux: 0 ms DUPLICATED MEDIAL GREAT SAPHENOUS VEIN: Diameter: 0.2 cm Reflux: None DUPLICATED LATERAL GREAT SAPHENOUS VEIN: Diameter: None imaged Reflux: NA SMALL SAPHENOUS VEIN: Proximal: 0.1 cm; Reflux: 0 ms Distal: 0.2 cm; Reflux: 0 ms VEIN OF GIACOMINI: Size: NA Reflux: NA PERFORATORS: Location: None significant Size: NA Reflux: NA VARICOSITIES: Location: None significant Size: NA Reflux: NA 3. DEEP VENOUS ULTRASOUND OF THE LEFT LOWER EXTREMITY: Common Femoral Vein: Compressible, normal respiratory variation and augmented flow. Femoral Vein: Compressible, normal color flow and augmentation. Popliteal Vein: Compressible, normal augmentation. Deep Reflux: There is no evidence of reflux in the deep system in either the common femoral vein or the popliteal vein. There is no evidence of a Gunn's cyst. 4. SUPERFICIAL ULTRASOUND WITH DOPPLER OF LEFT LOWER EXTREMITY: GREAT SAPHENOUS VEIN: Saphenofemoral Junction: 0.8 cm; Reflux: 0 ms Proximal Thigh: 0.4 cm; Reflux: 0 ms Mid Thigh: 0.1 cm; Reflux: 2464 ms Above Knee: 0.1 cm; Reflux: 1892 ms At Knee: 0.1 cm; Reflux: 2452 ms Below Knee: 0.2 cm; Reflux: 2460 ms Mid Calf: 0.1 cm; Reflux: 0 ms Ankle: 0.1 cm; Reflux: 0 ms DUPLICATED MEDIAL GREAT SAPHENOUS VEIN: Diameter: None imaged Reflux: NA DUPLICATED LATERAL GREAT SAPHENOUS VEIN: Diameter: 0.3 cm Reflux: 1744 ms SMALL SAPHENOUS VEIN: Proximal: 0.2 cm; Reflux: 0 ms Distal: 0.1 cm; Reflux: 0 ms VEIN OF GIACOMINI: Size: NA Reflux: NA PERFORATORS: Location: None significant Size: NA Reflux: NA VARICOSITIES: Location: None significant Size: NA Reflux: NA US/US venous duplex LE BI IMPRESSION: Right: No significant venous insufficiency or reflux. Left: Segmental areas of reflux in the great saphenous vein from the mid to thigh to the proximal calf. The great saphenous vein in this region is small in size. There is also reflux in a lateral duplicated great saphenous vein in the mid thigh
== END 2022-10-26 08:25 | disposition home or self-care (01) ==
LOC: HO.US 08:24
PROVIDERS: Visit Provider Surgery Vascular Surgery
DX: I83.11 Varicose veins of right lower extremity with inflammation (principal)
CPT/HCPCS: 93970

== ENCOUNTER 2022-11-27 13:45 | Outpatient (AMB) | payer OTHER, SELFPAY ==
[2022-11-27 13:48] VITALS: BMI 25.2
--- NOTE | 2022-11-27 13:48 | MHC.OFFVIS ---
Intake Vital Signs 11/27/22 13:48 Height 5 ft 4 in Weight 147 lb BMI 25.2 Intake Visit Reasons: US follow up 10/26/2022 Intake Note: follow up US 10/26/22, Right LE feels tight and Left LE has numbness and tingling. Pt states that she had recent MRI of back as well. Accompanied by: Self / Same As Patient Allergies codeine [CODEINE] Allergy (Intermediate, Verified 11/27/22 13:52) RASH, HIVES adhesive tape [Adhesive Tape] Allergy (Mild, Verified 11/27/22 13:52) blisters from clear plastic tape-cloth tape ok morphine [MORPHINE] Allergy (Mild, Verified 11/27/22 13:52) HIVES oxycodone [OXYCODONE] Allergy (Mild, Verified 11/27/22 13:52) HIVES HPI US follow up 10/26/2022 HPI Details Very pleasant 57-year-old female presents for routine surveillance follow-up regarding venous insufficiency. She had been following us for carotid disease where she was concerned about TIA and strokes. She did have prior hypertension little and temporal headaches which appear to be resolving. She is being maintained on aspirin and statin. At the current time she complains of lower extremity discomfort. She reports right-sided pins and needles more so on the lateral aspect of her right leg. On the left leg she does experience some mild swelling. She now presents to us for follow-up with noninvasive venous testing. [facility]LY [facility], [facility] Medical History Atherosclerosis Carotid artery disease COVID-19 vaccine series completed Hypertension Mast cell activation syndrome Post-operative nausea and vomiting Surgical History H/O colonoscopy H/O left knee surgery History of bunionectomy Hx of thumb surgery S/P trigger finger release Family History Father HTN (hypertension) Mother HTN (hypertension) CVD (cardiovascular disease) Social History Are you a primary health care analyst to a significant other at home: No Do you presently have visiting nurse or other home services: No Alcohol intake: never Patient Tobacco Use Status: Former Tobacco user Quit Date: age 18 Tobacco use type: Cigarette Current occupational status: employed 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 [employer] [facility] [place]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 Review of Systems Const All systems reviewed & are unremarkable except as noted in HPI and below Reports no additional complaints ENT Reports Normal hearing present Card Denies chest pain, Denies chest pain at rest, Denies chest pain with activity and Denies pedal edema Resp Denies cough GI Denies abdominal pain Musc Denies abnormal gait, Denies muscle cramps and Denies radiating pain into limb Skin/Breast Denies skin ulcer and Denies wounds Neuro Reports Normal hearing present and Denies abnormal gait Psych Reports no additional complaints Physical Exam Vital Signs: BMI result Body Mass Index 25.2 Const General: cooperative, healthy appearing and comfortable Orientation/consciousness: oriented to person, oriented to place and oriented to time HEENT Head: Yes normal to inspection Neck Neck: Yes normal visual inspection Carotids: no bruits Chest Chest palpation & inspection: normal inspection of the chest Resp Effort & Inspection: normal respiratory effort and able to speak in complete sentences Auscultation: clear to auscultation bilaterally, no crackles, no rales, no rhonchi and no wheezes Cardio Rate: regular rate Rhythm: regular rhythm Heart sounds: S1 normal heart sound present and S2 normal heart sound present Bruits: no carotid bruits Peripheral pulses: Peripheral pulses 2+ throughout GI Inspection: Yes normal to inspection Skin Wounds: no wounds Hair: normal Neuro General: oriented to person, oriented to place and oriented to time Cranial nerves: Yes CN's II-XII intact bilaterally and Yes Normal hearing present Cognition (Neuro): normal cognition Motor exam (neuro): 5/5 motor strength present throughout Extrem Other: venous exam: +1 edema left greater than right General: No clubbing, No cyanosis and Yes edema Psych Appearance: grossly normal Mental Status: mental status grossly normal Speech and movement: Normal speech and movement present Results Reviewed Results Reviewed: Brief summary of venous insufficiency testing is as follows: right great saphenous vein: negative right small saphenous vein: negative right accessory vein: none present left great saphenous vein: Positive but vein is extremely small in caliber of 0.1 cm left small saphenous vein: negative left accessory vein: none present Please note there is no evidence of any venous aneurysms or significant tortuosity Assessment & Plan Assessment & Plan (1) Varicose veins of right lower extremity with inflammation: Code(s): I83.11 - Varicose veins of right lower extremity with inflammation Plan: In short patient is negative for any significant reflux. We did discuss routine conservative measures including compression elevation and exercise. In terms of the numbness of the legs this may be more spinal related. I did have an opportunity to review the written report of the MRI and this may be more of the source of her issues. She does have a follow-up with Spine surgery scheduled. We will continue to monitor her in terms of her carotid status. Thank you for allowing us to assist in this very kind woman's care. If there are any questions or concerns please do not hesitate to contact us. (2) Bilateral carotid artery stenosis: Code(s): I65.23 - Occlusion and stenosis of bilateral carotid arteries Plan: She is stable from a carotid perspective. She has had no repeat events. She is scheduled for annual carotid surveillance. Should there be any interval issues happy to see her back sooner. Thank you for allowing us to participate in her care. If there are any questions or concerns please do not hesitate to contact us. Orders: Orders US carotid duplex BI 364 Days I65.23 - Occlusion and stenosis of bilateral carotid arteries Coding Level of Care Code Est Pt Level 4 (13670) Diagnoses Varicose veins of right lower extremity with inflammation I83.11 Bilateral carotid artery stenosis I65.23
== END 2022-11-27 14:10 | disposition home or self-care (01) ==
PROVIDERS: PCP Family Medicine; Visit Provider Surgery Vascular Surgery
DX: I83.11 Varicose veins of right lower extremity with inflammation (principal); I65.23 Occlusion and stenosis of bilateral carotid arteries
CPT/HCPCS: 99214

== ENCOUNTER → 2022-11-27 13:45 | Outpatient (BNVA) | payer OTHER, SELFPAY | PROVIDERS: PCP Family Medicine; Visit Provider Surgery Vascular Surgery ==

== ENCOUNTER 2023-02-06 13:09 | Outpatient (AMB) | payer OTHER, SELFPAY ==
--- NOTE | 2023-02-06 13:14 | MHC.OFFVIS ---
Intake Vital Signs 02/06/23 13:21 Height 5 ft 4 in Weight 147 lb BMI 25.2 Intake Visit Reasons: New Prob- Right thumb pain Intake Note: Manuela 57 yr old right hand dominant woman, states she is having pain in her CMC joint of her right thumb for the last 6 months. Pain increases with pinching and gripping. States she is having the same pain and discomfort she was having in her left thumb before surgery. Hx left basal joint arthroplasty 07/20/21 and also a trigger release from 12/15/20. 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 She returns today with complains of pain in the base of the right thumb. This is made worse with heavier or repetitive activities. She says this pain is similar to her left thumb prior to her arthroplasty. She says her pain has been worsening for ~6 months now. She says her pain first began when she was swimming in a pool. Her pain is intermittent but has started to occur at night. She says she tried to start crocheting recently but was unable to due to her right thumb pain. She says this recent activity did not hurt her left thumb. She has a hx of right thumb A1 luna release, DOS: 12/15/20.? No recurrence of locking and catching. She denies any radial-sided wrist pain She is S/P left basal joint arthroplasty with LR TI using a slip of APL tendon, DOS: 07/20/21. She is very happy with the results of the surgery and says that she no longer has pain in the base of the left thumb. She is also S/P left de Quervain tenosynovitis injection on 05/09/20 with good resolution of symptoms.. She says the numbness in her hands resolved on its own, she thinks this was due to OT hand therapy. [facility] Medical History Atherosclerosis Carotid artery disease COVID-19 vaccine series completed Hypertension Mast cell activation syndrome Post-operative nausea and vomiting Surgical History H/O colonoscopy H/O left knee surgery History of bunionectomy Hx of thumb surgery S/P trigger finger release Family History Father HTN (hypertension) Mother HTN (hypertension) CVD (cardiovascular disease) Social History Are you a primary career agent to a significant other at home: No Do you presently have visiting nurse or other home services: No Alcohol intake: never Patient Tobacco Use Status: Former Tobacco user Quit Date: age 18 Tobacco use type: Cigarette Current occupational status: employed 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 Review of Systems Const All systems reviewed & are unremarkable except as noted in HPI and below Physical Exam Vital Signs: BMI result Body Mass Index 25.2 Const General: cooperative, healthy appearing and no acute distress Orientation/consciousness: patient oriented x3 Neuro General: patient oriented x3 Extrem Other: Evaluation of Right Upper Extremity: The patient is alert, oriented, and in no acute distress Neuro: Median, Ulnar, Radial nerves motor and sensory intact and sensation is normal to the tips of all digits Vascular: Cap refill brisk ROM: Can bring fingers closed to a fist and back out to full extension. She could oppose her thumb to the tips of all digits No locking or catching Not tender over the a1 luna No tenderness over the 1st dorsal compartment Tender over the basal joint Mildly + Shoulder sign Radiographs: 3 views of the right hand, with attention to the thumb, were taken and viewed by me today in clinic. They show no fractures or dislocations. There is some early right basal joint osteoarthritis. Psych Appearance: grossly normal Affect: normal affect Attitude: cooperative Assessment & Plan Assessment & Plan (1) Osteoarthritis of carpometacarpal joint of right thumb: Code(s): M18.11 - Unilateral primary osteoarthritis of first carpometacarpal joint, right hand Plan Assessment and plan: 1. Right basal joint osteoarthritis This is her most symptomatic complaint today. I educated her about this condition I discussed operative and non-operative treatment options. I recommend activity modification and bracing. She is also not interested in surgery at this time. I discussed activity modification, she is to limit or avoid any heavy or repetitive pinching or gripping activities She was fitted for a new comfort cool brace to wear with daily activity, when symptomatic I discussed the use of gadgets and tools to assist her with activities such as opening jars If her symptoms persist or worsen she can follow up to discuss treatment options, including injections She can follow up prn 2. Right trigger thumb, S/P release Date of surgery 12/15/2020 Good resolution of symptoms 3. Left basal joint osteoarthritis S/P basal joint arthroplasty, and LR TI with a slip of APL tendon DOS: 07/20/2021 K-wire removed: 08/16/21 Doing well with no pain. She is very pleased with the results of her surgery She denies any other pain in her left hand as well 4. Bilateral hand and wrist numbness and tingling We had evidently ordered a nerve conduction study. She said her symptoms resolved on their own and she never got the nerve conduction study. Scribed for Maribell Santos MD by Jaspal Cervantes, medical billing instructor, on 02/06/23 at 1:35 PM, EST. Orders: Orders XR hand RT min 3V Today M79.641 - Pain in right hand Coding Level of Care Code Est Pt Level 3 (47489) Diagnoses Osteoarthritis of carpometacarpal joint of right thumb M18.11
[2023-02-06 13:21] VITALS: BMI 25.2
== END 2023-02-06 13:51 | disposition home or self-care (01) ==
PROVIDERS: PCP Family Medicine; Visit Provider Orthopaedic Surgery
DX: M18.11 Unilateral primary osteoarthritis of first carpometacarpal joint, right hand (principal)
CPT/HCPCS: 99213

== ENCOUNTER 2023-02-06 14:28 | Outpatient (REF) | payer OTHER, SELFPAY ==
--- NOTE | ~2023-02-06 | XR_ITS ---
EXAMINATION: XR HAND, RIGHT CLINICAL INFORMATION: Pain in the base of the right thumb COMPARISON: None available. TECHNIQUE: PA, lateral, and oblique views of the right hand. FINDINGS: There is no evidence of fracture or dislocation. The base of right thumb revealed mild degenerative changes with narrowing of the joint space but no fractures. The first metacarpophalangeal joint is unremarkable. Soft tissues are unremarkable. There is incidental findings of fragmentation of ulnar styloid. XR/XR hand RT min 3V IMPRESSION: Mild changes of osteoarthritis in the first carpometacarpal joint.
== END 2023-02-06 14:29 | disposition home or self-care (01) ==
LOC: HO.HOSX 14:28
PROVIDERS: Visit Provider Orthopaedic Surgery
DX: M18.11 Unilateral primary osteoarthritis of first carpometacarpal joint, right hand (principal)
CPT/HCPCS: 73130

== ENCOUNTER 2023-03-19 08:45 | Outpatient (AMB) | payer OTHER, SELFPAY ==
--- NOTE | 2023-03-19 08:55 | A.OFFVIS_ITS ---
Intake Vital Signs 03/19/23 08:59 Height 5 ft 4 in Weight 147 lb BMI 25.2 BP 138/72 Blood Pressure Location Rt brachial Position Sitting Pulse 86 Pulse Source Pulse Oximeter Pulse Oximetry (%) 99 Oxygen Delivery Method Room Air Intake Visit Reasons: Asthma flare up /Mass cell activation Ripening Room Operator Required: No Eligibility Examiner: Eligibility Examiner offered & declined Accompanied by: Self / Same As Patient Allergies codeine [CODEINE] Allergy (Intermediate, Verified 03/19/23 09:05) RASH, HIVES adhesive tape [Adhesive Tape] Allergy (Mild, Verified 03/19/23 09:05) blisters from clear plastic tape-cloth tape ok morphine [MORPHINE] Allergy (Mild, Verified 03/19/23 09:05) HIVES oxycodone [OXYCODONE] Allergy (Mild, Verified 03/19/23 09:05) HIVES Medication List - Last Reconciled 03/19/23 by Grecia Shepherd LPN albuterol sulfate 90 mcg/actuation inhalation ascorbate calcium (vitamin C) 500 mg PO DAILY aspirin 81 mg PO DAILY atenolol 25 mg PO BID 90 days [id number]-[id number]-qufo 50-300-40 mg (Fioricet) 1 cap PO Q4-6H PRN calcium carbonate 600 mg PO DAILY cromolyn 300 mg PO QID cyclobenzaprine 10 mg PO TID cyproheptadine 4 mg PO BEDTIME epinephrine 0.3 mg IM ONCE PRN fluticasone propion-salmeterol 500-50 mcg/dose (Advair Diskus) 1 inh inhalation BID fluticasone propionate 50 mcg/actuation 1 spray intranasal DAILY ibuprofen 600 mg PO Q6-8H PRN magnesium glycinate mg PO multivitamin 1 tab PO DAILY riboflavin (vitamin B2) 400 mg PO DAILY rosuvastatin 40 mg PO BEDTIME sumatriptan succinate 0 mg PO tiotropium bromide (Spiriva with HandiHaler) 1 cap inhalation DAILY triamcinolone acetonide (Nasacort) 1 spray intranasal BID valsartan 20 mg (1/2 x 40 mg) PO BID 90 days HPI Asthma flare up /Mass cell activation HPI Details Manuela is a pleasant 57 year old, former minimal smoker, with underlying asthma, mast cell activation syndrome diagnosed 15 years ago, and CARO positive. She was referred for pulmonary evaluation as she is suboptimally controlled on Advair 500-50, spiriva, cromolyn, ketotifen, cyproheptadine and flonase. She reports symptoms of persistent dry cough, chest tightness, and wheezing that have been worsening over the past month but became more frequent around November of last year. She also reports dyspnea due to persistent cough. At that time there were updates to the air conditioning system in her office and there was mold found within the system. She reports working from home for two months while the mold was being remedied, and had significant improvement in symptoms. Unfortunately, when she returned to work her symptoms worsened. She also notes two coworkers with asthma who also are triggered by her work environment. She is currently working from home. She has had anaphylactic reactions in the past, never requiring intubation. She does have a current epinephrine prescription. She has been allergy tested years ago and attempted allergen immunotherapy but discontinued due to anaphylaxis. She does have pets at home, cat and dogs. She reports brother with asthma otherwise, denies any pertinent family history. [facility] Medical History (Updated 03/19/23 @ 12:42 by [place] Vegas PA-C) Bilateral carotid artery stenosis Hypertension Asthma Mast cell activation syndrome CARO positive Post-operative nausea and vomiting COVID-19 vaccine series completed Surgical History (Updated 03/19/23 @ 12:36 by Florida Vegas PA-C) History of thumb surgery History of colonoscopy History of arthroscopy of left knee History of bunionectomy of right great toe History of thumb surgery Family History Father HTN (hypertension) Mother HTN (hypertension) CVD (cardiovascular disease) Social History (Updated 03/19/23 @ 09:10 by Grecia Shepherd LPN) Are you a primary care team coordinator scheduler to a significant other at home: No Do you presently have visiting nurse or other home services: No Alcohol intake: never Patient Tobacco Use Status: Former Tobacco user Quit Date: age 18 Tobacco use type: Cigarette Current occupational status: employed 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 Review of Systems Const Denies chills, Denies excessive sweating, Denies fever(s), Denies headache(s) and Denies night sweats Eyes Denies irritation ENT Reports Normal hearing present, Denies headache(s), Denies nasal congestion, Denies nasal discharge, Denies post nasal drip and Denies sore throat Card Denies chest pain, Denies chest pain at rest, Denies chest pain with activity, Denies claudication, Denies leg edema, Reports dyspnea, Denies dyspnea on exertion, Denies orthopnea and Denies paroxysmal nocturnal dyspnea Resp Denies chest congestion, Reports cough, Denies excessive phlegm production, Denies pain on inspiration, Denies pain with cough, Reports dyspnea, Denies dyspnea on exertion, Denies stridor and Reports wheezing Musc Denies myalgias Neuro Reports Normal hearing present and Denies headache(s) Endo Denies excessive sweating Stiven/Lymph Denies lymphadenopathy Aller/Immun Reports wheezing Physical Exam Vital Signs: Last Vital Signs Pulse 86 03/19/23 08:59 BP 138/72 03/19/23 08:59 Pulse Ox 99 03/19/23 08:59 Oxygen Delivery Method Room Air 03/19/23 08:59 BMI result Body Mass Index 25.2 Const General: cooperative and well developed Orientation/consciousness: patient oriented x3 Limitations: no limitations HEENT Head: Yes normal to inspection, Yes normocephalic and Yes atraumatic Ears: hearing grossly normal bilaterally and external ears normal Eyes General: appearance normal, both eyes and all related structures Eyelids: Yes eyelids normal Sclerae: sclerae normal EOM: EOMs intact bilaterally Neck Neck: Yes normal visual inspection and Yes no lymphadenopathy Lymphatic: no lymphadenopathy noted Chest Chest palpation & inspection: normal inspection of the chest Resp Other: persistent dry cough throughout visit, improved after duoneb Effort & Inspection: normal respiratory effort, able to speak in complete sentences, no audible wheezes, no stridor, not tachypneic, no tripod positioning and no use of accessory muscles Cardio Jugular venous distension: no JVD Rate: regular rate Rhythm: regular rhythm Skin Other: warm, dry General skin exam: no rashes or lesions noted Neuro General: patient oriented x3 Cranial nerves: Yes Normal hearing present Cognition (Neuro): normal cognition Gait exam (Neuro): Normal gait present Extrem General: Yes normal to inspection, Yes capillary refill normal, Yes no clubbing, cyanosis or edema and Yes no pedal edema Psych Appearance: grossly normal and well kempt Speech and movement: Normal speech and movement present and Clear speech present Affect: normal affect Attitude: cooperative Thought process: Normal thought process present Thought content: Normal thought content present Insight: Good insight present (Psych) Judgement: Good judgement present (Psych) Office Procedures Nebulizer Treatment Nebulizer Treatment [id number]/[id number] RX initial, or Nebulizer Subsequent Treatment Office Meds ipratropium 0.5 mg-albuterol 3 mg (2.5 mg base)/3 mL nebulization soln Performing Provider: Marli Torrez NP Performing Location: [facility] [place] [facility] Administered by: Grecia Shepherd LPN on 03/19/23 09:22 Dose Route Admin Location Dispensed Lot Number Expiration Date [facility] Health Therapist 3 mL inhalation 3 mL [id number] 07/10/24 4747-3252-67 [employer] [facility] Assessment & Plan Assessment & Plan (1) Asthma: Code(s): J45.909 - Unspecified asthma, uncomplicated (2) Mast cell activation syndrome: Code(s): D89.40 - Mast cell activation, unspecified (3) CARO positive: Code(s): R76.8 - Other specified abnormal immunological findings in serum Plan Manuela's symptoms are likely multifactorial with contribution from pulmonary and immunology etiologies. Will treat acute exacerbation with prednisone. She is aware if symptoms rebound once discontinuing or do not improve to call the office. Will also send for RAST, CBC and IgE as well as CXR. Once patient is back to baseline, would like to send for PFT. During the visit, the immunology [facility] NURSE managing her mast cell activation syndrome called and we spoke about possibly placing patient on a biologic given her suboptimal response to triple inhaler therapy. Will review with Dr. Mckeon, as patient with complex medical history and then reach out to Faiza Jordan NP to discuss further. All questions were answered and patient is in agreement of plan. Will reach out to patient once treatment plan is developed. Orders: Orders AMB Nebulizer Treatment Today D89.40 - Mast cell activation, unspecified, J45.909 - Unspecified asthma, uncomplicated Complete Blood Count Auto Diff Today J45.909 - Unspecified asthma, uncomplicated Rast Allergen Today J45.909 - Unspecified asthma, uncomplicated XR chest 2V Today R05.9 - Cough, unspecified Immunoglobulin E Today J45.909 - Unspecified asthma, uncomplicated Medications: New prednisone 40 mg (2 x 20 mg) PO DAILY 10 tabs 0RF levalbuterol HCl 1.25 mg (3 mL) inhalation Q4-6H PRN 90 mL 3RF shortness of breath or wheezing Coding Level of Care Code New Pt Level 4 (35862) Diagnoses Asthma J45.909 Mast cell activation syndrome D89.40 CARO positive R76.8 CPT Codes Nebulizer Treatment - Nebulizer Treatment, initial or subsequent: 03882- Nebulizer/MDI RX initial, or Nebulizer Subsequent Treatment ([id number])
[2023-03-19 08:59] VITALS: BP 138/72; PULSE 86; O2SAT 99; BMI 25.2
== END 2023-03-19 10:00 | disposition home or self-care (01) ==
PROVIDERS: PCP Family Medicine; Visit Provider Nurse Practitioner Family
DX: J45.909 Unspecified asthma, uncomplicated (principal); D89.40 Mast cell activation, unspecified; R76.8 Other specified abnormal immunological findings in serum
CPT/HCPCS: 99204

== ENCOUNTER → 2023-03-19 08:45 | Outpatient (BNVA) | payer OTHER, SELFPAY | PROVIDERS: PCP Family Medicine; Visit Provider Nurse Practitioner Family | DX: J45.40 Moderate persistent asthma, uncomplicated (principal); D89.40 Mast cell activation, unspecified; R76.8 Other specified abnormal immunological findings in serum | CPT/HCPCS: 94640 ==

== ENCOUNTER 2023-03-19 10:42 | Outpatient (REF) | payer OTHER, SELFPAY ==
--- NOTE | ~2023-03-19 | XR_ITS ---
EXAMINATION: XR CHEST CLINICAL INFORMATION: Cough COMPARISON: Chest radiograph from 07/18/2020 TECHNIQUE: 2 views of the chest were obtained. FINDINGS: No focal consolidation. No pneumothorax. Trachea is midline. Cardiac mediastinal silhouette is not enlarged. No large pleural effusion. Osseous structures are intact. Soft tissues are unremarkable. XR/XR chest 2V IMPRESSION: No acute cardiopulmonary process.
[2023-03-19 13:30] LABS: MANUAL DIFF FLAG NO
[2023-03-19 13:58] LABS: Basophils Percent Auto 0.4 % (0-2); Eosinophils Absolute Auto 0.1 X10*3/uL (0.0-0.4); Eosinophils Percent Auto 1.7 % (0-4); Hemoglobin 13.2 g/dl (12.0-16.0); Imm Gran Abs Auto 0.05 X10*3/uL (0.00-0.03); Imm Gran Pct Auto 0.6 % (0.0-0.4); Lymphocytes Absolute Auto 1.7 X10*3/uL (1.2-4.9); Lymphocytes Percent Auto 22.4 % (20-40); Mean Corpuscular Hemoglobin 31.1 pg (27.0-33.0); Mean Corpuscular Volume 94.3 fL (80.0-98.0); Mean Platelet Volume 10.2 fL (9.4-12.3); Monocytes Absolute Auto 0.4 X10*3/uL (0.1-1.2); Monocytes Percent Auto 5.7 % (2-11); Neutrophils Absolute Auto 5.3 x10*3/uL (2.0-8.3); Neutrophils Percent Auto 69.2 % (45-73); Platelet Count 327 X10*3/uL (160-400); Red Blood Count 4.24 X10*6/uL (4.20-5.50); Red Cell Distribution Width 12.5 % (11.0-16.0); White Blood Count 7.7 X10*3/uL (4.8-10.8)
[2023-03-21 02:20] LABS: Immunoglobulin E 47 kU/L (<OR=114)
== END 2023-03-19 10:43 | disposition home or self-care (01) ==
LOC: HO.HMGCX 10:42
PROVIDERS: PCP Family Medicine; Visit Provider Nurse Practitioner Family
DX: J45.909 Unspecified asthma, uncomplicated (principal); R76.8 Other specified abnormal immunological findings in serum; D89.40 Mast cell activation, unspecified; R05.9 Cough, unspecified
CPT/HCPCS: 36415; 71046; 82785; 85025

== ENCOUNTER 2023-04-02 13:33 | Outpatient (AMB) | payer OTHER, SELFPAY ==
[2023-04-02 13:39] VITALS: BP 124/78; PULSE 98; O2SAT 100; BMI 23.7
--- NOTE | 2023-04-02 13:39 | A.OFFVIS_ITS ---
Intake Vital Signs 04/02/23 13:39 Height 5 ft 4 in Weight 138 lb BMI 23.7 BP 124/78 Blood Pressure Location Rt brachial Position Sitting Pulse 98 Pulse Source Pulse Oximeter Pulse Oximetry (%) 100 Oxygen Delivery Method Room Air Intake Visit Reasons: Asthma flare up : 2 week f/u Research And Development Researcher Required: No Process Manager: Process Manager offered & declined Accompanied by: Spouse Allergies codeine [CODEINE] Allergy (Intermediate, Verified 04/02/23 13:46) RASH, HIVES adhesive tape [Adhesive Tape] Allergy (Mild, Verified 04/02/23 13:46) blisters from clear plastic tape-cloth tape ok morphine [MORPHINE] Allergy (Mild, Verified 04/02/23 13:46) HIVES oxycodone [OXYCODONE] Allergy (Mild, Verified 04/02/23 13:46) HIVES Medication List - Last Reconciled 04/02/23 by Grecia Shepherd LPN albuterol sulfate 90 mcg/actuation inhalation ascorbate calcium (vitamin C) 500 mg PO DAILY aspirin 81 mg PO DAILY atenolol 25 mg PO BID 90 days xdqchrdixw-edzqxkspovzum-iskj 50-300-40 mg (Fioricet) 1 cap PO Q4-6H PRN calcium carbonate 600 mg PO DAILY cromolyn 300 mg PO QID cyclobenzaprine 10 mg PO TID cyproheptadine 4 mg PO BEDTIME dupilumab (Dupixent) 600 mg (4 mL) subcut ONCE dupilumab (Dupixent) 300 mg (2 mL) subcut Q2W epinephrine 0.3 mg IM ONCE PRN fluticasone propion-salmeterol 500-50 mcg/dose (Advair Diskus) 1 inh inhalation BID fluticasone propionate 50 mcg/actuation 1 spray intranasal DAILY ibuprofen 600 mg PO Q6-8H PRN levalbuterol HCl 1.25 mg (3 mL) inhalation Q4-6H PRN magnesium glycinate mg PO multivitamin 1 tab PO DAILY prednisone 40 mg (2 x 20 mg) PO DAILY prednisone 10 mg PO DIRECTED riboflavin (vitamin B2) 400 mg PO DAILY rosuvastatin 40 mg PO BEDTIME sumatriptan succinate 0 mg PO tiotropium bromide (Spiriva with HandiHaler) 1 cap inhalation DAILY triamcinolone acetonide (Nasacort) 1 spray intranasal BID valsartan 20 mg (1/2 x 40 mg) PO BID 90 days HPI Asthma flare up : 2 week f/u HPI Details Manuela is a pleasant 57 year old, former minimal smoker, with underlying asthma, mast cell activation syndrome diagnosed 15 years ago, and CARO positive. She is suboptimally controlled on Advair 500-50, spiriva, cromolyn, ketotifen, cyproheptadine and flonase. She continues to report symptoms of persistent dry cough, chest tightness, and wheezing that have been worsening over the past month but became more frequent around November of last year. She also reports dyspnea, chest discomfort and hoarseness due to persistent cough. At the last visit, she was given a burst of prednisone with improvement in symptoms, however once discontinued her symptoms returned. She was then started on a longer taper of prednisone and Dupixent was prescribed. Today she presents to discuss dupixent as well as meet with Apolonia for teaching and receive her first doses in office. She is accompanied by her and did bring epipen. [facility] Medical History (Updated 03/19/23 @ 12:42 by [place] PA-C) Bilateral carotid artery stenosis Hypertension Asthma Mast cell activation syndrome CARO positive Post-operative nausea and vomiting COVID-19 vaccine series completed Surgical History (Updated 03/19/23 @ 12:36 by [place] Vegas PA-C) History of thumb surgery History of colonoscopy History of arthroscopy of left knee History of bunionectomy of right great toe History of thumb surgery Family History Father HTN (hypertension) Mother HTN (hypertension) CVD (cardiovascular disease) (Updated 04/02/23 @ 13:49 by Grecia Shepherd LPN) Are you a primary residential child care counselor to a significant other at home: No Do you presently have visiting nurse or other home services: No Alcohol intake: never Patient Tobacco Use Status: Former Tobacco user Quit Date: age 18 Tobacco use type: Cigarette Current occupational status: employed 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 Review of Systems Const Denies chills, Denies excessive sweating, Denies fever(s), Denies headache(s) and Denies night sweats Eyes Denies irritation ENT Reports Normal hearing present, Denies headache(s), Denies nasal congestion, Denies nasal discharge, Denies post nasal drip and Denies sore throat Card Denies chest pain, Denies chest pain at rest, Denies chest pain with activity, Denies claudication, Denies leg edema, Reports dyspnea, Denies dyspnea on exertion, Denies orthopnea and Denies paroxysmal nocturnal dyspnea Resp Denies chest congestion, Reports cough, Denies excessive phlegm production, Denies pain on inspiration, Denies pain with cough, Reports dyspnea, Denies dyspnea on exertion, Denies stridor and Reports wheezing Musc Denies myalgias Neuro Reports Normal hearing present and Denies headache(s) Endo Denies excessive sweating Stiven/Lymph Denies lymphadenopathy Aller/Immun Reports wheezing Physical Exam Vital Signs: Last Vital Signs Pulse 98 04/02/23 13:39 BP 124/78 04/02/23 13:39 Pulse Ox 100 04/02/23 13:39 Oxygen Delivery Method Room Air 04/02/23 13:39 BMI result Body Mass Index 23.7 Const General: cooperative and well developed Orientation/consciousness: patient oriented x3 Limitations: no limitations HEENT Head: Yes normal to inspection, Yes normocephalic and Yes atraumatic Ears: hearing grossly normal bilaterally and external ears normal Eyes General: appearance normal, both eyes and all related structures Eyelids: Yes eyelids normal Sclerae: sclerae normal EOM: EOMs intact bilaterally Neck Neck: Yes normal visual inspection and Yes no lymphadenopathy Lymphatic: no lymphadenopathy noted Chest Chest palpation & inspection: normal inspection of the chest Resp Other: persistent dry cough throughout visit, diminished lung sounds throughout Effort & Inspection: normal respiratory effort, able to speak in complete sentences, no audible wheezes, Actively coughing, no stridor, not tachypneic, no tripod positioning and no use of accessory muscles Auscultation: no wheezes Cardio Jugular venous distension: no JVD Rate: regular rate Rhythm: regular rhythm Skin Other: warm, dry General skin exam: no rashes or lesions noted Neuro General: patient oriented x3 Cranial nerves: Yes Normal hearing present Cognition (Neuro): normal cognition Gait exam (Neuro): Normal gait present Extrem General: Yes normal to inspection, Yes capillary refill normal, Yes no clubbing, cyanosis or edema and Yes no pedal edema Psych Appearance: grossly normal and well kempt Speech and movement: Normal speech and movement present and Clear speech present Affect: normal affect Attitude: cooperative Thought process: Normal thought process present Thought content: Normal thought content present Insight: Good insight present (Psych) Judgement: Good judgement present (Psych) Assessment & Plan Assessment & Plan (1) Asthma: Code(s): J45.909 - Unspecified asthma, uncomplicated (2) Mast cell activation syndrome: Code(s): D89.40 - Mast cell activation, unspecified (3) CARO positive: Code(s): R76.8 - Other specified abnormal immunological findings in serum Plan Discussed Dupixent with Manuela and gave information via uptodate, including side effects and information regarding storage of medication. She continues to be on prednisone and will call the office if symptoms rebound once taper is completed. She received the loading dose of 600 mg in office, under the direction of Apolonia, nursing staff. She waited in the office for 30 minutes post injection, given her history of anaphylaxis. She tolerated injections well,without adverse reaction. She is aware to continue 300 mg q 2 weeks and will follow up in 3 months of sooner if needed. Once patient has better control of symptoms, would like to send for PFT, as she would not be able to complete at this time due to persistent cough. All questions were answered and patient is in agreement of plan. Coding Level of Care Code Est Pt Level 4 (31811) Diagnoses Asthma J45.909 Mast cell activation syndrome D89.40 CARO positive R76.8
== END 2023-04-02 15:01 | disposition home or self-care (01) ==
PROVIDERS: PCP Family Medicine; Visit Provider Nurse Practitioner Family
DX: J45.909 Unspecified asthma, uncomplicated (principal); D89.40 Mast cell activation, unspecified; R76.8 Other specified abnormal immunological findings in serum
CPT/HCPCS: 99214

== ENCOUNTER → 2023-04-02 13:33 | Outpatient (BNVA) | payer OTHER, SELFPAY | PROVIDERS: PCP Family Medicine; Visit Provider Nurse Practitioner Family ==

== ENCOUNTER 2023-06-27 08:14 | Outpatient (AMB) | payer OTHER, SELFPAY ==
--- NOTE | 2023-06-27 08:23 | A.OFFVIS_ITS ---
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 Intake Note: no concerns Transcript Clerk Required: No Information Interpreted: non-clinical & clinical Aircraft Motor Mechanic: Aircraft Motor Mechanic Present (Saige Pittman SUKHDEV) Accompanied by: Self / Same As Patient Allergies codeine [CODEINE] Allergy (Intermediate, Verified 06/27/23 08:27) RASH, HIVES dupilumab [From Dupixent Pen] Allergy (Intermediate, Verified 06/27/23 08:30) Hives adhesive tape [Adhesive Tape] Allergy (Mild, Verified 06/27/23 08:27) blisters from clear plastic tape-cloth tape ok morphine [MORPHINE] Allergy (Mild, Verified 06/27/23 08:27) HIVES oxycodone [OXYCODONE] Allergy (Mild, Verified 06/27/23 08:27) HIVES Post menopausal: Yes HPI HPI Comments History of Present Illness Details Presenting for annual exam. No complaints. Last Pap/HPV was negative in 11/29 Last Mammogram was BI-RADS 1 in 08/02 Last Colonoscopy was in 09/29, the recommendation was to repeat in 10 years [facility] Medical History Bilateral carotid artery stenosis Hypertension Asthma Mast cell activation syndrome CARO positive Post-operative nausea and vomiting COVID-19 vaccine series completed Surgical History History of thumb surgery History of colonoscopy History of arthroscopy of left knee History of bunionectomy of right great toe History of thumb surgery Family History Father HTN (hypertension) Mother HTN (hypertension) CVD (cardiovascular disease) Social History Household Members: Spouse Household Members Other:: son Housing: House Are you a primary school child care attendant to a significant other at home: No Do you presently have visiting nurse or other home services: No Alcohol intake: current Alcohol intake frequency: a few times a month Alcohol type: wine Patient Tobacco Use Status: Former Tobacco user Quit Date: age 18 Tobacco use type: Cigarette Current occupational status: employed 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 Sexually active: Yes Sexual orientation: Straight/Heterosexual Gender identity: Female Female Reproductive History Menstrual Total pregnancies: 3 Full term: 2 Number of Living Children: 2 Date of last pap smear: 11/26/19 Date of Mammogram: 08/03/22 Review of Systems Const All systems reviewed & are unremarkable except as noted in HPI and below Card Reports as per HPI Resp Reports as per HPI GI Reports as per HPI and Reports no additional complaints Reports as per HPI Physical Exam Vital Signs: Last Vital Signs BP 120/82 06/27/23 08:25 BMI result Body Mass Index 23.5 Const General: cooperative, healthy appearing and comfortable Chest Chest palpation & inspection: normal inspection of the chest and normal palpation of entire chest wall Breast/axilla inspection: normal inspection of the breasts and normal inspection of the axillae Breast/axilla palpation: normal palpation of the breasts, normal palpation of the axillae and no axillary lymphadenopathy Resp Effort & Inspection: normal respiratory effort Auscultation: clear to auscultation bilaterally Percussion: percussion normal Cardio Palpation: normal PMI Rate: regular rate Rhythm: regular rhythm Heart sounds: no murmurs and no rubs Peripheral pulses: Peripheral pulses 2+ throughout GI Inspection: Yes normal to inspection Palpation (GI): Soft to palpation, nontender, no guarding, not rigid and No hepatosplenomegaly present Percussion: Yes normal to percussion Auscultation: normal bowel sounds Rectal Exam - Female: deferred General: Yes bladder normal to palpation External Female Exam: No lesion Speculum Exam - Vagina: normal appearance of the vagina, normal palpation, normal vaginal discharge and not erythematous Speculum Exam - Cervix: normal appearance of the cervix and normal palpation Bimanual exam- vagina & uterus: normal bimanual exam, normal palpation, uterine size normal, bladder normal to palpation, consistency normal and normal palpation Bimanual Exam- Adnexa, other: normal adnexae, no masses and no tenderness Assessment & Plan Assessment & Plan (1) Well woman exam: Code(s): Z01.419 - Encounter for gynecological examination (general) (routine) without abnormal findings Plan: Co testing not indicated this year. Counseled the patient about the recommended dietary allowance of 1200 mg of Calcium & 600 IU of vitamin D. Mammogram ordered. The patient was instructed to perform monthly self-breast exams and schedule annual exam in a year. All questions answered and the patient verbalized understanding. Orders: Orders MM tomosynthesis screening BI Today Z12.31 - Encounter for screening mammogram for malignant neoplasm of breast Coding Level of Care Code Est Pt Prev Care 40-64y(07876) Diagnoses Well woman exam Z01.419
[2023-06-27 08:25] VITALS: BP 120/82; BMI 23.5
== END 2023-06-27 08:50 | disposition home or self-care (01) ==
LOC: HO.HWS 08:14
PROVIDERS: PCP Family Medicine; Visit Provider Obstetrics & Gynecology
DX: Z01.419 Encounter for gynecological examination (general) (routine) without abnormal findings (principal)
CPT/HCPCS: 99396

== ENCOUNTER → 2023-06-27 08:14 | Outpatient (BNVA) | payer OTHER, SELFPAY | PROVIDERS: PCP Family Medicine; Visit Provider Obstetrics & Gynecology ==

== ENCOUNTER 2023-07-03 09:48 | Outpatient (AMB) | payer OTHER, SELFPAY ==
--- NOTE | 2023-07-03 09:55 | A.OFFVIS_ITS ---
Intake Vital Signs 07/03/23 09:56 Height 5 ft 4 in Weight 156 lb BMI 26.8 BP 126/64 Blood Pressure Location Rt brachial Position Sitting Pulse 88 Pulse Source Pulse Oximeter Pulse Oximetry (%) 98 Oxygen Delivery Method Room Air Intake Visit Reasons: asthma flare up : 3 month f/u Intake Note: Of note patient takes quercetin bromelain 400mg capsules 2 caps in am and 2 caps in pm. Total 1600mg/day. Information Systems Manager Required: No Clerical Adjuster: Clerical Adjuster offered & declined Accompanied by: Self / Same As Patient Allergies codeine [CODEINE] Allergy (Intermediate, Verified 06/27/23 08:27) RASH, HIVES dupilumab [From Dupixent Pen] Allergy (Intermediate, Verified 06/27/23 08:30) Hives adhesive tape [Adhesive Tape] Allergy (Mild, Verified 06/27/23 08:27) blisters from clear plastic tape-cloth tape ok morphine [MORPHINE] Allergy (Mild, Verified 06/27/23 08:27) HIVES oxycodone [OXYCODONE] Allergy (Mild, Verified 06/27/23 08:27) HIVES Medication List - Last Reconciled 07/03/23 by Grecia Shepherd LPN albuterol sulfate 90 mcg/actuation inhalation ascorbate calcium (vitamin C) 500 mg PO DAILY aspirin 81 mg PO DAILY atenolol 25 mg PO BID hfifieavtz-onzackmrqediy-hxvd 50-300-40 mg (Fioricet) 1 cap PO Q4-6H PRN calcium carbonate 600 mg PO DAILY cromolyn 300 mg PO QID cyclobenzaprine 10 mg PO TID cyproheptadine 4 mg PO BEDTIME epinephrine 0.3 mg IM ONCE PRN fluticasone propion-salmeterol 500-50 mcg/dose (Advair Diskus) 1 inh inhalation BID fluticasone propionate 50 mcg/actuation 1 spray intranasal BID ibuprofen 600 mg PO Q6-8H PRN levalbuterol HCl 1.25 mg (3 mL) inhalation Q4-6H PRN magnesium glycinate mg PO montelukast 10 mg PO DAILY multivitamin 1 tab PO DAILY riboflavin (vitamin B2) 400 mg PO DAILY rosuvastatin 40 mg PO BEDTIME sumatriptan succinate 0 mg PO tiotropium bromide (Spiriva with HandiHaler) 1 cap inhalation DAILY triamcinolone acetonide (Nasacort) 1 spray intranasal BID valsartan 20 mg (1/2 x 40 mg) PO BID 90 days HPI asthma flare up : 3 month f/u HPI Details Manuela is a pleasant 57 year old, former minimal smoker, with underlying asthma, mast cell activation syndrome diagnosed 15 years ago, and CARO positive. She is suboptimally controlled on Advair 500-50, spiriva, cromolyn, ketotifen, cyproheptadine and flonase. At the last visit, she was started on Dup ixent and reported significant improvements in respiratory symptoms, only using her albuterol 1-2 times per week, when prior using it daily. However, she began to develop a small pinpoint rash that progressively worsened the day after Dupixent lasting 1-2 days. She was instructed to premedicate with benadryl for her 4th dose and if the rash continued to worsen, to call office and discontinue. Unfortunately, she never called continuing to take 6 doses total. She was evaluated by her shale miner blasting two weeks ago, discussing reaction and was advised to discontinue dupixent. CIRILO is moving forward with initiating Xolair. Since discontinuing dupixent, she reports persistent cough has returned, requiring frequent use of albuterol. She reports difficulties determining triggers, but notes significant cough, chest tightness and wheezing with exposures to cold and irritants such as perfumes. [facility] Medical History Bilateral carotid artery stenosis Hypertension Asthma Mast cell activation syndrome CARO positive Post-operative nausea and vomiting COVID-19 vaccine series completed Surgical History History of thumb surgery History of colonoscopy History of arthroscopy of left knee History of bunionectomy of right great toe History of thumb surgery Family History Father HTN (hypertension) Mother HTN (hypertension) CVD (cardiovascular disease) Social History (Updated 07/03/23 @ 10:07 by Grecia Shepherd LPN) Household Members: Spouse Household Members Other:: son Housing: House Are you a primary acute care physician to a significant other at home: No Do you presently have visiting nurse or other home services: No Alcohol intake: current Alcohol intake frequency: a few times a month Alcohol type: wine Patient Tobacco Use Status: Former Tobacco user Quit Date: age 18 Tobacco use type: Cigarette 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[employer] 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 Sexual orientation: Straight/Heterosexual Gender identity: Female Review of Systems Const Denies chills, Denies excessive sweating, Denies fever(s), Denies headache(s) and Denies night sweats Eyes Denies irritation ENT Reports Normal hearing present, Denies headache(s), Denies nasal congestion, Denies nasal discharge, Denies post nasal drip and Denies sore throat Card Denies chest pain, Denies chest pain at rest, Denies chest pain with activity, Denies claudication, Denies leg edema, Reports dyspnea, Denies orthopnea and Denies paroxysmal nocturnal dyspnea Resp Denies chest congestion, Reports cough, Denies excessive phlegm production, Denies pain on inspiration, Denies pain with cough, Reports dyspnea, Denies stridor and Reports wheezing Musc Denies myalgias Neuro Reports Normal hearing present and Denies headache(s) Endo Denies excessive sweating Stiven/Lymph Denies lymphadenopathy Aller/Immun Reports wheezing Physical Exam Vital Signs: Last Vital Signs Pulse 88 07/03/23 09:56 BP 126/64 07/03/23 09:56 Pulse Ox 98 07/03/23 09:56 Oxygen Delivery Method Room Air 07/03/23 09:56 BMI result Body Mass Index 26.8 Const General: cooperative and well developed Orientation/consciousness: patient oriented x3 Limitations: no limitations HEENT Head: Yes normal to inspection, Yes normocephalic and Yes atraumatic Ears: hearing grossly normal bilaterally and external ears normal Eyes General: appearance normal, both eyes and all related structures Eyelids: Yes eyelids normal Sclerae: sclerae normal EOM: EOMs intact bilaterally Neck Neck: Yes normal visual inspection and Yes no lymphadenopathy Lymphatic: no lymphadenopathy noted Chest Chest palpation & inspection: normal inspection of the chest Resp Other: post exhalation cough , diminished lung sounds throughout Effort & Inspection: normal respiratory effort, able to speak in complete sentences, no audible wheezes, Actively coughing, no stridor, not tachypneic, no tripod positioning and no use of accessory muscles Auscultation: no wheezes Cardio Jugular venous distension: no JVD Rate: regular rate Rhythm: regular rhythm Skin Other: warm, dry General skin exam: no rashes or lesions noted Neuro General: patient oriented x3 Cranial nerves: Yes Normal hearing present Cognition (Neuro): normal cognition Gait exam (Neuro): Normal gait present Extrem General: Yes normal to inspection, Yes capillary refill normal, Yes no clubbing, cyanosis or edema and Yes no pedal edema Psych Appearance: grossly normal and well kempt Speech and movement: Normal speech and movement present and Clear speech present Affect: normal affect Attitude: cooperative Thought process: Normal thought process present Thought content: Normal thought content present Insight: Good insight present (Psych) Judgement: Good judgement present (Psych) Assessment & Plan Assessment & Plan (1) Asthma: Code(s): J45.909 - Unspecified asthma, uncomplicated (2) Mast cell activation syndrome: Code(s): D89.40 - Mast cell activation, unspecified (3) CARO positive: Code(s): R76.8 - Other specified abnormal immunological findings in serum Plan Manuela was suboptimally controlled on Advair 500-50, spiriva, cromolyn, ketotifen, cyproheptadine and flonase. She was trialed on dupixent with e xcellent response, however developed worsening rash with each dose despite premedicating with benadryl. She also reports developing dyspnea after 4th injection, which she did not notify the office and continued to take a total of 6 doses. Discussed with patient importance of relaying adverse reactions moving forward. At this time, patient has discontinued dupixent with return of persistent dry cough, wheezing and frequent use of albuterol. She just received approval for xolair today and will be starting in the near future with shale miner blasting. At this time, no wheezing appreciated, therefore no prednisone indicated. Will follow up in 3-6 months after initiating xolair. If she does not respond to xolair or can not tolerate, would consider Te[place]spire. Once patient less symptomatic, will send for PFT. All questions were answered and patient is in agreement of plan. Coding Level of Care Code Est Pt Level 4 (33172) Diagnoses Asthma J45.909 Mast cell activation syndrome D89.40 CARO positive R76.8
[2023-07-03 09:56] VITALS: BP 126/64; PULSE 88; O2SAT 98; BMI 26.8
== END 2023-07-03 10:38 | disposition home or self-care (01) ==
PROVIDERS: PCP Family Medicine; Visit Provider Nurse Practitioner Family
DX: J45.909 Unspecified asthma, uncomplicated (principal); D89.40 Mast cell activation, unspecified; R76.8 Other specified abnormal immunological findings in serum
CPT/HCPCS: 99214

== ENCOUNTER → 2023-07-03 09:48 | Outpatient (BNVA) | payer OTHER, SELFPAY | PROVIDERS: PCP Family Medicine; Visit Provider Nurse Practitioner Family ==

== ENCOUNTER 2023-08-16 07:28 | Outpatient (REF) | payer OTHER, SELFPAY | END 2023-08-16 07:29 | disposition home or self-care (01) | LOC: HO.MAMMO 07:28 | PROVIDERS: PCP Family Medicine; Referring Provider Obstetrics & Gynecology; Visit Provider Family Medicine | DX: Z12.31 Encounter for screening mammogram for malignant neoplasm of breast (principal) | CPT/HCPCS: 77063; 77067 ==

== ENCOUNTER → 2023-08-16 07:30 | Outpatient (BNV) | payer OTHER, SELFPAY | PROVIDERS: PCP Family Medicine; Referring Provider Obstetrics & Gynecology; Visit Provider Radiology Diagnostic Radiology | DX: Z12.31 Encounter for screening mammogram for malignant neoplasm of breast (principal) | CPT/HCPCS: 77063; 77067 ==

== ENCOUNTER 2023-10-14 15:14 | Outpatient (REF) | payer OTHER, SELFPAY ==
[2023-10-14 16:59] LABS: B Type Natriuretic Peptide 27 pg/mL (<100)
== END 2023-10-14 15:15 | disposition home or self-care (01) ==
LOC: HO.LAB 15:14
PROVIDERS: PCP Family Medicine; Visit Provider Internal Medicine Cardiovascular Disease
DX: M79.89 Other specified soft tissue disorders (principal)
CPT/HCPCS: 36415; 83880

== ENCOUNTER 2023-11-11 10:26 | Outpatient (REF) | payer OTHER, SELFPAY ==
--- NOTE | ~2023-11-11 | US_ITS ---
EXAMINATION: US EXTRACRANIAL CAROTID DUPLEX, BILATERAL CLINICAL INFORMATION: Carotid stenosis COMPARISON: 09/17/2022 TECHNIQUE: Real-time ultrasound and Doppler techniques (integrating B-mode 2-D vascular images, Doppler spectral analysis and color-flow Doppler imaging) were utilized to interrogate the extracranial carotid arteries, the vertebral arteries and proximal subclavian arteries bilaterally. The degree of stenosis is determined by criteria similar to NASCET. FINDINGS: Right Side: 1. There is moderate calcified atherosclerotic plaque seen in the bifurcation/proximal ICA region. 2. The common carotid artery PSV proximally is 105 cm/s and distally 88 cm/s. 3. The proximal internal carotid artery velocities are 193 cm/s systolic and 69 cm/s diastolic. 4. The proximal external carotid artery PSV is 80 cm/s. 5. The vertebral artery shows antegrade flow. 6. The subclavian artery waveforms are normal. Left Side: 1. There is moderate atherosclerotic plaque seen in the bifurcation/proximal ICA region. 2. The common carotid artery PSV proximally is 112 cm/s and distally 81 cm/s. 3. The proximal internal carotid artery velocities are 127 cm/s systolic and 39 cm/s diastolic. 4. The proximal external carotid artery PSV is 134 cm/s. 5. The vertebral artery shows antegrade flow. 6. The subclavian artery waveforms are normal. US/US carotid duplex BI IMPRESSION: 1. RIGHT: Moderate, hemodynamically significant stenosis of the proximal right internal carotid artery corresponding to a 50-79% stenosis by velocity criteria. 2. LEFT: Moderate, hemodynamically significant stenosis of the proximal left internal carotid artery corresponding to a 50-79% stenosis by velocity criteria. 3. There is no change in the category severity of disease when compared to the previous study dated 09/17/2022.
== END 2023-11-11 10:27 | disposition home or self-care (01) ==
LOC: HO.HMGCX 10:26
PROVIDERS: PCP Family Medicine; Visit Provider Surgery Vascular Surgery
DX: I65.23 Occlusion and stenosis of bilateral carotid arteries (principal)
CPT/HCPCS: 93880

== ENCOUNTER 2023-11-27 12:31 | Outpatient (AMB) | payer OTHER, SELFPAY ==
--- NOTE | 2023-11-27 12:34 | MHC.OFFVIS ---
Vital Signs 11/27/23 12:39 BP 158/74 H Blood Pressure Location Rt brachial Position Sitting Intake Visit Reasons: 1y follow up s/p Carotid US 11/11/23 Intake Note: Patient presents for 1 year carotid follow up. States she is experiencing some migraines and vision issues. PCP referred to neurology , has appointment with them tomorrow. She also has pain in right leg. States it is mostly in the right calf. She gets muscle spasms and numbness. Allergies codeine [CODEINE] Allergy (Intermediate, Verified 06/27/23 08:27) RASH, HIVES dupilumab [From Dupixent Pen] Allergy (Intermediate, Verified 06/27/23 08:30) Hives adhesive tape [Adhesive Tape] Allergy (Mild, Verified 06/27/23 08:27) blisters from clear plastic tape-cloth tape ok morphine [MORPHINE] Allergy (Mild, Verified 06/27/23 08:27) HIVES oxycodone [OXYCODONE] Allergy (Mild, Verified 06/27/23 08:27) HIVES HPI HPI 1y follow up s/p Carotid US 11/11/23: Details: Very pleasant 58-year-old female presents for routine surveillance follow-up regarding carotid disease. She had actually seen us initially which was concerning for TIA. She has been worked up and noted to history significant for migraine headaches. It has been progressively getting worse. It is to the point where she actually has a neurologic evaluation tomorrow regarding this. She now presents to us for follow-up evaluation with carotid testing. In addition she notes that she has lower extremity swelling right more so than left. This has been a source of concern for her as well. [facility] Medical History Bilateral carotid artery stenosis Hypertension Asthma Mast cell activation syndrome CARO positive Post-operative nausea and vomiting COVID-19 vaccine series completed Surgical History History of thumb surgery History of colonoscopy History of arthroscopy of left knee History of bunionectomy of right great toe History of thumb surgery Family History Father HTN (hypertension) Mother HTN (hypertension) CVD (cardiovascular disease) Social History Household Members: Spouse Household Members Other:: son Housing: House Are you a primary healthcare insurance sales agent to a significant other at home: No Do you presently have visiting nurse or other home services: No Alcohol intake: current Alcohol intake frequency: a few times a month Alcohol type: wine Patient Tobacco Use Status: Former Tobacco user Tobacco use type: Cigarette Current occupational status: employed 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 Sexual orientation: Straight/Heterosexual Gender identity: Female Review of Systems Const All systems reviewed & are unremarkable except as noted in HPI and below Reports no additional complaints ENT Reports Normal hearing present Card Denies chest pain, Denies chest pain at rest, Denies chest pain with activity and Denies pedal edema Resp Denies cough GI Denies abdominal pain Musc Denies abnormal gait, Denies muscle cramps and Denies radiating pain into limb Skin/Breast Denies skin ulcer and Denies wounds Neuro Reports Normal hearing present and Denies abnormal gait Psych Reports no additional complaints Physical Exam Vital Signs: Last Vital Signs BP 158/74 H 11/27/23 12:39 Const General: cooperative, healthy appearing and comfortable Orientation/consciousness: oriented to person, oriented to place and oriented to time HEENT Head: Yes normal to inspection Neck Neck: Yes normal visual inspection Carotids: no bruits Chest Chest palpation & inspection: normal inspection of the chest Resp Effort & Inspection: normal respiratory effort and able to speak in complete sentences Auscultation: clear to auscultation bilaterally, no crackles, no rales, no rhonchi and no wheezes Cardio Rate: regular rate Rhythm: regular rhythm Heart sounds: S1 normal heart sound present and S2 normal heart sound present Bruits: no carotid bruits Peripheral pulses: Peripheral pulses 2+ throughout GI Inspection: Yes normal to inspection Skin Wounds: no wounds Hair: normal Neuro General: oriented to person, oriented to place and oriented to time Cranial nerves: Yes CN's II-XII intact bilaterally and Yes Normal hearing present Cognition (Neuro): normal cognition Motor exam (neuro): 5/5 motor strength present throughout Extrem Other: venous exam: Right lower extremity +2 edema with some mild skin color changes. General: No clubbing, No cyanosis and Yes edema Psych Appearance: grossly normal Mental Status: mental status grossly normal Speech and movement: Normal speech and movement present Results Reviewed Results Reviewed: Noninvasive testing dated 11/11/2023 demonstrates bilateral 50-79% stenosis with peak systolic on the right of 139 and on the left 127. This leads me to believe it is more closer towards the 50% side written report and images were reviewed Assessment & Plan Assessment & Plan (1) Bilateral carotid artery stenosis: Code(s): I65.23 - Occlusion and stenosis of bilateral carotid arteries Category: Medical Plan: In short patient has asymptomatic carotid disease. We have reviewed signs and symptoms of a stroke. We also discussed risk factor modification inclusive a healthy diet low in cholesterol. The patient will follow up with us with surveillance ultrasound of the carotids 1 year. Should there be any changes or signs or symptoms of a stroke we will be happy to see them back sooner. Thank you for allowing us to participate in this patient's care. If there are any questions or concerns please do not hesitate to contact us. (2) Varicose veins of right lower extremity with inflammation: Code(s): I83.11 - Varicose veins of right lower extremity with inflammation Category: Medical Plan: Patient has persistent swelling of the lower extremities, right more so than left. She had been worked up a year ago for venous insufficiency testing and it was only mildly positive on the left. Due to her increase in swelling and discomfort of the right lower extremity I have taken the liberty of ordering repeat venous insufficiency testing. Should test big come back positive we will revisit this. If there are any questions or concerns please do not hesitate to contact us. Orders: Orders US venous duplex LE BI 1 Week I83.11 - Varicose veins of right lower extremity with inflammation US carotid duplex BI 1 Year I65.23 - Occlusion and stenosis of bilateral carotid arteries Coding Level of Care Code Est Pt Level 4 (67303) Diagnoses Bilateral carotid artery stenosis I65.23 Varicose veins of right lower extremity with inflammation I83.11
[2023-11-27 12:39] VITALS: BP 158/74
== END 2023-11-27 13:00 | disposition home or self-care (01) ==
PROVIDERS: PCP Family Medicine; Visit Provider Surgery Vascular Surgery
DX: I65.23 Occlusion and stenosis of bilateral carotid arteries (principal); I83.11 Varicose veins of right lower extremity with inflammation
CPT/HCPCS: 99214

== ENCOUNTER → 2023-11-27 12:31 | Outpatient (BNVA) | payer OTHER, SELFPAY | PROVIDERS: PCP Family Medicine; Visit Provider Surgery Vascular Surgery ==

== ENCOUNTER 2023-12-10 12:45 | Outpatient (REF) | payer OTHER, SELFPAY ==
--- NOTE | ~2023-12-10 | US_ITS ---
EXAMINATION: US LOWER EXTREMITY VENOUS (REFLUX EXAM), BILATERAL CLINICAL INDICATION: Chronic venous insufficiency with lower extremity varicose veins with inflammation COMPARISON: 10/26/2022 TECHNIQUE: Color flow triplex imaging and compression Doppler was performed to evaluate both the deep and the superficial systems bilaterally. To evaluate the superficial system, the examination was performed in the upright position. Color-flow Doppler ultrasound and compression ultrasound were utilized. In addition, maneuvers were utilized to demonstrate reflux. FINDINGS: 1. DEEP VENOUS ULTRASOUND OF THE RIGHT LOWER EXTREMITY: Common Femoral Vein: Compressible, normal respiratory variation and augmented flow. Femoral Vein: Compressible, normal color flow and augmentation. Popliteal Vein: Compressible, normal augmentation. Deep Reflux: There is no evidence of reflux in the deep system in either the common femoral vein, superficial femoral or the popliteal vein. There is no evidence of a Gunn's cyst. 2. SUPERFICIAL ULTRASOUND WITH DOPPLER OF RIGHT LOWER EXTREMITY: GREAT SAPHENOUS VEIN: Saphenofemoral Junction: 0.6 cm; Reflux: 0 ms Proximal Thigh: 0.4 cm; Reflux: 0 ms Mid Thigh: 0.2 cm; Reflux: 0 ms Above Knee: 0.3 cm; Reflux: 0 ms At Knee: 0.3 cm; Reflux: 0 ms Below Knee: 0.2 cm; Reflux: 0 ms Mid Calf: 0.1 cm; Reflux: 0 ms Ankle: 0.2 cm; Reflux: 2380 ms DUPLICATED MEDIAL GREAT SAPHENOUS VEIN: Diameter: 0.4 cm Reflux: None DUPLICATED LATERAL GREAT SAPHENOUS VEIN: Diameter: None imaged Reflux: NA SMALL SAPHENOUS VEIN: Saphenopopliteal Junction: 0.1 cm; Reflux: 0 ms Proximal: 0.1 cm; Reflux: 0 ms Distal: 0.1 cm; Reflux: 0 ms VEIN OF GIACOMINI: Size: 0.1 cm Reflux: None PERFORATORS: Location: Mid calf extending to the great saphenous vein Size: 0.3 cm Reflux: None VARICOSITIES: Location: None significant Size: NA Reflux: NA 3. DEEP VENOUS ULTRASOUND OF THE LEFT LOWER EXTREMITY: Common Femoral Vein: Compressible, normal respiratory variation and augmented flow. Femoral Vein: Compressible, normal color flow and augmentation. Popliteal Vein: Compressible, normal augmentation. Deep Reflux: There is no evidence of reflux in the deep system in either the common femoral vein, superficial femoral or the popliteal vein. There is no evidence of a Gunn's cyst. 4. SUPERFICIAL ULTRASOUND WITH DOPPLER OF LEFT LOWER EXTREMITY: GREAT SAPHENOUS VEIN: Saphenofemoral Junction: 0.7 cm; Reflux: 0 ms Proximal Thigh: 0.4 cm; Reflux: 0 ms Mid Thigh: 0.2 cm; Reflux: 3000 ms Above Knee: 0.2 cm; Reflux: 2348 ms At Knee: 0.2 cm; Reflux: 2780 ms Below Knee: 0.2 cm; Reflux: 2372 ms Mid Calf: 0.1 cm; Reflux: 1 ms Ankle: 0.1 cm; Reflux: 0 ms DUPLICATED MEDIAL GREAT SAPHENOUS VEIN: Diameter: None imaged Reflux: NA DUPLICATED LATERAL GREAT SAPHENOUS VEIN: Diameter: 0.2 cm Reflux: None SMALL SAPHENOUS VEIN: Saphenopopliteal Junction: 0.1 cm; Reflux: 0 ms Proximal: 0.1 cm; Reflux: 0 ms Distal: 0.2 cm; Reflux: 0 ms VEIN OF GIACOMINI: Size: 0.1 cm Reflux: None PERFORATORS: Location: None significant Size: NA Reflux: NA VARICOSITIES: Location: None significant Size: NA Reflux: NA US/US venous duplex LE BI IMPRESSION: Right: Focal area of segmental reflux in the distal calf great saphenous vein which is otherwise in caliber. No significant varicose veins Left: Segmental areas of severe reflux in the left great saphenous vein from the mid to thigh to the proximal calf which is unchanged compared to the prior exam. No significant varicose veins.
== END 2023-12-10 12:46 | disposition home or self-care (01) ==
LOC: HO.US 12:45
PROVIDERS: PCP Family Medicine; Visit Provider Surgery Vascular Surgery
DX: I83.11 Varicose veins of right lower extremity with inflammation (principal)
CPT/HCPCS: 93970

== ENCOUNTER 2023-12-24 08:47 | Outpatient (AMB) | payer OTHER, SELFPAY ==
--- NOTE | 2023-12-24 08:48 | MHC.OFFVIS ---
Vital Signs 12/24/23 08:49 Height 5 ft 4 in Weight 153 lb 8 oz BMI 26.3 BP 132/66 Blood Pressure Location Rt brachial Position Sitting Pulse 72 Pulse Source Pulse Oximeter Pulse Oximetry (%) 99 Oxygen Delivery Method Room Air Intake Visit Reasons: Asthma Allergies codeine [CODEINE] Allergy (Intermediate, Verified 12/24/23 08:51) RASH, HIVES dupilumab [From Dupixent Pen] Allergy (Intermediate, Verified 12/24/23 08:51) Hives adhesive tape [Adhesive Tape] Allergy (Mild, Verified 12/24/23 08:51) blisters from clear plastic tape-cloth tape ok morphine [MORPHINE] Allergy (Mild, Verified 12/24/23 08:51) HIVES oxycodone [OXYCODONE] Allergy (Mild, Verified 12/24/23 08:51) HIVES HPI HPI Asthma: Details: Manuela is a pleasant 58 year old, former minimal smoker, with underlying asthma, mast cell activation syndrome diagnosed 15 years ago, and CARO positive. She has been well controlled on Xolair, Advair 500-50, cromolyn, ketotifen, cyproheptadine and flonase. She previously trialed Dupixent with good effect however developed worsening hives with each injection. Shewas switched to Xolair by interlocking and signal mechanic and has received 5 injections. After the third dose she was able to stop Spiriva and continue with good respiratory control. Today she presents for an acute visit. She reports three weeks ago she had worsening respiratory symptoms, with increased chest tightness, wheezing, and persistent dry cough. She has trialed albuterol nebulizer with relief, however results in tachycardia and hypertension, so is hesistant to use. She did have to reach out to cardiology who increased dose of Valsartan. Of note, her interlocking and signal mechanic is leaving the practice and it is unclear if she will need to switch Xolair prescription to this office. She plans on reaching out to their office today and keep us informed. [facility] Medical History Bilateral carotid artery stenosis Hypertension Asthma Mast cell activation syndrome CARO positive Post-operative nausea and vomiting COVID-19 vaccine series completed Surgical History History of thumb surgery History of colonoscopy History of arthroscopy of left knee History of bunionectomy of right great toe History of thumb surgery Family History Father HTN (hypertension) Mother HTN (hypertension) CVD (cardiovascular disease) Social History Household Members: Spouse Household Members Other:: son Housing: House Are you a primary healthcare sales representative to a significant other at home: No Do you presently have visiting nurse or other home services: No Alcohol intake: current Alcohol intake frequency: a few times a month Alcohol type: wine Patient Tobacco Use Status: Former Tobacco user Tobacco use type: Cigarette Current occupational status: employed 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 Sexual orientation: Straight/Heterosexual Gender identity: Female Review of Systems Const Denies chills, Denies excessive sweating, Denies fever(s), Denies headache(s) and Denies night sweats Eyes Denies irritation ENT Reports Normal hearing present, Denies headache(s), Denies nasal congestion, Denies nasal discharge, Denies post nasal drip and Denies sore throat Card Denies chest pain, Denies chest pain at rest, Denies chest pain with activity, Denies claudication, Denies leg edema, Reports dyspnea, Denies orthopnea and Denies paroxysmal nocturnal dyspnea Resp Denies chest congestion, Reports cough, Denies excessive phlegm production, Denies pain on inspiration, Denies pain with cough, Reports dyspnea, Denies stridor and Reports wheezing Musc Denies myalgias Neuro Reports Normal hearing present and Denies headache(s) Endo Denies excessive sweating Stiven/Lymph Denies lymphadenopathy Aller/Immun Reports wheezing Physical Exam Vital Signs: Last Vital Signs Pulse 72 12/24/23 08:49 BP 132/66 12/24/23 08:49 Pulse Ox 99 12/24/23 08:49 Oxygen Delivery Method Room Air 12/24/23 08:49 BMI result Body Mass Index 26.3 Const General: cooperative and well developed Orientation/consciousness: patient oriented x3 Limitations: no limitations HEENT Head: Yes normal to inspection, Yes normocephalic and Yes atraumatic Ears: hearing grossly normal bilaterally and external ears normal Eyes General: appearance normal, both eyes and all related structures Eyelids: Yes eyelids normal Sclerae: sclerae normal EOM: EOMs intact bilaterally Neck Neck: Yes normal visual inspection and Yes no lymphadenopathy Lymphatic: no lymphadenopathy noted Chest Chest palpation & inspection: normal inspection of the chest Resp Other: post exhalation cough , diminished lung sounds throughout Effort & Inspection: normal respiratory effort, able to speak in complete sentences, no audible wheezes, Actively coughing, no stridor, not tachypneic, no tripod positioning and no use of accessory muscles Auscultation: no wheezes Cardio Jugular venous distension: no JVD Rate: regular rate Rhythm: regular rhythm Skin Other: warm, dry General skin exam: no rashes or lesions noted Neuro General: patient oriented x3 Cranial nerves: Yes Normal hearing present Cognition (Neuro): normal cognition Gait exam (Neuro): Normal gait present Extrem General: Yes normal to inspection, Yes capillary refill normal, Yes no clubbing, cyanosis or edema and Yes no pedal edema Psych Appearance: grossly normal and well kempt Speech and movement: Normal speech and movement present and Clear speech present Affect: normal affect Attitude: cooperative Thought process: Normal thought process present Thought content: Normal thought content present Insight: Good insight present (Psych) Judgement: Good judgement present (Psych) Assessment & Plan Assessment & Plan (1) Asthma: Code(s): J45.909 - Unspecified asthma, uncomplicated Category: Medical (2) Mast cell activation syndrome: Code(s): D89.40 - Mast cell activation, unspecified Category: Medical (3) CARO positive: Code(s): R76.8 - Other specified abnormal immunological findings in serum Category: Medical Plan Manuela's symptoms are likely multifactorial with contribution from pulmonary and immunology etiologies. Will treat acute exacerbation with prednisone and recommended use of xopenex PRN. She is aware if symptoms rebound once discontinuing or do not improve to call the office. Encouraged patient to reach out to interlocking and signal mechanic so there is no lapse in Xolair as she has been doing well. Will also request records. All questions were answered and patient is in agreement of plan. Will follow up in 4-6 weeks or sooner if needed. Medications: New prednisone 40 mg (2 x 20 mg) PO DAILY 10 tabs 0RF Coding Level of Care Code Est Pt Level 4 (37449) Diagnoses Asthma J45.909 Mast cell activation syndrome D89.40 CARO positive R76.8
[2023-12-24 08:49] VITALS: BP 132/66; PULSE 72; O2SAT 99; BMI 26.3
== END 2023-12-24 09:28 | disposition home or self-care (01) ==
PROVIDERS: PCP Family Medicine; Visit Provider Nurse Practitioner Family
DX: J45.909 Unspecified asthma, uncomplicated (principal); D89.40 Mast cell activation, unspecified; R76.8 Other specified abnormal immunological findings in serum
CPT/HCPCS: 99214

== ENCOUNTER → 2023-12-24 08:47 | Outpatient (BNVA) | payer OTHER, SELFPAY | PROVIDERS: PCP Family Medicine; Visit Provider Nurse Practitioner Family ==

== ENCOUNTER 2024-01-28 09:32 | Outpatient (AMB) | payer OTHER, SELFPAY ==
[2024-01-28 09:35] VITALS: BP 142/76; PULSE 65; O2SAT 99; BMI 26.0
--- NOTE | 2024-01-28 09:35 | A.OFFVIS_ITS ---
Vital Signs 01/28/24 09:35 Height 5 ft 4 in Weight 151 lb 8 oz BMI 26.0 BP 142/76 H Blood Pressure Location Rt brachial Position Sitting Pulse 65 Pulse Source Pulse Oximeter Pulse Oximetry (%) 99 Oxygen Delivery Method Room Air Intake Visit Reasons: Asthma Allergies codeine [CODEINE] Allergy (Intermediate, Verified 01/28/24 09:39) RASH, HIVES dupilumab [From Dupixent Pen] Allergy (Intermediate, Verified 01/28/24 09:39) Hives adhesive tape [Adhesive Tape] Allergy (Mild, Verified 01/28/24 09:39) blisters from clear plastic tape-cloth tape ok morphine [MORPHINE] Allergy (Mild, Verified 01/28/24 09:39) HIVES oxycodone [OXYCODONE] Allergy (Mild, Verified 01/28/24 09:39) HIVES HPI HPI Asthma: Details: Manuela is a pleasant 58 year old, former minimal smoker, with underlying asthma, mast cell activation syndrome diagnosed 15 years ago, and CARO positive. She has been well controlled on Xolair, Advair 500-50, zyrtec TID, quercetin, cromolyn, singulair, cyproheptadine and flonase. She previously trialed Dupixent with good effect however developed worsening hives with each injection. She was switched to Xolair by academic support assistant and has received a total of 6 injections. She initially had improvements however over the last three weeks has had two episodes of sudden onset dyspnea and chest tightness with exposures to irritants. She continues with intermittent chronic dry cough, occasionally with white sputum. Of note, it was recommended by academic support assistant to attempt neural training for MCAS which she has started. [facility] Medical History Bilateral carotid artery stenosis Hypertension Asthma Mast cell activation syndrome CARO positive Post-operative nausea and vomiting COVID-19 vaccine series completed Surgical History History of thumb surgery History of colonoscopy History of arthroscopy of left knee History of bunionectomy of right great toe History of thumb surgery Family History Father HTN (hypertension) Mother HTN (hypertension) CVD (cardiovascular disease) Social History Household Members: Spouse Household Members Other:: son Housing: House Are you a primary college and career counselor to a significant other at home: No Do you presently have visiting nurse or other home services: No Alcohol intake: current Alcohol intake frequency: a few times a month Alcohol type: wine Patient Tobacco Use Status: Former Tobacco user Tobacco use type: Cigarette Current occupational status: employed 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 Sexual orientation: Straight/Heterosexual Gender identity: Female Review of Systems Const Denies chills, Denies excessive sweating, Denies fever(s), Denies headache(s) and Denies night sweats Eyes Denies irritation ENT Reports Normal hearing present, Denies headache(s), Denies nasal congestion, Denies nasal discharge, Denies post nasal drip and Denies sore throat Card Denies chest pain, Denies chest pain at rest, Denies chest pain with activity, Denies claudication, Denies leg edema, Reports dyspnea, Denies orthopnea and Denies paroxysmal nocturnal dyspnea Resp Denies chest congestion, Reports cough, Denies excessive phlegm production, Denies pain on inspiration, Denies pain with cough, Reports dyspnea, Denies stridor and Reports wheezing Musc Denies myalgias Neuro Reports Normal hearing present and Denies headache(s) Endo Denies excessive sweating Stiven/Lymph Denies lymphadenopathy Aller/Immun Reports wheezing Physical Exam Vital Signs: Last Vital Signs Pulse 65 01/28/24 09:35 BP 142/76 H 01/28/24 09:35 Pulse Ox 99 01/28/24 09:35 Oxygen Delivery Method Room Air 01/28/24 09:35 BMI result Body Mass Index 26.0 Const General: cooperative and well developed Orientation/consciousness: patient oriented x3 Limitations: no limitations HEENT Head: Yes normal to inspection, Yes normocephalic and Yes atraumatic Ears: hearing grossly normal bilaterally and external ears normal Eyes General: appearance normal, both eyes and all related structures Eyelids: Yes eyelids normal Sclerae: sclerae normal EOM: EOMs intact bilaterally Neck Neck: Yes normal visual inspection and Yes no lymphadenopathy Lymphatic: no lymphadenopathy noted Chest Chest palpation & inspection: normal inspection of the chest Resp Effort & Inspection: normal respiratory effort, able to speak in complete sentences, no audible wheezes, Actively coughing, no stridor, not tachypneic, no tripod positioning and no use of accessory muscles Auscultation: clear to auscultation bilaterally and no wheezes Cardio Jugular venous distension: no JVD Rate: regular rate Rhythm: regular rhythm Skin Other: warm, dry General skin exam: no rashes or lesions noted Neuro General: patient oriented x3 Cranial nerves: Yes Normal hearing present Cognition (Neuro): normal cognition Gait exam (Neuro): Normal gait present Extrem General: Yes normal to inspection, Yes capillary refill normal, Yes no clubbing, cyanosis or edema and Yes no pedal edema Psych Appearance: grossly normal and well kempt Speech and movement: Normal speech and movement present and Clear speech present Affect: normal affect Attitude: cooperative Thought process: Normal thought process present Thought content: Normal thought content present Insight: Good insight present (Psych) Judgement: Good judgement present (Psych) Assessment & Plan Assessment & Plan (1) Asthma: Code(s): J45.909 - Unspecified asthma, uncomplicated Category: Medical (2) Mast cell activation syndrome: Code(s): D89.40 - Mast cell activation, unspecified Category: Medical (3) CARO positive: Code(s): R76.8 - Other specified abnormal immunological findings in serum Category: Medical (4) Cough: Code(s): R05.9 - Cough, unspecified Category: Medical Plan Manuela reports two exacerbations over the last three weeks to irritants. Questioning effectiveness of Xolair. Advised to continue on Xolair and restart Spiriva, as she had discontinued 8-10 weeks ago. At this time, she will continue to receive Xolair from [facility]. Will consider Tezspire in the future. Encouraged continuing neural training for MCAS. Patient concerned with MCAS management as prior provider left and may not be able to continue with practice. Will enter referral to Dr. Brock for evaluation. Patient with chronic cough which may be related to underlying parenchymal disease, prior CXR unremarkable. Will send for chest CT. She was given nebulizer in office for home use and refilled xopenex. All questions were answered and patient is in agreement of plan. Will follow up in 6-8 weeks to review results or sooner if needed. Orders: Orders CT chest wo IV con Today R05.9 - Cough, unspecified Referrals Allergy & Immunology Referral D89.40 - Mast cell activation, unspecified Medications: New tiotropium bromide (Spiriva with HandiHaler) puncture 1 cap using device; one dose = 2 inhalations 1 cap inhalation DAILY 2 inhalations 6RF fluticasone propion-salmeterol 500-50 mcg/dose (Wixela Inhub) 1 inh inhalation Q12H 60 ea 6RF montelukast (Singulair) 10 mg PO BEDTIME 30 tabs 6RF Refilled levalbuterol HCl 1.25 mg (3 mL) inhalation Q4-6H PRN 90 mL 3RF shortness of conrado th or wheezing Coding Level of Care Code Est Pt Level 4 (46668) Diagnoses Asthma J45.909 Mast cell activation syndrome D89.40 CARO positive R76.8 Cough R05.9
== END 2024-01-28 10:18 | disposition home or self-care (01) ==
PROVIDERS: PCP Family Medicine; Visit Provider Nurse Practitioner Family
DX: J45.909 Unspecified asthma, uncomplicated (principal); D89.40 Mast cell activation, unspecified; R76.8 Other specified abnormal immunological findings in serum; R05.9 Cough, unspecified
CPT/HCPCS: 99214

== ENCOUNTER → 2024-01-28 09:32 | Outpatient (BNVA) | payer OTHER, SELFPAY | PROVIDERS: PCP Family Medicine; Visit Provider Nurse Practitioner Family ==

== ENCOUNTER 2024-02-13 13:15 | Outpatient (REF) | payer OTHER, SELFPAY ==
--- NOTE | ~2024-02-13 | CT_ITS ---
EXAMINATION: CT CHEST WITHOUT CONTRAST CLINICAL INFORMATION: Cough, unspecified. COMPARISON: CT dated July 07, 2015. TECHNIQUE: Multidetector volumetric CT imaging of the chest was done. Axial MIP volume rendering provided. Sagittal and coronal reformatted images were obtained. This CT examination was performed using dose optimization techniques as appropriate, variously including the following: *Automated exposure control *Adjustment of mA and/or kV according to patient size (this includes techniques or standardized protocols for targeted exams where dose is matched to indication/reason for exam; i.e. extremities or head) *Use of iterative reconstruction technique DLP: 203 mGy-cm FINDINGS: Submitted for interpretation on 04/02/2024. No gross consolidation, pleural effusion or pneumothorax. Nonspecific, 1-2 mm pulmonary nodules scattered in the right upper lobe and to a lesser extent peripheral lower lobes. No bronchiectasis. No honeycombing. Respiratory where is patent. 1 mm calcified pulmonary nodule, right lung base likely granuloma. No lymphadenopathy, mediastinum or perihilar. No pericardial effusion. No aneurysm, thoracic aorta. Calcified plaque in the right brachiocephalic trunk. Multilevel thoracic spondylosis. Schmorl node superior endplate of T12. Osteopenia versus osteoporosis. S-shaped curvature of the thoracic spine which could be positional.. CT/CT chest wo IV con IMPRESSION: Stable nonspecific subcentimeter, 1-2 noncalcified pulmonary nodules. No acute airspace disease. Fleischner guidelines were followed. Electronically signed by: Heath Cabrera MD 04/02/2024 01:23 PM [facility]
== END 2024-02-13 13:16 | disposition home or self-care (01) ==
LOC: HO.CT 13:15
PROVIDERS: PCP Family Medicine; Visit Provider Nurse Practitioner Family
DX: R05.9 Cough, unspecified (principal)
CPT/HCPCS: 71250

== ENCOUNTER → 2024-02-13 13:18 | Outpatient (BNV) | payer OTHER, SELFPAY | PROVIDERS: PCP Family Medicine; Visit Provider Radiology Diagnostic Radiology | DX: R05.9 Cough, unspecified (principal) | CPT/HCPCS: 71250 ==

== ENCOUNTER 2024-03-10 08:08 | Outpatient (AMB) | payer OTHER, SELFPAY ==
[2024-03-10 08:24] VITALS: BP 132/80; PULSE 74; TEMP 37; O2SAT 98; BMI 25.4
--- NOTE | 2024-03-10 08:24 | AM.OFFWIN_ITS ---
Intake Vital Signs 03/10/24 08:24 Height 5 ft 4 in Weight 148 lb BMI 25.4 BP 132/80 Blood Pressure Location Rt brachial Position Sitting Pulse 74 Pulse Source Pulse Oximeter Temp 98.6 F Temp Source Oral Pulse Oximetry (%) 98 Intake Visit Reasons: EP Rt lower abd pain, nausea 13 days Intake Note: pt is here for right lower abd pain with nausea for the past 13 days. Patient Tobacco Use Status: Former Tobacco user Allergies codeine [CODEINE] Allergy (Intermediate, Verified 03/10/24 08:31) RASH, HIVES dupilumab [From Dupixent Pen] Allergy (Intermediate, Verified 03/10/24 08:31) Hives adhesive tape [Adhesive Tape] Allergy (Mild, Verified 03/10/24 08:31) blisters from clear plastic tape-cloth tape ok morphine [MORPHINE] Allergy (Mild, Verified 03/10/24 08:31) HIVES oxycodone [OXYCODONE] Allergy (Mild, Verified 03/10/24 08:31) HIVES Do you need a note to return to daycare/school/sports/work: No HPI HPI Comments History of Present Illness Details 58 y/o female patient who presents to [facility] in clinic today with c/o right sided lower abdominal pain x 13 days. Denies fevers, chills, nausea or vomiting. She does endorse poor appetite, and constipation for the past 2 days. Describes the pain as sharp and constant. Denies Diarrhea. Denies vaginal or urinary symptoms. [facility] Medical History Bilateral carotid artery stenosis Hypertension Asthma Mast cell activation syndrome CARO positive Post-operative nausea and vomiting COVID-19 vaccine series completed Surgical History History of thumb surgery History of colonoscopy History of arthroscopy of left knee History of bunionectomy of right great toe History of thumb surgery Family History Father HTN (hypertension) Mother HTN (hypertension) CVD (cardiovascular disease) Social History Household Members: Spouse Household Members Other:: son Housing: House Are you a primary child care counselor to a significant other at home: No Do you presently have visiting nurse or other home services: No Alcohol intake: current Alcohol intake frequency: a few times a month Alcohol type: wine Patient Tobacco Use Status: Former Tobacco user Tobacco use type: Cigarette Current occupational status: employed 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[employer] 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 Sexual orientation: Straight/Heterosexual Gender identity: Female Review of Systems Const All systems reviewed & are unremarkable except as noted in HPI and below Physical Exam Vital Signs: Last Vital Signs Temp 98.6 F 03/10/24 08:24 Pulse 74 03/10/24 08:24 BP 132/80 03/10/24 08:24 Pulse Ox 98 03/10/24 08:24 BMI result Body Mass Index 25.4 Const General: cooperative and no acute distress; No comfortable Nutritional Appearance: obese Orientation/consciousness: patient oriented x3 GI Inspection: Yes normal to inspection Palpation (GI): Soft to palpation, not firm, Tenderness to palpation present (GI) in the RLQ, no guarding and No hepatosplenomegaly present Percussion: Yes normal to percussion Auscultation: Hyperactive bowel sounds present Rectal Exam - Female: deferred Skin General skin exam: no rashes or lesions noted Neuro General: patient oriented x3, gait normal and moves all extremities Assessment & Plan Assessment & Plan (1) Abdominal pain, right lower quadrant: Code(s): R10.31 - Right lower quadrant pain Plan: DDx's: Appendicitis vs Ovarian cyst vs Ovarian Torsion Advised to go to ED for further testing. Coding Level of Care Code Est Pt Level 3 (44822) Diagnoses Abdominal pain, right lower quadrant R10.31
== END 2024-03-10 09:07 | disposition home or self-care (01) ==
PROVIDERS: PCP Family Medicine; Visit Provider Nurse Practitioner Family
DX: R10.31 Right lower quadrant pain (principal)

== ENCOUNTER → 2024-03-10 08:08 | Outpatient (BNVA) | payer OTHER, SELFPAY | PROVIDERS: PCP Family Medicine; Visit Provider Nurse Practitioner Family ==

== ENCOUNTER 2024-04-02 12:52 | Outpatient (REF) | payer OTHER, SELFPAY ==
[2024-04-02 13:43] LABS: Basophils Percent Auto 0.4 % (0-2); Eosinophils Absolute Auto 0.2 X10*3/uL (0.0-0.4); Eosinophils Percent Auto 1.9 % (0-4); Hematocrit 39.2 % (37.0-47.0); Hemoglobin 12.9 g/dl (12.0-16.0); Imm Gran Abs Auto 0.04 X10*3/uL (0.00-0.03); Imm Gran Pct Auto 0.5 % (0.0-0.4); Lymphocytes Absolute Auto 2.1 X10*3/uL (1.2-4.9); Lymphocytes Percent Auto 26.1 % (20-40); MANUAL DIFF FLAG NO; Mean Corpuscular HGB Conc 32.9 g/dl (31.0-35.0); Mean Corpuscular Hemoglobin 30.8 pg (27.0-33.0); Mean Corpuscular Volume 93.6 fL (80.0-98.0); Mean Platelet Volume 9.7 fL (9.4-12.3); Monocytes Absolute Auto 0.7 X10*3/uL (0.1-1.2); Monocytes Percent Auto 8.3 % (2-11); Neutrophils Absolute Auto 5.1 x10*3/uL (2.0-8.3); Neutrophils Percent Auto 62.8 % (45-73); Platelet Count 322 X10*3/uL (160-400); Red Blood Count 4.19 X10*6/uL (4.20-5.50); Red Cell Distribution Width 12.2 % (11.0-16.0); White Blood Count 8.1 X10*3/uL (4.8-10.8)
== END 2024-04-02 12:53 | disposition home or self-care (01) ==
LOC: HO.LAB 12:52
PROVIDERS: PCP Family Medicine; Visit Provider Physician Assistant
DX: J45.909 Unspecified asthma, uncomplicated (principal)
CPT/HCPCS: 36415; 85025

== ENCOUNTER 2024-04-21 12:40 | Outpatient (AMB) | payer OTHER, SELFPAY ==
--- NOTE | 2024-04-21 12:46 | A.OFFVIS_ITS ---
Intake Visit Reasons: ov- right thumb pain Intake Note: Manuela 58 year old female right hand dominant female who presents today for a follow up on right thumb pain. Patient reports she is experiencing an increase of pain at her MCP and CMC. She has difficulty with grasping items and has been dropping items. Denies any injury. Denies numbness or tingling. She continues to use comfort cool bracing however this no longer helping. She would like to discuss injections today. Allergies codeine [CODEINE] Allergy (Intermediate, Verified 04/21/24 12:49) RASH, HIVES dupilumab [From Dupixent Pen] Allergy (Intermediate, Verified 04/21/24 12:49) Hives adhesive tape [Adhesive Tape] Allergy (Mild, Verified 04/21/24 12:49) blisters from clear plastic tape-cloth tape ok morphine [MORPHINE] Allergy (Mild, Verified 04/21/24 12:49) HIVES oxycodone [OXYCODONE] Allergy (Mild, Verified 04/21/24 12:49) HIVES HPI HPI ov- right thumb pain: Details: Manuela is a 58 year old right hand dominant woman who returns to discuss her right basal joint arthritis. 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 She complains of pain at the base of her thumb, worse with pinching or gripping activities. She says she drops objects occasionally due to her pain. She says she has a constant ache in her thumb, which she finds limits her daily activity. She denies any numbness or tingling. She finds some relief from her comfort cool brace. She is interested in discussing surgery today. She has a Hx of left basal joint arthroplasty with LR TI using a slip of APL tendon, DOS: 07/20/21. She is also S/P right thumb A1 luna release, DOS: 12/15/20. She is also S/P left de Quervain tenosynovitis injection on 05/09/20. She is very happy with the results of her surgeries [facility] Medical History Bilateral carotid artery stenosis Hypertension Asthma Mast cell activation syndrome CARO positive Post-operative nausea and vomiting COVID-19 vaccine series completed Surgical History History of thumb surgery History of colonoscopy History of arthroscopy of left knee History of bunionectomy of right great toe History of thumb surgery Family History Father HTN (hypertension) Mother HTN (hypertension) CVD (cardiovascular disease) Social History Household Members: Spouse Household Members Other:: son Housing: House Are you a primary managed care specialist to a significant other at home: No Do you presently have visiting nurse or other home services: No Alcohol intake: current Alcohol intake frequency: a few times a month Alcohol type: wine Patient Tobacco Use Status: Former Tobacco user Tobacco use type: Cigarette Current occupational status: employed 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[employer] 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 Sexual orientation: Straight/Heterosexual Gender identity: Female Review of Systems Const All systems reviewed & are unremarkable except as noted in HPI and below Physical Exam Const General: cooperative, healthy appearing and no acute distress Orientation/consciousness: patient oriented x3 HEENT Head: Yes normocephalic and Yes atraumatic Eyes EOM: EOMs intact bilaterally Resp Effort & Inspection: normal respiratory effort and able to speak in complete sentences Cardio Jugular venous distension: no JVD Skin General skin exam: turgor normal Rashes: no rashes Neuro General: patient oriented x3 Extrem Other: Evaluation of Right Upper Extremity: The patient is alert, oriented, and in no acute distress Neuro: Median, Ulnar, Radial nerves motor and sensory intact and sensation is normal to the tips of all digits Vascular: Cap refill brisk ROM: Can bring fingers closed to a fist and back out to full extension. She could oppose her thumb to the tips of all digits No locking or catching Not tender over the a1 luna No tenderness over the 1st dorsal compartment No tenderness about the MCP joint MCP joint stable on exam Most tender over the basal joint + Shoulder sign + CMC grind Radiographs: 3 views of the right hand, with attention to the thumb, from 02/06/23 were reviewed by me today in clinic. They show no fractures or dislocations. There is some early right basal joint osteoarthritis with joint space narrowing and early osteophyte formation. Psych Appearance: grossly normal Affect: normal affect Attitude: cooperative Office Procedures AMB Fracture Care Details: No fracture, injection Fracture Billing Code: Fracture Billing Code Assessment & Plan Assessment & Plan (1) Osteoarthritis of carpometacarpal joint of right thumb: Code(s): M18.11 - Unilateral primary osteoarthritis of first carpometacarpal joint, right hand Category: Medical Plan Assessment and plan: 1. Right basal joint osteoarthritis I educated her about this condition I discussed operative and non-operative treatment options The patient would like to proceed with an injection I discussed activity modification, they should limit or avoid any heavy or repetitive pinching or gripping activities She was fitted for a new comfort cool brace to wear with daily activity I again discussed the risks & benefits of surgery with her. She is considering this option in the future but at this time does nto want to proceed with surgery. Again she is S/P left basal joint arthroplasty and very happy with the results of her surgery. Injection #1: The risks and benefits of a steroid injection including but not limited to risk of damage to blood vessels, nerve, tendon, infection, skin bleaching, persistent or worsening pain, and failure to improve symptoms were discussed with the patient and they wish to proceed with the steroid injection. Once consent was obtained the skin over the dorsum of the Right basal joint was sterilely prepped. The joint was then injected with a combination of 1 mL of (40 mg/ml} Depo-Medrol and 1% plain Lidocaine. The patient appears to have tolerated the procedure well and with no complications. She had good early relief before leaving clinic today. She knows that they may not have another steroid injection into this joint for least 4 months. 2. Left basal joint osteoarthritis S/P basal joint arthroplasty, and LR TI with a slip of APL tendon DOS: 07/20/2021 K-wire removed: 08/16/21 Doing well with no pain. She is very pleased with the results of her surgery 3. Right trigger thumb, S/P release DOS: 12/15/20 Doing well, no locking or catching today Please note that greater than 30 minutes was spent with this patient going over the history, evaluating the patient and radiographs, formulating possible treatment options, discussing them with the patient, and documenting the visit. Scribed for Maribell Santos MD by Jaspal Cervantes, medical review specialist, on 04/21/24 at 1:00 PM, EST. Coding Level of Care Code Est Pt Level 4 (40858) Diagnoses Osteoarthritis of carpometacarpal joint of right thumb M18.11 CPT Codes Fracture Care - Fracture Billing Code: Fracture Billing Code ([id number])
== END 2024-04-21 13:46 | disposition home or self-care (01) ==
PROVIDERS: PCP Family Medicine; Visit Provider Orthopaedic Surgery
DX: M18.11 Unilateral primary osteoarthritis of first carpometacarpal joint, right hand (principal)
CPT/HCPCS: 20600; 99214

== ENCOUNTER → 2024-04-21 12:40 | Outpatient (BNVA) | payer OTHER, SELFPAY | PROVIDERS: PCP Family Medicine; Visit Provider Orthopaedic Surgery | DX: M18.11 Unilateral primary osteoarthritis of first carpometacarpal joint, right hand (principal) | CPT/HCPCS: 20600; J1010; J2003 ==

== ENCOUNTER 2024-05-08 09:57 | Outpatient (AMB) | payer OTHER, SELFPAY ==
--- NOTE | 2024-05-08 09:40 | A.OFFVIS_ITS ---
Vital Signs 05/08/24 10:02 Height 5 ft 4 in Weight 152 lb 4 oz BMI 26.1 BP 132/74 Blood Pressure Location Rt brachial Position Sitting Pulse 66 Pulse Source Pulse Oximeter Pulse Oximetry (%) 99 Oxygen Delivery Method Room Air Intake Visit Reasons: Asthma Allergies codeine [CODEINE] Allergy (Intermediate, Verified 05/08/24 10:04) RASH, HIVES dupilumab [From Dupixent Pen] Allergy (Intermediate, Verified 05/08/24 10:04) Hives adhesive tape [Adhesive Tape] Allergy (Mild, Verified 05/08/24 10:04) blisters from clear plastic tape-cloth tape ok morphine [MORPHINE] Allergy (Mild, Verified 05/08/24 10:04) HIVES oxycodone [OXYCODONE] Allergy (Mild, Verified 05/08/24 10:04) HIVES HPI HPI Asthma: Details: Manuela is a pleasant 58 year old, former minimal smoker, with underlying asthma, mast cell activation syndrome diagnosed 15 years ago, and CARO positive. At baseline, she was suboptimally controlled on Xolair, Wixela 500-50, zyrtec TID, quercetin, cromolyn, singulair, cyproheptadine and flonase. Previously trialed Dupixent, d/c due to hives. However productive cough with white sputum and occasionally dry restarted in February with increase sensitivity to irritants and was restarted on Spiriva. Since then she reports being evaluated by another cable armorer who had switched medication regimen. She has since discontinued Wixela and Spiriva, now on Breztri, d/c zyrtec now on anthony and xyzal, d/c xolair due to hives now on tezspire. Pepcid and omeprazole along with herbal supplements were also added to regimen. With this new regimen, she has had minimal reactions to chemical irritants, using albuterol very infrequently. Previously using multiple times per day. She feels significantly improved. She denies any visits to urgent care or hospitalizations since last visit. Today she presents to review chest CT results. [facility], LAT[facility] Medical History Bilateral carotid artery stenosis Hypertension Asthma Mast cell activation syndrome CARO positive Post-operative nausea and vomiting COVID-19 vaccine series completed Surgical History History of thumb surgery History of colonoscopy History of arthroscopy of left knee History of bunionectomy of right great toe History of thumb surgery Family History Father HTN (hypertension) Mother HTN (hypertension) CVD (cardiovascular disease) Social History Household Members: Spouse Household Members Other:: son Housing: House Are you a primary acute care nursing assistant to a significant other at home: No Do you presently have visiting nurse or other home services: No Alcohol intake: current Alcohol intake frequency: a few times a month Alcohol type: wine Patient Tobacco Use Status: Former Tobacco user Tobacco use type: Cigarette Current occupational status: employed 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 Sexual orientation: Straight/Heterosexual Gender identity: Female Review of Systems Const Denies chills, Denies excessive sweating, Denies fever(s), Denies headache(s) and Denies night sweats Eyes Denies dry eyes, Denies irritation and Denies itchy eyes ENT Reports Normal hearing present, Denies headache(s) and Denies sore throat Card Denies chest pain, Denies chest pain at rest, Denies chest pain with activity, Denies claudication, Denies leg edema, Denies dyspnea, Denies dyspnea on exertion, Denies orthopnea and Denies paroxysmal nocturnal dyspnea Resp Denies chest congestion, Denies cough, Denies excessive phlegm production, Denies pain on inspiration, Denies pain with cough, Denies dyspnea, Denies dyspnea on exertion, Denies stridor and Denies wheezing Musc Denies myalgias Neuro Reports Normal hearing present and Denies headache(s) Endo Denies excessive sweating Stiven/Lymph Denies lymphadenopathy Aller/Immun Denies itchy eyes, Denies seasonal rhinorrhea and Denies wheezing Physical Exam Vital Signs: Last Vital Signs Pulse 66 05/08/24 10:02 BP 132/74 05/08/24 10:02 Pulse Ox 99 05/08/24 10:02 Oxygen Delivery Method Room Air 05/08/24 10:02 BMI result Body Mass Index 26.1 Const General: cooperative, healthy appearing, comfortable, no acute distress, well developed and alert Orientation/consciousness: patient oriented x3 Limitations: no limitations HEENT Head: Yes normal to inspection, Yes normocephalic and Yes atraumatic Ears: hearing grossly normal bilaterally and external ears normal Eyes General: appearance normal, both eyes and all related structures Eyelids: Yes eyelids normal Sclerae: sclerae normal EOM: EOMs intact bilaterally Neck Neck: Yes normal visual inspection and Yes no lymphadenopathy Lymphatic: no lymphadenopathy noted Chest Chest palpation & inspection: normal inspection of the chest Resp Effort & Inspection: normal respiratory effort, able to speak in complete sentences, no audible wheezes, no cough, no stridor, not tachypneic, no tripod positioning and no use of accessory muscles Auscultation: clear to auscultation bilaterally Cardio Jugular venous distension: no JVD Rate: regular rate Rhythm: regular rhythm Skin Other: warm, dry General skin exam: no rashes or lesions noted Neuro General: patient oriented x3 Cranial nerves: Yes Normal hearing present Cognition (Neuro): normal cognition Gait exam (Neuro): Normal gait present Extrem General: Yes normal to inspection, Yes capillary refill normal, Yes no clubbing, cyanosis or edema and Yes no pedal edema Psych Appearance: grossly normal and well kempt Speech and movement: Normal speech and movement present and Clear speech present Affect: normal affect Attitude: cooperative Thought process: Normal thought process present Thought content: Normal thought content present Insight: Good insight present (Psych) Judgement: Good judgement present (Psych) Results Reviewed Results Reviewed: [address] [address] [address] Scan Report Signed Patient: Manuela Moreno MR#: [id number] : 1965 Acct:[id number] Age/Sex: 58 / F ADM Date: 02/13/24 Loc: HO.CT Attending Dr: Marli Torrez NP Ordering Physician: Marli Torrez NP Date of Service: 02/13/24 Procedure(s): CT chest wo IV con Accession Number(s): [id number] cc: Esau Roberts MD; Marli Torrez NP~ EXAMINATION: CT CHEST WITHOUT CONTRAST CLINICAL INFORMATION: Cough, unspecified. COMPARISON: CT dated July 07, 2015. TECHNIQUE: Multidetector volumetric CT imaging of the chest was done. Axial MIP volume rendering provided. Sagittal and coronal reformatted images were obtained. This CT examination was performed using dose optimization techniques as appropriate, variously including the following: *Automated exposure control *Adjustment of mA and/or kV according to patient size (this includes techniques or standardized protocols for targeted exams where dose is matched to indication/reason for exam; i.e. extremities or head) *Use of iterative reconstruction technique DLP: 203 mGy-cm FINDINGS: Submitted for interpretation on 04/02/2024. No gross consolidation, pleural effusion or pneumothorax. Nonspecific, 1-2 mm pulmonary nodules scattered in the right upper lobe and to a lesser extent peripheral lower lobes. No bronchiectasis. No honeycombing. Respiratory where is patent. 1 mm calcified pulmonary nodule, right lung base likely granuloma. No lymphadenopathy, mediastinum or perihilar. No pericardial effusion. No aneurysm, thoracic aorta. Calcified plaque in the right brachiocephalic trunk. Multilevel thoracic spondylosis. Schmorl node superior endplate of T12. Osteopenia versus osteoporosis. S-shaped curvature of the thoracic spine which could be positional.. CT/CT chest wo IV con IMPRESSION: Stable nonspecific subcentimeter, 1-2 noncalcified pulmonary nodules. No acute airspace disease. Fleischner guidelines were followed. Electronically signed by: Heath Cabrera MD 04/02/2024 01:23 PM [facility] Dictated By: Heath Ji MD Signed By: <Electronically signed by Heath Arreola MD in OV> 04/02/24 1323 DD/ 1324 TD/TT: 02/13/24 1343 Form Building Supervisor: Assessment & Plan Assessment & Plan (1) Asthma: Code(s): J45.909 - Unspecified asthma, uncomplicated Category: Medical (2) Mast cell activation syndrome: Code(s): D89.40 - Mast cell activation, unspecified Category: Medical (3) CARO positive: Code(s): R76.8 - Other specified abnormal immunological findings in serum Category: Medical (4) Multiple pulmonary nodules: Code(s): R91.8 - Other nonspecific abnormal finding of lung field Category: Medical Plan At this time Manuela reports excellent respiratory control on current regimen. She continues to report chronic sinus symptoms, will enter referral to ENT. Chest CT reviewed which revealed multiple pulmonary nodules <2mm. Will repeat in one year to assess stability. Of note, patient also undergoing evaluation for possible autoimmune condition, prior labs revealed CARO+. All questions were answered and patient is in agreement of plan. Will follow up in 3 months or soon er if needed. Orders: Orders CT chest wo IV con 11 Months R91.8 - Other nonspecific abnormal finding of lung field Referrals Ear/Nose/Throat Referral J32.9 - Chronic sinusitis, unspecified, J45.909 - Unspecified asthma, uncomplicated, R05.9 - Cough, unspecified Coding Level of Care Code Est Pt Level 4 (36266) Diagnoses Asthma J45.909 Mast cell activation syndrome D89.40 CARO positive R76.8 Multiple pulmonary nodules R91.8
[2024-05-08 10:02] VITALS: BP 132/74; PULSE 66; O2SAT 99; BMI 26.1
== END 2024-05-08 10:40 | disposition home or self-care (01) ==
PROVIDERS: PCP Family Medicine; Visit Provider Nurse Practitioner Family
DX: J45.909 Unspecified asthma, uncomplicated (principal); D89.40 Mast cell activation, unspecified; R76.8 Other specified abnormal immunological findings in serum; R91.8 Other nonspecific abnormal finding of lung field
CPT/HCPCS: 99214

== ENCOUNTER → 2024-05-08 09:57 | Outpatient (BNVA) | payer OTHER, SELFPAY | PROVIDERS: PCP Family Medicine; Visit Provider Nurse Practitioner Family ==

== ENCOUNTER 2024-05-12 13:31 | Outpatient (REF) | payer OTHER, SELFPAY ==
[2024-05-12 16:14] LABS: MANUAL DIFF FLAG NO
[2024-05-12 16:29] LABS: Basophils Percent Auto 0.2 % (0-2); Hematocrit 39.6 % (37.0-47.0); Imm Gran Abs Auto 0.03 X10*3/uL (0.00-0.03); Imm Gran Pct Auto 0.3 % (0.0-0.4); Lymphocytes Absolute Auto 1.8 X10*3/uL (1.2-4.9); Lymphocytes Percent Auto 17.5 % (20-40); Mean Corpuscular HGB Conc 32.8 g/dl (31.0-35.0); Mean Corpuscular Hemoglobin 30.7 pg (27.0-33.0); Mean Corpuscular Volume 93.4 fL (80.0-98.0); Mean Platelet Volume 10.3 fL (9.4-12.3); Monocytes Absolute Auto 0.5 X10*3/uL (0.1-1.2); Monocytes Percent Auto 5.1 % (2-11); Neutrophils Absolute Auto 7.9 x10*3/uL (2.0-8.3); Neutrophils Percent Auto 76.9 % (45-73); Platelet Count 353 X10*3/uL (160-400); Red Blood Count 4.24 X10*6/uL (4.20-5.50); Red Cell Distribution Width 12.2 % (11.0-16.0); White Blood Count 10.3 X10*3/uL (4.8-10.8)
[2024-05-12 17:08] LABS: Alanine Aminotransferase 32 U/L (0-31); Albumin Level 4.5 g/dL (3.5-5.0); Alkaline Phosphatase 63 U/L (39-117); Anion Gap 14 (12-20); Aspartate Amino Transferase 29 U/L (5-31); Bilirubin Total 0.3 mg/dL (0.0-1.0); Blood Urea Nitrogen 17 mg/dL (9-16); Carbon Dioxide 25 mmol/L (22-29); Chloride 107 mmol/L (96-108); Estimated Glomerular Filt Rate > 60; Glucose Random 101 mg/dL (60-115); Potassium 4.4 mmol/L (3.3-5.1); Sodium 142 mmol/L (135-145); Total Protein 7.4 g/dL (6.5-8.0)
[2024-05-14 15:03] LABS: Immunoglobulin E 68 kU/L (<OR=114)
[2024-05-15 22:18] LABS: Allergen, Galactose-Alpha 1,3 <0.10 kU/L (<0.10)
[2024-05-16 10:23] LABS: C1 Esterase Inhibitor 89 % (>=68)
== END 2024-05-12 13:32 | disposition home or self-care (01) ==
LOC: HO.HMGCLDS 13:31
PROVIDERS: PCP Family Medicine; Visit Provider Physician Assistant
DX: T78.3XXA Angioneurotic edema, initial encounter (principal)
CPT/HCPCS: 36415; 80053; 82785; 83520; 85025; 86008; 86160; 86161

== ENCOUNTER 2024-07-04 07:04 | Emergency (ER) | payer OTHER, SELFPAY ==
--- NOTE | ~2024-07-04 | CT_ITS ---
CLINICAL HISTORY: rt lower quadrant pain CT abdomen and pelvis with contrast Comparison: CT - CT ABDOMEN PELVIS W IV CON - 07/04/24 08:[address]/REG/MI/SR - CT ANGIO ABDOMEN PELVIS - 06/12/21 08:[address]/SR - ABD PELV W PO CON ONLY [id number] - 08/25/19 14:[address]/SR - ABD PELVIS WO CONT [id number] - 01/21/19 14:31 EDT Findings: The lung bases are clear. The gallbladder and solid organs are within normal limits. No renal stones. Large stool burden throughout. No bowel obstruction, pneumoperitoneum, or pneumatosis. Appendix appears normal. Small lymph nodes with mild fat stranding in the mesenteric root suggesting mesenteric panniculitis, more conspicuous than on prior. Pelvic contents unremarkable. No acute fracture. IMPRESSION: Large stool burden throughout the colon without additional features for mechanical obstruction or acute inflammatory changes. Otherwise no acute process. This document has been electronically signed by: Edward Raymond MD on 07/04/2024 09:54:43
[2024-07-04 07:12] VITALS: BP 145/57; PULSE 75; RESP 18; TEMP 36.6; O2SAT 100; BMI 25.4
--- NOTE | 2024-07-04 07:34 | ED_ITS ---
HPI - Abdominal Pain General Chief Complaint: Abdominal Pain Stated Complaint: lower abd pain Time Seen by Provider: 07/04/24 07:28 Source: patient History of Present Illness HPI narrative: This is 58 years old the patient presented to the emergency department complaining of right lower quadrant abdominal pain. She has a history of chronic abdominal pain evaluated in the past in this emergency department, she states this pain is different the pain is localized in the right lower quadrant without radiation MD elicited complaint: abdominal pain Pertinent past history: other (abdominal pain chronic) Onset (ago): day(s) (1) Pain Consistency: constant Severity: moderate Quality: cramping Radiation: RLQ Migration to: no migration Exacerbating factors: nothing Relieving factors: nothing Related Data Home Medications ?Medication ?Instructions ?Recorded ?Confirmed multivitamin 1 tab PO DAILY 04/19/20 07/03/23 ascorbate calcium (vitamin C) 500 500 mg PO DAILY 04/12/21 07/03/23 mg tablet aspirin 81 mg tablet 81 mg PO DAILY 07/20/21 07/03/23 cromolyn 100 mg/5 mL oral 300 mg PO QID 06/25/22 07/03/23 concentrate cyproheptadine 4 mg tablet 4 mg PO BEDTIME 06/25/22 07/03/23 magnesium glycinate mg PO 06/25/22 07/03/23 riboflavin (vitamin B2) 400 mg 400 mg PO DAILY 06/25/22 07/03/23 tablet epinephrine 0.3 mg/0.3 mL 0.3 mg IM ONCE PRN 11/27/22 07/03/23 injection, auto-injector albuterol 90 mcg-budesonide 80 inh inhalation 04/21/24 mcg/actuation HFA aerosol inhaler (Airsupra) budesonide 160 mcg-glycopyr 9 inh inhalation 04/21/24 mcg-formot 4.8 mcg/actuation HFA inhaler (Breztri Aerosphere) fexofenadine 60 mg tablet (Brittni 120 mg PO DAILY 04/21/24 Allergy) fluticasone furoate 27.5 2 spray intranasal DAILY 04/21/24 mcg/actuation nasal spray,suspension (Flonase Sensimist) levocetirizine 5 mg tablet (Xyzal) 10 mg PO QPM PRN 04/21/24 tezepelumab-ekko 210 mg/1.91 mL 210 mg subcut Q4W 04/21/24 (110 mg/mL) subcutaneous syringe (Tezspire) Previous Rx's ?Medication ?Instructions ?Recorded ibuprofen 600 mg tablet 600 mg PO Q6-8H PRN pain #40 tabs 07/20/21 rosuvastatin 40 mg tablet 40 mg PO BEDTIME #90 tabs 12/27/23 levalbuterol HCl 1.25 mg/3 mL 1.25 mg (3 mL) inhalation Q4-6H 01/28/24 solution for nebulization PRN shortness of breath or wheezing #90 mL montelukast 10 mg tablet 10 mg PO BEDTIME #30 tabs 01/28/24 (Singulair) valsartan 40 mg tablet 40 mg PO BID #90 tabs 02/20/24 atenolol 25 mg tablet 25 mg PO BID #180 tabs 05/04/24 tramadol 50 mg tablet 50 mg PO Q8H PRN pain #15 tabs 07/04/24 Allergies Allergy/AdvReac Type Severity Reaction Status Date / Time codeine [CODEINE] Allergy Intermediate RASH, HIVES Verified 07/04/24 07:16 dupilumab [From Dupixent Pen] Allergy Intermediate Hives Verified 07/04/24 07:16 adhesive tape [Adhesive Tape] Allergy Mild blisters Verified 07/04/24 07:16 from clear plastic tape-cloth tape ok morphine [MORPHINE] Allergy Mild HIVES Verified 07/04/24 07:16 oxycodone [OXYCODONE] Allergy Mild HIVES Verified 07/04/24 07:16 omalizumab [From Xolair] Allergy Hives Verified 07/04/24 07:16 Review of Systems Reports system reviewed and no additional complaints, except as documented Respiratory: Reports no additional respiratory complaints Hematologic/Lymphatic: Reports no additional hematologic/lymphatic complaints [facility] Past Medical History [facility] Narrative: abdominal pain chronic,mast cell activation syndrome,HTN Medical History Bilateral carotid artery stenosis Hypertension Asthma Mast cell activation syndrome CARO positive Post-operative nausea and vomiting COVID-19 vaccine series completed Surgical History History of thumb surgery History of colonoscopy History of arthroscopy of left knee History of bunionectomy of right great toe History of thumb surgery Family History Family History Father HTN (hypertension) Mother HTN (hypertension) CVD (cardiovascular disease) Social History Social History Household Members: Spouse Household Members Other:: son Housing: House Are you a primary senior care specialist to a significant other at home: No Do you presently have visiting nurse or other home services: No Alcohol intake: former Patient Tobacco Use Status: Former Tobacco user Tobacco use type: Cigarette Current occupational status: employed 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 Sexual orientation: Straight/Heterosexual Gender identity: Female Physical Exam ED Vital Signs: Vital Signs - 24 hr 07/04/24 07:12 07/04/24 08:17 07/04/24 10:38 Temperature 97.9 F 98.1 F 97.9 F Pulse Rate 75 58 58 Respiratory Rate 18 14 14 Blood Pressure 145/57 H 120/53 L 113/49 L Pulse Oximetry 100 97 100 Oxygen Delivery Method Room Air Room Air Room Air 07/04/24 12:52 Temperature 97.9 F Pulse Rate 58 Respiratory Rate 14 Blood Pressure 113/49 L Pulse Oximetry 100 Oxygen Delivery Method Room Air BMI result Body Mass Index 25.4 Const General: cooperative Nutritional Appearance: well nourished Orientation/consciousness: patient oriented x3 HENMT Head: Yes normal to inspection General nose exam: Normal external nose present Face and sinus: Yes normal facial exam Mouth: Normal oral and palatal mucosa present Neck Neck: Yes normal visual inspection and Yes full ROM Resp Effort & Inspection: normal respiratory effort Auscultation: clear to auscultation bilaterally Cardio Jugular venous distension: no JVD Rate: regular rate Rhythm: regular rhythm GI Other: tenderness rt lower quadrant Inspection: Yes normal to inspection Palpation (GI): Soft to palpation Skin General skin exam: no rashes or lesions noted and elasticity normal Lesions: no lesions Rashes: no rashes Neuro General: patient oriented x3 Extrem General: Yes normal to inspection, Yes full ROM, Yes capillary refill normal and Yes normal exam except as noted Course Reevaluation(s) Reevaluation #1: Workup is essentially negative , labs normal, CT no evidence of appendicitis no evidence of diverticulitis no evidence of cholecystitis no bowel obstruction. I think she can be safely discharged home she does have a certified retinal angiographer she will follow-up with them Time: 12:45 Medical Decision Making Medical Decision Making [facility] Narrative: Patient is here with abdominal pain localized in the right lower quadrant, we will obtain labs Differential Diagnosis Differential Diagnoses: The differential diagnosis associated with the presentation includes Kidney stone/appendicitis/colitis Admission/Observation Consideration of admission/observation: Escalation of care including admission/observation considered Lab Data [facility] Lab Attestation statement: I reviewed the patient's lab results. 07/04/24 07:43 07/04/24 07:43 Labs: Lab Results 07/04/24 07/04/24 Range/Units 07:43 07:49 WBC 6.0 (4.8-10.8) X10*3/uL RBC 4.09 L (4.20-5.50) X10*6/uL Hgb 12.6 (12.0-16.0) g/dl Hct 37.6 (37.0-47.0) % MCV 91.9 (80.0-98.0) fL MCH 30.8 (27.0-33.0) pg MCHC 33.5 (31.0-35.0) g/dl RDW 12.2 (11.0-16.0) % Plt Count 321 (160-400) X10*3/uL MPV 10.3 (9.4-12.3) fL Immature Gran % (Auto) 0.3 (0.0-0.4) % Neut % (Auto) 66.9 (45-73) % Lymph % (Auto) 25.0 (20-40) % [place] % (Auto) 7.5 (2-11) % Eos % (Auto) 0.0 (0-4) % Baso % (Auto) 0.3 (0-2) % Lymph # (Auto) 1.5 (1.2-4.9) X10*3/uL [place] # (Auto) 0.5 (0.1-1.2) X10*3/uL Eos # (Auto) 0.0 (0.0-0.4) X10*3/uL Baso # (Auto) 0.0 (0.0-0.2) X10*3/uL Abs Immat Gran (auto) 0.02 (0.00-0.03) X10*3/uL Absolute Neuts (auto) 4.0 (2.0-8.3) x10*3/uL Absolute Nucleated RBC 0.000 (0.0-0.012) X10*3/uL Nucleated RBC % (auto) 0.0 (0.0-0.2) /100WBC D-Dimer High Sensitivty < 150 NG/ML Sodium 140 (135-145) mmol/L Potassium 4.2 (3.3-5.1) mmol/L Chloride 108 (96-108) mmol/L Carbon Dioxide 24 (22-29) mmol/L Anion Gap 12 (12-20) BUN 13 (9-16) mg/dL Creatinine 0.99 (0.5-1.4) mg/dL Estim Creat Clear Calc 57.5 Estimated GFR 57 Random Glucose 95 (60-115) mg/dL Calcium 9.4 (8.4-10.2) mg/dL Total Bilirubin 0.3 (0.0-1.0) mg/dL Direct Bilirubin 0.1 (0.0-0.5) mg/dL AST 35 H (5-31) U/L ALT 27 (0-31) U/L Alkaline Phosphatase 61 (39-117) U/L Total Protein 7.8 (6.5-8.0) g/dL Albumin 4.4 (3.5-5.0) g/dL Lipase 23 (8-78) U/L Urine Color Yellow Urine Appearance Clear Urine pH 6.5 (5.0-9.0) Ur Specific [place] 1.015 (1.005-1.025) Urine Protein Negative (Neg-Trace) mg/dL Urine Glucose (UA) Negative (Negative) mg/dL Urine Ketones Negative (Negative) mg/dL Urine Blood Negative (Negative) Urine Nitrite Negative (Negative) Ur Leukocyte Esterase Negative (Negative) Independent Interpretation I performed an independent interpretation of an: CT Scan Interpretation: Not acute disease Radiology Impression Discussion of test interpretation with radiology: I have reviewed the radiologist's reading. Radiologist Impression: The lung bases are clear. The gallbladder and solid organs are within normal limits. No renal stones. Large stool burden throughout. No bowel obstruction, pneumoperitoneum, or pneumatosis. Appendix appears normal. Small lymph nodes with mild fat stranding in the mesenteric root suggesting mesenteric panniculitis, more conspicuous than on prior. Pelvic contents unremarkable. No acute fracture. IMPRESSION: Large stool burden throughout the colon without additional features for mechanical obstruction or acute inflammatory changes. Otherwise no acute process. This document has been electronically signed by: Edward Raymond MD on 07/04/2024 09:54:43 Dictated By: Edward Raymond MD Signed By: <Electronically signed by Edward Raymond MD in OV> 07/04/24 0955 External Record Review External record reviewed: Inpatient record Chronic Conditions mast cell activation syndrome Medications Administered Discontinued Medications Generic Name Dose Route Start Last Admin Trade Name Freq PRN Reason Stop Dose Admin Fentanyl 50 mcg 07/04/24 07:32 07/04/24 07:45 Fentanyl Citrate/Pf 100 Mcg/2 Ml Vial IVPUSH 07/04/24 07:33 50 mcg ONCE ONE Administration Protocol Sodium Chloride 1,000 mls @ 999 mls/hr 07/04/24 07:45 07/04/24 09:19 Ns IVCONT 07/04/24 08:45 Infused .Q1H1M HARRIETT Infusion Iohexol 85 ml 07/04/24 08:59 07/04/24 08:59 Iohexol 350 Mg/Ml 100 Ml Infus..Btl IV 07/04/24 09:00 85 ml ONCE ONE Administration Ondansetron HCl 4 mg 07/04/24 07:39 07/04/24 08:01 Ondansetron Hcl 4 Mg/2 Ml Vial IVPUSH 07/04/24 07:40 4 mg ONCE ONE Administration Discharge Plan Discharge Clinical Impression: Abdominal pain Qualifiers: Abdominal location: generalized Qualified Code(s): R10.84 - Generalized abdominal pain Patient Disposition: Home, Self-Care Instructions: Abdominal Pain (ED) Additional Instructions: Please follow-up with your certified retinal angiographer, your CT scan showed no evidence of appendicitis no evidence of gallbladder disease no blockage, your blood work was good including white count liver tests, pancreas test Prescriptions: New tramadol 50 mg tablet 50 mg PO Q8H PRN (Reason: pain) Qty: 15 0RF No Action rosuvastatin 40 mg tablet 40 mg PO BEDTIME Qty: 90 3RF valsartan 40 mg tablet 40 mg PO BID Qty: 90 3RF atenolol 25 mg tablet 25 mg PO BID Qty: 180 3RF aspirin 81 mg Tablet 81 mg PO DAILY ibuprofen 600 mg tablet 600 mg PO Q6-8H PRN (Reason: pain) Qty: 40 0RF cyproheptadine 4 mg tablet 4 mg PO BEDTIME multivitamin Tablet 1 tab PO DAILY ascorbate calcium (vitamin C) 500 mg tablet 500 mg PO DAILY cromolyn 100 mg/5 mL concentrate 300 mg PO QID magnesium glycinate 100 mg magnesium capsule PO riboflavin (vitamin B2) 400 mg tablet 400 mg PO DAILY Breztri Aerosphere 160-9-4.8 mcg/actuation HFA aerosol inhaler inhalation Airsupra 90-80 mcg/actuation HFA aerosol inhaler inhalation fexofenadine [Brittni Allergy] 60 mg tablet 120 mg PO DAILY levocetirizine [Xyzal] 5 mg tablet 10 mg PO QPM PRN Tezspire 210 mg/1.91 mL (110 mg/mL) syringe 210 mg subcut Q4W Flonase Sensimist 27.5 mcg/actuation spray,suspension 2 spray intranasal DAILY Rx Instructions: into each nostril epinephrine 0.3 mg/0.3 mL auto-injector 0.3 mg IM ONCE PRN levalbuterol HCl 1.25 mg/3 mL solution for nebulization 1.25 mg inhalation Q4-6H PRN (Reason: shortness of breath or wheezing) Qty: 90 3RF montelukast [Singulair] 10 mg tablet 10 mg PO BEDTIME Qty: 30 6RF Referrals: Esau Roberts MD [Primary Care Provider] - 2 days Interventions: ED Discharge Assessment Last Done: 07/04/24 12:52 Discharge Date/Time: 07/04/24 12:52 Print Language: Fijian
--- OUTSIDE RECORDS SUMMARY | 2024-07-04 07:37 | XMS_ITS | Patient Health Record ---
[facility] Address [address] [place] [address] Care Team Providers Care Community Relations Assistant Name Role Phone MANISH MACE M.D. Primary Care Provider Un available Jaylin Brantley Unavailable [phone] Allergies Allergen (clinical drug ingredient) Drug/Non Drug Allergy documented on EMR Reaction Allergy Type Onset Date Status aspirin Aspirin Skin Rash Drug Allergy Active acetaminophen / oxycodone Percocet Itching Drug Allergy Active Reason For Referral No Information Medications Medication SIG (Take, Route, Fr equency, Duration) Notes Start Date End Date Status miSOPROStol 200 MCG 2 Orally night befor e procedure for 1 days 02/27/2016 Active Aygestin 5 MG 1 tablet Orally as i nstructed for 90 days 02/06/2016 Active Anaprox DS 550 MG 1 tablet Orally Twic e a day as needed for 30 days 02/06/2016 Active Diovan 80MG 1 ORAL daily for -[address] [facility] 01/22/2012 Active Multivitamins 1 ORAL daily for -[address] [facility] 01/27/2013 Active Aygestin 5 MG 1 tablet Orally BOB Y FROM DAYS 16 TO 25 OF HER CYCLES for 90 days 03/14/2016 Active Terazol 7 0.4 % 1 application at bed time Vaginal Once a day for 7 day(s) 03/09/2016 Active Atenolol 50MG 1 ORAL DAILY for -[address] [facility] 01/22/2012 Active Augmentin 500-125 MG 1 tablet Orally Twi ce a day for 7 days 03/09/2016 Active Immunizations Vaccine Route Administration Date Status Comme nts Tdap Intramuscular 04/26/2011 Pending Social History Sexual History Question Answer Notes Had sex in the past 12 months (vaginal, oral, or anal)? Yes with Men only Prevention strategies discussed: Other Problems Problem Type SNOMED Code ICD Code Onset Dates Problem Status W/U Status Risk Notes Problem Lyme disease (75700607) Lyme disease (088.81) Active confirmed Problem Reflex sympathetic dystrophy of other specified site (337.29) Active confirmed Problem Disorder of breast (38606278) Disorder of breast, unspecified (N64.9) Active confirmed Problem Intermenstrual bleeding - irregular (11440791) Excessive and frequent menstruation with irregular cycle (N92.1) Active confirmed Problem Irregular Menstruation (51391536) Other specified irregular menstruation (N92.5) Active confirmed Problem Allergic rhinitis (17794779) Allergic rhinitis, cause unspecified (477.9) Active confirmed Major Problem Essential hypertension (10888547) Unspecified essential hypertension (401.9) Active confirmed Major Problem Metrorrhagia (32360504) Metrorrhagia (626.6) Active confirmed Major Problem Cellulitis (297036494) Cellulitis and abscess of unspecified site (682.9) Active confirmed Diag Problem Disorder of cartilage (63319325) Other and unspecified disorder of bone and cartilage (733.9) Active confirmed Major Plan Of Treatment Pending Test Test Name Order Date Ultrasound : Breast, right 07/10/2016 PAP SMEAR 06/15/2014 MAMMOGRAM, SCREENING 06/15/2014 Insurance Providers Payer Name Payer Address Payer Phone Subscriber Number Group Number Insured Name Patient Relationship to Insured Coverage Start Date Coverage End Date [facility] [address] [place] [address] [phone] [id number] MANISH THURMAN Self - patient is the insured Medical (General) History Medical History History ICD Code Cellulitis, unspecified L03.90 Essential (primary) hypertension I10 Excessive and frequent menstruation with irregular cycle N92.1 Allergic rhinitis, unspecified J30.9 Complex regional pain syndrome I of othe r specified site G90.59 Lyme disease, unspecified A69.20 Irregular menstruation, unspecified N92. 6 Excessive bleeding in the premenopausal period N92.4 Family history of malignant neoplasm of breast Z80.3 Disorder of bone density and structure, unspecified M85.9 Surgical History Surgery Date(Month/Year) Section x 1 Right Shoulder Surgery Toe Surgery Hospitalization History Reason Date(Month/Year) 1 Vaginal Delivery See Surgical Hx
[2024-07-04] MEDS: fentaNYL citrate/PF 100 MCG/2 ML VIAL 50 MCG IVPUSH (07:45)
[2024-07-04] MEDS: ondansetron HCL 4 MG/2 ML VIAL IVPUSH (08:01)
[2024-07-04] MEDS: 0.9 % Sodium Chloride 1,000 ML 999 ML IVCONT (08:01)
[2024-07-04 08:10] LABS: MANUAL DIFF FLAG NO
[2024-07-04 08:14] LABS: Appearance Urine Clear; Basophils Percent Auto 0.3 % (0-2); Color Urine Yellow; Glucose Urine UA Negative (Negative); Hematocrit 37.6 % (37.0-47.0); Hemoglobin 12.6 g/dl (12.0-16.0); Imm Gran Abs Auto 0.02 X10*3/uL (0.00-0.03); Imm Gran Pct Auto 0.3 % (0.0-0.4); Leukocyte Esterase Urine Negative (Negative); Lymphocytes Absolute Auto 1.5 X10*3/uL (1.2-4.9); Mean Corpuscular HGB Conc 33.5 g/dl (31.0-35.0); Mean Corpuscular Hemoglobin 30.8 pg (27.0-33.0); Mean Corpuscular Volume 91.9 fL (80.0-98.0); Mean Platelet Volume 10.3 fL (9.4-12.3); Monocytes Absolute Auto 0.5 X10*3/uL (0.1-1.2); Monocytes Percent Auto 7.5 % (2-11); Neutrophils Percent Auto 66.9 % (45-73); Nitrite Urine Negative (Negative); PH 6.5 (5.0-9.0); Platelet Count 321 X10*3/uL (160-400); Red Blood Count 4.09 X10*6/uL (4.20-5.50); Red Cell Distribution Width 12.2 % (11.0-16.0); Specific Gravity - Urine 1.015 (1.005-1.025); Urine Blood Negative (Negative); Urine Ketones Negative (Negative); Urine Protein Negative (Neg-Trace)
[2024-07-04 08:17] VITALS: BP 120/53; PULSE 58; RESP 14; TEMP 36.7; O2SAT 97
[2024-07-04 08:23] LABS: D Dimer High Sensitivity < 150 NG/ML
[2024-07-04 08:33] LABS: Alanine Aminotransferase 27 U/L (0-31); Albumin Level 4.4 g/dL (3.5-5.0); Alkaline Phosphatase 61 U/L (39-117); Anion Gap 12 (12-20); Aspartate Amino Transferase 35 U/L (5-31); Bilirubin Direct 0.1 mg/dL (0.0-0.5); Bilirubin Total 0.3 mg/dL (0.0-1.0); Blood Urea Nitrogen 13 mg/dL (9-16); Calcium 9.4 mg/dL (8.4-10.2); Carbon Dioxide 24 mmol/L (22-29); Chloride 108 mmol/L (96-108); Creatinine Clr Calc Pharmacy 57.5; Estimated Glomerular Filt Rate 57; Glucose Random 95 mg/dL (60-115); Lipase 23 U/L (8-78); Potassium 4.2 mmol/L (3.3-5.1); Sodium 140 mmol/L (135-145); Total Protein 7.8 g/dL (6.5-8.0)
[2024-07-04] MEDS: iohexoL 350 MG/ML 100 ML INFUS..BTL 85 ML IV (08:59)
[2024-07-04 10:38] VITALS: BP 113/49; PULSE 58; RESP 14; TEMP 36.6; O2SAT 100
[2024-07-04 12:52] VITALS: BP 113/49; PULSE 58; RESP 14; TEMP 36.6; O2SAT 100
== END 2024-07-04 12:52 | disposition home or self-care (01) ==
PROVIDERS: Emergency Provider Emergency Medicine; PCP Family Medicine
DX: R10.84 Generalized abdominal pain (principal); R10.31 Right lower quadrant pain
CPT/HCPCS: 36415; 74177; 80048; 80076; 81003; 83690; 85025; 85379; 96361; 96374; 96375; 99284; J2405; J3010; Q9967

== ENCOUNTER → 2024-07-04 07:33 | Outpatient (BNV) | payer OTHER, SELFPAY | PROVIDERS: Emergency Provider Emergency Medicine; PCP Family Medicine; Visit Provider Radiology Diagnostic Radiology | DX: K59.00 Constipation, unspecified (principal); R10.31 Right lower quadrant pain | CPT/HCPCS: 74177 ==

== ENCOUNTER 2024-07-26 18:53 | Emergency (ER) | payer OTHER, SELFPAY ==
--- NOTE | ~2024-07-26 | CT_ITS ---
CLINICAL HISTORY: RLQ abdominal pain, fever CT abdomen and pelvis with contrast Comparison: CT - CT ABDOMEN PELVIS W IV CON - 07/26/24 20:40 EDT Findings: The lung bases are clear. The gallbladder and solid organs are within normal limits. No renal stones. No bowel obstruction, pneumoperitoneum, or pneumatosis. Pelvic contents unremarkable. Normal appendix. The bones are intact. IMPRESSION: No acute findings. This document has been electronically signed by: Rome Manzano MD on 07/26/2024 21:55:59
--- NOTE | ~2024-07-26 | XR_ITS ---
CLINICAL HISTORY: fever 2 view chest x-ray Comparison: CR/SR - XR CHEST 2V - 03/19/23 11:16 EST Findings: The lungs are clear. Heart size is normal. No acute fracture. IMPRESSION: 1. No acute findings. This document has been electronically signed by: Rome Manzano MD on 07/26/2024 22:10:16
[2024-07-26 18:55] VITALS: BP 151/64; PULSE 125; RESP 20; TEMP 37.4; O2SAT 98; BMI 24.7
--- NOTE | 2024-07-26 18:57 | ED.ABDPAIN ---
HPI - Abdominal Pain General Chief Complaint: Abdominal Pain Stated Complaint: fever/lwr abd pain Time Seen by Provider: 07/26/24 19:49 History of Present Illness ED Provider: Sonia REDDING narrative: The patient is a 58-year-old female with a history of mast cell disorder who has been having problems with the abdominal pain for about 6 months. She says that the problem with this pain began in January of 2024. She has had waxing and waning pain since then. She came to the emergency room last month on July 04 because of this pain. At that time she had a CT scan of the abdomen and pelvis. The CT scan showed a large amount of stool in the colon but no other acute findings. She was discharged from the emergency room with a plan to follow up with her otr flatbed driver. She has not been able to get into see her otr flatbed driver but she did see your primary care doctor who put her on a long tapering course of steroids for what she says was abdominal panniculitis. She says the steroids helped for a few days but she has continued to have waxing and waning pains primarily in the right lower quadrant and when she moves her right leg. Last night the pain was worse and she had pain and nausea and vomiting throughout the night. This afternoon she developed a fever to 102 for which she took acetaminophen at around 15:00 this afternoon. Ultimately she came to the emergency room because she felt so unwell. Related Data Home Medications ?Medication ?Instructions ?Recorded ?Confirmed multivitamin 1 tab PO DAILY 04/19/20 07/03/23 ascorbate calcium (vitamin C) 500 500 mg PO DAILY 04/12/21 07/03/23 mg tablet aspirin 81 mg tablet 81 mg PO DAILY 07/20/21 07/03/23 cromolyn 100 mg/5 mL oral 300 mg PO QID 06/25/22 07/03/23 concentrate cyproheptadine 4 mg tablet 4 mg PO BEDTIME 06/25/22 07/03/23 magnesium glycinate mg PO 06/25/22 07/03/23 riboflavin (vitamin B2) 400 mg 400 mg PO DAILY 06/25/22 07/03/23 tablet epinephrine 0.3 mg/0.3 mL 0.3 mg IM ONCE PRN 11/27/22 07/03/23 injection, auto-injector albuterol 90 mcg-budesonide 80 inh inhalation 04/21/24 mcg/actuation HFA aerosol inhaler (Airsupra) budesonide 160 mcg-glycopyr 9 inh inhalation 04/21/24 mcg-formot 4.8 mcg/actuation HFA inhaler (Breztri Aerosphere) fexofenadine 60 mg tablet (Brittni 120 mg PO DAILY 04/21/24 Allergy) fluticasone furoate 27.5 2 spray intranasal DAILY 04/21/24 mcg/actuation nasal spray,suspension (Flonase Sensimist) levocetirizine 5 mg tablet (Xyzal) 10 mg PO QPM PRN 04/21/24 tezepelumab-ekko 210 mg/1.91 mL 210 mg subcut Q4W 04/21/24 (110 mg/mL) subcutaneous syringe (Tezspire) Previous Rx's ?Medication ?Instructions ?Recorded ibuprofen 600 mg tablet 600 mg PO Q6-8H PRN pain #40 tabs 07/20/21 rosuvastatin 40 mg tablet 40 mg PO BEDTIME #90 tabs 12/27/23 levalbuterol HCl 1.25 mg/3 mL 1.25 mg (3 mL) inhalation Q4-6H 01/28/24 solution for nebulization PRN shortness of breath or wheezing #90 mL montelukast 10 mg tablet 10 mg PO BEDTIME #30 tabs 01/28/24 (Singulair) valsartan 40 mg tablet 40 mg PO BID #90 tabs 02/20/24 atenolol 25 mg tablet 25 mg PO BID #180 tabs 05/04/24 tramadol 50 mg tablet 50 mg PO Q8H PRN pain #15 tabs 07/04/24 Allergies Allergy/AdvReac Type Severity Reaction Status Date / Time codeine [CODEINE] Allergy Intermediate RASH, HIVES Verified 07/26/24 18:58 dupilumab [From Dupixent Pen] Allergy Intermediate Hives Verified 07/26/24 18:58 adhesive tape [Adhesive Tape] Allergy Mild blisters Verified 07/26/24 18:58 from clear plastic tape-cloth tape ok morphine [MORPHINE] Allergy Mild HIVES Verified 07/26/24 18:58 oxycodone [OXYCODONE] Allergy Mild HIVES Verified 07/26/24 18:58 omalizumab [From Xolair] Allergy Hives Verified 07/26/24 18:58 Review of Systems Review of Systems Yes all other systems are reviewed and are negative [facility] Past Medical History Medical History Bilateral carotid artery stenosis Hypertension Asthma Mast cell activation syndrome CARO positive Post-operative nausea and vomiting COVID-19 vaccine series completed Surgical History History of thumb surgery History of colonoscopy History of arthroscopy of left knee History of bunionectomy of right great toe History of thumb surgery Family History Family History Father HTN (hypertension) Mother HTN (hypertension) CVD (cardiovascular disease) Social History Social History Household Members: Spouse Household Members Other:: son Housing: House Are you a primary lead caregiver to a significant other at home: No Do you presently have visiting nurse or other home services: No Alcohol intake: former Patient Tobacco Use Status: Former Tobacco user Tobacco use type: Cigarette Current occupational status: employed 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 She looks uncomfortable and is curled up on her left side. HENMT Other: Face is symmetrical, mucous membranes moist. Eyes General: appearance normal, both eyes and all related structures Neck Neck: Yes full ROM Resp Effort & Inspection: normal respiratory effort Auscultation: clear to auscultation bilaterally Cardio Rate: regular rate Rhythm: regular rhythm Heart sounds: S1 normal heart sound present and S2 normal heart sound present GI Other: The patient is very tender in her right lower quadrant, fairly low down in the right lower quadrant close to the midline, on the right side of the suprapubic region. Skin Other: Skin is dry and unremarkable Neuro Other: The patient is awake and alert with a normal mental status and normal orientation. Cranial nerves are grossly intact. She moves her extremities normally and appropriately. Extrem Other: No peripheral edema, no calf swelling or tenderness. Course Course Course Narrative: This is a Rapid Medical Examination (RME) performed by Breanna Lopez PA-C in triage. Full HPI, ROS, assessment and treatment plan per primary provider in the Main ED. 58 y/o female with history of mast cell activation syndrome, asthma, presenting for evaluation of worsening RLQ pain for the last 3 weeks along with vomiting x5 hours today and new fever 102. Recently seen here on 07/04 and diagnosed with mesenteric panniculitis - PCP gave her steroids which helped a little for 2 days. now symptoms significantly worse. has been taking miralax and has been having 3BMs per day. new non-bloody diarrhea today. appears very uncomfortable in triage. Plan: labs, imaging per primary provider Medical Decision Making Medical Decision Making MDM Narrative: The patient is a 58-year-old female with a history of mast cell disorder who has been having problems with right lower quadrant abdominal pains for several months. She was started on a taper of steroids (I believe this was prednisone) a couple of weeks ago and had a few days of respite from her discomfort at the higher doses but then her discomfort returned. She indicates that she has a pain in her right lower quadrant and that it is worse when she moves her right leg. She was here in June for abdominal pain and had a CT scan that showed significant amount of stool in her colon but no acute findings. She says that her pain today is the same pain that she had in June only more severe. She also reports that she had a fever yesterday. In the emergency room today she does not seem to have a fever. She was tachycardic when she 1st arrived with a heart rate of 125. She was tender in her right lower quadrant. She was given ketorolac, metoclopramide, and diphenhydramine for her pain and nausea. She was given IV fluids. Given her degree of tenderness a CT scan was done again. She got significant relief from her pain with the above medications. The CT scan does not show any acute findings. Her labs show a white count of 9.6 with 92% neutrophils. Her C-reactive protein was moderately elevated at 7.77. Her ESR is normal at 8. Your metabolic panel, LFTs, and lipase are unremarkable. With regard to her report of a fever she has a negative viral swab for COVID, influenza, and RSV. She has a negative urinalysis and a negative chest x-ray. My overall impression is that the patient does not have an acutely dangerous process although she clearly seems to have significant discomfort. She got significantly good relief from her pain with ketorolac and metoclopramide and diphenhydramine. Perhaps she has some kind of abdominal migraine syndrome. She was also given 10 mg of IV dexamethasone prior to discharge. She will be discharged to contact her otr flatbed driver tomorrow. She should return if worse. Lab Data 07/26/24 19:19 07/26/24 19:19 Labs: Lab Results 07/26/24 07/26/24 07/26/24 Range/Units 19:19 19:35 22:54 WBC 9.6 (4.8-10.8) X10*3/uL RBC 4.84 (4.20-5.50) X10*6/uL Hgb 14.9 (12.0-16.0) g/dl Hct 44.5 (37.0-47.0) % MCV 91.9 (80.0-98.0) fL MCH 30.8 (27.0-33.0) pg MCHC 33.5 (31.0-35.0) g/dl RDW 13.0 (11.0-16.0) % Plt Count 256 (160-400) X10*3/uL MPV 9.4 (9.4-12.3) fL Immature Gran % (Auto) 0.6 H (0.0-0.4) % Neut % (Auto) 92.0 H (45-73) % Lymph % (Auto) 4.2 L (20-40) % [place] % (Auto) 3.1 (2-11) % Eos % (Auto) 0.0 (0-4) % Baso % (Auto) 0.1 (0-2) % Lymph # (Auto) 0.4 L (1.2-4.9) X10*3/uL [place] # (Auto) 0.3 (0.1-1.2) X10*3/uL Eos # (Auto) 0.0 (0.0-0.4) X10*3/uL Baso # (Auto) 0.0 (0.0-0.2) X10*3/uL Abs Immat Gran (auto) 0.06 H (0.00-0.03) X10*3/uL Absolute Neuts (auto) 8.9 H (2.0-8.3) x10*3/uL Absolute Nucleated RBC 0.000 (0.0-0.012) X10*3/uL Nucleated RBC % (auto) 0.0 (0.0-0.2) /100WBC Smear Tech's Comments VERIFIED ESR 8 (0-20) MM/HR Sodium 138 (135-145) mmol/L Potassium 4.1 (3.3-5.1) mmol/L Chloride 105 (96-108) mmol/L Carbon Dioxide 21 L (22-29) mmol/L Anion Gap 16 (12-20) BUN 15 (9-16) mg/dL Creatinine 0.94 (0.5-1.4) mg/dL Estim Creat Clear Calc 55.6 Estimated GFR > 60 Random Glucose 101 (60-115) mg/dL Lactic Acid 0.9 (0.5-2.0) mmol/L Calcium 9.5 (8.4-10.2) mg/dL Magnesium 2.1 (1.6-2.6) mg/dL Total Bilirubin 0.7 (0.0-1.0) mg/dL Direct Bilirubin 0.2 (0.0-0.5) mg/dL AST 28 (5-31) U/L ALT 38 H (0-31) U/L Alkaline Phosphatase 75 (39-117) U/L C-Reactive Protein 7.77 H (< or = 0.50) mg/dL Total Protein 8.3 H (6.5-8.0) g/dL Albumin 4.7 (3.5-5.0) g/dL Lipase 24 (8-78) U/L Urine Color Yellow Urine Appearance Clear Urine pH 6.0 (5.0-9.0) Ur Specific [place] >= 1.030 H (1.005-1.025) Urine Protein Trace (Neg-Trace) mg/dL Urine Glucose (UA) Negative (Negative) mg/dL Urine Ketones 40 (Negative) mg/dL Urine Blood Negative (Negative) Urine Nitrite Negative (Negative) Ur Leukocyte Esterase Negative (Negative) Influenza Type A (PCR) (Negative) Influenza Type B (PCR) (Negative) RSV RNA Qual (PCR) (Negative) SARS-CoV-2 RNA (RT-PCR) (Negative) 07/27/24 Range/Units 00:00 WBC (4.8-10.8) X10*3/uL RBC (4.20-5.50) X10*6/uL Hgb (12.0-16.0) g/dl Hct (37.0-47.0) % MCV (80.0-98.0) fL MCH (27.0-33.0) pg MCHC (31.0-35.0) g/dl RDW (11.0-16.0) % Plt Count (160-400) X10*3/uL MPV (9.4-12.3) fL Immature Gran % (Auto) (0.0-0.4) % Neut % (Auto) (45-73) % Lymph % (Auto) (20-40) % [place] % (Auto) (2-11) % Eos % (Auto) (0-4) % Baso % (Auto) (0-2) % Lymph # (Auto) (1.2-4.9) X10*3/uL [place] # (Auto) (0.1-1.2) X10*3/uL Eos # (Auto) (0.0-0.4) X10*3/uL Baso # (Auto) (0.0-0.2) X10*3/uL Abs Immat Gran (auto) (0.00-0.03) X10*3/uL Absolute Neuts (auto) (2.0-8.3) x10*3/uL Absolute Nucleated RBC (0.0-0.012) X10*3/uL Nucleated RBC % (auto) (0.0-0.2) /100WBC Smear Tech's Comments ESR (0-20) MM/HR Sodium (135-145) mmol/L Potassium (3.3-5.1) mmol/L Chloride (96-108) mmol/L Carbon Dioxide (22-29) mmol/L Anion Gap (12-20) BUN (9-16) mg/dL Creatinine (0.5-1.4) mg/dL Estim Creat Clear Calc Estimated GFR Random Glucose (60-115) mg/dL Lactic Acid (0.5-2.0) mmol/L Calcium (8.4-10.2) mg/dL Magnesium (1.6-2.6) mg/dL Total Bilirubin (0.0-1.0) mg/dL Direct Bilirubin (0.0-0.5) mg/dL AST (5-31) U/L ALT (0-31) U/L Alkaline Phosphatase (39-117) U/L C-Reactive Protein (< or = 0.50) mg/dL Total Protein (6.5-8.0) g/dL Albumin (3.5-5.0) g/dL Lipase (8-78) U/L Urine Color Urine Appearance Urine pH (5.0-9.0) Ur Specific [place] (1.005-1.025) Urine Protein (Neg-Trace) mg/dL Urine Glucose (UA) (Negative) mg/dL Urine Ketones (Negative) mg/dL Urine Blood (Negative) Urine Nitrite (Negative) Ur Leukocyte Esterase (Negative) Influenza Type A (PCR) NEGATIVE (Negative) Influenza Type B (PCR) NEGATIVE (Negative) RSV RNA Qual (PCR) NEGATIVE (Negative) SARS-CoV-2 RNA (RT-PCR) NEGATIVE (Negative) Medications Administered Discontinued Medications Generic Name Dose Route Start Last Admin Trade Name Freq PRN Reason Stop Dose Admin Dexamethasone Sodium Phosphate 10 mg 07/26/24 23:44 07/27/24 00:02 Dexamethasone Sod Phosphate 10 Mg/Ml Vial IVPUSH 07/26/24 23:45 10 mg ONCE ONE Administration Diphenhydramine HCl 50 mg 07/26/24 20:02 07/26/24 20:26 Diphenhydramine Hcl 50 Mg/Ml Vial IVPUSH 07/26/24 20:03 50 mg ONCE ONE Administration Sodium Chloride 1,000 mls @ 999 mls/hr 07/26/24 20:15 07/26/24 22:25 Ns IV 07/26/24 21:15 Infused .Q1H1M HARRIETT Infusion Sodium Chloride 1,000 mls @ 999 mls/hr 07/26/24 21:30 07/26/24 23:30 Ns IV 07/26/24 22:30 Infused .Q1H1M [facility]T Infusion Iohexol 100 ml 07/26/24 20:42 07/26/24 20:42 Iohexol 350 Mg/Ml 100 Ml Infus..Btl IV 07/26/24 20:43 85 ml ONCE ONE Administration Ketorolac Tromethamine 10 mg 07/26/24 20:00 07/26/24 20:26 Ketorolac Tromethamine 15 Mg/Ml Vial IVPUSH 07/26/24 20:01 10 mg ONCE ONE Administration Metoclopramide HCl 10 mg 07/26/24 20:02 07/26/24 20:26 Metoclopramide Hcl 10 Mg/2 Ml Vial IVPUSH 07/26/24 20:03 10 mg ONCE ONE Administration Discharge Plan Discharge Clinical Impression: Abdominal pain Patient Disposition: Home, Self-Care Additional Instructions: Your testing in the emergency room today seems reassuring. The CT scan is not showing any acute findings to correlate with your symptoms. It is possible you could have some kind of a migraine equivalent causing your abdominal pains. Please plan on trying to reach your otr flatbed driver, Dr. Islas, soon for follow up in his office. Continue finishing your steroid taper at home. Stay in touch with your regular doctor as well. Return to the emergency room if significantly worse. Prescriptions: No Action rosuvastatin 40 mg tablet 40 mg PO BEDTIME Qty: 90 3RF valsartan 40 mg tablet 40 mg PO BID Qty: 90 3RF atenolol 25 mg tablet 25 mg PO BID Qty: 180 3RF aspirin 81 mg Tablet 81 mg PO DAILY ibuprofen 600 mg tablet 600 mg PO Q6-8H PRN (Reason: pain) Qty: 40 0RF cyproheptadine 4 mg tablet 4 mg PO BEDTIME tramadol 50 mg tablet 50 mg PO Q8H PRN (Reason: pain) Qty: 15 0RF multivitamin Tablet 1 tab PO DAILY ascorbate calcium (vitamin C) 500 mg tablet 500 mg PO DAILY cromolyn 100 mg/5 mL concentrate 300 mg PO QID magnesium glycinate 100 mg magnesium capsule PO riboflavin (vitamin B2) 400 mg tablet 400 mg PO DAILY Breztri Aerosphere 160-9-4.8 mcg/actuation HFA aerosol inhaler inhalation Airsupra 90-80 mcg/actuation HFA aerosol inhaler inhalation fexofenadine [Brittni Allergy] 60 mg tablet 120 mg PO DAILY levocetirizine [Xyzal] 5 mg tablet 10 mg PO QPM PRN Tezspire 210 mg/1.91 mL (110 mg/mL) syringe 210 mg subcut Q4W Flonase Sensimist 27.5 mcg/actuation spray,suspension 2 spray intranasal DAILY Rx Instructions: into each nostril epinephrine 0.3 mg/0.3 mL auto-injector 0.3 mg IM ONCE PRN levalbuterol HCl 1.25 mg/3 mL solution for nebulization 1.25 mg inhalation Q4-6H PRN (Reason: shortness of breath or wheezing) Qty: 90 3RF montelukast [Singulair] 10 mg tablet 10 mg PO BEDTIME Qty: 30 6RF Referrals: Brea Islas MD [Physician] - (Abdominal pains) Esau Roberts MD [Primary Care Provider] - Interventions: ED Discharge Assessment Last Done: 07/27/24 01:17 Discharge Date/Time: 07/27/24 01:18 Print Language: Greenlandic
[2024-07-26 19:29] LABS: Basophils Percent Auto 0.1 % (0-2); Hematocrit 44.5 % (37.0-47.0); Hemoglobin 14.9 g/dl (12.0-16.0); Imm Gran Abs Auto 0.06 X10*3/uL (0.00-0.03); Imm Gran Pct Auto 0.6 % (0.0-0.4); Lymphocytes Absolute Auto 0.4 X10*3/uL (1.2-4.9); Lymphocytes Percent Auto 4.2 % (20-40); MANUAL DIFF FLAG SCAN; Mean Corpuscular HGB Conc 33.5 g/dl (31.0-35.0); Mean Corpuscular Hemoglobin 30.8 pg (27.0-33.0); Mean Corpuscular Volume 91.9 fL (80.0-98.0); Mean Platelet Volume 9.4 fL (9.4-12.3); Monocytes Absolute Auto 0.3 X10*3/uL (0.1-1.2); Monocytes Percent Auto 3.1 % (2-11); Neutrophils Absolute Auto 8.9 x10*3/uL (2.0-8.3); Platelet Count 256 X10*3/uL (160-400); Red Blood Count 4.84 X10*6/uL (4.20-5.50); SCAN SMEAR FLAG 1; White Blood Count 9.6 X10*3/uL (4.8-10.8)
[2024-07-26 19:32] VITALS: BP 116/56; PULSE 105; RESP 16; O2SAT 100
[2024-07-26 19:41] LABS: Alanine Aminotransferase 38 U/L (0-31); Albumin Level 4.7 g/dL (3.5-5.0); Alkaline Phosphatase 75 U/L (39-117); Anion Gap 16 (12-20); Aspartate Amino Transferase 28 U/L (5-31); Bilirubin Direct 0.2 mg/dL (0.0-0.5); Bilirubin Total 0.7 mg/dL (0.0-1.0); Blood Urea Nitrogen 15 mg/dL (9-16); C Reactive Protein 7.77 mg/dL (< or = 0.50); Calcium 9.5 mg/dL (8.4-10.2); Carbon Dioxide 21 mmol/L (22-29); Chloride 105 mmol/L (96-108); Creatinine Clr Calc Pharmacy 55.6; Estimated Glomerular Filt Rate > 60; Glucose Random 101 mg/dL (60-115); Lipase 24 U/L (8-78); Magnesium 2.1 mg/dL (1.6-2.6); Potassium 4.1 mmol/L (3.3-5.1); Sodium 138 mmol/L (135-145); Total Protein 8.3 g/dL (6.5-8.0)
[2024-07-26 19:53] LABS: Lactic Acid 0.9 mmol/L (0.5-2.0)
--- NOTE | 2024-07-26 19:55 | MHC.EDTECH ---
Checked in on patient and patient stated that she was in a lot of pain and feeling nauseous. This medical technical writer spoke with NYLA Kowalski about patients concerns.
[2024-07-26 20:05] LABS: SLIDE REVIEW VERIFIED
[2024-07-26 20:08] LABS: Erythrocyte Sedimentation Rate 8 MM/HR (0-20)
[2024-07-26] MEDS: Metoclopramide HCl 10 MG/2 ML VIAL IVPUSH (20:26)
[2024-07-26] MEDS: Ketorolac Tromethamine 15 MG/ML VIAL 10 MG IVPUSH (20:26)
[2024-07-26] MEDS: diphenhydrAMINE HCL 50 MG/ML VIAL IVPUSH (20:26)
[2024-07-26] MEDS: 0.9 % Sodium Chloride 1,000 ML 999 ML IV ×2 (20:29→22:26)
[2024-07-26] MEDS: iohexoL 350 MG/ML 100 ML INFUS..BTL IV (20:42)
[2024-07-26 22:35] VITALS: BP 119/68; PULSE 87; RESP 16; O2SAT 98
[2024-07-26 23:00] LABS: Appearance Urine Clear; Color Urine Yellow; Glucose Urine UA Negative (Negative); Leukocyte Esterase Urine Negative (Negative); Nitrite Urine Negative (Negative); Specific Gravity - Urine >= 1.030 (1.005-1.025); Urine Blood Negative (Negative); Urine Ketones 40 mg/dL (Negative); Urine Protein Trace mg/dL (Neg-Trace)
[2024-07-27] MEDS: dexAMETHasone sod phosphate 10 MG/ML VIAL IVPUSH (00:02)
[2024-07-27 00:48] LABS: Influenza A PCR NEGATIVE (Negative); Influenza B PCR NEGATIVE (Negative); Resp Syncy Virus RNA Qual PCR NEGATIVE (Negative); SARS COV2 PCR INHOUSE NEGATIVE (Negative)
[2024-07-27 01:17] VITALS: BP 115/44; PULSE 92; RESP 16; TEMP 37.5; O2SAT 98
== END 2024-07-27 01:18 | disposition home or self-care (01) ==
PROVIDERS: Physician Assistant; Emergency Provider Emergency Medicine; PCP Family Medicine
DX: R10.31 Right lower quadrant pain (principal); R50.9 Fever, unspecified; R11.2 Nausea with vomiting, unspecified; Z03.818 Encounter for observation for suspected exposure to other biological agents ruled out; I10 Essential (primary) hypertension; J45.909 Unspecified asthma, uncomplicated; Z79.899 Other long term (current) drug therapy; Z87.891 Personal history of nicotine dependence
CPT/HCPCS: 0241U; 36415; 71046; 74177; 80048; 80076; 81003; 83605; 83690; 83735; 85025; 85652; 86140; 96361; 96374; 96375; 99284; 99285; J1100; J1200; J1885; J2765; Q9967

== ENCOUNTER → 2024-07-26 20:04 | Outpatient (BNV) | payer OTHER, SELFPAY | PROVIDERS: Emergency Provider Emergency Medicine; PCP Family Medicine; Visit Provider Student in an Organized Health Care Education/Training Program | DX: R10.31 Right lower quadrant pain (principal); R50.9 Fever, unspecified | CPT/HCPCS: 71046; 74177 ==

== ENCOUNTER 2024-07-30 13:47 | Outpatient (REF) | payer OTHER, SELFPAY ==
[2024-07-30 16:52] LABS: MANUAL DIFF FLAG NO
[2024-07-30 17:16] LABS: Basophils Percent Auto 0.2 % (0-2); Hematocrit 37.6 % (37.0-47.0); Hemoglobin 12.6 g/dl (12.0-16.0); Imm Gran Abs Auto 0.02 X10*3/uL (0.00-0.03); Imm Gran Pct Auto 0.3 % (0.0-0.4); Lymphocytes Absolute Auto 0.8 X10*3/uL (1.2-4.9); Mean Corpuscular HGB Conc 33.5 g/dl (31.0-35.0); Mean Corpuscular Hemoglobin 30.6 pg (27.0-33.0); Mean Corpuscular Volume 91.3 fL (80.0-98.0); Mean Platelet Volume 9.4 fL (9.4-12.3); Monocytes Absolute Auto 0.4 X10*3/uL (0.1-1.2); Monocytes Percent Auto 6.3 % (2-11); Neutrophils Absolute Auto 5.3 x10*3/uL (2.0-8.3); Neutrophils Percent Auto 81.2 % (45-73); Platelet Count 293 X10*3/uL (160-400); Red Blood Count 4.12 X10*6/uL (4.20-5.50); Red Cell Distribution Width 12.6 % (11.0-16.0); White Blood Count 6.5 X10*3/uL (4.8-10.8)
[2024-07-30 17:38] LABS: Alanine Aminotransferase 86 U/L (0-31); Albumin Level 4.3 g/dL (3.5-5.0); Alkaline Phosphatase 55 U/L (39-117); Aspartate Amino Transferase 75 U/L (5-31); Bilirubin Direct 0.2 mg/dL (0.0-0.5); Bilirubin Total 0.4 mg/dL (0.0-1.0); C Reactive Protein 0.44 mg/dL (< or = 0.50); Total Protein 7.2 g/dL (6.5-8.0)
[2024-08-04 13:02] LABS: Anti Nuclear Antibody Screen POSITIVE (NEGATIVE)
[2024-08-06 10:18] LABS: C1 Esterase Inhibitor >100 % (>=68)
[2024-08-06 15:43] LABS: Histamine Plasma <1.5 ng/mL (< OR = 1.8)
[2024-08-07 16:23] LABS: C1Q Complement Component 7.8 mg/dL (5.0-8.6)
== END 2024-07-30 13:48 | disposition home or self-care (01) ==
LOC: HO.LAB 13:47
PROVIDERS: PCP Family Medicine; Visit Provider Internal Medicine Gastroenterology
DX: R10.31 Right lower quadrant pain (principal); G89.29 Other chronic pain; D89.40 Mast cell activation, unspecified
CPT/HCPCS: 36415; 80076; 83088; 83520; 85025; 86038; 86039; 86140; 86160; 86161

== ENCOUNTER 2024-08-04 08:47 | Day surgery (SDC) | payer OTHER, SELFPAY ==
[2024-08-04 09:13] VITALS: BMI 24.1
[2024-08-04] MEDS: Lactated Ringers 1,000 ML 80 ML IVCONT (09:38)
[2024-08-04 09:39] VITALS: BP 137/50; PULSE 57; RESP 18; TEMP 36.8; O2SAT 100
--- NOTE | 2024-08-04 10:26 | MHC.SHP ---
Pre-Procedural Eval Section A - 24 Hr Update-Section A only Date of Service: 08/04/24 Section B - Complete if H&P > 30 days Chief Complaint: Gastro-esophageal reflux disease without esophagit Details of Present Illness: abdominal pain and nausea Relevant Family History (Specify if Yes): No Relevant Social History: None Present Medications: see Short Stay Collaborative assessment Medical History: Significant History (Bilateral carotid artery stenosis Hypertension Asthma Mast cell activation syndrome CARO positive Post-operative nausea and vomiting) History of Previous Operations: Relevant previous surgery/procedure and date(s) (History of thumb surgery History of colonoscopy History of arthroscopy of left knee History of bunionectomy of right great toe History of thumb surgery) Allergies: Allergies Allergy/AdvReac Type Severity Reaction Status Date / Time codeine [CODEINE] Allergy Intermediate RASH, HIVES Verified 08/04/24 09:09 dupilumab [From Dupixent Pen] Allergy Intermediate Hives Verified 08/04/24 09:09 adhesive tape [Adhesive Tape] Allergy Mild blisters Verified 08/04/24 09:09 from clear plastic tape-cloth tape ok morphine [MORPHINE] Allergy Mild HIVES Verified 08/04/24 09:09 oxycodone [OXYCODONE] Allergy Mild HIVES Verified 08/04/24 09:09 omalizumab [From Xolair] Allergy Hives Verified 08/04/24 09:09 Review of Systems Sugical H&P ROS: Negative: Constitution, Cardiovascular, Respiratory, Neurological, Psychiatric, Hem-Onc, Allergic/Immunologic, Gastrointestinal, Genitourinary, Musculoskeletal, Integumentary, Endocrine and Eyes/Ears/Nose/Throat Exam Surgical H&P Exam: Normal: HEENT, Normal: Heart, Normal: Lungs, Normal: Extremities, Normal: Abdomen, Normal: Skin and Normal: Neurological Plan Diagnosis/Plan: Unchanged I have reviewed the history and physical and performed a pertinent physical examination on my patient. No changes have occurred unless specified. EGD and colonoscopy for abdominal pain and nausea, hx of mast cell disease Time Spent With Patient Time: Total time managing care of this patient today ____ minutes.
--- NOTE | 2024-08-04 12:23 | HO.ANESPROP2 ---
[facility] Active Problems Active Problems: All Active Problems Chronic RLQ pain (Acute) Chronic sinusitis (Acute) Multiple pulmonary nodules (Acute) Left hand pain (Acute) Mast cell activation syndrome (Acute) CARO positive (Acute) Asthma (Acute) Cough (Acute) Bilateral carotid artery stenosis (Acute) Varicose veins of right lower extremity with inflammation (Acute) Chest pain (Acute) Labile blood pressure (Acute) Lumbar radiculopathy, right (Acute) Primary osteoarthritis of hands, bilateral (Acute) De Quervain's tenosynovitis, left (Acute) Osteoarthritis of carpometacarpal joint of left thumb (Acute) De Quervain's tenosynovitis, right (Acute) Osteoarthritis of carpometacarpal joint of right thumb (Acute) Past Medical History Medical History Bilateral carotid artery stenosis Hypertension Asthma Mast cell activation syndrome CARO positive Post-operative nausea and vomiting COVID-19 vaccine series completed Family History Family History Father HTN (hypertension) Mother HTN (hypertension) CVD (cardiovascular disease) Family history of problems with anesthesia: No Surgical History Surgical History History of thumb surgery History of colonoscopy History of arthroscopy of left knee History of bunionectomy of right great toe History of thumb surgery History of Problems with Anesthesia: No Social History Social History Household Members: Spouse Household Members Other:: son Housing: House Are you a primary career services officer to a significant other at home: No Do you presently have visiting nurse or other home services: No Alcohol intake: former Patient Tobacco Use Status: Former Tobacco user Tobacco use type: Cigarette Have you been hit, kicked, punched, or otherwise hurt by someone within the past year? 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 Sexual orientation: Straight/Heterosexual Gender identity: Female Meds Allergies Allergy/AdvReac Type Severity Reaction Status Date / Time codeine [CODEINE] Allergy Intermediate RASH, HIVES Verified 08/04/24 09:09 dupilumab [From Dupixent Pen] Allergy Intermediate Hives Verified 08/04/24 09:09 adhesive tape [Adhesive Tape] Allergy Mild blisters Verified 08/04/24 09:09 from clear plastic tape-cloth tape ok morphine [MORPHINE] Allergy Mild HIVES Verified 08/04/24 09:09 oxycodone [OXYCODONE] Allergy Mild HIVES Verified 08/04/24 09:09 omalizumab [From Xolair] Allergy Hives Verified 08/04/24 09:09 Active Medications: Current Medications Lactated Ringer's (Lr) 1,000 mls @ 80 mls/hr IVCONT .[id number] HARRIETT Last Admin: 08/04/24 09:38 Dose: 80 mls/hr Home Medications ?Medication ?Instructions ?Recorded ?Confirmed ?Last Taken ?Type multivitamin 1 tab PO DAILY 04/19/20 08/04/24 Unknown History ascorbate calcium (vitamin C) 500 500 mg PO DAILY 04/12/21 08/04/24 Unknown History mg tablet aspirin 81 mg tablet 81 mg PO DAILY 07/20/21 08/04/24 07/12/21 History cromolyn 100 mg/5 mL oral 300 mg PO QID 06/25/22 08/04/24 Unknown History concentrate cyproheptadine 4 mg tablet 4 mg PO BEDTIME 06/25/22 08/04/24 Unknown History magnesium glycinate mg PO 06/25/22 07/30/24 Unknown History riboflavin (vitamin B2) 400 mg 400 mg PO DAILY 06/25/22 08/04/24 Unknown History tablet epinephrine 0.3 mg/0.3 mL 0.3 mg IM ONCE PRN Anaphylaxis 11/27/22 08/04/24 Unknown History injection, auto-injector albuterol 90 mcg-budesonide 80 inh inhalation 04/21/24 07/30/24 Unknown History mcg/actuation HFA aerosol inhaler (Airsupra) budesonide 160 mcg-glycopyr 9 inh inhalation 04/21/24 07/30/24 Unknown History mcg-formot 4.8 mcg/actuation HFA inhaler (Breztri Aerosphere) fexofenadine 60 mg tablet (Brittni 120 mg PO DAILY 04/21/24 08/04/24 Unknown History Allergy) fluticasone furoate 27.5 2 spray intranasal DAILY 04/21/24 08/04/24 Unknown History mcg/actuation nasal spray,suspension (Flonase Sensimist) levocetirizine 5 mg tablet (Xyzal) 10 mg PO QPM PRN Allergy Symptoms 04/21/24 08/04/24 Unknown History tezepelumab-ekko 210 mg/1.91 mL 210 mg subcut Q4W 04/21/24 08/04/24 Unknown History (110 mg/mL) subcutaneous syringe (Tezspire) Exam Height,Weight and Vital Signs: Height 5 ft 4 in Weight 63.8 kg Last Vital Signs Temp 98.2 F 08/04/24 09:39 Pulse 57 08/04/24 09:39 Resp 18 08/04/24 09:39 BP 137/50 L 08/04/24 09:39 Pulse Ox 100 08/04/24 09:39 O2 Del Method Room Air 08/04/24 09:39 Airway Mallampati Class: II TM Dist: >3cm Neck ROM: Full Assessment and Plan Assessment Anesthesia Assessment: Anesthesia Plan Discussed and Chart Reviewed Final Anesthetic Review Family History of Problems with Anesthesia: No History of Problems with Anesthesia: No NPO: Yes ASA Class: III Final Preanesthetic Review: No Changes in Pt Med Stat, Meds/Allgs Chart Reviewed, Consent Obtained/Reviewed and Anes Risks/Benef Reviewed Patient Risk: Intermediate Procedure Risk: Low Anesthetic Plan Anesthetic Plan: TIVA Disposition: Standard PACU
--- NOTE | 2024-08-04 12:49 | HO.OPN-COLON ---
Colonoscopy Operative Note Operative Note Date of Service: 08/04/24 Narrative: Operative Information Procedure Description: EGD, Colonoscopy Indication: RLQ pain Anesthesia: MAC FLEXIBLE TRANSORAL UPPER GASTROINTESTINAL ENDOSCOPY AND COLONOSCOPY PROCEDURE NOTE UPPER ENDOSCOPY Consent: Indications for the procedure and potential complications of bleeding, perforation, reaction to medications and missed diagnosis were discussed with the patient and informed consent was obtained. Instrument: Olympus GIF H 190 J mid size upper endoscope Monitoring: Vital signs and clinical assessment, continuous EKG monitoring, Pulse oximetry, Carbon Dioxide monitoring and blood pressure monitoring were done throughout the procedure. Procedure: The patient was placed in the left lateral decubitis position and pre-procedure medications were administered and a bite block was placed. The endoscope was inserted into the mouth and advanced under direct vision to the third part of duodenum. A careful inspection was made as the upper endoscope was withdrawn including a retroflexed examination of the proximal stomach; Findings and interventions are described below. Findings: Larynx:normal Esophagus: GE junction at 38 cm, diaphragm hiatus at 38 cm, ringed appearance to mucosa with erythematous streaks, bx taken from GEJ, distal and proximal areas. schatzki ring noted with bogginess at GEJ. small inlet patch noted. Stomach: patchy erythema. Biopsies were obtained. Grade 2 flap valve on retroflexed examination of the cardia. Duodenum: Normal bulb and descending duodenum, bx taken Intervention: Biopsies as noted above, COLONOSCOPY Instrument: Olympus variable stiffness pediatric scope 190L Colonoscopy Monitoring: Vital signs and clinical assessment, continuous EKG monitoring, Pulse oximetry, Carbon Dioxide monitoring and blood pressure monitoring were done throughout the procedure. Colon withdrawal time was 24 minutes. Procedure: The patient was placed in the left lateral decubitis position and pre-procedure medications were administered. After a digital rectal examination of the ano-rectum, the video colonoscope was inserted into the rectum and advanced through the colon to the cecum/TI. The colonoscope was slowly withdrawn in a retrograde panoramic fashion and the colon mucosa was carefully examined including a retroflexed view of the rectum. Findings and interventions are described below. Procedure Difficulty:moderate Findings: Terminal Ileum-normal, bx taken bx taken from right and left colon in separate jars Cecum:normal Ascending Colon: normal Transverse Colon -normal Descending Colon:normal Sigmoid Colon: mild diverticulosis, Rectum: Retroflexion with small internal hemorrhoids, grade I Anorectum - normal Colon preparation: [place] Bowel Preparation Scale Right colon; 2 Transverse colon: 2 Left colon; 2 (0 = Unprepared colon segment with mucosa not seen due to solid stool that cannot be cleared. 1 = Portion of mucosa of the colon segment seen, but other areas of the colon segment not well seen due to staining, residual stool and/or opaque liquid. 2 = Minor amount of residual staining, small fragments of stool and/or opaque liquid, but mucosa of colon segment seen well. 3 = Entire mucosa of colon segment seen well with no residual staining, small fragments of stool or opaque liquid) Impression and Post Procedure Diagnosis: Endoscopy Findings: inlet patch esophagitis schatzki ring gastritis Colonoscopy Findings: diverticulosis internal hemorrhoids Plan: Await Pathology results Repeat Colonoscopy in 10 years or earlier if clinically indicated High fiber diet leaflet avoid straining at stool, epsom salts and sitz bath, anusol supps or cream consider capsule if ongoing sx Above findings were reviewed with the patient and relevant handouts were provided if indicated.
[2024-08-04 12:56] VITALS: BP 109/49; PULSE 70; RESP 14; TEMP 36.5; O2SAT 98
[2024-08-04 13:11] VITALS: BP 129/53; PULSE 57; RESP 16; TEMP 36.5; O2SAT 99
== END 2024-08-04 14:13 | disposition home or self-care (01) ==
PROVIDERS: PCP Family Medicine; Visit Provider Internal Medicine Gastroenterology
PROC: (CPT 45380; principal; 2024-08-04 12:10)
DX: R10.31 Right lower quadrant pain (principal); G89.29 Other chronic pain; K57.30 Diverticulosis of large intestine without perforation or abscess without bleeding; K64.0 First degree hemorrhoids; D89.40 Mast cell activation, unspecified; R76.0 Raised antibody titer; K21.9 Gastro-esophageal reflux disease without esophagitis; K29.80 Duodenitis without bleeding; K29.50 Unspecified chronic gastritis without bleeding; K22.2 Esophageal obstruction; K44.9 Diaphragmatic hernia without obstruction or gangrene; Q39.8 Other congenital malformations of esophagus; I65.23 Occlusion and stenosis of bilateral carotid arteries; I10 Essential (primary) hypertension; J45.909 Unspecified asthma, uncomplicated; Z79.51 Long term (current) use of inhaled steroids; Z79.1 Long term (current) use of non-steroidal anti-inflammatories (NSAID); Z79.82 Long term (current) use of aspirin; Z79.899 Other long term (current) drug therapy; L23.1 Allergic contact dermatitis due to adhesives; Z88.5 Allergy status to narcotic agent; Z88.8 Allergy status to other drugs, medicaments and biological substances; Z98.890 Other specified postprocedural states; Z87.891 Personal history of nicotine dependence
CPT/HCPCS: 45380; 43239; 88305; 88341; 88342; J2003; J2704

== ENCOUNTER → 2024-08-04 08:47 | Outpatient (BNV) | payer OTHER, SELFPAY | PROVIDERS: PCP Family Medicine; Visit Provider Internal Medicine Gastroenterology | DX: R10.31 Right lower quadrant pain (principal); K22.2 Esophageal obstruction; K20.90 Esophagitis, unspecified without bleeding; K29.70 Gastritis, unspecified, without bleeding; K57.30 Diverticulosis of large intestine without perforation or abscess without bleeding; K64.0 First degree hemorrhoids | CPT/HCPCS: 43239; 45380 ==

== ENCOUNTER 2024-08-07 13:55 | Outpatient (AMB) | payer OTHER, SELFPAY ==
[2024-08-07 14:01] VITALS: BP 112/60; PULSE 81; O2SAT 95; BMI 24.9
--- NOTE | 2024-08-07 14:01 | MHC.OFFVIS ---
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: No Pilot Control Operator: Pilot Control Operator offered & declined Accompanied by: Self / Same As Patient Allergies codeine [CODEINE] Allergy (Intermediate, Verified 08/07/24 14:06) RASH, HIVES dupilumab [From Dupixent Pen] Allergy (Intermediate, Verified 08/07/24 14:06) Hives adhesive tape [Adhesive Tape] Allergy (Mild, Verified 08/07/24 14:06) blisters from clear plastic tape-cloth tape ok morphine [MORPHINE] Allergy (Mild, Verified 08/07/24 14:06) HIVES oxycodone [OXYCODONE] Allergy (Mild, Verified 08/07/24 14:06) HIVES omalizumab [From Xolair] Allergy (Verified 08/07/24 14:06) Hives Medication List - Last Reconciled 08/07/24 by Grecia Shepherd LPN albuterol-budesonide 90-80 mcg/actuation (Airsupra) inhalations inhalation ascorbate calcium (vitamin C) 500 mg PO DAILY aspirin 81 mg PO DAILY atenolol 25 mg PO BID bisacodyl (Dulcolax (bisacodyl)) 10 mg (2 x 5 mg) PO ONCE 2 days clztccfpyc-hhzodums-obksqrwrkw 160-9-4.8 mcg/actuation (Breztri Aerosphere) inhalations inhalation cromolyn 300 mg PO QID cyproheptadine 4 mg PO BEDTIME epinephrine 0.3 mg IM ONCE PRN fexofenadine (Brittni Allergy) 120 mg PO DAILY fluticasone furoate 27.5 mcg/actuation (Flonase Sensimist) 2 sprays intranasal DAILY ibuprofen 600 mg PO Q6-8H PRN levalbuterol HCl 1.25 mg (3 mL) inhalation Q4-6H PRN levocetirizine (Xyzal) 10 mg PO QPM PRN magnesium glycinate mg PO montelukast (Singulair) 10 mg PO BEDTIME multivitamin 1 tab PO DAILY pantoprazole 40 mg PO DAILY polyethylene glycol 3350 (Miralax) 17 grams PO DAILY 1 day riboflavin (vitamin B2) 400 mg PO DAILY rosuvastatin 40 mg PO BEDTIME tezepelumab-ekko (Tezspire) 210 mg subcut Q4W tramadol 50 mg PO Q8H PRN valsartan 40 mg PO BID HPI HPI Asthma: Details: Manuela is a pleasant 58 year old, former minimal smoker, with underlying asthma, mast cell activation syndrome diagnosed 15 years ago, and CARO positive. Over the last few months she has had excellent control of respiratory symptoms on Tezspire (has had 4 doses, last 07/30), Breztri, Singulair, Flonase, and antihistamines. She previously trialed Dupixent as well as Xolair but unfortunately developed hives. She is also maintained on cyproheptadine, Pepcid and Omeprazole, prescribed by immunology/allergy provider at [facility]. With this new regimen, she has not had any respiratory reactions to chemical irritants, using albuterol 3-4 times per week with good effect, previously multiple times per day for various triggers. She does note having an URI since the last visit, recovering at home requiring her nebulizer however only for a short period of time. Of note, patient has recently had increasing abdominal issues requiring ED evaluation and will be following with GI for further evaluation/treatment. During this time PCP sent in prescription for prednisone for ongoing abdominal pain. She is currently being worked up for possible HAE. She is also seeing ENT in December. [facility] Medical History Bilateral carotid artery stenosis Hypertension Asthma Mast cell activation syndrome CARO positive Post-operative nausea and vomiting COVID-19 vaccine series completed Surgical History History of thumb surgery History of colonoscopy History of arthroscopy of left knee History of bunionectomy of right great toe History of thumb surgery Family History Father HTN (hypertension) Mother HTN (hypertension) CVD (cardiovascular disease) Social History Household Members: Spouse Household Members Other:: son Housing: House Are you a primary neonatal intensive care unit nurse to a significant other at home: No Do you presently have visiting nurse or other home services: No Alcohol intake: former Patient Tobacco Use Status: Former Tobacco user Tobacco use type: Cigarette Current occupational status: employed 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[place], [place]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 Sexual orientation: Straight/Heterosexual Gender identity: Female Review of Systems Const Denies chills, Denies excessive sweating, Denies fever(s), Denies headache(s) and Denies night sweats Eyes Denies dry eyes, Denies irritation and Denies itchy eyes ENT Reports Normal hearing present, Denies headache(s), Denies nasal congestion, Denies nasal discharge, Denies post nasal drip and Denies sore throat Card Denies chest pain, Denies chest pain at rest, Denies chest pain with activity, Denies claudication, Denies leg edema, Denies dyspnea, Denies dyspnea on exertion, Denies orthopnea and Denies paroxysmal nocturnal dyspnea Resp Denies chest congestion, Denies cough, Denies excessive phlegm production, Denies pain on inspiration, Denies pain with cough, Denies dyspnea, Denies dyspnea on exertion, Denies stridor and Denies wheezing Musc Denies myalgias Neuro Reports Normal hearing present and Denies headache(s) Endo Denies excessive sweating Stiven/Lymph Denies lymphadenopathy Aller/Immun Denies itchy eyes, Denies seasonal rhinorrhea and Denies wheezing Physical Exam Vital Signs: Last Vital Signs Pulse 81 08/07/24 14:01 BP 112/60 08/07/24 14:01 Pulse Ox 95 08/07/24 14:01 Oxygen Delivery Method Room Air 08/07/24 14:01 BMI result Body Mass Index 24.9 Const General: cooperative, healthy appearing, comfortable, no acute distress, well developed and alert Orientation/consciousness: patient oriented x3 Limitations: no limitations HEENT Head: Yes normal to inspection, Yes normocephalic and Yes atraumatic Ears: hearing grossly normal bilaterally and external ears normal Eyes General: appearance normal, both eyes and all related structures Eyelids: Yes eyelids normal Sclerae: sclerae normal EOM: EOMs intact bilaterally Neck Neck: Yes normal visual inspection and Yes no lymphadenopathy Lymphatic: no lymphadenopathy noted Chest Chest palpation & inspection: normal inspection of the chest Resp Effort & Inspection: normal respiratory effort, able to speak in complete sentences, no audible wheezes, no cough, no stridor, not tachypneic, no tripod positioning and no use of accessory muscles Auscultation: clear to auscultation bilaterally Cardio Jugular venous distension: no JVD Rate: regular rate Rhythm: regular rhythm Skin Other: warm, dry General skin exam: no rashes or lesions noted Neuro General: patient oriented x3 Cranial nerves: Yes Normal hearing present Cognition (Neuro): normal cognition Gait exam (Neuro): Normal gait present Extrem General: Yes normal to inspection, Yes capillary refill normal, Yes no clubbing, cyanosis or edema and Yes no pedal edema Psych Appearance: grossly normal and well kempt Speech and movement: Normal speech and movement present and Clear speech present Affect: normal affect Attitude: cooperative Thought process: Normal thought process present Thought content: Normal thought content present Insight: Good insight present (Psych) Judgement: Good judgement present (Psych) Assessment & Plan Assessment & Plan (1) Asthma: Code(s): J45.909 - Unspecified asthma, uncomplicated Category: Medical (2) Mast cell activation syndrome: Code(s): D89.40 - Mast cell activation, unspecified Category: Medical (3) CARO positive: Code(s): R76.8 - Other specified abnormal immunological findings in serum Category: Medical (4) Multiple pulmonary nodules: Code(s): R91.8 - Other nonspecific abnormal finding of lung field Category: Medical Plan At this time Manuela reports excellent respiratory control on current regimen. She previously reported chronic sinus symptoms, and has an upcoming appointment with ENT. Prior Chest CT revealed multiple pulmonary nodules <2mm, repeat chest CT in 04/06 ordered. She does have chronic abdominal pain/swelling that is currently being worked up by GI with recent colonoscopy/labs. All questions were answered and patient is in agreement of plan. Will follow up in 3-4 months or sooner if needed. Coding Level of Care Code Est Pt Level 4 (09474) Diagnoses Asthma J45.909 Mast cell activation syndrome D89.40 CARO positive R76.8 Multiple pulmonary nodules R91.8
== END 2024-08-07 14:43 | disposition home or self-care (01) ==
LOC: HO.HPSW 13:55
PROVIDERS: PCP Family Medicine; Visit Provider Nurse Practitioner Family
DX: J45.909 Unspecified asthma, uncomplicated (principal); D89.40 Mast cell activation, unspecified; R76.8 Other specified abnormal immunological findings in serum; R91.8 Other nonspecific abnormal finding of lung field
CPT/HCPCS: 99214

== ENCOUNTER → 2024-08-07 13:55 | Outpatient (BNVA) | payer OTHER, SELFPAY | PROVIDERS: PCP Family Medicine; Visit Provider Nurse Practitioner Family ==

== ENCOUNTER 2024-08-10 14:43 | Outpatient (AMB) | payer OTHER, SELFPAY ==
[2024-08-10 14:47] VITALS: BP 120/72; PULSE 65; BMI 24.6
--- NOTE | 2024-08-10 14:47 | MHC.OFFVIS ---
Vital Signs 08/10/24 14:47 Height 5 ft 4 in Weight 143 lb 4.807 oz BMI 24.6 BP 120/72 Blood Pressure Location Lt brachial Position Sitting Pulse 65 Intake Visit Reasons: 2 yrs followup w/ekg dx: labile blood pressure Intake Note: 2 year follow-up ekg labile blood pressure has been dealing for abdominal pain with GI and bilateral leg swelling Pacs Specialist Required: No Allergies codeine [CODEINE] Allergy (Intermediate, Verified 08/07/24 14:06) RASH, HIVES dupilumab [From Dupixent Pen] Allergy (Intermediate, Verified 08/07/24 14:06) Hives adhesive tape [Adhesive Tape] Allergy (Mild, Verified 08/07/24 14:06) blisters from clear plastic tape-cloth tape ok morphine [MORPHINE] Allergy (Mild, Verified 08/07/24 14:06) HIVES oxycodone [OXYCODONE] Allergy (Mild, Verified 08/07/24 14:06) HIVES omalizumab [From Xolair] Allergy (Verified 08/07/24 14:06) Hives Medication List - Last Reconciled 08/10/24 by Hetcor Sood MD albuterol-budesonide 90-80 mcg/actuation (Airsupra) inhalations inhalation ascorbate calcium (vitamin C) 500 mg PO DAILY aspirin 81 mg PO DAILY atenolol 25 mg PO BID bisacodyl (Dulcolax (bisacodyl)) 10 mg (2 x 5 mg) PO ONCE 2 days fhcnmbcwiw-quddkchf-kyblfhzhac 160-9-4.8 mcg/actuation (Breztri Aerosphere) inhalations inhalation cromolyn 300 mg PO QID cyproheptadine 4 mg PO BEDTIME epinephrine 0.3 mg IM ONCE PRN fexofenadine (Brittni Allergy) 120 mg PO DAILY fluticasone furoate 27.5 mcg/actuation (Flonase Sensimist) 2 sprays intranasal DAILY ibuprofen 600 mg PO Q6-8H PRN levalbuterol HCl 1.25 mg (3 mL) inhalation Q4-6H PRN levocetirizine (Xyzal) 10 mg PO QPM PRN magnesium glycinate mg PO montelukast (Singulair) 10 mg PO BEDTIME multivitamin 1 tab PO DAILY pantoprazole 40 mg PO DAILY polyethylene glycol 3350 (Miralax) 17 grams PO DAILY 1 day riboflavin (vitamin B2) 400 mg PO DAILY rosuvastatin 40 mg PO BEDTIME tezepelumab-ekko (Tezspire) 210 mg subcut Q4W tramadol 50 mg PO Q8H PRN valsartan 40 mg PO BID HPI Comments Details: Manuela comes for follow-up. She has developed intermittent episodes of generalized swelling and for body and abdominal distension. Should call or office and undergone testing. Although no BNP was performed. She develops intermittent episodes of C intense pains in his right groin and this is associated with an significantly elevated blood pressure fast heart rate. Symptoms then subsided when the pain is better controlled. 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 She also has some other GI/hematologic disorder which is causing her to have increased GI symptoms as well as generalized edema. [facility] Medical History Bilateral carotid artery stenosis Hypertension Asthma Mast cell activation syndrome CARO positive Post-operative nausea and vomiting COVID-19 vaccine series completed Surgical History History of thumb surgery History of colonoscopy History of arthroscopy of left knee History of bunionectomy of right great toe History of thumb surgery Family History Father HTN (hypertension) Mother HTN (hypertension) CVD (cardiovascular disease) Social History Household Members: Spouse Household Members Other:: son Housing: House Are you a primary acute care assistant to a significant other at home: No Do you presently have visiting nurse or other home services: No Alcohol intake: former Patient Tobacco Use Status: Former Tobacco user Tobacco use type: Cigarette Current occupational status: employed 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 Sexual orientation: Straight/Heterosexual Gender identity: Female Review of Systems Const Denies chills, Denies fatigue, Denies fever(s), Denies frequent falls, Denies weakness, Denies weight gain and Denies weight loss ENT Denies dizziness Card Denies chest pain, Denies leg edema, Denies lightheadedness, Denies palpitations, Denies dyspnea, Denies dyspnea on exertion, Denies orthopnea and Denies other (loss of consciousness) Resp Denies cough, Denies dyspnea and Denies dyspnea on exertion GI Denies hematochezia and Denies change in stool character Musc Denies abnormal gait, Denies muscle weakness, Denies numbness, Denies radiating pain into limb and Denies tingling Neuro Denies abnormal gait, Denies dizziness, Denies frequent falls, Denies numbness, Denies tingling and Denies weakness Endo Denies fatigue and Denies palpitations Physical Exam Vital Signs: Last Vital Signs Pulse 65 08/10/24 14:47 BP 120/72 08/10/24 14:47 BMI result Body Mass Index 24.6 Const General: cooperative, comfortable, no acute distress, well developed, alert, awake, Physically active, anxious and well groomed Nutritional Appearance: average body habitus and well nourished Orientation/consciousness: patient oriented x3 Limitations: no limitations Neck Neck: Yes trachea midline, Yes supple and Yes no JVD Chest Chest palpation & inspection: normal inspection of the chest Resp Effort & Inspection: normal respiratory effort Auscultation: clear to auscultation bilaterally Cardio Jugular venous distension: no JVD Palpation: normal PMI Rate: regular rate Rhythm: regular rhythm Heart sounds: S1 normal heart sound present, S2 normal heart sound present, no click, no gallops, no murmurs and no rubs Peripheral pulses: Peripheral pulses 2+ throughout GI Auscultation: normal bowel sounds Skin General skin exam: no rashes or lesions noted Neuro General: patient oriented x3 and no focal motor deficits Extrem General: Yes no clubbing, cyanosis or edema Psych Appearance: grossly normal Affect: Anxious affect present Office Procedures EKG Details: EKG shows sinus bradycardia otherwise normal EKG 29287-[id number], Complete Assessment & Plan Assessment & Plan (1) Labile blood pressure: Code(s): R09.89 - Other specified symptoms and signs involving the circulatory and respiratory systems Category: Medical Plan: Significantly labile blood pressure in her probably suggestive of dysautonomia. Although renal artery stenosis needs to be ruled out given her vascular disease. Would suggest renal duplex. For now her blood pressure is significantly elevated in the setting of pain. Pain control and treatment of her underlying condition needs to be pursued. However advised her to use pill in the pocket approach with atenolol in his blood pressure heart rate are elevated. She understands agrees. She had bilateral carotid disease being followed by vascular surgery. Continue aggressive medical therapy and current low-dose aspirin therapy. Continue high-intensity statin therapy with target goal LDL less than 70 mg/dL. Advised lipid panel annually. Will also obtain echocardiogram given symptoms of generalized swelling to rule out any LV or RV dysfunction. Also advised to check BNP. Follow up in the clinic otherwise in 2 years time, sooner p.r.n.. Thank you for allowing me to partake in her care Orders: Orders US renal doppler Today R09.89 - Other specified symptoms and signs involving the circulatory and respiratory systems B Type Natriuretic Peptide Today R09.89 - Other specified symptoms and signs involving the circulatory and respiratory systems CA echo transthoracic complete Today R09.89 - Other specified symptoms and signs involving the circulatory and respiratory systems Coding Level of Care Code Est Pt Level 4 (17417) Complex EM visit Add On G2211 Diagnoses Labile blood pressure R09.89 CPT Codes EKG - CPT: 17360-[id number], Complete ([id number])
--- OUTSIDE RECORDS SUMMARY | 2024-08-10 16:38 | XMS_ITS | Continuity of Care Document ---
Author Organization [facility] Address [address] [place] [address]- Care Team Providers Care Cut Off Saw Tender Metal Name Role Phone Aeljandra POLLARD, Esau Sarah Primary Care Physician Encounter [facility] Date(s): 07/09/24 - 08/08/24 [facility] [address] [place] [address]- Attending Physician: AdmCornell ospina Admitting Physician: AdmtrCornell Referring Physician: Admtr, Ar8 Encounter Type: Triage Allergies, Adverse Reactions, Alerts Substance Criticality Severity Reaction Reaction Severity Status aspirin hives Active morphine HEADACHE Active Chocolate migraine vomiting Ac tive Percocet 7.5/325 itching Act librado Immunizations Given and Recorded Vaccine Date Status Refusal Reason influenza virus vaccine, inactivated 02/17/24 Bernard rded influenza virus vaccine, inactivated 03/11/23 Bernard rded influenza virus vaccine, inactivated 02/26/22 Bernard rded influenza virus vaccine, inactivated 02/16/21 Bernard rded influenza virus vaccine, inactivated 02/03/20 Bernard rded influenza virus vaccine, inactivated 02/25/17 Bernard rded influenza virus vaccine, inactivated 1 02/10/17 Re corded influenza virus vaccine, inactivated 02/01/16 Bernard rded influenza virus vaccine, inactivated 02/10/14 Give n influenza virus vaccine, inactivated 01/11/13 Give n tetanus-diphtheria toxoids (Td) 2 08/23/22 Given SARS-CoV-2 mRNA (ecndqgf-xqky-jqyeo) vax 01/04/22 Recorded SARS-CoV-2 (COVID-19) mRNA BNT-162b2 vac 02/16/21 Recorded SARS-CoV-2 (COVID-19) mRNA BNT-162b2 vac 3 06/02/20 Recorded SARS-CoV-2 (COVID-19) mRNA BNT-162b2 vac 4 05/10/20 Recorded Influenza Virus Vaccine (oldterm) 02/17/19 Recorde d Influenza Virus Vaccine (oldterm) 5 01/11/18 Given tetanus/diphtheria/pertussis, acel(Tdap) 02/13/11 Given 1Location History: [employer] EMPLOYER 2Result Comment: [id number] 3Result Comment: covid-19 pfizer 4Result Comment: covid-19 pfizer 5Admin Note: at work Medications Advair Diskus 250 mcg-50 mcg inhalation powder 1, inhalation, Inhalation, 2 times a day, rinse mouth and throat after use, # 60 each, Refills 2, Tot. Refills 2, Maintenance, 04/14/21 1:08:00 PM EST, Powder, Route to Pharmacy Electronically, [id number], [facility]/pharmacy #[id number], 162.56, cm, 04/13/21 14:52:00 EST, Height Start Date: 04/14/21 Status: Ordered Quantity: 60.0 Unit: each Repeat number: 3 Airsupra 90 mcg-80 mcg/inh inhalation aerosol INAHALE 2 PUFFS BY MOUTH EVERY 4 HOURS NEEDED Start Date: 07/09/24 Status: Ordered Repeat number: 1 aspirin 81 mg oral delayed release tablet 81 mg, 1, tablet, By Mouth, Daily, # 30 tablet, Refills 0, Maintenance, 04/13/21 2:55:00 PM EST, Partial fill upon patient request if the prescription is for a schedule II opioid drug. Start Date: 04/13/21 Status: Ordered Quantity: 30.0 Unit: tablet Repeat number: 1 atenolol 25 mg oral tablet Refills 0, Maintenance, 07/09/24 10:01:00 AM EST, Partial fill upon patient request if the prescription is for a schedule II opioid drug. Start Date: 07/09/24 Status: Ordered Repeat number: 1 atenolol 50 mg oral tablet 1, tablet, By Mouth, Daily, # 90 tablet, Refills 2, Route to Pharmacy Electronically, [id number], 162.56, cm, 04/13/21 14:52:00 EST, Height Start Date: 04/17/21 Status: Ordered Quantity: 90.0 Unit: tablet Repeat number: 1 Citracal + D 250 mg-500 intl units oral tablet, chewable 2 tablet, Chew, 2 times a day with meals, # 70 tablet, 0 Refills, Maintenance, 06/30/20 7:56:00 AM EST, Chew Tablet, Partial fill upon patient request if the prescription is for a schedule II opioid drug. Start Date: 06/30/20 Status: Ordered Quantity: 70.0 Unit: tablet Repeat number: 1 cromolyn 20 mg/mL oral solution TAKE 3 AMPULES DIRECTED BY MOUTH FOUR TIMES DAILY. TITRATE SLOWLY DIRECTED. Start Date: 07/09/24 Status: Ordered Repeat number: 1 Cromolyn oral concentrate 100mg/ml Cromolyn oral concentrate 100mg/ml, See Instructions, # 240 mL, Refills 0, Tot. Refills 0, Maintenance, 2 ml orally four times daily (in small amount water), 06/30/20 8:12:00 AM EST, Supply Start Date: 06/30/20 Status: Ordered Quantity: 240.0 Unit: mL Repeat number: 1 cyclobenzaprine 10 mg oral tablet 1, tablet, By Mouth, 3 times a day, PRN, # 30 tablet, Refills 5, Maintenance, NEEDED FOR MUSCLE SPASM, 08/07/22 10:51:00 AM EDT, Route to Pharmacy Electronically, [id number], 162.56, cm, 06/01/22 9:02:00 EST, Height Start Date: 08/07/22 Status: Ordered Quantity: 30.0 Unit: tablet Repeat number: 1 Flonase Daily, 0 Refills, Maintenance, 05/24/22 10:59:00 AM EST, Partial fill upon patient request if the prescription is for a schedule II opioid drug. Start Date: 05/24/22 Status: Ordered Repeat number: 1 Gabapentin = 300 mg, By Mouth, 2 times a day, 0 Refills, Maintenance, 12/31/19 8:09:00 AM EDT Start Date: 12/31/19 Status: Ordered Repeat number: 1 ipratropium nasal 21 mcg/inh spray 0 Refills, Maintenance, 07/09/24 10:01:00 AM EST, Partial fill upon patient request if the prescription is for a schedule II opioid drug. Start Date: 07/09/24 Status: Ordered Repeat number: 1 ipratropium nasal 21 mcg/inh spray 0 Refills, Maintenance, 07/09/24 10:01:00 AM EST, Partial fill upon patient request if the prescription is for a schedule II opioid drug. Start Date: 07/09/24 Status: Ordered Repeat number: 1 levalbuterol 1.25 mg/3 mL inhalation solution INHALE 3 ML VIA NEBULIZER EVERY 4 TO 6 HOURS NEEDED FOR SHORTNESS OF BREATH OR WHEEZING Start Date: 07/09/24 Status: Ordered Repeat number: 1 magnesium glycinate = 400 mg, By Mouth, Daily, takes two tablets daily, 0 Refills, Maintenance, 08/23/22 8:59:00 AM EDT,Partial fill upon patient request if the prescription is for a schedule II opioid drug. Start Date: 08/23/22 Status: Ordered Repeat number: 1 montelukast 10 mg oral tablet TAKE 1 TABLET BY MOUTH EVERY DAY AT BEDTIME Start Date: 07/09/24 Status: Ordered Repeat number: 1 Multivitamin Daily, 0 Refills, Maintenance, 02/07/17 12:04:53 PM EDT Start Date: 02/07/17 Status: Ordered Repeat number: 1 ProAir HFA 90 mcg/inh inhalation aerosol 2 puffs, Inhalation, 4 times a day, PRN as needed for wheezing, # 6.7 Gm, 2 Refills, Maintenance, 04/14/21 1:08:00 PM EST, Aerosol, [facility]/pharmacy #[id number], Partial fill upon patient request if the prescription is for a schedule II opioid drug., 2 puffs Inhalation 4 times a day,PRN:as needed for wheezing, 162.56, cm, 04/13/21 14:52:00 EST, Height Start Date: 04/14/21 Status: Ordered Quantity: 6.7 Unit: g Repeat number: 3 rosuvastatin 40 mg oral tablet TAKE 1 TABLET BY MOUTH AT BEDTIME Start Date: 07/09/24 Status: Ordered Repeat number: 1 rosuvastatin 40 mg oral tablet 1 tablet = 40 mg, By Mouth, Daily, # 30 tablet, 5 Refills, Maintenance, 04/13/21 2:57:00 PM EST, Tablet, Partial fill upon patient request if the prescription is for a schedule II opioid drug. Start Date: 04/13/21 Status: Ordered Quantity: 30.0 Unit: tablet Repeat number: 1 valsartan 40 mg oral tablet 1, tablet, By Mouth, Daily at bedtime, # 30 tablet, Refills 0, Route to Pharmacy Electronically, [id number], 162.56, cm, 03/06/21 16:13:00 EDT, Height Start Date: 03/24/21 Status: Ordered Quantity: 30.0 Unit: tablet Repeat number: 1 valsartan 40 mg oral tablet TAKE 1 TABLET BY MOUTH TWICE A DAY Start Date: 07/09/24 Status: Ordered Repeat number: 1 valsartan 40 mg oral tablet TAKE 1/2 BY MOUTH 2 TIMES A DAY Start Date: 07/09/24 Status: Ordered Repeat number: 1 Vitamin C 1000 mg oral tablet 1 tablet = 1,000 mg, By Mouth, Daily, # 30 tablet, 0 Refills, Maintenance, 06/30/20 7:56:00 AM EST, Tablet, Partial fill upon patient request if the prescription is for a schedule II opioid drug. Start Date: 06/30/20 Status: Ordered Quantity: 30.0 Unit: tablet Repeat number: 1 Xyzal By Mouth, Daily before dinner, 0 Refills, Maintenance, 05/24/22 11:02:00 AM EST, Partial fill upon patient request if the prescription is for a schedule II opioid drug. Start Date: 05/24/22 Status: Ordered Repeat number: 1 ZyrTEC 10 mg oral tablet 1 tablet = 10 mg, By Mouth, 2 times a day, # 60 tablet, 0 Refills, Maintenance, 09/04/19 9:00:00 AM EDT Start Date: 09/04/19 Status: Ordered Quantity: 60.0 Unit: tablet Repeat number: 1 Problem List Condition Confirmation Course Effective Dates Status Health St atus Informant Back pain Confirmed Active Conjunctivitis Confirmed Active Hypertension Confirmed Active Mast cell disorder Confirmed Active Social History Social History Type Response Smoking Status Former smoker entered on: 06/16/14 Sex Sex Representation Female (finding) Cardiology * Event Display: Cardiology Office Note, Non-BH Authored Date: * Event Display: Non BH Cardiovascular Results Authored Date: Laboratory * Event Display: Non BH Lab Results Authored Date: * Event Display: Non BH Lab Results Authored Date: * Event Display: Laboratory Result Scanned Authored Date: * Event Display: Non BH Lab Results Authored Date: * Event Display: Laboratory Result Scanned Authored Date: * Event Display: Laboratory Result Scanned Authored Date: Cardiology Consult note * Event Display: Consult Note Cardiology Authored Date: Radiology * Event Display: Ultrasound Neck, Non-BH Authored Date: * Event Display: X-Ray Chest, Non- BH Authored Date: * Event Display: Ultrasound Lower Extremity, Non-BH Authored Date: * Event Display: Ultrasound Lower Extremity, Non-BH Authored Date: * Event Display: CT Scan Abdomen, Non- BH Authored Date: * Event Display: X-Ray Hand/Wrist, Non- BH Authored Date: * Event Display: X-Ray Chest, Non- BH Authored Date: CT Chest * Event Display: CT Scan Chest Authored Date: US Lower extremity * Event Display: Ultrasound Lower Extremity Authored Date: MG Breast Views * Event Display: MM Mammogram Authored Date: * Event Display: MM Mammogram Authored Date: Patient Care team information Care Team Personnel Name: Esau Roberts MD Position: [facility] Physician - Primary Care Member Role: PCP Address: [address] [place] [address]- [place] Telecom: Care Team Related Persons Name: KYE GALE Name: TIFFANIE THURMAN Insurance Providers Guarantor name: MANISH THURMAN Health Plan Information #: 1 Payer: [employer] PPO Member Number: NA Policy Number: NA Group Number: NA
--- OUTSIDE RECORDS SUMMARY | 2024-08-10 16:39 | XMS_ITS | Patient Health Record ---
[facility] Address [address] [place] [address] Care Team Providers Care Sed Special Education Teacher Name Role Phone MANISH MACE M.D. Primary Care Provider Un available Jaylin Brantley Unavailable [phone] Allergies Allergen (clinical drug ingredient) Drug/Non Drug [...] Diovan 80MG 1 ORAL daily for -3 [facility] 01/22/2012 Active Multivitamins 1 ORAL daily for -3 [facility] 01/27/2013 Active Aygestin 5 MG 1 tablet Orally BOB Y FROM DAYS 16 TO 25 OF HER CYCLES for 90 days 03/14/2016 Active Terazol 7 0.4 % 1 application at bed time Vaginal Once a day for 7 day(s) 03/09/2016 Active Atenolol 50MG 1 ORAL DAILY for -3 [facility] 01/22/2012 Active Augmentin 500-125 MG 1 tablet [...] W/U Status Risk Notes Problem Lyme disease (96156993) Lyme disease (088.81) Active confirmed Problem Reflex sympathetic dystrophy of other specified site (337.29) Active confirmed Problem Disorder of breast (67006954) Disorder of breast, unspecified (N64.9) Active confirmed Problem Intermenstrual bleeding - irregular (04643771) Excessive and frequent menstruation with irregular cycle (N92.1) Active confirmed Problem Irregular Menstruation (85531706) Other specified irregular menstruation (N92.5) Active confirmed Problem Allergic rhinitis (04923341) Allergic rhinitis, cause unspecified (477.9) Active confirmed Major Problem Essential hypertension (29074848) Unspecified essential hypertension (401.9) Active confirmed Major Problem Metrorrhagia (63269532) Metrorrhagia (626.6) Active confirmed Major Problem Cellulitis (883876071) Cellulitis and abscess of unspecified site (682.9) Active confirmed Diag Problem Disorder of cartilage (54946440) Other and unspecified disorder of bone and cartilage (733.9) Active confirmed Major Plan Of Treatment Pending Test Test Name Order Date Ultrasound : Breast, right 07/10/2016 PAP SMEAR 06/15/2014 MAMMOGRAM, SCREENING 06/15/2014 Insurance Providers Payer Name Payer Address Payer Phone Subscriber Number Group Number Insured Name Patient Relationship to Insured Coverage Start Date Coverage End Date [facility] [address] [place] [address] [id number] MANISH THURMAN Self - patient is [...]
== END 2024-08-10 15:19 | disposition home or self-care (01) ==
LOC: HO.HCS 14:43
PROVIDERS: PCP Family Medicine; Visit Provider Internal Medicine Cardiovascular Disease
DX: R09.89 Other specified symptoms and signs involving the circulatory and respiratory systems (principal)
CPT/HCPCS: 93010; 99214

== ENCOUNTER → 2024-08-10 14:43 | Outpatient (BNVA) | payer OTHER, SELFPAY | PROVIDERS: PCP Family Medicine; Visit Provider Internal Medicine Cardiovascular Disease | DX: R09.89 Other specified symptoms and signs involving the circulatory and respiratory systems (principal) | CPT/HCPCS: 93005 ==

== ENCOUNTER 2024-08-11 12:30 | Outpatient (REF) | payer OTHER, SELFPAY ==
[2024-08-11 14:30] LABS: B Type Natriuretic Peptide 22 pg/mL (<100)
--- OUTSIDE RECORDS SUMMARY | 2024-08-11 14:39 | XMS_ITS | Patient Health Record ---
[facility] Address [address] [place] [address] Care Team Providers Care African Studies Professor Name Role Phone MANISH MACE M.D. Primary Care Provider Un available Jaylin Brantley Unavailable [phone] Allergies Allergen (clinical drug ingredient) Drug/Non Drug [...] Diovan 80MG 1 ORAL daily for -3 [facility] 01/22/2012 Active Multivitamins 1 ORAL daily for -3 [facility] 01/27/2013 Active Aygestin 5 MG 1 tablet Orally BOB Y FROM DAYS 16 TO 25 OF HER CYCLES for 90 days 03/14/2016 Active Terazol 7 0.4 % 1 application at bed time Vaginal Once a day for 7 day(s) 03/09/2016 Active Atenolol 50MG 1 ORAL DAILY for -3 [facility] 01/22/2012 Active Augmentin 500-125 MG 1 tablet [...] W/U Status Risk Notes Problem Lyme disease (36641947) Lyme disease (088.81) Active confirmed Problem Reflex sympathetic dystrophy of other specified site (337.29) Active confirmed Problem Disorder of breast (19255778) Disorder of breast, unspecified (N64.9) Active confirmed Problem Intermenstrual bleeding - irregular (53447057) Excessive and frequent menstruation with irregular cycle (N92.1) Active confirmed Problem Irregular Menstruation (70468787) Other specified irregular menstruation (N92.5) Active confirmed Problem Allergic rhinitis (32706145) Allergic rhinitis, cause unspecified (477.9) Active confirmed Major Problem Essential hypertension (81079507) Unspecified essential hypertension (401.9) Active confirmed Major Problem Metrorrhagia (23938565) Metrorrhagia (626.6) Active confirmed Major Problem Cellulitis (828290785) Cellulitis and abscess of unspecified site (682.9) Active confirmed Diag Problem Disorder of cartilage (82165416) Other and unspecified disorder of bone and cartilage (733.9) Active confirmed Major Plan Of Treatment Pending Test Test Name Order Date Ultrasound : Breast, right 07/10/2016 PAP SMEAR 06/15/2014 MAMMOGRAM, SCREENING 06/15/2014 Insurance Providers Payer Name Payer Address Payer Phone Subscriber Number Group Number Insured Name Patient Relationship to Insured Coverage Start Date Coverage End Date [facility] [address] [place] [address] [id number] MANISH THURMAN Self - patient is [...]
== END 2024-08-11 12:31 | disposition home or self-care (01) ==
LOC: HO.LAB 12:30
PROVIDERS: PCP Family Medicine; Visit Provider Internal Medicine Cardiovascular Disease
DX: R09.89 Other specified symptoms and signs involving the circulatory and respiratory systems (principal)
CPT/HCPCS: 36415; 83880

== ENCOUNTER 2024-08-17 07:55 | Outpatient (REF) | payer OTHER, SELFPAY ==
--- OUTSIDE RECORDS SUMMARY | 2024-08-17 08:00 | XMS_ITS | Patient Health Record ---
Author Organization 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 Primary Care Provider Un available Jaylin Brantley Unavailable [phone] Allergies Allergen (clinical drug ingredient) Drug/Non Drug [...] Diovan 80MG 1 ORAL daily for -3 [facility] 01/22/2012 Active Multivitamins 1 ORAL daily for -3 [facility] 01/27/2013 Active Aygestin 5 MG 1 tablet Orally BOB Y FROM DAYS 16 TO 25 OF HER CYCLES for 90 days 03/14/2016 Active Terazol 7 0.4 % 1 application at bed time Vaginal Once a day for 7 day(s) 03/09/2016 Active Atenolol 50MG 1 ORAL DAILY for -3 [facility] 01/22/2012 Active Augmentin 500-125 MG 1 [...] W/U Status Risk Notes Problem Lyme disease (71202429) Lyme disease (088.81) Active confirmed Problem Reflex sympathetic dystrophy of other specified site (337.29) Active confirmed Problem Disorder of breast (07685646) Disorder of breast, unspecified (N64.9) Active confirmed Problem Intermenstrual bleeding - irregular (24718830) Excessive and frequent menstruation with irregular cycle (N92.1) Active confirmed Problem Irregular Menstruation (49951777) Other specified irregular menstruation (N92.5) Active confirmed Problem Allergic rhinitis (32335494) Allergic rhinitis, cause unspecified (477.9) Active confirmed Major Problem Essential hypertension (67127045) Unspecified essential hypertension (401.9) Active confirmed Major Problem Metrorrhagia (81272383) Metrorrhagia (626.6) Active confirmed Major Problem Cellulitis (394056675) Cellulitis and abscess of unspecified site (682.9) Active confirmed Diag Problem Disorder of cartilage (51261701) Other and unspecified disorder of bone and cartilage (733.9) Active confirmed Major Plan Of Treatment Pending Test Test Name Order Date Ultrasound : Breast, right 07/10/2016 PAP SMEAR 06/15/2014 MAMMOGRAM, SCREENING 06/15/2014 Insurance Providers Payer Name Payer Address Payer Phone Subscriber Number Group Number Insured Name Patient Relationship to Insured Coverage Start Date Coverage End Date [facility] [address] [place] [address] [id number] MANISH THURMAN Self - patient is [...]
[2024-08-18 08:59] LABS: IgA 163 mg/dL (47-310); IgG 696 mg/dL (600-1640); IgM 83 mg/dL (50-300)
[2024-08-18 22:44] LABS: Transglutaminase Ab IgG <1.0 U/mL; Transglutaminase IgA <1.0 U/mL
[2024-08-22 15:28] LABS: Lactoferrin, Fecal, Quant. <6.25
== END 2024-08-17 07:56 | disposition home or self-care (01) ==
LOC: HO.HMGCLDS 07:55
PROVIDERS: PCP Family Medicine; Visit Provider Internal Medicine Gastroenterology
DX: R10.33 Periumbilical pain (principal); G89.29 Other chronic pain; R10.31 Right lower quadrant pain; K51.50 Left sided colitis without complications
CPT/HCPCS: 36415; 82784; 83631; 86364

== ENCOUNTER → 2024-08-26 09:55 | Outpatient (REF) | payer OTHER, SELFPAY ==
--- NOTE | 2024-08-26 09:57 | CA_ITS ---
Transthoracic Echocardiogram Patient (Last, First, Middle): Manuela Moreno, Gender: Female Date of : 1965 Age: 59 Procedure Date: 08/26/2024 Procedure Type: Transthoracic Echocardiogram Location: OP Height: 162.56 cm Weight: 64.41 kg BSA: 1.69 m2 Heart Rate: 61 bpm BP: 124 / 80 mmHg Cinder Snapper: Referring MD: Hector Sood MD Ship Liner: Hector Sood MD Symptoms: Generalized edema, labile BP Study Quality: Good ECG Rhythm: Sinus Conclusions: - Normal study Findings Left Ventricle Normal left ventricular size, thickness, and systolic function. The visually estimated ejection fraction is between 65-70%. Spectral Doppler is indicative of a normal filling pattern. Right Ventricle Normal right ventricular cavity size and systolic function. Atria The left atrium is likely dilated. There is no evidence of interatrial shunt. The right atrium is normal in size. Aortic Valve Normal aortic valve structure and function. There is no aortic valve stenosis. There is no aortic valve regurgitation. Mitral Valve Normal mitral valve structure and function. There is trace mitral valve regurgitation. There is no mitral valve stenosis. Pulmonic Valve The pulmonic valve is likely normal. Tricuspid Valve Normal tricuspid valve structure. There is trace tricuspid valve regurgitation. The right ventricular systolic pressure is normal. The right ventricular systolic pressure is 27 mmHg. Normal right atrial pressure. There is no evidence of pulmonary hypertension. Great Vessels All visible segments of the aorta are normal in size. The pulmonary artery was not well visualized. Venous The inferior vena cava is normal in size and collapses greater than 50% with inspiration. Pericardium/Pleural There is no evidence of pericardial effusion. Prior Study Comparison No significant change compared to prior study. Measurements 2D Linear Measurements IVSd: 1.08 0.6-0.9/0.6-1.0 cm LVIDd: 4.13 3.9-5.3/4.2-5.9 cm LVIDd Index: 2.44 2.4-3.2/2.2-3.1 cm/m2 LVIDs: 2.35 2.0-3.6 cm LVPWd: 1.06 0.7-1.1 cm Ao Root: 2.20 2.1-3.5 cm LA Diam: 3.50 2.7-3.8/3.0-4.0 cm LAIDs Index: 2.07 1.5-2.3 cm/m2 LV Mass: 183.09 67-162/88-224 g LV Mass Index: 108.34 43-95/49-115 g/m2 LVOT Diam: 2.00 3.0+(-)1.3 cm 2D Systolic Function EF 4C: 69.60 >55% EF 2C: 67.20 >55% EF BiP: 68.80 >55% Mitral Valve MV Pk E: 0.84 MV PK A: 0.67 MV Decel Time: 188.00 E/A: 1.30 E'Lateral: 9.03 E'Medial: 8.05 E/E' Med: 10.40 E/E' Lat: 9.30 PHT: 55.00 MVA PHT: 4.00 Decel [place]: 4.45 Aortic Valve AoV Pk Pavel: 1.61 AoV Mn Pavel: 0.94 AoV VTI: 0.36 AoV Pk Grad: 10.00 Aov Mn Grad: 4.00 JORGE Cont.VTI: 1.81 LVOT LVOT Pk Pavel: 0.95 LVOT Mn Pavel: 0.56 LVOT VTI: 0.21 LVOT Pk Grad: 4.00 LVOT Mn Grad: 2.00 LVOT Diam: 2.00 LVOT Area: 3.14 Diastolic Function MV Pk E: 0.84 MV Pk A: 0.67 E/A: 1.30 E'Medial: 8.05 E/E' Med: 10.40 E' Laterial: 9.03 E/E' Lat: 9.30 Right Ventricle TAPSE (mm): 29.00 TVS' Pavel: 14.00 Tricuspid Valve TR Pk Pavel: 2.43 TR Pk Grad: 24.00 RA Press: 3.00 RVSP: 27.00 Great Vessels Aorta Ao Root-2D: 2.20 2.0-3.7 cm Ao Asc: 3.00 2.1-3.4 cm Pulmonary Valve PV Pk Pavel: 1.03 Peak PV Grad: 4.00 Updated in Other Vendor System with Status of Final Hector Sood MD electronically signed on 08/27/2024 10:42:31 AM with status of Final
--- OUTSIDE RECORDS SUMMARY | 2024-08-26 11:18 | XMS_ITS | Patient Health Record ---
Author Organization [facility] Address [address] [place] [address] Care Team Providers Care Supervisor Evaporator Name Role Phone MANISH MACE M.D. Primary Care Provider Un available Jaylin Brantley Unavailable [phone] Allergies Allergen (clinical drug ingredient) Drug/Non Drug [...] Diovan 80MG 1 ORAL daily for -3 [facility] 01/22/2012 Active Multivitamins 1 ORAL daily for -3 [facility] 01/27/2013 Active Aygestin 5 MG 1 tablet Orally BOB Y FROM DAYS 16 TO 25 OF HER CYCLES for 90 days 03/14/2016 Active Terazol 7 0.4 % 1 application at bed time Vaginal Once a day for 7 day(s) 03/09/2016 Active Atenolol 50MG 1 ORAL DAILY for -3 [facility] 01/22/2012 Active Augmentin 500-125 MG 1 [...] W/U Status Risk Notes Problem Lyme disease (92395702) Lyme disease (088.81) Active confirmed Problem Reflex sympathetic dystrophy of other specified site (337.29) Active confirmed Problem Disorder of breast (68077017) Disorder of breast, unspecified (N64.9) Active confirmed Problem Intermenstrual bleeding - irregular (19357287) Excessive and frequent menstruation with irregular cycle (N92.1) Active confirmed Problem Irregular Menstruation (91996006) Other specified irregular menstruation (N92.5) Active confirmed Problem Allergic rhinitis (11471798) Allergic rhinitis, cause unspecified (477.9) Active confirmed Major Problem Essential hypertension (62219510) Unspecified essential hypertension (401.9) Active confirmed Major Problem Metrorrhagia (99168299) Metrorrhagia (626.6) Active confirmed Major Problem Cellulitis (752399458) Cellulitis and abscess of unspecified site (682.9) Active confirmed Diag Problem Disorder of cartilage (03736230) Other and unspecified disorder of bone and cartilage (733.9) Active confirmed Major Plan Of Treatment Pending Test Test Name Order Date Ultrasound : Breast, right 07/10/2016 PAP SMEAR 06/15/2014 MAMMOGRAM, SCREENING 06/15/2014 Insurance Providers Payer Name Payer Address Payer Phone Subscriber Number Group Number Insured Name Patient Relationship to Insured Coverage Start Date Coverage End Date [facility] [address] [place] [address] [id number] MANISH THURMAN Self - patient is [...]
== END ==
LOC: HO.CARD 09:55
PROVIDERS: PCP Family Medicine; Visit Provider Internal Medicine Cardiovascular Disease
DX: R09.89 Other specified symptoms and signs involving the circulatory and respiratory systems (principal)
CPT/HCPCS: 93306

== ENCOUNTER → 2024-08-26 09:57 | Outpatient (BNV) | payer OTHER, SELFPAY | PROVIDERS: PCP Family Medicine; Visit Provider Internal Medicine Cardiovascular Disease | DX: I34.0 Nonrheumatic mitral (valve) insufficiency (principal); I36.1 Nonrheumatic tricuspid (valve) insufficiency | CPT/HCPCS: 93306 ==

== ENCOUNTER 2024-08-27 07:29 | Outpatient (REF) | payer OTHER, SELFPAY | END 2024-08-27 07:30 | disposition home or self-care (01) | LOC: HO.MAMMO 07:29 | PROVIDERS: PCP Family Medicine; Visit Provider Family Medicine | DX: Z12.31 Encounter for screening mammogram for malignant neoplasm of breast (principal) | CPT/HCPCS: 77063; 77067 ==

== ENCOUNTER → 2024-08-27 07:30 | Outpatient (BNV) | payer OTHER, SELFPAY | PROVIDERS: PCP Family Medicine; Visit Provider Internal Medicine | DX: Z12.31 Encounter for screening mammogram for malignant neoplasm of breast (principal) | CPT/HCPCS: 77063; 77067 ==

== ENCOUNTER 2024-09-01 08:22 | Outpatient (REF) | payer OTHER, SELFPAY | END 2024-09-01 08:23 | disposition home or self-care (01) | LOC: HO.LAB 08:22 | PROVIDERS: PCP Family Medicine; Visit Provider Internal Medicine Gastroenterology | DX: Z13.89 Encounter for screening for other disorder (principal) ==

== ENCOUNTER 2024-09-01 08:55 | Outpatient (REF) | payer OTHER, SELFPAY ==
--- OUTSIDE RECORDS SUMMARY | 2024-09-02 18:23 | XMS_ITS | Patient Health Record ---
Author Organization [facility] Address [address] [place] [address] Care Team Providers Care Hot Tamale Worker Name Role Phone MANISH MACE M.D. Primary Care Provider Un available Jaylin Brantley Unavailable [phone] Allergies Allergen (clinical drug ingredient) Drug/Non Drug [...] Diovan 80MG 1 ORAL daily for -3 [facility] 01/22/2012 Active Multivitamins 1 ORAL daily for -3 [facility] 01/27/2013 Active Aygestin 5 MG 1 tablet Orally BOB Y FROM DAYS 16 TO 25 OF HER CYCLES for 90 days 03/14/2016 Active Terazol 7 0.4 % 1 application at bed time Vaginal Once a day for 7 day(s) 03/09/2016 Active Atenolol 50MG 1 ORAL DAILY for -3 [facility] 01/22/2012 Active Augmentin 500-125 MG 1 tablet [...] W/U Status Risk Notes Problem Lyme disease (25433645) Lyme disease (088.81) Active confirmed Problem Reflex sympathetic dystrophy of other specified site (337.29) Active confirmed Problem Disorder of breast (86283992) Disorder of breast, unspecified (N64.9) Active confirmed Problem Intermenstrual bleeding - irregular (28032212) Excessive and frequent menstruation with irregular cycle (N92.1) Active confirmed Problem Irregular Menstruation (55908274) Other specified irregular menstruation (N92.5) Active confirmed Problem Allergic rhinitis (25152517) Allergic rhinitis, cause unspecified (477.9) Active confirmed Major Problem Essential hypertension (74692611) Unspecified essential hypertension (401.9) Active confirmed Major Problem Metrorrhagia (99699795) Metrorrhagia (626.6) Active confirmed Major Problem Cellulitis (799313019) Cellulitis and abscess of unspecified site (682.9) Active confirmed Diag Problem Disorder of cartilage (05284634) Other and unspecified disorder of bone and cartilage (733.9) Active confirmed Major Plan Of Treatment Pending Test Test Name Order Date Ultrasound : Breast, right 07/10/2016 PAP SMEAR 06/15/2014 MAMMOGRAM, SCREENING 06/15/2014 Insurance Providers Payer Name Payer Address Payer Phone Subscriber Number Group Number Insured Name Patient Relationship to Insured Coverage Start Date Coverage End Date [facility] [address] [place] [address] [id number] 001 MANISH THURMAN Self - patient is [...]
[2024-09-03 08:15] LABS: H Pylori Breath Test Negative (Negative)
== END 2024-09-01 08:56 | disposition home or self-care (01) ==
LOC: HO.LNP 08:55
PROVIDERS: Visit Provider Internal Medicine Gastroenterology
DX: R10.31 Right lower quadrant pain (principal); G89.29 Other chronic pain
CPT/HCPCS: 83013

== ENCOUNTER 2024-09-17 08:47 | Outpatient (REF) | payer OTHER, SELFPAY ==
--- NOTE | ~2024-09-17 | US_ITS ---
CLINICAL HISTORY: R09.89 - Other specified symptoms and signs involving the circulatory an... US Renal with Doppler Comparison: None Findings: Right kidney normal size and echotexture, 10.0 cm length. No hydronephrosis. Normal color Doppler. Resistive index 0.74. Left kidney normal size and echotexture, 10.8 cm length. No hydronephrosis. Normal color Doppler. Resistive index 0.75. Impression: Normal renal Doppler interrogation. This document has been electronically signed by: Arian Wilkes MD on 09/18/2024 10:11:13
== END 2024-09-17 08:48 | disposition home or self-care (01) ==
LOC: HO.US 08:47
PROVIDERS: PCP Family Medicine; Visit Provider Internal Medicine Cardiovascular Disease
DX: R09.89 Other specified symptoms and signs involving the circulatory and respiratory systems (principal)
CPT/HCPCS: 76775; 93975

== ENCOUNTER → 2024-09-17 08:52 | Outpatient (BNV) | payer OTHER, SELFPAY | PROVIDERS: PCP Family Medicine; Visit Provider Radiology Vascular & Interventional Radiology | DX: R09.89 Other specified symptoms and signs involving the circulatory and respiratory systems (principal) | CPT/HCPCS: 76775; 93975 ==

== ENCOUNTER 2024-09-28 12:42 | Outpatient (REF) | payer OTHER, SELFPAY ==
--- NOTE | ~2024-09-28 | MM_ITS ---
EXAMINATION: MM DIAGNOSTIC DIGITAL BREAST TOMOSYNTHESIS, RIGHT CLINICAL INFORMATION: Call back from screening for asymmetry in the right low axilla upper outer quadrant far posterior depth. COMPARISON: Mammography: Priors on PACS. TECHNIQUE: Digital breast tomosynthesis is performed in both the craniocaudal and mediolateral oblique views along with computer-aided detection (CAD). Synthesized 2D images are generated from the tomosynthesis. FINDINGS: There are scattered areas of fibroglandular density (ACR BI-RADS breast composition Category b). The previously seen asymmetry in the lower axilla upper outer right breast far posterior depth on MLO view does not persist on additional imaging projections and likely represented overlapping breast tissue. There is no architectural distortion. The imaging is stable dating back to 2021. There are no significant masses, abnormal calcifications, or other abnormalities. MM/MM tomosynthesis added views R IMPRESSION: There are no significant changes from prior study. ASSESSMENT: BI-RADS BI-RADS 1 - Negative RECOMMENDATION: 1 year F/U Results were provided to the patient at time of visit by the technologist. This patient's information was entered into a reminder system with a target due date for their next mammogram. Electronically signed by: Rhonda Cuba DO 09/28/2024 01:19 PM EDT
--- OUTSIDE RECORDS SUMMARY | 2024-09-28 12:56 | XMS_ITS | Patient Health Record ---
Author Organization [facility] Address [address] [place] [address] Care Team Providers Care Scullion Chief Name Role Phone MANISH MACE M.D. Primary Care Provider Un available Jaylin Brantley Unavailable [phone] Allergies Allergen (clinical drug ingredient) Drug/Non Drug [...] W/U Status Risk Notes Problem Lyme disease (98530719) Lyme disease (088.81) Active confirmed Problem Reflex sympathetic dystrophy of other specified site (337.29) Active confirmed Problem Disorder of breast (59688537) Disorder of breast, unspecified (N64.9) Active confirmed Problem Intermenstrual bleeding - irregular (28033469) Excessive and frequent menstruation with irregular cycle (N92.1) Active confirmed Problem Irregular Menstruation (41445035) Other specified irregular menstruation (N92.5) Active confirmed Problem Allergic rhinitis (72821015) Allergic rhinitis, cause unspecified (477.9) Active confirmed Major Problem Essential hypertension (61008049) Unspecified essential hypertension (401.9) Active confirmed Major Problem Metrorrhagia (88780002) Metrorrhagia (626.6) Active confirmed Major Problem Cellulitis (388902872) Cellulitis and abscess of unspecified site (682.9) Active confirmed Diag Problem Disorder of cartilage (11907694) Other and unspecified disorder of bone and cartilage (733.9) Active confirmed Major Plan Of Treatment Pending Test Test Name Order Date Ultrasound : Breast, right 07/10/2016 PAP SMEAR 06/15/2014 MAMMOGRAM, SCREENING 06/15/2014 Insurance Providers Payer Name Payer Address Payer Phone Subscriber Number Group Number Insured Name Patient Relationship to Insured Coverage Start Date Coverage End Date [facility] [address] [place] [address] [phone] [id number] MANISH THURMAN Self - patient is [...]
== END 2024-09-28 12:43 | disposition home or self-care (01) ==
LOC: HO.MAMMO 12:42
PROVIDERS: PCP Family Medicine; Visit Provider Family Medicine
DX: N64.89 Other specified disorders of breast (principal)
CPT/HCPCS: 77061; 77065

== ENCOUNTER → 2024-09-28 12:45 | Outpatient (BNV) | payer OTHER, SELFPAY | PROVIDERS: PCP Family Medicine; Visit Provider Internal Medicine | DX: R92.321 Mammographic fibroglandular density, right breast (principal) | CPT/HCPCS: 77061; 77065 ==

== ENCOUNTER 2024-10-16 07:20 | Outpatient (REF) | payer OTHER, SELFPAY ==
--- OUTSIDE RECORDS SUMMARY | 2024-10-16 07:23 | XMS_ITS | Patient Health Record ---
Author Organization [facility] Address [address] [place] [address] Care Team Providers Care Tax Map Technician Name Role Phone Becka Pace DO Primary Care Provider Frankie Rangelmie Unavailable [phone] Allergies Allergen (clinical drug ingredient) Drug/Non Drug Allergy documented on EMR Reaction Allergy Type Onset Date Status Chocolate Flavor headache Drug Allergy Active acetaminophen / oxycodone Percocet itching, headache Drug Allergy Active morphine Morphine itching, headache Drug Allergy Active Lamisil 250 Unknown Drug Allergy Activ e adhesive tape rash Drug Allergy Act librado Reason For Referral No Information Medications Medication SIG (Take, Route, Fr equency, Duration) Notes Start Date End Date Status Nortriptyline HCl 10 MG 1 capsule Orally Twice a day for 30 day(s) Active Gastrocrom 200mg as directed Orally Active ZyrTEC Allergy Activ e Diovan Active Atenolol Active Pamelor 10 MG 1 capsule Orally Twi ce a day for 30 day(s) 03/02/2011 Active Problems Problem Type SNOMED Code ICD Code Onset Dates Problem Status W/U Status Risk Notes Problem Ingrowing nail (868154219) Ingrowing Nail (703.0) Active confirmed Problem Onychomycosis (064440942) Onychomycosis (110.1) Active confirmed Problem Pain in limb (37368255) Pain in Limb (729.5) Active confirmed Problem RSD (337.22) Active confirmed Plan Of Treatment Pending Test Test Name Order Date [id number] NAIL, 6 OR MORE 01/22/2011 [id number] Plate 01/22/2011 73835-Gggvkrmb Plate 08/23/2011 96615-LZX 10/01/2011 61063- Debride <25 sq cm 11/05/2011 [id number] SKIN/TISSUE 10/15/2011 Insurance Providers Payer Name Payer Address Payer Phone Subscriber Number Group Number Insured Name Patient Relationship to Insured Coverage Start Date Coverage End Date [facility] [address] [facility] [place] [address] [id number] Manuela Moreno Self - patient is the insured Medical (General) History Medical History History ICD Code sinus conditions high blood pressure headaches/migraines chicken pox Surgical History Surgery Date(Month/Year) knee surgery 1994 shoulder surgery 2003
[2024-10-16 07:40] LABS: MANUAL DIFF FLAG NO
[2024-10-16 07:50] LABS: Basophils Percent Auto 0.5 % (0-2); Eosinophils Absolute Auto 0.1 X10*3/uL (0.0-0.4); Eosinophils Percent Auto 1.9 % (0-4); Hematocrit 36.5 % (37.0-47.0); Hemoglobin 11.8 g/dl (12.0-16.0); Imm Gran Abs Auto 0.02 X10*3/uL (0.00-0.03); Imm Gran Pct Auto 0.4 % (0.0-0.4); Lymphocytes Absolute Auto 1.5 X10*3/uL (1.2-4.9); Lymphocytes Percent Auto 26.9 % (20-40); Mean Corpuscular HGB Conc 32.3 g/dl (31.0-35.0); Mean Corpuscular Hemoglobin 30.1 pg (27.0-33.0); Mean Corpuscular Volume 93.1 fL (80.0-98.0); Monocytes Absolute Auto 0.5 X10*3/uL (0.1-1.2); Monocytes Percent Auto 8.1 % (2-11); Neutrophils Absolute Auto 3.5 x10*3/uL (2.0-8.3); Neutrophils Percent Auto 62.2 % (45-73); Platelet Count 283 X10*3/uL (160-400); Red Blood Count 3.92 X10*6/uL (4.20-5.50); Red Cell Distribution Width 12.5 % (11.0-16.0); White Blood Count 5.7 X10*3/uL (4.8-10.8)
[2024-10-16 08:14] LABS: Alanine Aminotransferase 26 U/L (0-31); Albumin Level 4.3 g/dL (3.5-5.0); Alkaline Phosphatase 54 U/L (39-117); Anion Gap 12 (12-20); Aspartate Amino Transferase 28 U/L (5-31); Bilirubin Total 0.3 mg/dL (0.0-1.0); Blood Urea Nitrogen 18 mg/dL (9-16); Calcium 9.6 mg/dL (8.4-10.2); Carbon Dioxide 27 mmol/L (22-29); Chloride 108 mmol/L (96-108); Estimated Glomerular Filt Rate > 60; Glucose Random 86 mg/dL (60-115); Potassium 4.3 mmol/L (3.3-5.1); Sodium 143 mmol/L (135-145); Total Protein 6.9 g/dL (6.5-8.0)
[2024-10-20 22:23] LABS: Anti Nuclear Antibody Screen POSITIVE (NEGATIVE)
[2024-10-21 20:50] LABS: C1 Esterase Inhibitor 94 % (>=68)
== END 2024-10-16 07:21 | disposition home or self-care (01) ==
LOC: HO.LAB 07:20
PROVIDERS: PCP Family Medicine; Visit Provider Internal Medicine Gastroenterology
DX: K75.81 Nonalcoholic steatohepatitis (NASH) (principal); R10.31 Right lower quadrant pain; R79.82 Elevated C-reactive protein (CRP); G89.29 Other chronic pain
CPT/HCPCS: 36415; 80053; 85025; 86038; 86039; 86160; 86161

== ENCOUNTER → 2024-10-20 07:28 | Outpatient (BNVA) | payer OTHER, SELFPAY | PROVIDERS: PCP Family Medicine; Visit Provider Internal Medicine Gastroenterology ==

== ENCOUNTER 2024-11-10 13:00 | Outpatient (REF) | payer OTHER, SELFPAY | END 2024-11-10 13:01 | disposition home or self-care (01) | LOC: HO.LNP 13:00 | PROVIDERS: PCP Family Medicine; Visit Provider Obstetrics & Gynecology | DX: Z01.419 Encounter for gynecological examination (general) (routine) without abnormal findings (principal) | CPT/HCPCS: 87626; 88175 ==

== ENCOUNTER 2024-11-10 13:00 | Outpatient (AMB) | payer OTHER, SELFPAY ==
--- NOTE | 2024-11-10 13:01 | MHC.OFFVIS ---
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 No complaints. Last Pap/HPV was negative in 11/29 Last Mammogram was BI-RADS 1 in 10/04 Last colonoscopy was in 08/04, the recommendation was to repeat in 10 years [facility] Medical History Bilateral carotid artery stenosis Hypertension Asthma Mast cell activation syndrome CARO positive Post-operative nausea and vomiting COVID-19 vaccine series completed Surgical History History of esophagogastroduodenoscopy (EGD) History of thumb surgery History of colonoscopy History of arthroscopy of left knee History of bunionectomy of right great toe History of thumb surgery Family History Father HTN (hypertension) Mother HTN (hypertension) CVD (cardiovascular disease) Social History Household Members: Spouse Household Members Other:: son Housing: House Are you a primary palliative care physician to a significant other at home: No Do you presently have visiting nurse or other home services: No Alcohol intake: former Patient Tobacco Use Status: Former Tobacco user Tobacco use type: Cigarette Current occupational status: employed 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 Sexual orientation: Straight/Heterosexual Gender identity: Female Female Reproductive History Menstrual Total pregnancies: 3 Full term: 2 Number of Living Children: 2 Date of last pap smear: 11/25/19 (negative pap smear, negative hpv ) Date of Mammogram: 09/28/24 (bi rad 1) Review of Systems Const All systems reviewed & are unremarkable except as noted in HPI and below Reports as per HPI and Reports no additional complaints Card Reports as per HPI Resp Reports as per HPI GI Reports no additional complaints Reports no additional complaints Physical Exam Vital Signs: Last Vital Signs BP 122/60 11/10/24 13:07 BMI result Body Mass Index 25.1 Const General: cooperative, healthy appearing and comfortable Chest Chest palpation & inspection: normal inspection of the chest and normal palpation of entire chest wall Breast/axilla inspection: normal inspection of the breasts and normal inspection of the axillae Breast/axilla palpation: normal palpation of the breasts, normal palpation of the axillae and no axillary lymphadenopathy Resp Effort & Inspection: normal respiratory effort Auscultation: clear to auscultation bilaterally Percussion: percussion normal Cardio Palpation: normal PMI Rate: regular rate Rhythm: regular rhythm Heart sounds: no murmurs and no rubs Peripheral pulses: Peripheral pulses 2+ throughout GI Inspection: Yes normal to inspection Palpation (GI): Soft to palpation, nontender, no guarding, not rigid and No hepatosplenomegaly present Percussion: Yes normal to percussion Auscultation: normal bowel sounds Rectal Exam - Female: deferred General: Yes bladder normal to palpation External Female Exam: No lesion Speculum Exam - Vagina: normal appearance of the vagina, normal palpation, normal vaginal discharge and not erythematous Speculum Exam - Cervix: normal appearance of the cervix and normal palpation Bimanual exam- vagina & uterus: normal bimanual exam, normal palpation, uterine size normal, bladder normal to palpation, consistency normal and normal palpation Bimanual Exam- Adnexa, other: normal adnexae, no masses and no tenderness Assessment & Plan Assessment & Plan (1) Well woman exam: Code(s): Z01.419 - Encounter for gynecological examination (general) (routine) without abnormal findings Category: Medical Plan: Co testing done. Counseled the patient about the recommended dietary allowance of 1200 mg of Calcium & 600 IU of vitamin D. Instructions given the patient to schedule next screening Mammogram in 10/05 The patient was instructed to perform monthly self-breast exams and schedule annual exam in a year. All questions answered and the patient verbalized understanding. Coding Level of Care Code Est Pt Prev Care 40-64y(79100) Diagnoses Well woman exam Z01.419
[2024-11-10 13:07] VITALS: BP 122/60; BMI 25.1
--- OUTSIDE RECORDS SUMMARY | 2024-11-10 14:00 | XMS_ITS | Patient Health Record ---
Author Organization [facility] Address [address] [place] [address] Care Team Providers Care Glass Decorator Name Role Phone MANISH MACE M.D. Primary Care Provider Un available Jaylin Brantley Unavailable [phone] Allergies Allergen (clinical drug ingredient) Drug/Non Drug Allergy documented on EMR Reaction Allergy Type Onset Date Status aspirin Aspirin Skin Rash Drug Allergy Active acetaminophen / oxycodone Percocet Itching Drug Allergy Active Reason For Referral No Information Medications Medication SIG (Take, Route, Fr equency, Duration) Notes Start Date End Date Status miSOPROStol 200 MCG 2 Orally night befor e procedure; Duration: 1 days 02/27/2016 Acti ve Aygestin 5 MG 1 tablet Orally as i nstructed; Duration: 90 days 02/06/2016 Active Anaprox DS 550 MG 1 tablet Orally Twic e a day as needed; Duration: 30 days 02/06/2016 Active Diovan 80MG 1 ORAL daily; Duration: -3 [facility] 01/22/2012 Active Multivitamins 1 ORAL daily; Duration: -3 [facility] 3 Active Aygestin 5 MG 1 tablet Orally BOB Y FROM DAYS 16 TO 25 OF HER CYCLES; Duration: 90 days 03/14/2016 Active Terazol 7 0.4 % 1 application at bed time Vaginal Once a day; Duration: 7 day(s) 03/09/2016 Active Atenolol 50MG 1 ORAL DAILY; Duration: -3 [facility] 2 Active Augmentin 500-125 MG 1 tablet Orally Twi ce a day; Duration: 7 days 03/09/2016 Active Immunizations Vaccine Route Administration Date Status Comme nts Tdap Intramuscular 04/26/2011 Pending Social History Sexual History Question Answer Notes Had sex in the past 12 months (vaginal, oral, or anal)? Yes with Men only Prevention strategies discussed: Other Problems Problem Type SNOMED Code ICD Code Onset Dates Problem Status W/U Status Risk Notes Problem Lyme disease (06402427) Lyme disease (088.81) Active confirmed Problem Reflex sympathetic dystrophy of other specified site (337.29) Active confirmed Problem Disorder of breast (28266950) Disorder of breast, unspecified (N64.9) Active confirmed Problem Intermenstrual bleeding - irregular (70202282) Excessive and frequent menstruation with irregular cycle (N92.1) Active confirmed Problem Irregular Menstruation (09758039) Other specified irregular menstruation (N92.5) Active confirmed Problem Allergic rhinitis (46717948) Allergic rhinitis, cause unspecified (477.9) Active confirmed Major Problem Essential hypertension (25578473) Unspecified essential hypertension (401.9) Active confirmed Major Problem Metrorrhagia (18514330) Metrorrhagia (626.6) Active confirmed Major Problem Cellulitis (931082342) Cellulitis and abscess of unspecified site (682.9) Active confirmed Diag Problem Disorder of cartilage (55257673) Other and unspecified disorder of bone and cartilage (733.9) Active confirmed Major Plan Of Treatment Pending Test Test Name Order Date Ultrasound : Breast, right 07/10/2016 PAP SMEAR 06/15/2014 MAMMOGRAM, SCREENING 06/15/2014 Insurance Providers Payer Name Payer Address Payer Phone Subscriber Number Group Number Insured Name Patient Relationship to Insured Coverage Start Date Coverage End Date [facility] [address] [place] [address] [phone] [id number] 001 MANISH THURMAN Self - patient is [...]
--- OUTSIDE RECORDS SUMMARY | 2024-11-10 14:00 | XMS_ITS | Patient Health Record ---
Author Organization [facility] Address [address] [place] [address] Care Team Providers Care Business Excellence Manager Name Role Phone Becka Pace DO Primary Care Provider Jazlyn Rangel Unavailable [phone] Allergies Allergen (clinical drug ingredient) Drug/Non Drug [...] 10 MG 1 capsule Orally Twice a day; Duration: 30 day(s) Active Gastrocrom 200mg as directed Orally Active ZyrTEC Allergy Activ e Diovan Active Atenolol Active Pamelor 10 MG 1 capsule Orally Twi ce a day; Duration: 30 day(s) 03/02/2011 Active Problems Problem Type SNOMED Code ICD Code Onset Dates Problem Status W/U Status Risk Notes Problem Ingrowing nail (346492919) Ingrowing Nail (703.0) Active confirmed Problem Onychomycosis (648361852) Onychomycosis (110.1) Active confirmed Problem Pain in limb (43831271) Pain in Limb (729.5) Active confirmed Problem RSD (337.22) Active confirmed Plan Of Treatment Pending Test Test Name Order Date [id number] NAIL, 6 OR MORE 01/22/2011 36925-Exrjgziv Plate 01/22/2011 61917-Ibznpfib Plate 08/23/2011 [id number] 10/01/2011 37973- Debride <25 sq cm 11/05/2011 [id number] SKIN/TISSUE 10/15/2011 Insurance Providers Payer Name Payer Address Payer Phone Subscriber Number Group Number Insured Name Patient Relationship to Insured Coverage Start Date Coverage End Date [facility] [address] [place] [address] [phone] [id number] Manuela Moreno Self - patient is the insured Medical (General) History Medical History History ICD Code sinus conditions high blood pressure headaches/migraines chicken pox Surgical History Surgery Date(Month/Year) knee surgery 1994 shoulder surgery 2003
== END 2024-11-10 13:28 | disposition home or self-care (01) ==
LOC: HO.HWS 13:00
PROVIDERS: PCP Family Medicine; Visit Provider Obstetrics & Gynecology
DX: Z01.419 Encounter for gynecological examination (general) (routine) without abnormal findings (principal)
CPT/HCPCS: 99396; 99459

== ENCOUNTER 2024-11-30 09:29 | Outpatient (REF) | payer OTHER, SELFPAY ==
--- NOTE | ~2024-11-30 | US_ITS ---
CLINICAL HISTORY: I65.23 - Occlusion and stenosis of bilateral carotid arteries US Bilateral Carotid Duplex Comparison: None provided Findings: No significant plaque within the common carotid arteries. No significant plaque within the carotid bulbs. Normal color doppler and waveforms morphology. Peak systolic velocities: Right CCA: 116 cm/s. Right ICA: 184 cm/s. ICA/CCA ratio: 1.6. Right ECA: 93 cm/sec. Right vertebral artery flow antegrade. Left CCA: 108 cm/s. Left ICA: 126 cm/s. ICA/CCA ratio: 1.1. Left ECA: 145. Left vertebral artery flow antegrade. IMPRESSION: 1. 50-69% bilateral internal carotid artery stenosis. This document has been electronically signed by: Carol Parrish MD on 12/01/2024 14:51:47
--- OUTSIDE RECORDS SUMMARY | 2024-11-30 09:59 | XMS_ITS | Patient Health Record ---
Author Organization [facility] Address [address] [place] [address] Care Team Providers Care Candy Dipper Hand Name Role Phone MANISH MACE M.D. Primary Care Provider Un available Jaylin Brantley Unavailable [phone] Allergies Allergen (clinical drug ingredient) Drug/Non Drug [...] Diovan 80MG 1 ORAL daily; Duration: -3 [facility] 01/22/2012 Active Multivitamins 1 ORAL daily; Duration: -3 [facility] 3 Active Aygestin 5 MG 1 tablet Orally BOB Y FROM DAYS 16 TO 25 OF HER CYCLES; Duration: 90 days 03/14/2016 Active Terazol 7 0.4 % 1 application at bed time Vaginal Once a day; Duration: 7 day(s) 03/09/2016 Active Atenolol 50MG 1 ORAL DAILY; Duration: -3 [facility] 2 Active Augmentin 500-125 MG 1 tablet [...] W/U Status Risk Notes Problem Lyme disease (78148244) Lyme disease (088.81) Active confirmed Problem Reflex sympathetic dystrophy of other specified site (337.29) Active confirmed Problem Disorder of breast (75402422) Disorder of breast, unspecified (N64.9) Active confirmed Problem Intermenstrual bleeding - irregular (59471224) Excessive and frequent menstruation with irregular cycle (N92.1) Active confirmed Problem Irregular Menstruation (34845644) Other specified irregular menstruation (N92.5) Active confirmed Problem Allergic rhinitis (12095503) Allergic rhinitis, cause unspecified (477.9) Active confirmed Major Problem Essential hypertension (36381766) Unspecified essential hypertension (401.9) Active confirmed Major Problem Metrorrhagia (96258975) Metrorrhagia (626.6) Active confirmed Major Problem Cellulitis (201690136) Cellulitis and abscess of unspecified site (682.9) Active confirmed Diag Problem Disorder of cartilage (55107074) Other and unspecified disorder of bone and cartilage (733.9) Active confirmed Major Plan Of Treatment Pending Test Test Name Order Date Ultrasound : Breast, right 07/10/2016 PAP SMEAR 06/15/2014 MAMMOGRAM, SCREENING 06/15/2014 Insurance Providers Payer Name Payer Address Payer Phone Subscriber Number Group Number Insured Name Patient Relationship to Insured Coverage Start Date Coverage End Date [facility] [address] [place] [address] [phone] [id number] MANISH THURMAN Self - patient is [...]
--- OUTSIDE RECORDS SUMMARY | 2024-11-30 09:59 | XMS_ITS | Patient Health Record ---
Author Organization [facility] Address [address] [place] [address] Care Team Providers Care Human Resources Team Member Name Role Phone Becka Pace DO Primary Care Provider Frankie Rangelmie Unavailable [phone] Allergies Allergen (clinical drug ingredient) Drug/Non Drug [...] W/U Status Risk Notes Problem Ingrowing nail (575050349) Ingrowing Nail (703.0) Active confirmed Problem Onychomycosis (920248649) Onychomycosis (110.1) Active confirmed Problem Pain in limb (87692258) Pain in Limb (729.5) Active confirmed Problem RSD (337.22) Active confirmed Plan Of Treatment Pending Test Test Name Order Date [id number] NAIL, 6 OR MORE 01/22/2011 [id number] Plate 01/22/2011 30488-Kislcsta Plate 08/23/2011 [id number] 10/01/2011 54352- Debride <25 sq cm 11/05/2011 [id number] SKIN/TISSUE 10/15/2011 Insurance Providers Payer Name Payer Address Payer Phone Subscriber Number Group Number Insured Name Patient Relationship to Insured Coverage Start Date Coverage End Date [facility] [address] [place] [address] [phone] [id number] Manuela Moreno Self - patient is the insured Medical (General) History Medical History History ICD Code sinus conditions high blood pressure headaches/migraines chicken pox Surgical History Surgery Date(Month/Year) knee surgery 1994 shoulder surgery 2003
== END 2024-11-30 09:30 | disposition home or self-care (01) ==
LOC: HO.HMGCX 09:29
PROVIDERS: PCP Family Medicine; Visit Provider Surgery Vascular Surgery
DX: I65.23 Occlusion and stenosis of bilateral carotid arteries (principal)
CPT/HCPCS: 93880

== ENCOUNTER → 2024-11-30 09:33 | Outpatient (BNV) | payer OTHER, SELFPAY | PROVIDERS: PCP Family Medicine; Visit Provider Radiology Diagnostic Radiology | DX: I65.23 Occlusion and stenosis of bilateral carotid arteries (principal) | CPT/HCPCS: 93880 ==

== ENCOUNTER 2024-12-11 09:58 | Outpatient (AMB) | payer OTHER, SELFPAY ==
[2024-12-11 10:01] VITALS: BP 110/68; PULSE 61; O2SAT 95; BMI 25.6
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
--- OUTSIDE RECORDS SUMMARY | 2024-12-11 10:10 | XMS_ITS | Patient Health Record ---
Author Organization [facility] Address [address] [place] [address] Care Team Providers Care Food Production Supervisor Name Role Phone Becka Pace DO Primary Care Provider Jazlyn Rangel Unavailable [phone] Allergies Allergen (clinical drug ingredient) Drug/Non Drug [...] W/U Status Risk Notes Problem Ingrowing nail (717322270) Ingrowing Nail (703.0) Active confirmed Problem Onychomycosis (513294413) Onychomycosis (110.1) Active confirmed Problem Pain in limb (83984062) Pain in Limb (729.5) Active confirmed Problem RSD (337.22) Active confirmed Plan Of Treatment Pending Test Test Name Order Date [id number] NAIL, 6 OR MORE 01/22/2011 [id number] Plate 01/22/2011 [id number] Plate 08/23/2011 [id number] 10/01/2011 27898- Debride <25 sq cm 11/05/2011 [id number] SKIN/TISSUE 10/15/2011 Insurance Providers Payer Name Payer Address Payer Phone Subscriber Number Group Number Insured Name Patient Relationship to Insured Coverage Start Date Coverage End Date [facility] [address] [place] [address] [id number] Manuela Moreno Self - patient is the insured Medical (General) History Medical History History ICD Code sinus conditions high blood pressure headaches/migraines chicken pox Surgical History Surgery Date(Month/Year) knee surgery 1994 shoulder surgery 2003
--- OUTSIDE RECORDS SUMMARY | 2024-12-11 10:10 | XMS_ITS | Patient Health Record ---
Author Organization [facility] Address [address] [place] [address] Care Team Providers Care Zipper Ironer Name Role Phone MANISH MACE M.D. Primary Care Provider Un available Jaylin Brantley Unavailable [phone] Allergies Allergen (clinical drug ingredient) Drug/Non Drug [...] Diovan 80MG 1 ORAL daily; Duration: -3 [facility] 01/22/2012 Active Multivitamins 1 ORAL daily; Duration: -3 [facility] 3 Active Aygestin 5 MG 1 tablet Orally BOB Y FROM DAYS 16 TO 25 OF HER CYCLES; Duration: 90 days 03/14/2016 Active Terazol 7 0.4 % 1 application at bed time Vaginal Once a day; Duration: 7 day(s) 03/09/2016 Active Atenolol 50MG 1 ORAL DAILY; Duration: -3 [facility] 2 Active Augmentin 500-125 MG 1 tablet [...] W/U Status Risk Notes Problem Lyme disease (03633962) Lyme disease (088.81) Active confirmed Problem Reflex sympathetic dystrophy of other specified site (337.29) Active confirmed Problem Disorder of breast (59029530) Disorder of breast, unspecified (N64.9) Active confirmed Problem Intermenstrual bleeding - irregular (14248099) Excessive and frequent menstruation with irregular cycle (N92.1) Active confirmed Problem Irregular Menstruation (66970759) Other specified irregular menstruation (N92.5) Active confirmed Problem Allergic rhinitis (83249205) Allergic rhinitis, cause unspecified (477.9) Active confirmed Major Problem Essential hypertension (13896154) Unspecified essential hypertension (401.9) Active confirmed Major Problem Metrorrhagia (04753436) Metrorrhagia (626.6) Active confirmed Major Problem Cellulitis (081517895) Cellulitis and abscess of unspecified site (682.9) Active confirmed Diag Problem Disorder of cartilage (69519733) Other and unspecified disorder of bone and cartilage (733.9) Active confirmed Major Plan Of Treatment Pending Test Test Name Order Date Ultrasound : Breast, right 07/10/2016 PAP SMEAR 06/15/2014 MAMMOGRAM, SCREENING 06/15/2014 Insurance Providers Payer Name Payer Address Payer Phone Subscriber Number Group Number Insured Name Patient Relationship to Insured Coverage Start Date Coverage End Date [facility] [address] [place] [address] [id number] MANISH THURMAN Self - patient is [...]
== END 2024-12-11 10:41 | disposition home or self-care (01) ==
LOC: HO.HPSW 09:59
PROVIDERS: PCP Family Medicine; Visit Provider Nurse Practitioner Family
DX: J45.909 Unspecified asthma, uncomplicated (principal); D89.40 Mast cell activation, unspecified; R76.8 Other specified abnormal immunological findings in serum; R91.8 Other nonspecific abnormal finding of lung field
CPT/HCPCS: 99214

== ENCOUNTER 2024-12-29 09:10 | Outpatient (AMB) | payer OTHER, SELFPAY ==
[2024-12-29 09:14] VITALS: BP 120/80; BMI 25.6
--- NOTE | 2024-12-29 09:14 | MHC.OFFVIS ---
Vital Signs 12/29/24 09:14 12/29/24 09:25 Height 5 ft 4 in Weight 149 lb BMI 25.6 BP 120/80 128/78 Blood Pressure Location Lt brachial Rt brachial Position Sitting Sitting Intake Visit Reasons: 1y follow up s/p Carotid US 12/01/24 Intake Note: 1 yr follow up carotid stenosis s/p carotid US 11/30/24. 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 Teacher Required: No Accompanied by: Self / Same As Patient Allergies codeine (CODEINE) Allergy (Intermediate, Verified 12/29/24 09:20) RASH, HIVES dupilumab (From Dupixent Pen) Allergy (Intermediate, Verified 12/29/24 09:20) Hives adhesive tape (Adhesive Tape) Allergy (Mild, Verified 12/29/24 09:20) blisters from clear plastic tape-cloth tape ok morphine (MORPHINE) Allergy (Mild, Verified 12/29/24 09:20) HIVES oxycodone (OXYCODONE) Allergy (Mild, Verified 12/29/24 09:20) HIVES omalizumab (From Xolair) Allergy (Verified 12/29/24 09:20) Hives HPI HPI 1y follow up s/p Carotid US 12/01/24: Details: The patient is a 59-year-old female presenting with a follow-up for carotid artery stenosis. In terms of her carotids she remains asymptomatic and The patient has a history of celiac disease confirmed through routine colonoscopy and endoscopy. She has been sensitive to gluten and has been advised to avoid it strictly. The patient was diagnosed with Matos's esophagus following an endoscopy, which also revealed her reflux issues. She has been prescribed Protonix and was already on famotidine for her mast cell condition. The patient experiences asthma exacerbations, which she initially attributed to her raspy voice, but it was later linked to her reflux condition. The patient has been diagnosed with acquired angioedema after experiencing repeated swelling episodes. She was prescribed Rukonest as a rescue medication and Andembree as a maintenance therapy, which has been effective in preventing further attacks. The patient has a history of hypertension, which was previously uncontrolled but has improved with an increased dose of valsartan. She also uses atenolol as needed for additional blood pressure control. The patient has a family history of carotid artery stenosis, with two sisters also affected. [facility] Medical History Bilateral carotid artery stenosis Hypertension Asthma Mast cell activation syndrome CARO positive Post-operative nausea and vomiting COVID-19 vaccine series completed Surgical History History of esophagogastroduodenoscopy (EGD) History of thumb surgery History of colonoscopy History of arthroscopy of left knee History of bunionectomy of right great toe History of thumb surgery Family History Father HTN (hypertension) Mother HTN (hypertension) CVD (cardiovascular disease) Social History Household Members: Spouse Household Members Other:: son Housing: House Are you a primary care transition mgr to a significant other at home: No Do you presently have visiting nurse or other home services: No Alcohol intake: former Patient Tobacco Use Status: Former Tobacco user Tobacco use type: Cigarette Current occupational status: employed 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 Sexual orientation: Straight/Heterosexual Gender identity: Female Review of Systems Const All systems reviewed & are unremarkable except as noted in HPI and below Reports no additional complaints ENT Reports Normal hearing present Card Denies chest pain, Denies chest pain at rest, Denies chest pain with activity and Denies pedal edema Resp Denies cough GI Denies abdominal pain Musc Denies abnormal gait, Denies muscle cramps and Denies radiating pain into limb Skin/Breast Denies skin ulcer and Denies wounds Neuro Reports Normal hearing present and Denies abnormal gait Psych Reports no additional complaints Physical Exam Vital Signs: Last Vital Signs BP 128/78 12/29/24 09:25 BMI result Body Mass Index 25.6 Const General: cooperative, healthy appearing and comfortable Orientation/consciousness: oriented to person, oriented to place and oriented to time HEENT Head: Yes normal to inspection Neck Neck: Yes normal visual inspection Carotids: no bruits Chest Chest palpation & inspection: normal inspection of the chest Resp Effort & Inspection: normal respiratory effort and able to speak in complete sentences Auscultation: clear to auscultation bilaterally, no crackles, no rales, no rhonchi and no wheezes Cardio Rate: regular rate Rhythm: regular rhythm Heart sounds: S1 normal heart sound present and S2 normal heart sound present Bruits: no carotid bruits Peripheral pulses: Peripheral pulses 2+ throughout GI Inspection: Yes normal to inspection Skin Wounds: no wounds Hair: normal Neuro General: oriented to person, oriented to place and oriented to time Cranial nerves: Yes CN's II-XII intact bilaterally and Yes Normal hearing present Cognition (Neuro): normal cognition Motor exam (neuro): 5/5 motor strength present throughout Extrem Other: venous exam: No significant superficial varicosities or spider telangiectasias, minimal edema General: No clubbing, No cyanosis and No edema Psych Appearance: grossly normal Mental Status: mental status grossly normal Speech and movement: Normal speech and movement present Results Reviewed Results Reviewed: Carotid ultrasound dated 11/30/2024 demonstrates bilateral 50-69% stenosis with a peak systolic on the right of 184 and on the left of 126. This leads me to believe this is more closer towards the 50% side. Written report and images were reviewed. Assessment & Plan Assessment & Plan (1) Bilateral carotid artery stenosis: Code(s): I65.23 - Occlusion and stenosis of bilateral carotid arteries Category: Medical Plan: In short patient has asymptomatic carotid disease. We have reviewed signs and symptoms of a stroke. We also discussed risk factor modification inclusive a healthy diet low in cholesterol. The patient will follow up with us with surveillance ultrasound of the carotids 1 year. Should there be any changes or signs or symptoms of a stroke we will be happy to see them back sooner. Thank you for allowing us to participate in this patient's care. If there are any questions or concerns please do not hesitate to contact us. Plan Patient was informed and verbally consented to the use of an ambient scribe for clinic note documentation during this visit. Orders: Orders US carotid duplex BI 1 Year I65.23 - Occlusion and stenosis of bilateral carotid arteries Coding Level of Care Code Est Pt Level 4 (07955) Complex EM visit Add On G2211 Diagnoses Bilateral carotid artery stenosis I65.23
[2024-12-29 09:25] VITALS: BP 128/78
--- OUTSIDE RECORDS SUMMARY | 2024-12-29 10:09 | XMS_ITS | Patient Health Record ---
Author Organization [facility] Address [address] [place] [address] Care Team Providers Care Cigar Head Holer Name Role Phone Becka Pace DO Primary Care Provider Frankie Rangelmie Unavailable [phone] Allergies Allergen (clinical drug ingredient) Drug/Non Drug [...] W/U Status Risk Notes Problem Ingrowing nail (042426640) Ingrowing Nail (703.0) Active confirmed Problem Onychomycosis (339811883) Onychomycosis (110.1) Active confirmed Problem Pain in limb (23548734) Pain in Limb (729.5) Active confirmed Problem RSD (337.22) Active confirmed Plan Of Treatment Pending Test Test Name Order Date [id number] NAIL, 6 OR MORE 01/22/2011 [id number] Plate 01/22/2011 12943-Oesafvju Plate 08/23/2011 [id number] 10/01/2011 04808- Debride <25 sq cm 11/05/2011 [id number] SKIN/TISSUE 10/15/2011 Insurance Providers Payer Name Payer Address Payer Phone Subscriber Number Group Number Insured Name Patient Relationship to Insured Coverage Start Date Coverage End Date [facility] [address] [place] [address] [id number] Manuela Moreno Self - patient is the insured Medical (General) History Medical History History ICD Code sinus conditions high blood pressure headaches/migraines chicken pox Surgical History Surgery Date(Month/Year) knee surgery 1994 shoulder surgery 2003
--- OUTSIDE RECORDS SUMMARY | 2024-12-29 10:09 | XMS_ITS | Patient Health Record ---
Author Organization [facility] Address [address] [place] [address] Care Team Providers Care Termite Renewal Inspector Name Role Phone MANISH MACE M.D. Primary Care Provider Un available Jaylin Brantley Unavailable [phone] Allergies Allergen (clinical drug ingredient) Drug/Non Drug [...] Diovan 80MG 1 ORAL daily; Duration: -3 [facility] 01/22/2012 Active Multivitamins 1 ORAL daily; Duration: -3 [facility] 3 Active Aygestin 5 MG 1 tablet Orally BOB Y FROM DAYS 16 TO 25 OF HER CYCLES; Duration: 90 days 03/14/2016 Active Terazol 7 0.4 % 1 application at bed time Vaginal Once a day; Duration: 7 day(s) 03/09/2016 Active Atenolol 50MG 1 ORAL DAILY; Duration: -3 [facility] 2 Active Augmentin 500-125 MG [...] W/U Status Risk Notes Problem Lyme disease (79332905) Lyme disease (088.81) Active confirmed Problem Reflex sympathetic dystrophy of other specified site (337.29) Active confirmed Problem Disorder of breast (79077934) Disorder of breast, unspecified (N64.9) Active confirmed Problem Intermenstrual bleeding - irregular (34384243) Excessive and frequent menstruation with irregular cycle (N92.1) Active confirmed Problem Irregular Menstruation (69793447) Other specified irregular menstruation (N92.5) Active confirmed Problem Allergic rhinitis (62399425) Allergic rhinitis, cause unspecified (477.9) Active confirmed Major Problem Essential hypertension (31896669) Unspecified essential hypertension (401.9) Active confirmed Major Problem Metrorrhagia (78958294) Metrorrhagia (626.6) Active confirmed Major Problem Cellulitis (675760591) Cellulitis and abscess of unspecified site (682.9) Active confirmed Diag Problem Disorder of cartilage (85260703) Other and unspecified disorder of bone and cartilage (733.9) Active confirmed Major Plan Of Treatment Pending Test Test Name Order Date Ultrasound : Breast, right 07/10/2016 PAP SMEAR 06/15/2014 MAMMOGRAM, SCREENING 06/15/2014 Insurance Providers Payer Name Payer Address Payer Phone Subscriber Number Group Number Insured Name Patient Relationship to Insured Coverage Start Date Coverage End Date [facility] [address] [place] [address] [id number] MANISH THURMAN Self - patient is [...]
== END 2024-12-29 09:54 | disposition home or self-care (01) ==
LOC: HO.HVS 09:11
PROVIDERS: PCP Family Medicine; Visit Provider Surgery Vascular Surgery
DX: I65.23 Occlusion and stenosis of bilateral carotid arteries (principal)
CPT/HCPCS: 99214

== ENCOUNTER 2025-01-16 12:43 | Outpatient (AMB) | payer OTHER, SELFPAY ==
--- OUTSIDE RECORDS SUMMARY | 2025-01-16 12:47 | XMS_ITS | Patient Health Record ---
Author Organization [facility] Address [address] [place] [address] Care Team Providers Care Principal Programmer Name Role Phone Becka Pace DO Primary Care Provider Jazlyn Rangel Unavailable [phone] Allergies Allergen (clinical drug ingredient) Drug/Non Drug [...] W/U Status Risk Notes Problem Ingrowing nail (292718694) Ingrowing Nail (703.0) Active confirmed Problem Onychomycosis (794127664) Onychomycosis (110.1) Active confirmed Problem Pain in limb (73403917) Pain in Limb (729.5) Active confirmed Problem RSD (337.22) Active confirmed Plan Of Treatment Pending Test Test Name Order Date [id number] NAIL, 6 OR MORE 01/22/2011 [id number] Plate 01/22/2011 30420-Ptfxkcet Plate 08/23/2011 12549-YPU 10/01/2011 23107- Debride <25 sq cm 11/05/2011 87586-PRNIDVM SKIN/TISSUE 10/15/2011 Insurance Providers Payer Name Payer Address Payer Phone Subscriber Number Group Number Insured Name Patient Relationship to Insured Coverage Start Date Coverage End Date [facility] [address] [place] [address] [id number] Manuela Moreno Self - patient is the insured Medical (General) History Medical History History ICD Code sinus conditions high blood pressure headaches/migraines chicken pox Surgical History Surgery Date(Month/Year) knee surgery 1994 shoulder surgery 2003
--- OUTSIDE RECORDS SUMMARY | 2025-01-16 12:47 | XMS_ITS | Patient Health Record ---
Author Organization [facility] Address [address] [place] [address] Care Team Providers Care Guest Services Name Role Phone MANISH MACE M.D. Primary Care Provider Un available Jaylin Brantley Unavailable [phone] Allergies Allergen (clinical drug ingredient) Drug/Non Drug [...] Diovan 80MG 1 ORAL daily; Duration: -3 [facility] 01/22/2012 Active Multivitamins 1 ORAL daily; Duration: -3 [facility] 3 Active Aygestin 5 MG 1 tablet Orally BOB Y FROM DAYS 16 TO 25 OF HER CYCLES; Duration: 90 days 03/14/2016 Active Terazol 7 0.4 % 1 application at bed time Vaginal Once a day; Duration: 7 day(s) 03/09/2016 Active Atenolol 50MG 1 ORAL DAILY; Duration: -3 [facility] 2 Active Augmentin 500-125 MG 1 [...] W/U Status Risk Notes Problem Lyme disease (22879702) Lyme disease (088.81) Active confirmed Problem Reflex sympathetic dystrophy of other specified site (337.29) Active confirmed Problem Disorder of breast (61939566) Disorder of breast, unspecified (N64.9) Active confirmed Problem Intermenstrual bleeding - irregular (49723322) Excessive and frequent menstruation with irregular cycle (N92.1) Active confirmed Problem Irregular Menstruation (32837792) Other specified irregular menstruation (N92.5) Active confirmed Problem Allergic rhinitis (79369644) Allergic rhinitis, cause unspecified (477.9) Active confirmed Major Problem Essential hypertension (96600721) Unspecified essential hypertension (401.9) Active confirmed Major Problem Metrorrhagia (14509684) Metrorrhagia (626.6) Active confirmed Major Problem Cellulitis (524043601) Cellulitis and abscess of unspecified site (682.9) Active confirmed Diag Problem Disorder of cartilage (49607269) Other and unspecified disorder of bone and cartilage (733.9) Active confirmed Major Plan Of Treatment Pending Test Test Name Order Date Ultrasound : Breast, right 07/10/2016 PAP SMEAR 06/15/2014 MAMMOGRAM, SCREENING 06/15/2014 Insurance Providers Payer Name Payer Address Payer Phone Subscriber Number Group Number Insured Name Patient Relationship to Insured Coverage Start Date Coverage End Date [facility] [address] [place] [address] [id number] MANISH THURMAN Self - patient is [...]
[2025-01-16 12:48] VITALS: BP 112/70; PULSE 73; RESP 15; TEMP 36.6; O2SAT 98; BMI 26.6
--- NOTE | 2025-01-16 12:48 | MHC.OFFWIV ---
Intake Vital Signs 01/16/25 12:48 Height 5 ft 4 in Weight 155 lb BMI 26.6 BP 112/70 Blood Pressure Location Rt brachial Position Sitting Respiration 15 Pulse 73 Pulse Source Pulse Oximeter Temp 97.9 F Temp Source Oral Pulse Oximetry (%) 98 Oxygen Delivery Method Room Air Intake Visit Reasons: EP-UTI Intake Note: Pt is here today c/o lower Lt groin pain and frequent urinatin x1day Patient Tobacco Use Status: Former Tobacco user Allergies codeine (CODEINE) Allergy (Intermediate, Verified 01/16/25 13:09) RASH, HIVES dupilumab (From Dupixent Pen) Allergy (Intermediate, Verified 01/16/25 13:09) Hives adhesive tape (Adhesive Tape) Allergy (Mild, Verified 01/16/25 13:09) blisters from clear plastic tape-cloth tape ok morphine (MORPHINE) Allergy (Mild, Verified 01/16/25 13:09) HIVES oxycodone (OXYCODONE) Allergy (Mild, Verified 01/16/25 13:09) HIVES omalizumab (From Xolair) Allergy (Verified 01/16/25 13:09) Hives Medication List - Last Reconciled 01/16/25 by Irene Jaimes, GLASS MOULD CLEANER- albuterol-budesonide 90-80 mcg/actuation (Airsupra) inhalations inhalation ascorbate calcium (vitamin C) 500 mg PO DAILY aspirin 81 mg PO DAILY atenolol 25 mg PO BID ytcwqvongz-lwrlozjx-lshbxhiswq 160-9-4.8 mcg/actuation (Breztri Aerosphere) inhalations inhalation C1 esterase inhibitor, recomb (Ruconest) IV cyproheptadine 4 mg PO BEDTIME epinephrine 0.3 mg IM ONCE PRN fexofenadine (Brittni Allergy) 120 mg PO DAILY fluticasone furoate 27.5 mcg/actuation (Flonase Sensimist) 2 sprays intranasal DAILY garadacimab-gxii (Andembry Autoinjector) 200 mg subcut Q30D ibuprofen 600 mg PO Q6-8H PRN levalbuterol HCl 1.25 mg (3 mL) inhalation Q4-6H PRN levocetirizine (Xyzal) 10 mg PO QPM PRN magnesium glycinate mg PO montelukast (Singulair) 10 mg PO BEDTIME multivitamin 1 tab PO DAILY pantoprazole 40 mg PO DAILY 90 days riboflavin (vitamin B2) 400 mg PO DAILY rosuvastatin 40 mg PO BEDTIME tezepelumab-ekko (Tezspire) 210 mg subcut Q4W tramadol 50 mg PO Q8H PRN valsartan 40 mg PO BID HPI HPI Comments History of Present Illness Details History of Present Illness - The patient is a 59-year-old female presenting with Left groin pain and nausea. - Onset of groin pain started yesterday, resembling previous UTI episodes. - Pain localized to left lower quadrant, described as burning. - Associated nausea and increased urination reported. - No fever; periods of sweating noted. - Denies vaginal bleeding, discharge, or history of kidney stones. - Recent colonoscopy indicated diverticulosis without diverticulitis. - Denies change in bowel movements; history of mast cell disease, celiac disease. Review of Systems - Gastrointestinal: Reports nausea, left lower quadrant pain; Denies change in bowel habits or vaginal bleeding. - Genitourinary: Reports burning groin pain, increased urinary frequency; Denies vaginal discharge. - General: Reports periods of sweating; Denies fever. - Previous medical history: Denies history of kidney stones. Physical Exam General: Well developed, well nourished, in no acute distress. Appears stated age. Head: Normocephalic, atraumatic. Eyes: Scleras nonicteric bilat MMM Lungs: Speaking in full sentences. Abdomen: Left lower quadrant tenderness with rebound noted. The abdomen is soft with no masses or organomegaly noted. No hernias are noted. + CVAT. Negative murphys sign. Negative jump sign. Psych: Mood and affect appropriate Results UA negative, see below. Discussion Notes I discussed with the patient the her acute abdomen that requires imaging, emphasizing the importance of going to the emergency department (ER) for further evaluation such as a CT scan, which is not available in my office. I explained that her symptoms could indicate conditions such as a diverticulitis abscess, appendicitis or a kidney stone. The symptoms described were not consistent with a UTI due to lack of positive urine dipstick findings despite her history of similar pain. She declined ED eval and tx. We discussed the option of starting an antibiotic, ciprofloxacin, covering the kidneys, bladder, and bowel, with shared decision-making. I informed the patient that if she gets worse, she should proceed to the ED. I also discussed the small associated risk of tendon rupture with ciprofloxacin and instructed her to report any tendon pain immediately. The patient expressed a willingness to try the antibiotic, acknowledging the potential risk of worsening symptoms. She stated that she is only 10 minutes from the hospital, emphasizing her understanding of the need for potentially urgent evaluation. She is accepting of risks, up to and including . Dietary adjustments to a liquid diet were advised to go easy on the bowel if diverticulitis is in consideration. I also provided guidance on managing potential celiac disease complications, although I noted it would not cause an infection. Possible outcomes and reasons for further emergency evaluation were thoroughly discussed, and I reiterated the need for follow-up if symptoms progress. Patient was given time to ask questions. All questions were answered to their satisfaction. Assessment and Plan 1. LLQ Pain - Initiate ciprofloxacin for possible urinary/bowel infection. - ER for imaging if symptoms worsen, suspect acute abdomen. - Negative dipstick; advised with precautions for ciprofloxacin. Patient Instructions - Take ciprofloxacin as prescribed. - Drink plenty of water to prevent tendon issues. - Follow a liquid diet to ease bowel strain. - Visit the ER if symptoms like severe pain or additional symptoms develop. - Keep us informed of any side effects or worsening symptoms. - Monitor for tendon discomfort and stop medication if it occurs. Consent Patient was informed and verbally consented to the use of an ambient scribe for clinic note documentation during this visit. Total time spent caring for the patient today was 30 minutes. This includes time spent before the visit reviewing the chart, time spent during the visit, and time spent after the visit on documentation, reviewing laboratory results, diagnostic imaging, medications, performing a medically necessary evaluation, counseling on diagnoses, care coordination, ordering appropriate tests, ordering appropriate medications, review of tests performed by other providers, reporting test results with the patient, communication with other healthcare providers. [facility] Medical History Bilateral carotid artery stenosis Hypertension Asthma Mast cell activation syndrome CARO positive Post-operative nausea and vomiting COVID-19 vaccine series completed Surgical History History of esophagogastroduodenoscopy (EGD) History of thumb surgery History of colonoscopy History of arthroscopy of left knee History of bunionectomy of right great toe History of thumb surgery Family History Father HTN (hypertension) Mother HTN (hypertension) CVD (cardiovascular disease) Social History Household Members: Spouse Household Members Other:: son Housing: House Are you a primary healthcare representative to a significant other at home: No Do you presently have visiting nurse or other home services: No Alcohol intake: former Patient Tobacco Use Status: Former Tobacco user Tobacco use type: Cigarette Current occupational status: employed 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 Sexual orientation: Straight/Heterosexual Gender identity: Female Physical Exam Vital Signs: Last Vital Signs Temp 97.9 F 01/16/25 12:48 Pulse 73 01/16/25 12:48 Resp 15 01/16/25 12:48 BP 112/70 01/16/25 12:48 Pulse Ox 98 01/16/25 12:48 Oxygen Delivery Method Room Air 01/16/25 12:48 BMI result Body Mass Index 26.6 Results AMB Urinalysis, Automated UA Leukoctes 0 Bg/uL Last Edit by Navya Huitron CMA on 01/16/25 12:57 UA Nitrite Negative Last Edit by Navya Huitron CMA on 01/16/25 12:57 UA Urobilinogen 0.2 mg/dL Last Edit by Navya Huitron CMA on 01/16/25 12:57 UA Protein 0 mg/dL Last Edit by Navya Huitron CMA on 01/16/25 12:57 UA pH 6.5 Last Edit by Navya Huitron CMA on 01/16/25 12:57 UA Blood 0 Jesus/uL Last Edit by Navya Huitron CMA on 01/16/25 12:57 UA Specific [place] 1.005 Last Edit by Navya Huitron CMA on 01/16/25 12:57 UA Ketone Negative Last Edit by Navya Huitron CMA on 01/16/25 12:57 UA Bilirubin 0 mg/dL Last Edit by Navya Huitron CMA on 01/16/25 12:57 UA Glucose 0 mg/dL Last Edit by Navya Huitron CMA on 01/16/25 12:57 Results Reviewed Results Reviewed: Laboratory Last Values Urine pH (Auto) 6.5 01/16/25 12:49 Specific [place] (Auto) 1.005 01/16/25 12:49 Urine Protein (Auto) 0 mg/dL 01/16/25 12:49 Glucose (UA)(Auto) 0 mg/dL 01/16/25 12:49 Urine Ketones (Auto) Negative 01/16/25 12:49 Urine Blood (Auto) 0 Jesus/uL 01/16/25 12:49 Urine Nitrite (Auto) Negative 01/16/25 12:49 Urine Bilirubin (Auto) 0 mg/dL 01/16/25 12:49 Urine Urobilinogen (Auto) 0.2 mg/dL 01/16/25 12:49 Leukocyte Esterase (Auto) 0 Bg/uL 01/16/25 12:49 Assessment & Plan Assessment & Plan (1) Acute abdominal pain in left lower quadrant: Code(s): R10.32 - Left lower quadrant pain (2) Nausea alone: Code(s): R11.0 - Nausea (3) Mast cell activation syndrome: Code(s): D89.40 - Mast cell activation, unspecified (4) Celiac disease: Code(s): K90.0 - Celiac disease Plan . Orders: Orders AMB Urinalysis Automated Today Z13.9 - Encounter for screening, unspecified Medications: New ciprofloxacin HCl 500 mg PO Q12H 14 tabs 0RF Coding Level of Care Code Est Pt Level 4 (86227) Diagnoses Acute abdominal pain in left lower quadrant R10.32 Nausea alone R11.0 Mast cell activation syndrome D89.40 Celiac disease K90.0
== END 2025-01-16 13:39 | disposition home or self-care (01) ==
LOC: HO.HMCWIC 12:43
PROVIDERS: PCP Family Medicine; Visit Provider Nurse Practitioner Family
DX: R10.32 Left lower quadrant pain (principal); R11.0 Nausea; D89.40 Mast cell activation, unspecified; K90.0 Celiac disease; Z13.9 Encounter for screening, unspecified

== ENCOUNTER → 2025-01-16 12:43 | Outpatient (BNVA) | payer OTHER, SELFPAY | PROVIDERS: PCP Family Medicine; Visit Provider Nurse Practitioner Family | DX: R10.32 Left lower quadrant pain (principal); R11.0 Nausea; D89.40 Mast cell activation, unspecified; K90.0 Celiac disease | CPT/HCPCS: 81003 ==

== ENCOUNTER 2025-01-21 23:42 | Emergency (ER) | payer OTHER, SELFPAY ==
--- NOTE | ~2025-01-21 | XR_ITS ---
CLINICAL HISTORY: direct blow left GT 2 view left femur Comparison: None provided Findings: No fractures or dislocations. No knee effusion. No significant arthritic change. No radiopaque foreign body. IMPRESSION: 1. Normal left femur This document has been electronically signed by: Semaj Mcintosh MD on 01/22/2025 00:33:28
--- NOTE | ~2025-01-21 | XR_ITS ---
CLINICAL HISTORY: pain left hip 1 view pelvis Comparison: None provided Findings: No acute fracture or dislocation. No significant arthritic changes. Soft tissues are unremarkable. IMPRESSION: 1. No acute findings. This document has been electronically signed by: Semaj Mcintosh MD on 01/22/2025 00:37:24
--- NOTE | 2025-01-21 23:44 | ED.LOWEXIN ---
HPI - Extremity Injury (Lower) General Chief Complaint: Extremity Injury, Lower Stated Complaint: hip inj Time Seen by Provider: 01/21/25 23:57 Source: patient and family () Mode of arrival: wheelchair Limitations: no limitations History of Present Illness ED Provider: HPI Narrative: 59-year-old woman presenting with left upper thigh pain after being slammed into fence pole by her dogs, there was no fall, there was no twisting, she states initially she felt fine and has been ambulating without any issues and then later on she started developing significant pain over the thigh area, has a history of mast cell activation syndrome unable to take lots of we will opiate medications but she did try ice, acetaminophen and had a few tramadol at home without relief. Denies any other trauma Related Data Home Medications ?Medication ?Instructions ?Recorded ?Confirmed multivitamin 1 tab PO DAILY 04/19/20 01/16/25 ascorbate calcium (vitamin C) 500 500 mg PO DAILY 04/12/21 01/16/25 mg tablet aspirin 81 mg tablet 81 mg PO DAILY 07/20/21 01/16/25 cyproheptadine 4 mg tablet 4 mg PO BEDTIME 06/25/22 01/16/25 magnesium glycinate mg PO 06/25/22 01/16/25 riboflavin (vitamin B2) 400 mg 400 mg PO DAILY 06/25/22 01/16/25 tablet epinephrine 0.3 mg/0.3 mL 0.3 mg IM ONCE PRN Anaphylaxis 11/27/22 01/16/25 injection, auto-injector albuterol 90 mcg-budesonide 80 inh inhalation 04/21/24 01/16/25 mcg/actuation HFA aerosol inhaler (Airsupra) budesonide 160 mcg-glycopyr 9 inh inhalation 04/21/24 01/16/25 mcg-formot 4.8 mcg/actuation HFA inhaler (Breztri Aerosphere) fexofenadine 60 mg tablet (Brittni 120 mg PO DAILY 04/21/24 01/16/25 Allergy) fluticasone furoate 27.5 2 spray intranasal DAILY 04/21/24 01/16/25 mcg/actuation nasal spray,suspension (Flonase Sensimist) levocetirizine 5 mg tablet (Xyzal) 10 mg PO QPM PRN Allergy Symptoms 04/21/24 01/16/25 tezepelumab-ekko 210 mg/1.91 mL 210 mg subcut Q4W 04/21/24 01/16/25 (110 mg/mL) subcutaneous syringe (Tezspire) C1 esterase inhibitor, recomb IV 12/11/24 01/16/25 2,100 unit intravenous solution (Ruconest) garadacimab-gxii 200 mg/1.2 mL 200 mg subcut Q30D 12/29/24 01/16/25 subcutaneous auto-injector (Andembry Autoinjector) Previous Rx's ?Medication ?Instructions ?Recorded ibuprofen 600 mg tablet 600 mg PO Q6-8H PRN pain #40 tabs 07/20/21 levalbuterol HCl 1.25 mg/3 mL 1.25 mg (3 mL) inhalation Q4-6H 01/28/24 solution for nebulization PRN shortness of breath or wheezing #90 mL tramadol 50 mg tablet 50 mg PO Q8H PRN pain #15 tabs 07/04/24 valsartan 40 mg tablet 40 mg PO BID #180 tabs 09/28/24 montelukast 10 mg tablet 10 mg PO BEDTIME #30 tabs 10/19/24 (Singulair) atenolol 25 mg tablet 25 mg PO BID #180 tabs 01/13/25 pantoprazole 40 mg tablet,delayed 40 mg PO DAILY 90 days #90 tabs 01/14/25 release rosuvastatin 40 mg tablet 40 mg PO BEDTIME #90 tabs 01/15/25 ciprofloxacin HCl 500 mg tablet 500 mg PO Q12H #14 tabs 01/16/25 hydrocodone 10 mg-acetaminophen 1 tab PO Q4-6H PRN pain 3 days #12 01/22/25 325 mg tablet tabs Allergies Allergy/AdvReac Type Severity Reaction Status Date / Time codeine (CODEINE) Allergy Intermediate RASH, HIVES Verified 01/21/25 23:46 dupilumab (From DupixCeltaxsys Pen) Allergy Intermediate Hives Verified 01/21/25 23:46 adhesive tape (Adhesive Tape) Allergy Mild blisters Verified 01/21/25 23:46 from clear plastic tape-cloth tape ok morphine (MORPHINE) Allergy Mild HIVES Verified 01/21/25 23:46 oxycodone (OXYCODONE) Allergy Mild HIVES Verified 01/21/25 23:46 omalizumab (From Xolair) Allergy Hives Verified 01/21/25 23:46 Review of Systems Constitutional: Constitutional: Reports as per [facility] Past Medical History Medical History Bilateral carotid artery stenosis Hypertension Asthma Mast cell activation syndrome CARO positive Post-operative nausea and vomiting COVID-19 vaccine series completed Surgical History History of esophagogastroduodenoscopy (EGD) History of thumb surgery History of colonoscopy History of arthroscopy of left knee History of bunionectomy of right great toe History of thumb surgery Family History Family History Father HTN (hypertension) Mother HTN (hypertension) CVD (cardiovascular disease) Social History Social History Household Members: Spouse Household Members Other:: son Housing: House Are you a primary director medicare sales to a significant other at home: No Do you presently have visiting nurse or other home services: No Alcohol intake: former Patient Tobacco Use Status: Former Tobacco user Tobacco use type: Cigarette Current occupational status: employed 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 Sexual orientation: Straight/Heterosexual Gender identity: Female Physical Exam Vital Signs: Vital Signs: Last Vital Signs Temp 98.7 F 01/21/25 23:46 Pulse 87 01/21/25 23:46 Resp 18 01/21/25 23:46 BP 139/64 01/21/25 23:46 Pulse Ox 98 01/21/25 23:46 O2 Del Method Room Air 01/21/25 23:46 BMI result Body Mass Index 25.7 Const: Other: Gen: ?Overall well-appearing patient, no facial trauma Abd: ?Bowel sounds are present, no tenderness no rebound no rigidity, pelvis is stable MSK: Full range of motion right lower extremity, left lower extremity passively she has full range of motion actively is decreased, point tenderness along proximal 3rd of her lateral thigh without hematomas, without deformities, compartments proximally distally are soft, distal pulses intact Skin: Warm, dry, intact, Neuro: ?Alert and oriented x3 Course Course Course Narrative: This is a RME preformed in triage by Connie Lacey PA-C. Date:01/21/25, time 1148 pm. HX: Patient presents with hip pain. Patient's dog ran into her leg, causing her legs to buckle. She hit her left hip on side of metal post around 4pm tonight. left hip pain only no back, knee lower leg, ankle or foot pain. She has iced it. Her son is a PT and he had concerns of a bone she points to her GT of the left hip . 10 pain. TOok advil @530pm. Took tramadol an hour ago, no change. No anticoagulation. No saddle anesthesias. Hurts to bear weight, could walk limping after injury but now cannot bear weight. PE: No hip injuries in the past. no pain over iliac crest, no midline tenderness step-offs deformities of spine nontender. Left GT tender She is sitting in wheelchair accompanied by her . [place] in triage: Gave ice pack Work UP: Left hip and femur xray Will defer full ROS and PE to treating provider. Patient will continued to be monitored in the interim. Medical Decision Making Medical Decision Making MDM Narrative: Patient is presenting with contusion, x-rays without any fractures, proximal distal compartments are soft, neurovascular function is intact, I actually saw the video of patient getting slammed into a fence [place], it was from a short distance there was no twisting to it, and she walked without a limp on the video, and started developing pain later on, this looks like an isolated contusion, she may develop some bruising later on, there was no evidence for occult injuries of her hip did not feel further imaging such as CT is indicated Differential Diagnosis Differential Diagnoses: The differential diagnosis associated with the presentation includes (Hip fracture, femur fracture, DVT, contusion, laceration) Independent Interpretation I performed an independent interpretation of an: Plain X-Ray (Pelvic in hip/femur x-rays without acute fractures, no soft tissue edema) Tests considered The following testing was considered but not selected: CT pelvis Prescription Management I considered prescription management with: Pain Medication Discharge Plan Discharge Clinical Impression: Contusion of left thigh Qualifiers: Encounter type: initial encounter Qualified Code(s): S70.12XA - Contusion of left thigh, initial encounter Patient Disposition: Home, Self-Care Additional Instructions: Big bag of ice to the area for 20-30 minutes at a time to 3 times a day you can also alternate with heat, your son can evaluate your for possible place intense, making sure that you ambulate and did not develop any contractures X-rays without any fractures You sustained a contusion, may have some bruising, secondary muscle spasm as not uncommon You can diamond picker rryv-mqc-klqrvgh lidocaine patches, and use Vicodin as I prescribed You can also use magnesium 400 mg daily to prevent spasms For additional pain control please contact your PCP Any other issues or worrisome concerns come back to the ER Prescriptions: New hydrocodone-acetaminophen 10-325 mg tablet 1 tab PO Q4-6H PRN (Reason: pain) 3 Days Qty: 12 0RF Rx Instructions: Partial Fill upon patient request. No Action valsartan 40 mg tablet 40 mg PO BID Qty: 180 3RF montelukast [Singulair] 10 mg tablet 10 mg PO BEDTIME Qty: 30 2RF atenolol 25 mg tablet 25 mg PO BID Qty: 180 1RF pantoprazole 40 mg tablet,delayed release (DR/EC) 40 mg PO DAILY 90 Days Qty: 90 1RF rosuvastatin 40 mg tablet 40 mg PO BEDTIME Qty: 90 3RF aspirin 81 mg Tablet 81 mg PO DAILY ibuprofen 600 mg tablet 600 mg PO Q6-8H PRN (Reason: pain) Qty: 40 0RF cyproheptadine 4 mg tablet 4 mg PO BEDTIME tramadol 50 mg tablet 50 mg PO Q8H PRN (Reason: pain) Qty: 15 0RF multivitamin Tablet 1 tab PO DAILY ascorbate calcium (vitamin C) 500 mg tablet 500 mg PO DAILY magnesium glycinate 100 mg magnesium capsule PO riboflavin (vitamin B2) 400 mg tablet 400 mg PO DAILY Breztri Aerosphere 160-9-4.8 mcg/actuation HFA aerosol inhaler inhalation Airsupra 90-80 mcg/actuation HFA aerosol inhaler inhalation fexofenadine [Rbittni Allergy] 60 mg tablet 120 mg PO DAILY levocetirizine [Xyzal] 5 mg tablet 10 mg PO QPM PRN (Reason: Allergy Symptoms) Tezspire 210 mg/1.91 mL (110 mg/mL) syringe 210 mg subcut Q4W Flonase Sensimist 27.5 mcg/actuation spray,suspension 2 spray intranasal DAILY Rx Instructions: into each nostril Andembry Autoinjector 200 mg/1.2 mL auto-injector 200 mg subcut Q30D epinephrine 0.3 mg/0.3 mL auto-injector 0.3 mg IM ONCE PRN (Reason: Anaphylaxis) levalbuterol HCl 1.25 mg/3 mL solution for nebulization 1.25 mg inhalation Q4-6H PRN (Reason: shortness of breath or wheezing) Qty: 90 3RF Ruconest 2,100 unit recon soln IV ciprofloxacin HCl 500 mg tablet 500 mg PO Q12H Qty: 14 0RF Print Language: Syrian
[2025-01-21 23:46] VITALS: BP 139/64; PULSE 87; RESP 18; TEMP 37.1; O2SAT 98; BMI 25.7
--- OUTSIDE RECORDS SUMMARY | 2025-01-22 00:39 | XMS_ITS | Patient Health Record ---
Author Organization [facility] Address [address] [place] [address] Care Team Providers Care Marine Fisheries Technician Name Role Phone Becka Pace DO Primary Care Provider Jazlyn Rangel Unavailable [phone] Allergies Allergen (clinical drug ingredient) Drug/Non Drug [...] W/U Status Risk Notes Problem Ingrowing nail (474281900) Ingrowing Nail (703.0) Active confirmed Problem Onychomycosis (467511133) Onychomycosis (110.1) Active confirmed Problem Pain in limb (68951818) Pain in Limb (729.5) Active confirmed Problem RSD (337.22) Active confirmed Plan Of Treatment Pending Test Test Name Order Date [id number] NAIL, 6 OR MORE 01/22/2011 [id number] Plate 01/22/2011 [id number] Plate 08/23/2011 39002-THM 10/01/2011 14682- Debride <25 sq cm 11/05/2011 [id number] SKIN/TISSUE 10/15/2011 Insurance Providers Payer Name Payer Address Payer Phone Subscriber Number Group Number Insured Name Patient Relationship to Insured Coverage Start Date Coverage End Date [facility] [address] [facility] [place] [address] [id number] Manuela Moreno Self - patient is the insured Medical (General) History Medical History History ICD Code sinus conditions high blood pressure headaches/migraines chicken pox Surgical History Surgery Date(Month/Year) knee surgery 1994 shoulder surgery 2003
--- OUTSIDE RECORDS SUMMARY | 2025-01-22 00:39 | XMS_ITS | Patient Health Record ---
Author Organization [facility] Address [address] [place] [address] Care Team Providers Care Merchandising Stock Associate Name Role Phone MANISH MACE M.D. Primary Care Provider Un available Jaylin Brantley Unavailable [phone] Allergies Allergen (clinical drug ingredient) Drug/Non Drug [...] Diovan 80MG 1 ORAL daily; Duration: -3 [facility] 01/22/2012 Active Multivitamins 1 ORAL daily; Duration: -3 [facility] 3 Active Aygestin 5 MG 1 tablet Orally BOB Y FROM DAYS 16 TO 25 OF HER CYCLES; Duration: 90 days 03/14/2016 Active Terazol 7 0.4 % 1 application at bed time Vaginal Once a day; Duration: 7 day(s) 03/09/2016 Active Atenolol 50MG 1 ORAL DAILY; Duration: -3 [facility] 2 Active Augmentin 500-125 MG [...] W/U Status Risk Notes Problem Lyme disease (09360937) Lyme disease (088.81) Active confirmed Problem Reflex sympathetic dystrophy of other specified site (337.29) Active confirmed Problem Disorder of breast (01729191) Disorder of breast, unspecified (N64.9) Active confirmed Problem Intermenstrual bleeding - irregular (48871294) Excessive and frequent menstruation with irregular cycle (N92.1) Active confirmed Problem Irregular Menstruation (21606302) Other specified irregular menstruation (N92.5) Active confirmed Problem Allergic rhinitis (26598599) Allergic rhinitis, cause unspecified (477.9) Active confirmed Major Problem Essential hypertension (04846886) Unspecified essential hypertension (401.9) Active confirmed Major Problem Metrorrhagia (00268174) Metrorrhagia (626.6) Active confirmed Major Problem Cellulitis (792712846) Cellulitis and abscess of unspecified site (682.9) Active confirmed Diag Problem Disorder of cartilage (40431831) Other and unspecified disorder of bone and cartilage (733.9) Active confirmed Major Plan Of Treatment Pending Test Test Name Order Date Ultrasound : Breast, right 07/10/2016 PAP SMEAR 06/15/2014 MAMMOGRAM, SCREENING 06/15/2014 Insurance Providers Payer Name Payer Address Payer Phone Subscriber Number Group Number Insured Name Patient Relationship to Insured Coverage Start Date Coverage End Date [facility] [address] [place] [address] [phone] [id number] MANISH THURMAN Self - patient is [...]
[2025-01-22] MEDS: Lidocaine 4 % Patch ADH..PATCH 1 PATCH TRANSDERMA (01:12)
[2025-01-22 01:30] VITALS: BP 140/59; PULSE 64; RESP 16; TEMP 36.4; O2SAT 98
== END 2025-01-22 01:32 | disposition home or self-care (01) ==
PROVIDERS: Emergency Provider Emergency Medicine; PCP Family Medicine
DX: S70.12XA Contusion of left thigh, initial encounter (principal); I10 Essential (primary) hypertension; W22.09XA Striking against other stationary object, initial encounter; Y93.89 Activity, other specified; Y92.89 Other specified places as the place of occurrence of the external cause; Y99.8 Other external cause status; Z79.899 Other long term (current) drug therapy
CPT/HCPCS: 72170; 73552; 99283

== ENCOUNTER → 2025-01-21 23:50 | Outpatient (BNV) | payer OTHER, SELFPAY | PROVIDERS: Emergency Provider Emergency Medicine; PCP Family Medicine; Visit Provider Radiology Diagnostic Radiology | DX: M79.652 Pain in left thigh (principal); M25.552 Pain in left hip | CPT/HCPCS: 72170; 73552 ==

== ENCOUNTER 2025-04-05 07:25 | Outpatient (REF) | payer OTHER, SELFPAY ==
--- NOTE | ~2025-04-05 | CT_ITS ---
CLINICAL HISTORY: R91.8 - Other nonspecific abnormal finding of lung field CT chest without contrast Comparison: CT/[place] - CT CHEST WO IV CON - 02/13/24 13:24 EDT Findings: Normal heart size. No coronary artery calcifications. The visualized thyroid and mediastinum are unremarkable. There are multiple tiny right upper lobe nodules without significant change. For example there is a stable 3 mm right upper lobe nodule on image 53. There is a stable 3 mm right upper lobe nodule on image 168. There is no new pulmonary nodule. There is minimal scarring at the bilateral lung apices without change. There is no consolidation or pleural effusion. The visualized upper abdomen is unremarkable. The bones are intact. IMPRESSION: 1. There are multiple tiny right upper lobe nodules without change, compatible with benign nodules. This document has been electronically signed by: Trina Bautista MD on 04/06/2025 13:35:42
--- OUTSIDE RECORDS SUMMARY | 2025-04-05 07:29 | XMS_ITS | Patient Health Record ---
Author Organization [facility] Address [address] [place] [address] Care Team Providers Care Care Attendant Name Role Phone MANISH MACE M.D. Primary Care Provider Un available Jaylin Brantley Unavailable [phone] Allergies Allergen (clinical drug ingredient) Drug/Non Drug [...] 80MG 1 ORAL daily; Duration: -3 [facility] 01/22/2012 Active Multivitamins 1 ORAL daily; Duration: -3 [facility] 3 Active Aygestin 5 MG 1 tablet Orally BOB Y FROM DAYS 16 TO 25 OF HER CYCLES; Duration: 90 days 03/14/2016 Active Terazol 7 0.4 % 1 application at bed time Vaginal Once a day; Duration: 7 day(s) 03/09/2016 Active Atenolol 50MG 1 ORAL DAILY; Duration: -3 [facility] 2 Active Augmentin 500-125 MG [...] W/U Status Risk Notes Problem Lyme disease (62534595) Lyme disease (088.81) Active confirmed Problem Reflex sympathetic dystrophy of other specified site (337.29) Active confirmed Problem Disorder of breast (88157301) Disorder of breast, unspecified (N64.9) Active confirmed Problem Intermenstrual bleeding - irregular (30049007) Excessive and frequent menstruation with irregular cycle (N92.1) Active confirmed Problem Irregular Menstruation (43785278) Other specified irregular menstruation (N92.5) Active confirmed Problem Allergic rhinitis (78941826) Allergic rhinitis, cause unspecified (477.9) Active confirmed Major Problem Essential hypertension (84997432) Unspecified essential hypertension (401.9) Active confirmed Major Problem Metrorrhagia (50576665) Metrorrhagia (626.6) Active confirmed Major Problem Cellulitis (178115814) Cellulitis and abscess of unspecified site (682.9) Active confirmed Diag Problem Disorder of cartilage (09847656) Other and unspecified disorder of bone and cartilage (733.9) Active confirmed Major Plan Of Treatment Pending Test Test Name Order Date Ultrasound : Breast, right 07/10/2016 PAP SMEAR 06/15/2014 MAMMOGRAM, SCREENING 06/15/2014 Insurance Providers Payer Name Payer Address Payer Phone Subscriber Number Group Number Insured Name Patient Relationship to Insured Coverage Start Date Coverage End Date [facility] [address] [place] [address] [id number] MANISH THURMAN Self - patient is [...]
--- OUTSIDE RECORDS SUMMARY | 2025-04-05 07:29 | XMS_ITS | Patient Health Record ---
Author Organization [facility] Address [address] [place] [address] Care Team Providers Care Baseboard Heating Installer Name Role Phone Becka Pace DO Primary Care Provider Jazlyn Rangel Unavailable [phone] Allergies Allergen (clinical drug ingredient) Drug/Non Drug [...] W/U Status Risk Notes Problem Ingrowing nail (557980317) Ingrowing Nail (703.0) Active confirmed Problem Onychomycosis (823955252) Onychomycosis (110.1) Active confirmed Problem Pain in limb (77517967) Pain in Limb (729.5) Active confirmed Problem RSD (337.22) Active confirmed Plan Of Treatment Pending Test Test Name Order Date [id number] NAIL, 6 OR MORE 01/22/2011 78585-Ngwzqaws Plate 01/22/2011 75916-Hcwixncs Plate 08/23/2011 89210-BYN 10/01/2011 58257- Debride <25 sq cm 11/05/2011 88428-PTWRZII SKIN/TISSUE 10/15/2011 Insurance Providers Payer Name Payer Address Payer Phone Subscriber Number Group Number Insured Name Patient Relationship to Insured Coverage Start Date Coverage End Date [facility] [address] [facility] [place] [address] [id number] Manuela Moreno Self - patient is the insured Medical (General) History Medical History History ICD Code sinus conditions high blood pressure headaches/migraines chicken pox Surgical History Surgery Date(Month/Year) knee surgery 1994 shoulder surgery 2003
== END 2025-04-05 07:26 | disposition home or self-care (01) ==
LOC: HO.CT 07:25
PROVIDERS: PCP Family Medicine; Visit Provider Nurse Practitioner Family
DX: R91.8 Other nonspecific abnormal finding of lung field (principal)
CPT/HCPCS: 71250

== ENCOUNTER → 2025-04-05 07:35 | Outpatient (BNV) | payer OTHER, SELFPAY | PROVIDERS: PCP Family Medicine; Visit Provider Radiology Diagnostic Radiology | DX: R91.8 Other nonspecific abnormal finding of lung field (principal) | CPT/HCPCS: 71250 ==

== ENCOUNTER 2025-04-20 14:29 | Outpatient (AMB) | payer OTHER, SELFPAY ==
[2025-04-20 14:45] VITALS: BMI 25.6
--- NOTE | 2025-04-20 14:45 | A.OFFVIS_ITS ---
Vital Signs 04/20/25 14:45 Height 5 ft 4 in Weight 149 lb BMI 25.6 Intake Visit Reasons: OV, R Thumb injection 2023, having pain Intake Note: Manuela is a 59 year old female who presents today as a follow up from her Right Thumb basal joint injection from 04/21/2024. At today's visit she reports injection helps and would like to repeat injection today. Also would like to discuss surgical intervention. Allergies codeine (CODEINE) Allergy (Intermediate, Verified 04/20/25 15:04) RASH, HIVES dupilumab (From Dupixent Pen) Allergy (Intermediate, Verified 04/20/25 15:04) Hives adhesive tape (Adhesive Tape) Allergy (Mild, Verified 04/20/25 15:04) blisters from clear plastic tape-cloth tape ok morphine (MORPHINE) Allergy (Mild, Verified 04/20/25 15:04) HIVES oxycodone (OXYCODONE) Allergy (Mild, Verified 04/20/25 15:04) HIVES omalizumab (From Xolair) Allergy (Verified 04/20/25 15:04) Hives HPI HPI OV, R Thumb injection 2023, having pain: Details: Manuela is a 59 year old right hand dominant woman who returns to discuss her right basal joint arthritis. 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 She was last seen and injected on 04/21/24 with good relief. She complains of pain at the base of her thumb, worse with pinching or gripping activities. She says she drops objects occasionally due to her pain. She says she has a constant ache in her thumb, which she finds limits her daily activity. She denies any numbness or tingling. She finds some relief from her comfort cool brace. She also has multiple other braces she switches between depending on her symptoms. She has a Hx of left basal joint arthroplasty with LR TI using a slip of APL tendon, DOS: 07/20/21. She is also S/P right thumb A1 luna release, DOS: 12/15/20. She is also S/P left de Quervain tenosynovitis injection on 05/09/20. She is very happy with the results of her surgeries [facility] Medical History Bilateral carotid artery stenosis Hypertension Asthma Mast cell activation syndrome CARO positive Post-operative nausea and vomiting COVID-19 vaccine series completed Surgical History History of esophagogastroduodenoscopy (EGD) History of thumb surgery History of colonoscopy History of arthroscopy of left knee History of bunionectomy of right great toe History of thumb surgery Family History Father HTN (hypertension) Mother HTN (hypertension) CVD (cardiovascular disease) Social History Household Members: Spouse Household Members Other:: son Housing: House Are you a primary skin care technician to a significant other at home: No Do you presently have visiting nurse or other home services: No Alcohol intake: former Patient Tobacco Use Status: Former Tobacco user Tobacco use type: Cigarette Current occupational status: employed 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 [employer] [facility] [place]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 Sexual orientation: Straight/Heterosexual Gender identity: Female Review of Systems Const All systems reviewed & are unremarkable except as noted in HPI and below Physical Exam Vital Signs: BMI result Body Mass Index 25.6 Const General: no acute distress and alert Orientation/consciousness: patient oriented x3 Neuro General: patient oriented x3 Extrem Other: Evaluation of Right Upper Extremity: The patient is alert, oriented, and in no acute distress Neuro: Median, Ulnar, Radial nerves motor and sensory intact and sensation is normal to the tips of all digits Vascular: Cap refill brisk ROM: Can bring fingers closed to a fist and back out to full extension. She could oppose her thumb to the tips of all digits No locking or catching Not tender over the a1 luna No tenderness over the 1st dorsal compartment No tenderness about the MCP joint MCP joint stable on exam Most tender over the basal joint + Shoulder sign + CMC grind Radiographs: 3 views of the right hand, with attention to the thumb, from 02/06/23 were reviewed by me today in clinic. They show no fractures or dislocations. There is some early right basal joint osteoarthritis with joint space narrowing and early osteophyte formation. Psych Appearance: grossly normal Affect: normal affect Attitude: cooperative Office Procedures AMB Fracture Care Details: fracture, injection Fracture Billing Code: Fracture Billing Code Assessment & Plan Assessment & Plan (1) Osteoarthritis of carpometacarpal joint of right thumb: Code(s): M18.11 - Unilateral primary osteoarthritis of first carpometacarpal joint, right hand Category: Medical Plan Assessment and plan: 1. Right basal joint osteoarthritis, S/P injection Date of injections: 04/20/25, 04/21/24 I educated her about this condition I discussed operative and non-operative treatment options The patient would like to proceed with an injection I discussed activity modification, they should limit or avoid any heavy or repetitive pinching or gripping activities She was fitted for a new comfort cool brace to wear with daily activity I again discussed the risks & benefits of surgery with her. She is considering this option in the future but at this time does not want to proceed with surgery. Again she is S/P left basal joint arthroplasty and very happy with the results of her surgery. Injection #1: The risks and benefits of a steroid injection including but not limited to risk of damage to blood vessels, nerve, tendon, infection, skin bleaching, persistent or worsening pain, and failure to improve symptoms were discussed with the patient and they wish to proceed with the steroid injection. Once consent was obtained the skin over the dorsum of the Right basal joint was sterilely prepped. The joint was then injected with a combination of 1 mL of dexamethasone (4mg/ml) and 1% plain Lidocaine. The patient appears to have tolerated the procedure well and with no complications. She had good early re lief before leaving clinic today. She knows that they may not have another steroid injection into this joint for least 4 months. 2. Left basal joint osteoarthritis S/P basal joint arthroplasty, and LR TI with a slip of APL tendon DOS: 07/20/2021 K-wire removed: 08/16/21 Doing well with no pain. She is very pleased with the results of her surgery 3. Right trigger thumb, S/P release DOS: 12/15/20 Doing well, no locking or catching today Scribed for Maribell Santos MD by Jaspal Cervantes veterinary medical officer, on 04/20/25 at 3:00 PM, EST. Coding Level of Care Code Est Pt Level 3 (45423) Diagnoses Osteoarthritis of carpometacarpal joint of right thumb M18.11 CPT Codes Fracture Care - Fracture Billing Code: Fracture Billing Code ([id number])
== END 2025-04-20 15:41 | disposition home or self-care (01) ==
LOC: HO.HOS 14:29
PROVIDERS: PCP Family Medicine; Visit Provider Orthopaedic Surgery
DX: M18.11 Unilateral primary osteoarthritis of first carpometacarpal joint, right hand (principal)
CPT/HCPCS: 20605; 99213

== ENCOUNTER → 2025-04-20 14:29 | Outpatient (BNVA) | payer OTHER, SELFPAY | PROVIDERS: PCP Family Medicine; Visit Provider Orthopaedic Surgery | DX: M18.11 Unilateral primary osteoarthritis of first carpometacarpal joint, right hand (principal) | CPT/HCPCS: 20605; J1100; J2003 ==